=== PATIENT | male | born 1990 | race Two or more races ===

== ENCOUNTER 2020-08-19 17:18 | Inpatient (IN) | payer MEDICAID, SELFPAY ==
--- NOTE | ~2020-08-19 | CT_ITS ---
EXAMINATION: CT ABDOMEN AND PELVIS WITHOUT CONTRAST CLINICAL INFORMATION: ruq pain, abd distention . COMPARISON: 11/15/2015 ultrasound. TECHNIQUE: Multidetector volumetric imaging was performed from the superior aspect of the liver through the pubic symphysis without contrast per request. Sagittal and coronal reformatted images were obtained on the technologist workstation. This CT examination was performed using dose optimization techniques as appropriate, variously including the following: *Automated exposure control *Adjustment of mA and/or kV according to patient size (this includes techniques or standardized protocols for targeted exams where dose is matched to indication/reason for exam; i.e. extremities or head) *Use of iterative reconstruction technique DLP: 965 mGy-cm. FINDINGS: LUNG BASES: The visualized lung bases are unremarkable. LIVER, GALLBLADDER, BILIARY TREE: There is diffuse fatty infiltration of the liver but no focal hepatic lesion nor biliary ductal dilatation. Scattered regions of focal fatty sparing are seen abutting the gallbladder fossa. The gallbladder is unremarkable with no evidence of radiopaque gallstones, gallbladder wall thickening, or obvious pericholecystic inflammatory changes. PANCREAS: There is fullness to the region the pancreatic head with peripancreatic soft tissue stranding and a small amount of fluid tracking along the right anterior pararenal space likely representing sequela of focal pancreatitis. I do not appreciate any evidence for pancreatic necrosis. Pancreatic duct is normal in caliber. SPLEEN: Unremarkable. ADRENAL GLANDS: Unremarkable. KIDNEYS AND URETERS: The kidneys are normal in size, shape, and attenuation. No hydronephrosis, hydroureter, or calculi seen. No perinephric stranding. BLADDER: Unremarkable. GASTROINTESTINAL TRACT: The small and large bowel are unremarkable. The appendix is unremarkable. ABDOMINAL WALL: No significant hernia is appreciated. LYMPHOVASCULAR STRUCTURES: No lymphadenopathy. The aorta is unremarkable.. PELVIC VISCERA: Unremarkable. OSSEUS STRUCTURES: Unremarkable. CT/CT abdomen pelvis wo con IMPRESSION: Findings most consistent with acute interstitial pancreatitis of the pancreatic head. There is mild fullness in this region with surrounding peripancreatic stranding and fluid. No obstructive changes seen to the pancreatic duct. Diffuse fatty infiltration of the liver noted as well.
[2020-08-19 17:24] VITALS: BP 206/101; PULSE 110; RESP 18; TEMP 36.9; O2SAT 98; BMI 46.5
--- NOTE | 2020-08-19 20:11 | ED_ITS ---
HPI - Abdominal Pain General Chief Complaint: Abdominal Pain Stated Complaint: Abdominal pain Time Seen by Provider: 08/19/20 22:18 Source: patient Mode of arrival: ambulatory Limitations: no limitations History of Present Illness HPI narrative: 20-year-old male with prediabetes presents with 1 day of right upper quadrant pain radiating to his back with nausea. States that this pain is a 10/10, he was unable to alleviated with [id number] medications. He has not been feeling the best over the past 2 months and recently changed his diet to low-fat diet. He has had intermittent episodes of diaphoresis with his nausea. He does not drink alcohol, denies illicit drug use, denies chest pain and pressure, palpitations, shortness breath, abdominal distention, dysuria, hematuria, melena, hematochezia, vomiting, constipation, diarrhea, dizziness, lightheadedness, fevers, chills, and edema. MD elicited complaint: abdominal pain Pertinent past history: none Onset (ago): day(s) (1) Pain Consistency: constant Location: RUQ Severity: severe Pain scale (0-10): 9 Quality: stabbing, aching and fullness Radiation: L flank and back Exacerbating factors: eating and movement Relieving factors: nothing Associated symptoms: nausea and chills Treatments prior to arrival: NSAIDs Related Data Home Medications Medication Instructions Recorded Confirmed No Known Home Meds 08/19/20 08/19/20 Allergies Allergy/AdvReac Type Severity Reaction Status Date / Time No Known Allergies Allergy Unverified 12/18/19 16:38 [No Known Allergies*] Review of Systems Review of Systems Constitutional: No Weight loss, No Fever, No Chills, No Night Sweats, No Fatigue, No Malaise ENT/Mouth: No Hearing loss, No Ear Pain, No Nasal Congestion, No Sinus Pain, No Hoarseness, No sore throat, No Rhinorrhea, No Swallowing Difficulty Eyes: No Eye Pain, No Swelling, No Redness, No Foreign Body, No Discharge, No Vision Changes Cardiovascular: No Chest Pain, No SOB, No Dyspnea on Exertion, No Orthopnea, No Edema, No Palpitations Respiratory: No Cough, No Sputum, No Wheezing, No Smoke Exposure, No Dyspnea Gastrointestinal: Positive Nausea, no Vomiting, no Diarrhea, positive right upper quadrant abdominal Pain, No Hematochezia, No Melena Genitourinary: no irregular bleeding, No Dysuria, No Urinary Frequency, No Hematuria, No Urinary Incontinence, No Urgency, No Flank Pain, No Urinary Flow Changes, No Hesitancy Musculoskeletal: No joint pain, No Myalgias, No Joint Swelling Skin: No Skin Lesions, No rash Neuro: No Weakness, No Numbness, No Paresthesias, No Loss of Consciousness, No Dizziness, No Headache Psych: No Anxiety/Panic, No Depression, No SI/HI/AH/VH, No Social Issues Heme/Lymph: No Bruising, No Bleeding,No Lymphadenopathy Endocrine: No Polyuria, No Polydipsia, No Temperature Intolerance Yes all other systems are reviewed and are negative Physical Exam Vital Signs: Vital Signs: Last Vital Signs Temp 98.7 F 08/20/20 00:00 Pulse 98 08/20/20 01:00 Resp 20 08/20/20 01:00 BP 154/99 H 08/20/20 01:00 Pulse Ox 94 08/20/20 01:00 Body Mass Index 46.5 Appearance: Alert. Oriented X3. Moderate distress. Head: Normal external exam. Normocephalic. Atraumatic. No Cedillo signs noted. No raccoon eyes noted Eyes: PERRLA. EOMI. Conjunctiva and sclera normal. Eyelids normal. ENT: TM's Normal. Pharynx normal. Uvula midline. Moist mucous membranes. No trismus noted. No drooling noted. No muffled voice noted. Neck: Normal inspection. Neck supple. No adenopathy. Thyroid Normal. No meningeal signs. No neck mass noted. CVS: Normal heart rate and rhythm. Heart sound normal. No murmurs noted. Pulses equal to all extremities. Respiratory: No respiratory distress. Painless inspiration. Breath sounds normal. No wheezes/rales/rhonchi noted. Chest nontender. No accessory muscle usage noted or decreased air movement noted. Abdomen: Soft and positive Moore's, tender to the right upper quadrant and epigastric area, Bowel sounds normal in all 4 quadrants. No distention noted. No organomegaly noted. No visible injury noted. Back: No CVA tenderness. Full range of motion noted. Skin: Skin warm and dry. Normal skin color. Normal skin turgor. No rashes/lesions/lacerations noted. Extremities: No lower extremity edema. Extremities exhibit normal range of motion. Extremities nontender. Neuro: cranial nerves 2-12 intact, no focal neural deficits, strength 5/5 to all extremities, No motor deficit. No sensory deficit. Course Course Course Narrative: 29-year-old male with prediabetes presents with 1 day of right upper quadrant pain and 2 months of not feeling well. Abdominal exam positive for Moore's, will order CT scan of the abdomen to rule out acute abdomen. Will order CBC, Chem 7, LFTs, lipase, will give fluids, morphine, and Zofran. CBC otherwise normal, sodium 134, glucose 363, lactic acid 1.1, bili 1.2, AST 50, lipase 174, triglycerides 1406. CT scan shows indication of pancreatic head inflammation consistent with pancreatitis. Discussion with hospitalist, hospitalist cannot accept this patient as triglycerides are over 1000. Discussion with ICU, plan to be admitted to ICU for acute pancreatitis. MDM - Abdominal Pain Differential Diagnosis Differential diagnosis: Likely abdominal pain, acute appendicitis, calculus of kidney and pancreatitis Differential diagnosis narrative:: Cholecystitis Medical Records Attestation: I reviewed the patient's medical records. Lab Data Attestation: I reviewed the patient's lab results. Result diagrams: 08/19/20 20:26 08/19/20 20:26 Labs: Lab Results 08/19/20 08/19/20 08/19/20 Range/Units 20:26 20:26 20:33 WBC 8.2 (4.8-10.8) X10*3/uL RBC 6.14 H (4.60-5.80) X10*6/uL Hgb 15.7 (14.0-18.0) g/dl Hct 47.0 (42-52) % MCV 76.5 L (80-98) fL MCH 25.6 L (27.0-33.0) pg MCHC 33.4 (31.0-36.0) g/dl RDW 13.9 (11.0-16.0) % Plt Count 280 (160-400) X10*3/uL MPV 11.4 (9.4-12.4) fL Immature Gran % (Auto) 0.4 (0.0-0.4) % Neut % (Auto) 73.9 H (45-73) % Lymph % (Auto) 16.3 L (20-40) % Doddridge % (Auto) 7.3 (2-11) % Eos % (Auto) 1.5 (0-4) % Baso % (Auto) 0.6 (0-2) % Lymph # (Auto) 1.3 (1.2-4.9) X10*3/uL Dod[place]idge # (Auto) 0.6 (0.1-1.2) X10*3/uL Eos # (Auto) 0.1 (0.0-0.4) X10*3/uL Baso # (Auto) 0.1 (0.0-0.2) X10*3/uL Abs Immat Gran (auto) 0.03 (0.00-0.03) X10*3/uL Absolute Neuts (auto) 6.1 (2.0-8.3) X10*3/uL Absolute Nucleated RBC 0.000 (0.0-0.012) X10*3/uL Nucleated RBC % (auto) 0.0 (0.0-0.2) /100WBC Sodium 134 L (135-145) mmol/L Potassium 4.4 (3.3-5.1) mmol/L Chloride 97 (96-108) mmol/L Carbon Dioxide 21 L (22-29) mmol/L Anion Gap 20 (12-20) BUN 16 (9-16) mg/dL Creatinine 1.26 (0.5-1.4) mg/dL Estim Creat Clear Calc 121.8 Estimated GFR > 60 Random Glucose 363 H* (60-115) mg/dL Lactic Acid 1.1 (0.5-2.0) mmol/L Calcium 10.7 H (8.4-10.2) mg/dL Total Bilirubin 1.2 H (0.0-1.0) mg/dL AST 29 (5-37) U/L ALT 50 H (0-40) U/L Alkaline Phosphatase 96 (39-117) U/L Total Protein 8.9 H (6.5-8.0) g/dL Albumin 5.2 H (3.5-5.0) g/dL Triglycerides 1406 mg/dL Lipase 174 H (8-78) U/L Imaging Data CT scan - abdomen: Attestation: I personally reviewed and interpreted this imaging study as follows: Radiologist's impression: EXAMINATION: CT ABDOMEN AND PELVIS WITHOUT CONTRAST CLINICAL INFORMATION: ruq pain, abd distention . COMPARISON: 11/15/2015 ultrasound. TECHNIQUE: Multidetector volumetric imaging was performed from the superior aspect of the liver through the pubic symphysis without contrast per request. Sagittal and coronal reformatted images were obtained on the technologist workstation. This CT examination was performed using dose optimization techniques as appropriate, variously including the following: *Automated exposure control *Adjustment of mA and/or kV according to patient size (this includes techniques or standardized protocols for targeted exams where dose is matched to indication/reason for exam; i.e. extremities or head) *Use of iterative reconstruction technique DLP: 965 mGy-cm. FINDINGS: LUNG BASES: The visualized lung bases are unremarkable. LIVER, GALLBLADDER, BILIARY TREE: There is diffuse fatty infiltration of the liver but no focal hepatic lesion nor biliary ductal dilatation. Scattered regions of focal fatty sparing are seen abutting the gallbladder fossa. The gallbladder is unremarkable with no evidence of radiopaque gallstones, gallbladder wall thickening, or obvious pericholecystic inflammatory changes. PANCREAS: There is fullness to the region the pancreatic head with peripancreatic soft tissue stranding and a small amount of fluid tracking along the right anterior pararenal space likely representing sequela of focal pancreatitis. I do not appreciate any evidence for pancreatic necrosis. Pancreatic duct is normal in caliber. SPLEEN: Unremarkable. ADRENAL GLANDS: Unremarkable. KIDNEYS AND URETERS: The kidneys are normal in size, shape, and attenuation. No hydronephrosis, hydroureter, or calculi seen. No perinephric stranding. BLADDER: Unremarkable. GASTROINTESTINAL TRACT: The small and large bowel are unremarkable. The appendix is unremarkable. ABDOMINAL WALL: No significant hernia is appreciated. LYMPHOVASCULAR STRUCTURES: No lymphadenopathy. The aorta is unremarkable.. PELVIC VISCERA: Unremarkable. OSSEUS STRUCTURES: Unremarkable. CT/CT abdomen pelvis wo con IMPRESSION: Findings most consistent with acute interstitial pancreatitis of the pancreatic head. There is mild fullness in this region with surrounding peripancreatic stranding and fluid. No obstructive changes seen to the pancreatic duct. Diffuse fatty infiltration of the liver noted as well. Critical Care Time Critical Care Time Critical Care Time: Yes Total Critical Care Time: 65 Attestation: I have personally provided critical care time exclusive of time spent on separately billable procedures. Time includes review of laboratory data, radiology results, discussion with consultants, and monitoring for potential decompensation. Interventions were performed as documented. Discharge Plan Discharge Clinical Impression: High triglycerides Pancreatitis Qualifiers: Chronicity: acute Pancreatitis type: unspecified pancreatitis type Acute pancreatitis complication: unspecified Qualified Code(s): K85.90 - Acute pancreatitis without necrosis or infection, unspecified Patient Disposition: Admitted As Inpatient Interventions: Admission Worksheet (ED) Last Done: 08/20/20 00:24 Discharge Date/Time: 08/20/20 00:25 [facility] Past Medical History Attestation statement: The following information was validated with the patient. Source: old records reviewed Social History Social History Alcohol intake: never Smoking Status: Never smoker Smoked in Last 30 Days: No Use of substances other than those prescribed or required for medical reasons: No Advance Directives: No Advance Directives Information Provided: No
[2020-08-19 20:31] LABS: Basophils Absolute Auto 0.1 X10*3/uL (0.0-0.2); Basophils Percent Auto 0.6 % (0-2); Eosinophils Absolute Auto 0.1 X10*3/uL (0.0-0.4); Eosinophils Percent Auto 1.5 % (0-4); Hemoglobin 15.7 g/dl (14.0-18.0); Imm Gran Abs Auto 0.03 X10*3/uL (0.00-0.03); Imm Gran Pct Auto 0.4 % (0.0-0.4); Lymphocytes Absolute Auto 1.3 X10*3/uL (1.2-4.9); Lymphocytes Percent Auto 16.3 % (20-40); MANUAL DIFF FLAG NO; Mean Corpuscular HGB Conc 33.4 g/dl (31.0-36.0); Mean Corpuscular Hemoglobin 25.6 pg (27.0-33.0); Mean Corpuscular Volume 76.5 fL (80-98); Mean Platelet Volume 11.4 fL (9.4-12.4); Monocytes Absolute Auto 0.6 X10*3/uL (0.1-1.2); Monocytes Percent Auto 7.3 % (2-11); Neutrophils Absolute Auto 6.1 X10*3/uL (2.0-8.3); Neutrophils Percent Auto 73.9 % (45-73); Platelet Count 280 X10*3/uL (160-400); Red Blood Count 6.14 X10*6/uL (4.60-5.80); Red Cell Distribution Width 13.9 % (11.0-16.0); White Blood Count 8.2 X10*3/uL (4.8-10.8)
[2020-08-19 20:36] VITALS: RESP 16
[2020-08-19] MEDS: 0.9 % Sodium Chloride 1,000 ML 999 ML IV (20:36)
[2020-08-19] MEDS: ondansetron HCL 4 MG/2 ML VIAL IVPUSH (20:36)
[2020-08-19] MEDS: Morphine Sulfate 4 MG/ML CARTRIDGE IVPUSH (20:36)
--- NOTE | 2020-08-19 20:42 | PC.NURSE ---
iv access obtained, first set of blood cultures drawn. patient medicated per emar and taken to ct scan. patient having waves of abd pain to the upper right quadrant.
[2020-08-19 20:55] VITALS: BP 145/93; PULSE 98; RESP 18; TEMP 36.9; O2SAT 97
[2020-08-19 21:03] LABS: Lactic Acid 1.1 mmol/L (0.5-2.0)
[2020-08-19 21:13] LABS: Alanine Aminotransferase 50 U/L (0-40); Albumin Level 5.2 g/dL (3.5-5.0); Alkaline Phosphatase 96 U/L (39-117); Anion Gap 20 (12-20); Aspartate Amino Transferase 29 U/L (5-37); Bilirubin Total 1.2 mg/dL (0.0-1.0); Blood Urea Nitrogen 16 mg/dL (9-16); Carbon Dioxide 21 mmol/L (22-29); Chloride 97 mmol/L (96-108); Creatinine Clr Calc Pharmacy 121.8; Estimated Glomerular Filt Rate > 60; Glucose Random 363 mg/dL (60-115); Potassium 4.4 mmol/L (3.3-5.1); Sodium 134 mmol/L (135-145); Total Protein 8.9 g/dL (6.5-8.0)
[2020-08-19 21:26] LABS: Calcium 10.7 mg/dL (8.4-10.2); Lipase 174 U/L (8-78)
[2020-08-19 22:07] LABS: Triglycerides 1406 mg/dL
--- NOTE | 2020-08-19 22:49 | PM.CCHP ---
History of Present Illness Date of Service: 08/20/20 HPI: 29-year-old patient with history of morbid obesity, who was toes about years ago that he was a prediabetic but this actually never been diagnosed and has never taken any medications for it. Patient states that he has been having some discomfort over the last couple of weeks in the right upper quadrant and epigastric area but it was waxing waning. Patient has been trying to change his diet over the last couple of weeks due to [place] however yesterday around 8:00 a.m. in the morning his pain became unbearable, he developed some nausea but no vomiting. Eventually his pain became so significant that he had to come to the emergency room. In the ER his workup revealed a normal white count, H&H of 15.7 and 47 platelets 280, sodium 134, potassium 4.4, carbon dioxide 21, anion gap 20, BUN 16, creatinine 1.26, random glucose 363. Calcium 10.7, lactic acid 1.1, lipase was 174, triglycerides 1406. He had a T of the abdomen and pelvis which showed acute interstitial pancreatitis of the pancreatic head with peripancreatic stranding and fluid. Urinalysis reveals proteinuria and glucosuria. COVID negative. ROS: Denies headache, no visual changes, lightheadedness or dizziness, no history of seizures or strokes, no history of eye or ear problems, no sore throat, cough or sputum production, denies shortness of breath, denies chest pain, palpitations, no coronary disease, pulmonary disease, no hemoptysis, denies any melena, hematochezia, liver or kidney problems, no dysuria, hematuria, no leg swelling, no history of DVT or PE. She has no travel and has not been contact with anybody with [facility]. All other review of systems negative. Past Medical History: As above Past Surgical History: None Family history: Noncontributory Social History: Lives at home, denies any alcohol, tobacco or drugs. CODE STATUS: Full code Allergies: No known drug allergies Home Medications: None PHYSICAL EXAM: VS: Blood pressure 150/98, heart rate 96, respirations 20 O2 sat 92% room air. ?General: Morbidly obese. Diaphoretic. Alert oriented x3 no acute distress. Speaking full sentences. Speech is well articulated, thought process is coherent. Following all commands. ?Skin: Intact, no lesions, edema, erythema, clubbing or cyanosis. No ulcers. ?HEENT: Head is normocephalic, atraumatic, pupils equal round reactive to light accommodation bilaterally. Extraocular movements appear intact. Buccal mucosa is dry. Neck is supple without lymphadenopathy. ?Cardiac: Clear S1-S2, no murmurs rubs or gallops. ?Pulmonary: Clear to auscultation, no wheezes, rales or rhonchi. ?Abdomen: Protuberant, positive bowel sounds in all 4 quadrants. Soft, tender to percussion over the epigastric and right upper quadrant. There is mild rebound tenderness and involuntary guarding therefore no direct or indirect outpatient was performed. There is no ecchymosis on the flanks or periumbilical area. ?Musculoskeletal: Moving all 4 extremities upon request a major joints, there is no crepitus or tenderness. The strength is 5/5 bilaterally and throughout all 4 extremities. There is no leg edema , no calf tenderness , no leg asymmetry. ?Neurologic: As above, cranial nerves 2-12 are grossly intact. No focal deficits noted. ?Motor strength as above. ?Vascular: 2+ pulses upper and lower extremities distally. SIGNIFICANT LABORATORY DATA: As above REVIEW OF IMAGES: CT abdomen and pelvis: Findings most consistent with acute interstitial pancreatitis of the pancreatic head. There is mild fullness in this region with surrounding peripancreatic stranding and fluid. No obstructive changes seen to the pancreatic duct. Diffuse fatty infiltration of the liver noted as well. ASSESSMENT AND PLAN: 1. Acute Pancreatitis due to Hypertriglyceremia 2. Hypertrigleceremia likely bad diet 3. Abdominal Pain due to above 4. Pseudohyponatremia due to Hyperglycemia 5. Borderline Hypercalcemia will obtain Ionized Ca+ level 6. Glucosuria and Protenuria 7. Uncontrolled DM without DKA 8. Non Alcoholic Fatty Liver Admit to ICU, monitor vital signs, I's and O's, NPO, IV insulin, he is not in DKA, will repeat labs and ordered ionized calcium. Continue IV fluids. I had a lengthy discussion with the patient about lifestyle changes including weight loss, exercise and dietary changes. He will need diabetic consult. Patient will need to be on a insulin drip regardless of the blood sugar for which D5 IV fluids can be given until the triglyceride levels come down to normal. GI PROPHYLAXIS: IV ppi DVT PROPHYLAXIS: Lovenox subQ Critical care time used for critical evaluation of this patient, diagnosis, treatment and coordination of care, review her records and documentation TOTAL CRITICAL CARE TIME 90 MIN . Patient's care was discussed in detail with Dr. Espinosa. He is aware of all the above as well as the plan of care for this patient. [facility] Social History Social History Alcohol intake: never Smoking Status: Never smoker Smoked in Last 30 Days: No Use of substances other than those prescribed or required for medical reasons: No Currently Displaying Signs/Symptoms of Drug Intoxication Withdrawal: No Advance Directives: No Advance Directives Information Provided: No Do you have thoughts of harming others: None Do you have a plan to hurt others: No Plan service: No Current occupational status: unemployed Meds Allergies Allergy/AdvReac Type Severity Reaction Status Date / Time No Known Allergies Allergy Unverified 12/18/19 16:38 [No Known Allergies*] Active Medications: Current Medications Generic Name Dose Route Start Last Admin Trade Name Freq PRN Reason Stop Dose Admin Enoxaparin Sodium 40 mg 08/19/20 23:00 Enoxaparin Sodium 40 Mg/0.4 Ml Syringe SUBCUT Q24H HUNTER Hydromorphone HCl 1 mg 08/19/20 22:37 Hydromorphone Hcl 1 Mg/Ml Syringe IVPUSH Q2H PRN Pain, Moderate (Pain Scale 4-6 Dextrose/Lactated Ringer's 1,000 mls @ 100 mls/hr 08/19/20 22:45 D5lr IVCONT .Q10H HUNTER Insulin Human Regular 100 unit in 100 mls @ 5 mls/hr 08/19/20 22:45 Myxredlin IVCONT .Q20H HUNTER Protocol 5 UNIT/HR Ondansetron HCl 4 mg 08/19/20 22:43 Ondansetron Hcl 4 Mg/2 Ml Vial IVPUSH Q6H PRN nausea Home Medications Medication Instructions Recorded Confirmed Last Taken Type No Known Home Meds 08/19/20 08/19/20 Unknown History Physical Exam Vital Signs: Vital Signs: Last Vital Signs Temp 98.5 F 08/19/20 20:55 Pulse 98 08/19/20 20:55 Resp 18 08/19/20 20:55 BP 145/93 H 05/20/21 20:55 Pulse Ox 97 08/19/20 20:55 Body Mass Index 46.5 Results Labs CBC and Chem 7: 08/20/20 05:28 08/20/20 05:28 Labs: Laboratory Results - last 24 hr 08/19/20 08/19/20 08/19/20 20:26 20:26 20:33 MCV 76.5 L MCH 25.6 L MCHC 33.4 RDW 13.9 Plt Count 280 MPV 11.4 Immature Gran % (Auto) 0.4 Neut % (Auto) 73.9 H Lymph % (Auto) 16.3 L [place]ting[place] % (Auto) 7.3 Eos % (Auto) 1.5 Baso % (Auto) 0.6 Lymph # (Auto) 1.3 [place]ting[place] # (Auto) 0.6 Eos # (Auto) 0.1 Baso # (Auto) 0.1 Abs Immat Gran (auto) 0.03 Absolute Neuts (auto) 6.1 Absolute Nucleated RBC 0.000 Nucleated RBC % (auto) 0.0 Anion Gap 20 Estim Creat Clear Calc 121.8 Estimated GFR > 60 Random Glucose 363 H* Lactic Acid 1.1 Calcium 10.7 H Total Bilirubin 1.2 H AST 29 ALT 50 H Alkaline Phosphatase 96 Total Protein 8.9 H Albumin 5.2 H Triglycerides 1406 Lipase 174 H Imaging Radiologist's Impressions: Impressions Abdomen/Pelvis CT 08/19/20 20:20 IMPRESSION: Findings most consistent with acute interstitial pancreatitis of the pancreatic head. There is mild fullness in this region with surrounding peripancreatic stranding and fluid. No obstructive changes seen to the pancreatic duct. Diffuse fatty infiltration of the liver noted as well.
[2020-08-19 22:56] LABS: Appearance Urine CLEAR; Color Urine YELLOW; Glucose Urine UA >=1000 MG/DL (NEG); Leukocyte Esterase Urine NEG (NEG); Nitrite Urine NEG (NEG); PH 5.5 (5.0-8.0); Specific Gravity - Urine >= 1.030 (1.005-1.025); Urine Blood NEG (NEG); Urine Ketones >=80 MG/DL (NEG); Urine Protein 1+ MG/DL (NEG-TRACE)
[2020-08-19 23:05] LABS: Bacteria Urine 1+ /LPF; RBC Urine 0 /HPF (0); Squamous Epithelial Cell Urine 1+ /LPF; WBC Urine 0 /HPF (0-4)
[2020-08-19 23:07] VITALS: RESP 16
[2020-08-19] MEDS: HYDROmorphone HCl 2 MG/ML VIAL IVPUSH (23:07)
[2020-08-19] MEDS: Enoxaparin Sodium 40 MG/0.4 ML SYRINGE SUBCUT (23:09)
[2020-08-19] MEDS: Pantoprazole Sodium 40 MG/10 ML VIAL IVPUSH (23:09)
[2020-08-19] MEDS: Insulin Regular, Human 100 UNIT/ML 3 ML VIAL IVPUSH (23:09)
[2020-08-19] MEDS: Dextrose 5 % and Lactated Ring 1,000 ML 100 ML IVCONT (23:19)
[2020-08-19 23:21] LABS: Glucose, Whole Blood 322 mg/dL (60-115)
[2020-08-19] MEDS: Insulin Regular/NS 100 UNIT/100 ML PLAST..BAG IVCONT (23:22)
--- NOTE | 2020-08-19 23:51 | PC.NURSE ---
PATIENT MEDICATED PER EMAR. STATING PAIN WAS 9/10 PROVIDER AWARE AND ORDERS FOR PAIN MEDICATION, GIVEN. PATIENT IS SWEATY AND UNCOMFORTABLE PRIOR TO ADMINISTRATION, PATIENT FALLING ASLEEP AND LOOKS MUCH MORE COMFORTABLE ON STRETCER, RESOLVE OF PAIN 0/10 AFTER PAIN MEDICATION. INSULIN DRIP HUNG AND WITNESSED BY RODRIGUE GRIFFIN. COVID SWAP SENT TO LAB AWAITING REUSLTS. REPORT GIVEN TO PURNIMA GRIFFIN IN ICU. AWAITING FOR COVID SWAB RESULTS BEFORE TRANSPORTING TO UNIT.
[2020-08-19 23:54] LABS: COVID-19 Test Negative (Negative); IDNOW Serial# 9DD0AD1C
[2020-08-20] VITALS (22 sets, daily range): BP systolic 134–186; BP diastolic 76–108; PULSE 83–121; RESP 12–25; TEMP 36.2–37.1; O2SAT 94–99; BMI 41.9; BMI 42.3
[2020-08-20 00:35] LABS: Glucose, Whole Blood 360 mg/dL (60-115)
[2020-08-20] MEDS: ondansetron HCL 4 MG/2 ML VIAL IVPUSH ×3 (00:40→21:36)
[2020-08-20] MEDS: Lactated Ringers 1,000 ML 100 ML IVCONT ×2 (01:00→10:29)
[2020-08-20 01:24] LABS: Glucose, Whole Blood 297 mg/dL (60-115)
[2020-08-20 01:56] LABS: Anion Gap 16 (12-20); Blood Urea Nitrogen 12 mg/dL (9-16); Calcium 9.4 mg/dL (8.4-10.2); Carbon Dioxide 21 mmol/L (22-29); Chloride 102 mmol/L (96-108); Creatinine Clr Calc Pharmacy 140.6; Estimated Glomerular Filt Rate > 60; Glucose Random 341 mg/dL (60-115); Potassium 4.4 mmol/L (3.3-5.1); Sodium 135 mmol/L (135-145)
[2020-08-20 02:18] LABS: Glucose, Whole Blood 305 mg/dL (60-115)
[2020-08-20 03:09] LABS: Glucose, Whole Blood 275 mg/dL (60-115)
[2020-08-20] MEDS: Metoclopramide HCl 10 MG/2 ML VIAL IVPUSH (03:30)
[2020-08-20 04:19] LABS: Glucose, Whole Blood 287 mg/dL (60-115)
--- NOTE | 2020-08-20 04:48 | PC.NURSE ---
ADMIT TO 261-1 FROM ER DEPT..ALERT..ORIENTED X3...FOREHEAD REMAINS DIAPHORETIC PER REPORT...AARON...STANDS AT BEDSIDE WITH STEADY GAIT TO VOID...BP ELEVATED--PROVIDER PRESENT AND AWARE---D5LR 100 CC/HR CHANGED TO LR 100 CC/HR BY ICU PA--INSULIN DRIP 5 UNITS/HR AT TRANSFER TO ICU--DRIP TITRATED PER ICU PA--INSULIN CURRENTLY @ 6 UNITS/HR--C/O NAUSEA---MEDICATED WITH PRN ZOFRAN WITH RELIEF--APPROX 3 HOURS LATER C/O RETURN OF NAUSEA--VOMITED SMALL AMOUNT OF BILE--PROVIDER PRESENT--MEDICATED WITH REGLAN IV--CURRENTLY DOZING
[2020-08-20 05:25] LABS: Glucose, Whole Blood 270 mg/dL (60-115)
[2020-08-20 05:38] LABS: MANUAL DIFF FLAG NO
[2020-08-20 05:45] LABS: Basophils Percent Auto 0.3 % (0-2); Eosinophils Percent Auto 0.3 % (0-4); Hematocrit 45.8 % (42-52); Hemoglobin 14.9 g/dl (14.0-18.0); Imm Gran Abs Auto 0.05 X10*3/uL (0.00-0.03); Imm Gran Pct Auto 0.5 % (0.0-0.4); Lymphocytes Absolute Auto 0.9 X10*3/uL (1.2-4.9); Lymphocytes Percent Auto 9.4 % (20-40); Mean Corpuscular HGB Conc 32.5 g/dl (31.0-36.0); Mean Corpuscular Hemoglobin 25.4 pg (27.0-33.0); Mean Platelet Volume 11.3 fL (9.4-12.4); Monocytes Absolute Auto 0.6 X10*3/uL (0.1-1.2); Monocytes Percent Auto 6.3 % (2-11); Neutrophils Absolute Auto 8.1 X10*3/uL (2.0-8.3); Neutrophils Percent Auto 83.2 % (45-73); Platelet Count 255 X10*3/uL (160-400); Red Blood Count 5.87 X10*6/uL (4.60-5.80); White Blood Count 9.8 X10*3/uL (4.8-10.8)
[2020-08-20] MEDS: Insulin Regular/NS 100 UNIT/100 ML PLAST..BAG 6 UNIT IVCONT (06:09)
[2020-08-20 06:10] LABS: Alanine Aminotransferase 42 U/L (0-40); Albumin Level 4.8 g/dL (3.5-5.0); Alkaline Phosphatase 84 U/L (39-117); Anion Gap 16 (12-20); Aspartate Amino Transferase 23 U/L (5-37); Bilirubin Total 1.1 mg/dL (0.0-1.0); Blood Urea Nitrogen 11 mg/dL (9-16); Calcium 9.7 mg/dL (8.4-10.2); Carbon Dioxide 21 mmol/L (22-29); Chloride 103 mmol/L (96-108); Cholesterol 201 mg/dL; Creatinine Clr Calc Pharmacy 129.3; Estimated Glomerular Filt Rate > 60; Glucose Random 293 mg/dL (60-115); HDL Cholesterol 19 mg/dL; Potassium 4.9 mmol/L (3.3-5.1); Sodium 135 mmol/L (135-145); Total Protein 7.8 g/dL (6.5-8.0); Triglycerides 883 mg/dL
[2020-08-20 06:24] LABS: Glucose, Whole Blood 269 mg/dL (60-115)
[2020-08-20 07:01] LABS: Lipase 189 U/L (8-78)
[2020-08-20 07:05] LABS: Glucose, Whole Blood 234 mg/dL (60-115)
[2020-08-20 08:01] LABS: Glucose, Whole Blood 251 mg/dL (60-115)
[2020-08-20] MEDS: lisinopriL 5 MG TABLET PO ×2 (08:36→14:11)
[2020-08-20 10:54] LABS: Glucose, Whole Blood 255 mg/dL (60-115)
--- NOTE | 2020-08-20 12:32 | MHC.CM.PN ---
Pt presently in ICU with new DM findings. Met with pt to discuss d/c planning: Pt resides with spouse and children: no services or medical equipment in the home. Discussed new dx of diabetes and need for outpt f/u and adherence to medications/diet. Pt states he is motivated and offered no barriers to compliance. Pt will need teaching re: management: updated MD on need for outpt endocrinology. Pt drove self to [facility] [place] but will have family transport him home. He is not a candidate for VNA d/t his non housebound status. CM to follow should pt require services.
[2020-08-20 13:09] LABS: Estimated Average Glucose 286 mg/dL; Hemoglobin A1c % 11.6 %
--- NOTE | 2020-08-20 13:43 | PM.CCPN ---
Subjective Subjective Date of Service: 08/20/20 Interval History: Mr. Scott Kurtz was admitted to ICU late last night with hypertriglyceridemia-induced pancreatitis. The patient is a 29-year-old man with history of morbid obesity (wt 130kg) and ?prediabetes?. Been having abdom discomfort over the last couple of weeks. Pain became unbearable yesterday, w nausea but no vomiting. The pain radiated to his left flank and back. He does not drink alcohol or use drugs. This has never happened to him before. He therefore came to the emergency room yesterday afternoon. In the ER he was afebrile and hypertensive. He had right upper quadrant and epigastric tenderness. Labs in the ED were notable for a normal white count, sodium 134, bicarb 21, anion gap 20, BUN/creat 16/1.26 (was 0.8 in 2018), glucose 363, lipase 174, triglycerides 1406 (was 159 in 2011, 149 in 2009). CT abdomen showed acute interstitial pancreatitis of the pancreatic head with peripancreatic stranding and fluid. The patient was vol resusc and admitted to ICU. He was put on an insulin drip. Overnight his insulin drip has been increased to 10u/hr, and at that dose, he?s maintaining a POC in the 250?s range. This morning, his abdominal pain is much better. He?s fully awake alert and appropriate, and gave me a great history. Breathing easy with sat mid-high 90s on room air. Heart rate is 110, blood pressure is 146/85. He remains afebrile. No jugular venous distention with the head of the bed at 30 degrees. Chest is clear. Abdomen is nondistended, still has some mild right upper quadrant tenderness, but no guarding or rebound. No peripheral edema. Very well-developed, with excellent muscle mass. LABORATORY DATA: As below. Notably, Hemoglobin A1c is 11.6. BUN and creatinine down to 11/1.1, glucose this morning was 293, T bili was 1.1, triglyceride level was 883, lipase earlier this morning was 189. ASSESSMENT AND PLAN: 1. Morbid obesity due to dietary indiscretion. 2. Acute Pancreatitis due to hypertriglyceremia. Based on levels from years past, not likely (entirely) familial. Probably could be controlled with diet. For now, we?ll start him on atorvastatin 80 mg daily. 3. Abdominal Pain due to above 4. Uncontrolled DM without DKA. Start metformin 850 mg daily. 5. HTN. Will also likely resolve post weight-loss. In the meantime, d/w Dr. Chavez. We?ll start Lisinopril 10mg daily, and Dr. Chavez will see him in the office. I talked with the patient at length about his DM, his HTN, his triglycerides and his weight. D/C IV fluids. D/C Lovenox; he?s up and walking around, very low risk, needs no pharmacological or mechanical DVT prophylaxis. Time: 60+ min. (26015) Critical Care Time (minutes): 0 Physical Exam Vital Signs: Vital Signs: Last Vital Signs Temp 98.2 F 08/20/20 12:00 Pulse 83 08/20/20 13:00 Resp 16 08/20/20 13:00 BP 148/76 H 08/20/20 13:00 Pulse Ox 99 08/20/20 13:00 Body Mass Index 42.3 Objective Data Labs CBC & Chem 7: 08/20/20 05:28 08/20/20 05:28 Labs: Laboratory Results - last 24 hr 08/19/20 08/19/20 08/19/20 20:26 20:26 20:33 WBC 8.2 RBC 6.14 H Hgb 15.7 Hct 47.0 MCV 76.5 L MCH 25.6 L MCHC 33.4 RDW 13.9 Plt Count 280 MPV 11.4 Immature Gran % (Auto) 0.4 Neut % (Auto) 73.9 H Lymph % (Auto) 16.3 L [place] % (Auto) 7.3 Eos % (Auto) 1.5 Baso % (Auto) 0.6 Lymph # (Auto) 1.3 [place] # (Auto) 0.6 Eos # (Auto) 0.1 Baso # (Auto) 0.1 Abs Immat Gran (auto) 0.03 Absolute Neuts (auto) 6.1 Absolute Nucleated RBC 0.000 Nucleated RBC % (auto) 0.0 Sodium 134 L Potassium 4.4 Chloride 97 Carbon Dioxide 21 L Anion Gap 20 BUN 16 Creatinine 1.26 Estim Creat Clear Calc 121.8 Estimated GFR > 60 POC Glucose Random Glucose 363 H* Estimat Average Glucose Hemoglobin A1c % Lactic Acid 1.1 Calcium 10.7 H Total Bilirubin 1.2 H AST 29 ALT 50 H Alkaline Phosphatase 96 Total Protein 8.9 H Albumin 5.2 H Triglycerides 1406 Cholesterol LDL Cholesterol, Calc HDL Cholesterol Lipase 174 H Urine Color Urine Appearance Urine pH Ur Specific [place] Urine Protein Urine Glucose (UA) Urine Ketones Urine Blood Urine Nitrite Ur Leukocyte Esterase Urine RBC Urine WBC Ur Squamous Epith Cells Urine Bacteria Hyaline Casts COVID-19 ([place]) COVID-19 Clin Com 08/19/20 08/19/20 08/19/20 22:49 23:17 23:36 WBC RBC Hgb Hct MCV MCH MCHC RDW Plt Count MPV Immature Gran % (Auto) Neut % (Auto) Lymph % (Auto) [place] % (Auto) Eos % (Auto) Baso % (Auto) Lymph # (Auto) [place] # (Auto) Eos # (Auto) Baso # (Auto) Abs Immat Gran (auto) Absolute Neuts (auto) Absolute Nucleated RBC Nucleated RBC % (auto) Sodium Potassium Chloride Carbon Dioxide Anion Gap BUN Creatinine Estim Creat Clear Calc Estimated GFR POC Glucose 322 H Random Glucose Estimat Average Glucose Hemoglobin A1c % Lactic Acid Calcium Total Bilirubin AST ALT Alkaline Phosphatase Total Protein Albumin Triglycerides Cholesterol LDL Cholesterol, Calc HDL Cholesterol Lipase Urine Color YELLOW Urine Appearance CLEAR Urine pH 5.5 Ur Specific [place] >= 1.030 H Urine Protein 1+ H Urine Glucose (UA) >=1000 H Urine Ketones >=80 Urine Blood NEG Urine Nitrite NEG Ur Leukocyte Esterase NEG Urine RBC 0 Urine WBC 0 Ur Squamous Epith Cells 1+ Urine Bacteria 1+ Hyaline Casts 1-4 COVID-19 ([place]) Negative COVID-19 Clin Com See Note 08/20/20 08/20/20 08/20/20 00:29 01:19 01:21 WBC RBC Hgb Hct MCV MCH MCHC RDW Plt Count MPV Immature Gran % (Auto) Neut % (Auto) Lymph % (Auto) [place] % (Auto) Eos % (Auto) Baso % (Auto) Lymph # (Auto) [place] # (Auto) Eos # (Auto) Baso # (Auto) Abs Immat Gran (auto) Absolute Neuts (auto) Absolute Nucleated RBC Nucleated RBC % (auto) Sodium 135 Potassium 4.4 Chloride 102 Carbon Dioxide 21 L Anion Gap 16 BUN 12 Creatinine 1.03 Estim Creat Clear Calc 140.6 Estimated GFR > 60 POC Glucose 360 H* 297 H Random Glucose 341 H Estimat Average Glucose Hemoglobin A1c % Lactic Acid Calcium 9.4 D Total Bilirubin AST ALT Alkaline Phosphatase Total Protein Albumin Triglycerides Cholesterol LDL Cholesterol, Calc HDL Cholesterol Lipase 189 H Urine Color Urine Appearance Urine pH Ur Specific [place] Urine Protein Urine Glucose (UA) Urine Ketones Urine Blood Urine Nitrite Ur Leukocyte Esterase Urine RBC Urine WBC Ur Squamous Epith Cells Urine Bacteria Hyaline Casts COVID-19 ([place]) COVID-19 [employer] 08/20/20 08/20/20 08/20/20 02:06 03:01 04:15 WBC RBC Hgb Hct MCV MCH MCHC RDW Plt Count MPV Immature Gran % (Auto) Neut % (Auto) Lymph % (Auto) [place] % (Auto) Eos % (Auto) Baso % (Auto) Lymph # (Auto) [place] # (Auto) Eos # (Auto) Baso # (Auto) Abs Immat Gran (auto) Absolute Neuts (auto) Absolute Nucleated RBC Nucleated RBC % (auto) Sodium Potassium Chloride Carbon Dioxide Anion Gap BUN Creatinine Estim Creat Clear Calc Estimated GFR POC Glucose 305 H 275 H 287 H Random Glucose Estimat Average Glucose Hemoglobin A1c % Lactic Acid Calcium Total Bilirubin AST ALT Alkaline Phosphatase Total Protein Albumin Triglycerides Cholesterol LDL Cholesterol, Calc HDL Cholesterol Lipase Urine Color Urine Appearance Urine pH Ur Specific [place] Urine Protein Urine Glucose (UA) Urine Ketones Urine Blood Urine Nitrite Ur Leukocyte Esterase Urine RBC Urine WBC Ur Squamous Epith Cells Urine Bacteria Hyaline Casts COVID-19 ([place]) COVID-19 [employer] 08/20/20 08/20/20 08/20/20 05:19 05:28 05:28 WBC 9.8 RBC 5.87 H Hgb 14.9 Hct 45.8 MCV 78.0 L MCH 25.4 L MCHC 32.5 RDW 14.0 Plt Count 255 MPV 11.3 Immature Gran % (Auto) 0.5 H Neut % (Auto) 83.2 H Lymph % (Auto) 9.4 L [place] % (Auto) 6.3 Eos % (Auto) 0.3 Baso % (Auto) 0.3 Lymph # (Auto) 0.9 L [place] # (Auto) 0.6 Eos # (Auto) 0.0 Baso # (Auto) 0.0 Abs Immat Gran (auto) 0.05 H Absolute Neuts (auto) 8.1 Absolute Nucleated RBC 0.000 Nucleated RBC % (auto) 0.0 Sodium 135 Potassium 4.9 Chloride 103 Carbon Dioxide 21 L Anion Gap 16 BUN 11 Creatinine 1.12 Estim Creat Clear Calc 129.3 Estimated GFR > 60 POC Glucose 270 H Random Glucose 293 H Estimat Average Glucose Hemoglobin A1c % Lactic Acid Calcium 9.7 Total Bilirubin 1.1 H AST 23 ALT 42 H Alkaline Phosphatase 84 Total Protein 7.8 Albumin 4.8 Triglycerides 883 Cholesterol 201 LDL Cholesterol, Calc TNP HDL Cholesterol 19 Lipase Urine Color Urine Appearance Urine pH Ur Specific [place] Urine Protein Urine Glucose (UA) Urine Ketones Urine Blood Urine Nitrite Ur Leukocyte Esterase Urine RBC Urine WBC Ur Squamous Epith Cells Urine Bacteria Hyaline Casts COVID-19 ([place]) COVID-19 [employer] 08/20/20 08/20/20 08/20/20 05:28 06:17 07:01 WBC RBC Hgb Hct MCV MCH MCHC RDW Plt Count MPV Immature Gran % (Auto) Neut % (Auto) Lymph % (Auto) [place] % (Auto) Eos % (Auto) Baso % (Auto) Lymph # (Auto) [place] # (Auto) Eos # (Auto) Baso # (Auto) Abs Immat Gran (auto) Absolute Neuts (auto) Absolute Nucleated RBC Nucleated RBC % (auto) Sodium Potassium Chloride Carbon Dioxide Anion Gap BUN Creatinine Estim Creat Clear Calc Estimated GFR POC Glucose 269 H 234 H Random Glucose Estimat Average Glucose 286 Hemoglobin A1c % 11.6 Lactic Acid Calcium Total Bilirubin AST ALT Alkaline Phosphatase Total Protein Albumin Triglycerides Cholesterol LDL Cholesterol, Calc HDL Cholesterol Lipase Urine Color Urine Appearance Urine pH Ur Specific [place] Urine Protein Urine Glucose (UA) Urine Ketones Urine Blood Urine Nitrite Ur Leukocyte Esterase Urine RBC Urine WBC Ur Squamous Epith Cells Urine Bacteria Hyaline Casts COVID-19 ([place]) COVID-19 [employer] 08/20/20 08/20/20 07:58 10:51 WBC RBC Hgb Hct MCV MCH MCHC RDW Plt Count MPV Immature Gran % (Auto) Neut % (Auto) Lymph % (Auto) [place] % (Auto) Eos % (Auto) Baso % (Auto) Lymph # (Auto) [place] # (Auto) Eos # (Auto) Baso # (Auto) Abs Immat Gran (auto) Absolute Neuts (auto) Absolute Nucleated RBC Nucleated RBC % (auto) Sodium Potassium Chloride Carbon Dioxide Anion Gap BUN Creatinine Estim Creat Clear Calc Estimated GFR POC Glucose 251 H 255 H Random Glucose Estimat Average Glucose Hemoglobin A1c % Lactic Acid Calcium Total Bilirubin AST ALT Alkaline Phosphatase Total Protein Albumin Triglycerides Cholesterol LDL Cholesterol, Calc HDL Cholesterol Lipase Urine Color Urine Appearance Urine pH Ur Specific [place] Urine Protein Urine Glucose (UA) Urine Ketones Urine Blood Urine Nitrite Ur Leukocyte Esterase Urine RBC Urine WBC Ur Squamous Epith Cells Urine Bacteria Hyaline Casts COVID-19 ([place]) COVID-19 Clin Com
[2020-08-20] MEDS: Atorvastatin Calcium 80 MG TABLET PO (14:11)
[2020-08-20] MEDS: metFORMIN HCl 850 MG TABLET PO (14:12)
[2020-08-20 14:34] LABS: Phosphorus 3.7 mg/dL (2.7-4.5)
[2020-08-20 15:05] LABS: Glucose, Whole Blood 203 mg/dL (60-115)
[2020-08-20 16:02] LABS: Magnesium 2.2 mg/dL (1.6-2.6)
[2020-08-20 16:12] LABS: Glucose, Whole Blood 171 mg/dL (60-115)
[2020-08-20] MEDS: Insulin Regular/NS 100 UNIT/100 ML PLAST..BAG 10 UNIT IVCONT (16:15)
--- NOTE | 2020-08-20 18:43 | PC.NURSE ---
Assumed care at 0700; patient is alert and oriented, responds appropriately. Insulin gtt continues, titrated per MD directions, in use largely to treat elevated triglycerides. Started metformin; Started atorvastatin, started lisinopril as BP was 160's/100's, and lisinopril uptitrated by provider to 10 mg, and systolic bp was 140's afterwards. Patient ambulated through the unit and was out of bed in the chair for the majority of the day. Low falls risk, steady gait. RUQ pain 5-6/10 and epigastric pain declined PRN medication when offered. educated about medications with good teachback
[2020-08-20 19:35] LABS: Glucose, Whole Blood 194 mg/dL (60-115)
[2020-08-20] MEDS: HYDROmorphone HCl 1 MG/ML SYRINGE IVPUSH (21:31)
[2020-08-20] MEDS: Melatonin 3 MG TABLET 6 MG PO (21:31)
[2020-08-20 23:10] LABS: Glucose, Whole Blood 188 mg/dL (60-115)
[2020-08-21] VITALS (13 sets, daily range): BP systolic 131–153; BP diastolic 72–94; PULSE 18–107; RESP 16–24; TEMP 36.4–37.1; O2SAT 94–100; BMI 42.3
[2020-08-21 03:10] LABS: Glucose, Whole Blood 170 mg/dL (60-115)
[2020-08-21] MEDS: HYDROmorphone HCl 1 MG/ML SYRINGE IVPUSH (03:11)
[2020-08-21 06:05] LABS: MANUAL DIFF FLAG NO
[2020-08-21 06:11] LABS: Basophils Absolute Auto 0.1 X10*3/uL (0.0-0.2); Basophils Percent Auto 0.6 % (0-2); Eosinophils Absolute Auto 0.2 X10*3/uL (0.0-0.4); Eosinophils Percent Auto 1.7 % (0-4); Hematocrit 42.1 % (42-52); Hemoglobin 13.5 g/dl (14.0-18.0); Imm Gran Abs Auto 0.05 X10*3/uL (0.00-0.03); Imm Gran Pct Auto 0.6 % (0.0-0.4); Lymphocytes Absolute Auto 1.6 X10*3/uL (1.2-4.9); Lymphocytes Percent Auto 17.6 % (20-40); Mean Corpuscular HGB Conc 32.1 g/dl (31.0-36.0); Mean Corpuscular Hemoglobin 25.3 pg (27.0-33.0); Mean Corpuscular Volume 78.8 fL (80-98); Monocytes Absolute Auto 0.8 X10*3/uL (0.1-1.2); Monocytes Percent Auto 9.2 % (2-11); Neutrophils Absolute Auto 6.3 X10*3/uL (2.0-8.3); Neutrophils Percent Auto 70.3 % (45-73); Platelet Count 229 X10*3/uL (160-400); Red Blood Count 5.34 X10*6/uL (4.60-5.80); Red Cell Distribution Width 14.6 % (11.0-16.0)
[2020-08-21 06:44] LABS: Alanine Aminotransferase 33 U/L (0-40); Albumin Level 4.2 g/dL (3.5-5.0); Alkaline Phosphatase 70 U/L (39-117); Anion Gap 13 (12-20); Aspartate Amino Transferase 20 U/L (5-37); Bilirubin Total 1.7 mg/dL (0.0-1.0); Blood Urea Nitrogen 10 mg/dL (9-16); Carbon Dioxide 25 mmol/L (22-29); Chloride 103 mmol/L (96-108); Creatinine Clr Calc Pharmacy 156.7; Estimated Glomerular Filt Rate > 60; Glucose Random 180 mg/dL (60-115); Lipase 172 U/L (8-78); Magnesium 1.9 mg/dL (1.6-2.6); Phosphorus 3.4 mg/dL (2.7-4.5); Potassium 3.7 mmol/L (3.3-5.1); Sodium 137 mmol/L (135-145); Total Protein 6.8 g/dL (6.5-8.0); Triglycerides 392 mg/dL
[2020-08-21 07:04] LABS: Glucose, Whole Blood 183 mg/dL (60-115)
[2020-08-21] MEDS: lisinopriL 10 MG TABLET PO (08:06)
[2020-08-21] MEDS: Insulin Glargine,Hum.rec.anlog 100 UNIT/ML 10 ML VIAL 40 UNIT SUBCUT (09:41)
--- NOTE | 2020-08-21 09:49 | P.PNCC_ITS ---
Subjective Subjective Date of Service: 08/21/20 Interval History: Mr. Scott Kurtz was admitted to ICU August 19 with hypertriglyceridemia- induced pancreatitis. The patient is a 29-year-old man with history of morbid obesity (wt 130kg) and ?prediabetes?. He?d been having abdom discomfort over the last couple of weeks. The pain became unbearable on 08/19, w nausea but no vomiting. He does not drink alcohol or use drugs. This has never happened to him before. He therefore presented to the emergency room that afternoon. In the ER he was afebrile and hypertensive. He had right upper quadrant and epigastric tenderness. Labs in the ED were notable for a normal white count, s odium 134, bicarb 21, anion gap 20, BUN/creat 16/1.26 (was 0.8 in 2018), glucose 363, lipase 174, triglycerides 1406 (was 159 in 2011, 149 in 2009). CT abdomen showed acute interstitial pancreatitis of the pancreatic head with peripancreatic stranding and fluid. The patient was vol resusc and admitted to ICU. He was put on an insulin drip. He demonstrated significant insulin resistance, requiring insulin drip rates up to 10u/hr to keep his POC in the 250?s range. He was also started on Lisinopril for uncontrolled HTN. Yesterday, we started him on atorvastatin and metformin and d/c?d his IV fluids and put him on a diabetic diet. Overnight his insulin drip was decreased to 4u/hr, and then 2u/hr early this morning. At 9am this morning we started him on Lantus 40 u daily and SSI. The insulin drip has been d/c?d. This morning, he?s up and walking around. His abdominal pain is much better, I?m able to palpate his RUQ without eliciting a grimace. Looks thoroughly well. HR 100, BP 152/89, breathing easy with Sat mid-high 90?s on room air. Afebrile. No edema. LABORATORY DATA: As below. Notably, BUN and creatinine down further to 10/0.9, glucose this morning was 180, T bili was 1.7, triglyceride down to 392, lipase down to 172. ASSESSMENT AND PLAN: 1. Morbid obesity due to dietary indiscretion. 2. Acute Pancreatitis due to hypertriglyceremia. Based on triglyceride levels from years past, not likely (entirely) familial. Probably could be controlled with diet. For now, we?ve started him on atorvastatin 80 mg daily. 3. Abdominal Pain due to above. 4. Uncontrolled DM without DKA. Started metformin 850 mg daily and added Lantus and SSI today. 5. HTN. Will also likely resolve post weight-loss. In the meantime, d/w Dr. Chavez. We started Lisinopril 10mg daily, and Dr. Chavez will see him in the office. Yesterday I talked with the patient at length about his DM, his HTN, his triglycerides and his weight. Stable for transfer to regular room. Doesn?t need any labs tomorrow morning. Time: 30 min. ([id number]) Critical Care Time (minutes): 0 Physical Exam Vital Signs: Vital Signs: Last Vital Signs Temp 98.3 F 08/21/20 08:19 Pulse 100 08/21/20 08:06 Resp 22 H 08/21/20 08:00 BP 152/89 H 08/21/20 08:06 Pulse Ox 94 08/21/20 08:00 Body Mass Index 42.3 Objective Data Labs CBC & Chem 7: 08/21/20 05:53 08/21/20 05:53 Labs: Laboratory Results - last 24 hr 08/20/20 08/20/20 08/20/20 01:19 05:28 05:28 WBC RBC Hgb Hct MCV MCH MCHC RDW Plt Count MPV Immature Gran % (Auto) Neut % (Auto) Lymph % (Auto) [place] % (Auto) Eos % (Auto) Baso % (Auto) Lymph # (Auto) [place] # (Auto) Eos # (Auto) Baso # (Auto) Abs Immat Gran (auto) Absolute Neuts (auto) Absolute Nucleated RBC Nucleated RBC % (auto) Sodium Potassium Chloride Carbon Dioxide Anion Gap BUN Creatinine Estim Creat Clear Calc Estimated GFR POC Glucose Random Glucose Estimat Average Glucose 286 Hemoglobin A1c % 11.6 Calcium Phosphorus 3.7 3.0 Magnesium 2.0 2.2 Total Bilirubin AST ALT Alkaline Phosphatase Total Protein Albumin Triglycerides Lipase 08/20/20 08/20/20 08/20/20 10:51 15:01 16:07 WBC RBC Hgb Hct MCV MCH MCHC RDW Plt Count MPV Immature Gran % (Auto) Neut % (Auto) Lymph % (Auto) [place] % (Auto) Eos % (Auto) Baso % (Auto) Lymph # (Auto) [place] # (Auto) Eos # (Auto) Baso # (Auto) Abs Immat Gran (auto) Absolute Neuts (auto) Absolute Nucleated RBC Nucleated RBC % (auto) Sodium Potassium Chloride Carbon Dioxide Anion Gap BUN Creatinine Estim Creat Clear Calc Estimated GFR POC Glucose 255 H 203 H 171 H Random Glucose Estimat Average Glucose Hemoglobin A1c % Calcium Phosphorus Magnesium Total Bilirubin AST ALT Alkaline Phosphatase Total Protein Albumin Triglycerides Lipase 08/20/20 08/20/20 08/21/20 19:29 23:06 03:06 WBC RBC Hgb Hct MCV MCH MCHC RDW Plt Count MPV Immature Gran % (Auto) Neut % (Auto) Lymph % (Auto) [place] % (Auto) Eos % (Auto) Baso % (Auto) Lymph # (Auto) [place] # (Auto) Eos # (Auto) Baso # (Auto) Abs Immat Gran (auto) Absolute Neuts (auto) Absolute Nucleated RBC Nucleated RBC % (auto) Sodium Potassium Chloride Carbon Dioxide Anion Gap BUN Creatinine Estim Creat Clear Calc Estimated GFR POC Glucose 194 H 188 H 170 H Random Glucose Estimat Average Glucose Hemoglobin A1c % Calcium Phosphorus Magnesium Total Bilirubin AST ALT Alkaline Phosphatase Total Protein Albumin Triglycerides Lipase 08/21/20 08/21/20 08/21/20 05:53 05:53 07:00 WBC 9.0 RBC 5.34 Hgb 13.5 L Hct 42.1 MCV 78.8 L MCH 25.3 L MCHC 32.1 RDW 14.6 Plt Count 229 MPV 11.0 Immature Gran % (Auto) 0.6 H Neut % (Auto) 70.3 Lymph % (Auto) 17.6 L [place] % (Auto) 9.2 Eos % (Auto) 1.7 Baso % (Auto) 0.6 Lymph # (Auto) 1.6 [place] # (Auto) 0.8 Eos # (Auto) 0.2 Baso # (Auto) 0.1 Abs Immat Gran (auto) 0.05 H Absolute Neuts (auto) 6.3 Absolute Nucleated RBC 0.000 Nucleated RBC % (auto) 0.0 Sodium 137 Potassium 3.7 D Chloride 103 Carbon Dioxide 25 Anion Gap 13 BUN 10 Creatinine 0.92 Estim Creat Clear Calc 156.7 Estimated GFR > 60 POC Glucose 183 H Random Glucose 180 H D Estimat Average Glucose Hemoglobin A1c % Calcium 9.0 D Phosphorus 3.4 Magnesium 1.9 Total Bilirubin 1.7 H AST 20 ALT 33 Alkaline Phosphatase 70 Total Protein 6.8 Albumin 4.2 Triglycerides 392 Lipase 172 H Microbiology Microbiology Results: Microbiology 08/19/20 20:33 Blood - Venous Blood Culture - Preliminary 08/19/20 20:33 Blood - Venous Blood Culture - Preliminary No growth after 24 hours.
--- NOTE | 2020-08-21 10:58 | PC.NURSE ---
LANTUS 40 UNITS X 1 GIVEN AT 0941 PER MD. INSULIN GTT TURNED OFF AND D/C AT 1029. TO BEGIN SLIDING SCALE PROTOCOL AT 1130. WILL CONTINUE TO MONITOR.
[2020-08-21 11:33] LABS: Glucose, Whole Blood 300 mg/dL (60-115)
[2020-08-21] MEDS: Insulin Lispro 100 UNIT/ML 3 ML VIAL SUBCUT ×3 (11:34→21:00)
[2020-08-21 16:32] LABS: Glucose, Whole Blood 261 mg/dL (60-115)
[2020-08-21] MEDS: metFORMIN HCl 850 MG TABLET PO (17:07)
[2020-08-21] MEDS: Atorvastatin Calcium 80 MG TABLET PO (17:07)
[2020-08-21 20:28] LABS: Glucose, Whole Blood 257 mg/dL (60-115)
[2020-08-21] MEDS: Morphine Sulfate 4 MG/ML CARTRIDGE IVPUSH (20:59)
[2020-08-22] VITALS: BP 137/71; PULSE 94; RESP 20; TEMP 35.9; O2SAT 97
[2020-08-22] MEDS: diphenhydrAMINE HCL 25 MG TABLET PO (00:25)
[2020-08-22 04:00] VITALS: BP 174/54; PULSE 94; RESP 16; TEMP 36.4; O2SAT 97
[2020-08-22 07:20] LABS: Glucose, Whole Blood 210 mg/dL (60-115)
[2020-08-22 08:00] VITALS: BP 141/90; PULSE 100; RESP 24; TEMP 36; O2SAT 98
[2020-08-22] MEDS: Insulin Glargine,Hum.rec.anlog 100 UNIT/ML 10 ML VIAL 40 UNIT SUBCUT (08:01)
[2020-08-22] MEDS: Insulin Lispro 100 UNIT/ML 3 ML VIAL SUBCUT ×2 (08:02→12:00)
[2020-08-22] MEDS: lisinopriL 10 MG TABLET PO (08:02)
[2020-08-22 08:21] LABS: Hematocrit 41.3 % (42-52); Hemoglobin 13.2 g/dl (14.0-18.0); Mean Corpuscular Hemoglobin 25.4 pg (27.0-33.0); Mean Corpuscular Volume 79.4 fL (80-98); Mean Platelet Volume 11.7 fL (9.4-12.4); Platelet Count 244 X10*3/uL (160-400); Red Cell Distribution Width 14.5 % (11.0-16.0); White Blood Count 7.5 X10*3/uL (4.8-10.8)
[2020-08-22 08:47] LABS: Anion Gap 15 (12-20); Blood Urea Nitrogen 10 mg/dL (9-16); Calcium 9.3 mg/dL (8.4-10.2); Carbon Dioxide 25 mmol/L (22-29); Chloride 102 mmol/L (96-108); Creatinine Clr Calc Pharmacy 151.8; Estimated Glomerular Filt Rate > 60; Glucose Random 223 mg/dL (60-115); Potassium 4.6 mmol/L (3.3-5.1); Sodium 137 mmol/L (135-145)
[2020-08-22 11:12] LABS: Glucose, Whole Blood 275 mg/dL (60-115)
[2020-08-22 12:00] VITALS: BP 134/79; PULSE 95; RESP 16; TEMP 36.8; O2SAT 98
--- NOTE | 2020-08-22 12:01 | MHC.CM.PN ---
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
--- NOTE | 2020-08-22 12:16 | P.DS_ITS ---
DS: Providers Provider Date of Service: 08/22/20 Date of admission: 08/19/20 22:35 Primary care physician: None Physician DS: Diagnosis Discharge Diagnosis (1) New onset type 2 diabetes mellitus: Status: Acute (2) Pancreatitis: Status: Acute (3) High triglycerides: Status: Acute (4) Morbid obesity: Status: Acute DS: Medications Discharge Medications Home Medications: Previous Rx's Medication Instructions Recorded alcohol swabs 1 pad TOPICAL QIDACHS #100 ea 08/22/20 atorvastatin 80 mg PO DAILY@1700 #90 tab 08/22/20 blood sugar diagnostic [FreeStyle #100 ea 08/22/20 Lite Strips] blood-glucose meter [FreeStyle #1 ea 08/22/20 Lite Meter] insulin glargine [Lantus Solostar 40 unit SUBCUT QAM 30 Days #12 ml 08/22/20 U-100 Insulin] insulin lispro [Humalog KwikPen See Protocol SUBCUT TID 30 Days 08/22/20 Insulin] #15 ml lancets #100 ea 08/22/20 lancets #100 ea 08/22/20 lisinopril 10 mg PO DAILY #90 tab 08/22/20 metformin 850 mg PO DAILY@1700 #90 tab 08/22/20 needle (disp) 32 gauge #100 ea 08/22/20 DS: Summary Hospital Course Hospital Course: Admission note HPI A 29-year-old patient with history of morbid obesity, who was toes about years ago that he was a prediabetic but this actually never been diagnosed and has never taken any medications for it. Patient states that he has been having some discomfort over the last couple of weeks in the right upper quadrant and epigastric area but it was waxing waning. Patient has been trying to change his diet over the last couple of weeks due to [place] however yesterday around 8:00 a.m. in the morning his pain became unbearable, he developed some nausea but no vomiting. Eventually his pain became so significant that he had to come to the emergency room. In the ER his workup revealed a normal white count, H&H of 15.7 and 47 platelets 280, sodium 134, potassium 4.4, carbon dioxide 21, anion gap 20, BUN 16, creatinine 1.26, random glucose 363. Calcium 10.7, lactic acid 1.1, lipase was 174, triglycerides 1406. He had a T of the abdomen and pelvis which showed acute interstitial pancreatitis of the pancreatic head with peripancreatic stranding and fluid. Urinalysis reveals proteinuria and glucosuria. COVID negative. Hospital course The patient was admitted to ICU for abdominal pain with findings suggestive of pancreatitis. It was thought to be a result of hypertriglyceridemia PAF patient was admitted to ICU and treated with IV fluid, insulin drip with good response over the course of hospital stay as triglyceride trended down and his blood sugar came under better control. HbA1c is result of 11.3 as the patient is a known diabetic. He was treated on insulin Lantus and lispro with addition of metformin. Blood sugar level improved to around 200s. Referral made to endocrinology to follow as outpatient and he was prescribed insulin Lantus, insulin Humalog and metformin. Noticed to have uncontrolled hypertension. Started on lisinopril with fair response. To continue at time of discharge. Advised to continue weight loss and supposed to follow up with new primary care and software intern. Diabetes teaching done in the hospital and he was taught how to give himself the insulin shots. Discharge plan Start metformin 850 once daily Start Humalog insulin, short-acting, on sliding scale protocol. It was added to your pharmacy instructions. Start Lantus insulin 40 units daily Monitor your blood sugars and record readings 4 times a day to report them to your PCP or diabetes doctor Referral made to from Endocrinology. Please call the clinic to confirm appointment Continue atorvastatin as prescribed to lower your triglyceride level Start lisinopril for blood pressure control We advise you to do more exercise, lose more weight and follow healthy lifestyle Time Spent with Patient Time attestation: Total time spent providing and/or coordinating discharge services: Discharge coordination time: Greater than 30 minutes Quality: Stroke Does the patient have a stroke diagnosis?: No Physical Exam Vital Signs: Vital Signs: Last Vital Signs Temp 98.2 F 08/22/20 12:00 Pulse 95 08/22/20 12:00 Resp 16 08/22/20 12:00 BP 134/79 08/22/20 12:00 Pulse Ox 98 08/22/20 12:00 Body Mass Index 42.3 Const: Other: Constitutional : Alert, oriented, not in distress, obese morbidly Neck : Normal inspection, Supple Cardiovascular : RRR, S1 S2, no lower extremity edema Respiratory : Good bilateral air entry, no crackles, wheezes or rhonchi Gastrointestinal: soft, lax, Normal bowel sounds, Non tender Skin : Warm/Dry, No rash Neurological : Alert & oriented x3, No focal deficit DS: Data Data Completed and Pending Labs on day of discharge: Laboratory Results - last 24 hr 08/21/20 08/21/20 08/22/20 16:26 20:20 07:11 WBC RBC Hgb Hct MCV MCH MCHC RDW Plt Count MPV Absolute Nucleated RBC Nucleated RBC % (auto) Sodium Potassium Chloride Carbon Dioxide Anion Gap BUN Creatinine Estim Creat Clear Calc Estimated GFR POC Glucose 261 H 257 H 210 H Random Glucose Calcium 08/22/20 08/22/20 08/22/20 07:39 07:39 11:00 WBC 7.5 RBC 5.20 Hgb 13.2 L Hct 41.3 L MCV 79.4 L MCH 25.4 L MCHC 32.0 RDW 14.5 Plt Count 244 MPV 11.7 Absolute Nucleated RBC 0.000 Nucleated RBC % (auto) 0.0 Sodium 137 Potassium 4.6 D Chloride 102 Carbon Dioxide 25 Anion Gap 15 BUN 10 Creatinine 0.95 Estim Creat Clear Calc 151.8 Estimated GFR > 60 POC Glucose 275 H Random Glucose 223 H Calcium 9.3 Preliminary micro results at discharge 08/19/20 20:33 Blood Culture - Preliminary Blood - Venous No growth after 48 hours. Discharge Plan Discharge Patient Disposition: Home, Self-Care Discharge Diagnosis: Acute pancreatitis Elevated triglyceride New onset diabetes Referrals: Physician,None [Primary Care Provider] - 1 Week Pipo Hughes MD [Physician] - 2 Weeks (New onset Diabetes type 2, HyperTG presented with pancreatitis with HbA1c of 11.3. Started on Insulin for your eval and monitoring) Discharge Medications: New atorvastatin 80 mg Tablet 80 mg PO DAILY@1700 Qty: 90 RF: 1 metformin 850 mg Tablet 850 mg PO DAILY@1700 Qty: 90 RF: 1 lisinopril 10 mg Tablet 10 mg PO DAILY Qty: 90 RF: 1 (DME) FreeStyle Lite Strips Strip See Rx Instructions .ROUTE .MEDSUPPLY Qty: 100 RF: 2 (DME) lancets Misc See Rx Instructions .ROUTE .MEDSUPPLY Qty: 100 RF: 2 alcohol swabs Pads, Medicated 1 pad topical QIDACHS Qty: 100 RF: 2 (DME) needle (disp) 32 gauge 32 gauge x 5/16 needle See Rx Instructions .ROUTE .MEDSUPPLY Qty: 100 RF: 2 (DME) blood-glucose meter [FreeStyle Lite Meter] Kit See Rx Instructions .ROUTE .MEDSUPPLY Qty: 1 RF: 0 (DME) lancets 32 gauge misc See Rx Instructions .ROUTE .MEDSUPPLY Qty: 100 RF: 0 insulin lispro [Humalog KwikPen Insulin] 100 unit/mL insulin pen See Protocol unit subcut TID 30 Days Qty: 15 RF: 2 Lantus Solostar U-100 Insulin 100 unit/mL (3 mL) insulin pen 40 unit subcut QAM 30 Days Qty: 12 RF: 2 Discharge Orders: Discharge Order (Routine); Ordered 08/22/20 Ordered By: Luz Krause Diet: advance to usual diet Activity on Discharge: As tolerated Stand Alone Forms: Patient Portal Discharge page Care Plan Goals: Read below Health Concerns: Read below Plan of Treatment: You have presented to the hospital with main complaint of abdominal pain. Images and blood work were consistent with acute pancreatitis which was believed to be secondary to elevated triglyceride level. Treated in ICU with IV fluid, pain medication and insulin. Further blood work showed that you newly onset diabetes type 2. You were started on insulin and oral medication with better control of your blood sugar levels. With fair you to endocrinology as outpatient and prescribed to insulin and metformin for better control at home. Assessment: Start metformin 850 once daily Start Humalog insulin, short-acting, on sliding scale protocol. It was added to your pharmacy instructions. Start Lantus insulin 40 units daily Monitor your blood sugars and record readings 4 times a day to report them to your PCP or diabetes doctor Referral made to from Endocrinology. Please call the clinic to confirm appointment Continue atorvastatin as prescribed to lower your triglyceride level Start lisinopril for blood pressure control We advise you to do more exercise, lose more weight and follow healthy lifestyle
[2020-08-23 12:21] LABS: Calcium, Ionized 4.4 mg/dL (4.8-5.6)
== END 2020-08-22 14:10 | disposition home or self-care (01) | DRG 282 ==
LOC: HO.ED 22:37 → HO.EDOVER 23:13 → HO.ICU 23:19 → HO.S3 08-21 15:05
PROVIDERS: Nurse Practitioner Family; Physician Assistant Medical; Admitting Provider Anesthesiology; Emergency Provider Emergency Medicine; Visit Provider Student in an Organized Health Care Education/Training Program
DX: K85.90 Acute pancreatitis without necrosis or infection, unspecified (principal); E11.65 Type 2 diabetes mellitus with hyperglycemia; E78.1 Pure hyperglyceridemia; E66.01 Morbid (severe) obesity due to excess calories; I10 Essential (primary) hypertension; Z20.822 Contact with and (suspected) exposure to COVID-19; Z68.41 Body mass index [BMI] 40.0-44.9, adult; Z79.4 Long term (current) use of insulin; Z79.899 Other long term (current) drug therapy
CPT/HCPCS: 36415; 74176; 80048; 80053; 80061; 81001; 82330; 82947; 83036; 83605; 83690; 83735; 84100; 84478; 85025; 85027; 87040; 87147; 87205; 87635; 96374; 96375; 99285; 99291; J1170; J1650; J2270; J2405; J2765; Q0163

== ENCOUNTER → 2020-08-25 11:04 | Outpatient (BNVA) | payer MEDICAID, SELFPAY | PROVIDERS: Visit Provider Nurse Practitioner Gerontology | DX: E11.65 Type 2 diabetes mellitus with hyperglycemia (principal); Z79.4 Long term (current) use of insulin; E78.1 Pure hyperglyceridemia; E66.01 Morbid (severe) obesity due to excess calories | CPT/HCPCS: 82947; 99212 ==

== ENCOUNTER 2020-09-22 07:35 | Outpatient (REF) | payer MEDICAID, SELFPAY ==
[2020-09-22 09:59] LABS: Anion Gap 12 (12-20); Blood Urea Nitrogen 12 mg/dL (9-16); Calcium 9.6 mg/dL (8.4-10.2); Carbon Dioxide 27 mmol/L (22-29); Chloride 106 mmol/L (96-108); Cholesterol 94 mg/dL; Estimated Glomerular Filt Rate > 60; Glucose Fasting 100 mg/dL (60-99); HDL Cholesterol 21 mg/dL; LDL Cholesterol Calculated 44 mg/dl; Potassium 4.3 mmol/L (3.3-5.1); Sodium 141 mmol/L (135-145); Triglycerides 147 mg/dL
[2020-09-22 10:54] LABS: Microalbum/Creatinine Ratio Ur 12.5 ug/mg cr
[2020-09-23 07:01] LABS: LDL Cholesterol Direct 50 mg/dL (<100)
[2020-09-23 07:26] LABS: C Peptide 3.88 ng/mL (0.80-3.85)
[2020-09-25 21:21] LABS: Glutamic acid decarboxylase Ab <5 IU/mL (<5)
[2020-09-29 00:17] LABS: Islet Cell Antibody Screen NEGATIVE (NEGATIVE)
== END 2020-09-22 07:36 | disposition home or self-care (01) ==
LOC: HO.LAB 07:35
PROVIDERS: Visit Provider Nurse Practitioner Gerontology
DX: E11.65 Type 2 diabetes mellitus with hyperglycemia (principal); E78.1 Pure hyperglyceridemia; E66.01 Morbid (severe) obesity due to excess calories; Z79.4 Long term (current) use of insulin
CPT/HCPCS: 36415; 80048; 80061; 82043; 82947; 83721; 84681; 86255; 86341; 99212

== ENCOUNTER 2021-05-03 09:09 | Observation (INO) | payer MEDICAID, SELFPAY ==
--- NOTE | ~2021-05-03 | CT_ITS ---
EXAMINATION: CT HEAD WITHOUT CONTRAST CLINICAL INFORMATION: Questionable seizure. COMPARISON: None TECHNIQUE: Contiguous axial imaging was performed from the skull base to vertex without intravenous administration of contrast. This CT examination was performed using dose optimization techniques as appropriate, variously including the following: *Automated exposure control *Adjustment of mA and/or kV according to patient size (this includes techniques or standardized protocols for targeted exams where dose is matched to indication/reason for exam; i.e. extremities or head) *Use of iterative reconstruction technique DLP: 793 mGy-cm FINDINGS: There is no evidence of acute intracranial hemorrhage or territorial infarction. No abnormal mass effect or midline shift is seen. [place] to white matter differentiation is well preserved. No extra-axial fluid collections are identified. The ventricles are normal in size. There is no abnormal attenuation within the brain parenchyma. The osseous structures and soft tissues are normal. The mastoid air cells and visualized portions of the paranasal sinuses are well aerated. CT/CT head/brain wo con IMPRESSION: No acute intracranial pathology.
--- NOTE | ~2021-05-03 | XR_ITS ---
EXAMINATION: XR CHEST CLINICAL INFORMATION: Pneumonia COMPARISON: None TECHNIQUE: Frontal view of the chest was obtained. FINDINGS: No significant abnormality is noted involving the heart, lungs, mediastinum, bony thorax or soft tissues. XR/XR chest 1V IMPRESSION: Unremarkable examination.
[2021-05-03 09:15] VITALS: BP 165/102; PULSE 82; RESP 18; TEMP 37.1; O2SAT 99; BMI 36.9
--- NOTE | 2021-05-03 09:19 | ECG_ITS ---
Test Reason : seizure Blood Pressure : / mmHG Vent. Rate : 090 BPM Atrial Rate : 090 BPM P-R Int : 160 ms QRS Dur : 092 ms QT Int : 372 ms P-R-T Axes : 051 016 028 degrees QTc Int : 455 ms Normal sinus rhythm Low voltage QRS Borderline ECG No previous ECGs available Referred By: Generic ED Physician Electronically Signed By:TRISTIAN RICHEY
[2021-05-03 10:12] LABS: COVID-19 Test Negative (Negative)
--- NOTE | 2021-05-03 10:31 | PC.NURSE ---
Pt received from triage: Pt AOX3 and mid chest discomfort and tenseness. Pt states he feel dizzy and lightheadned krista when standing up. No neuro deficets noted. NSR noted and lungs clear. Pt abd soft and non-tender.
[2021-05-03 10:34] VITALS: BP 120/72; PULSE 73; RESP 14; O2SAT 100
--- NOTE | 2021-05-03 11:16 | ED_ITS ---
HPI - General Adult General Chief complaint: Seizure Stated complaint: SEIZURE QUEST Time Seen by Provider: 05/03/21 10:48 Source: patient Mode of arrival: ambulatory Limitations: no limitations History of Present Illness HPI narrative: 30-year-old male with past medical history of diabetes and high blood pressure and high cholesterol presents to ED for seizure-like activity. Patient states his informed him during the night at 03:00 while he was sleeping he started convulsing, and forming in the house and being diaphoretic. Patient states informed him episode lasted about a minute and he went back to normal. Patient states his did not wake him up. Patient states yesterday he had only ensu re and before taking his Lantus last night his glucose was 84. Presently patient is asymptomatic. Patient states this morning when he woke up his heart rate was 38. Patient states in the past when he wakes up from sleep or at rest, or is resting his heart rate has went low into the 30s and 40s. Presently patient is asymptomatic. Patient was unaware he had seizure during sleep Related Data Home Medications Medication Instructions Recorded Confirmed atorvastatin 80 mg tablet 80 mg PO BEDTIME 05/03/21 05/03/21 insulin glargine 100 unit/mL (3 18 unit SUBCUT BEDTIME 05/03/21 05/03/21 mL) subcutaneous pen (Lantus Solostar U-100 Insulin) Previous Rx's Medication Instructions Recorded blood-glucose meter (FreeStyle #1 ea 08/22/20 Lite Meter) pen needle, diabetic 32 gauge x #100 ea 12/24/20 5/32 (BD Ultra-Fine Ellie Pen Needle) lancets 32 gauge #100 ea 12/29/20 lisinopril 10 mg tablet 10 mg PO DAILY #90 tab 03/02/21 empagliflozin 25 mg tablet 25 mg PO QAM #30 tab 04/13/21 (Jardiance) metformin 850 mg tablet 850 mg PO BID 30 Days #60 tab 04/13/21 blood sugar diagnostic (FreeStyle #100 ea 04/26/21 Lite Strips) Allergies Allergy/AdvReac Type Severity Reaction Status Date / Time No Known Allergies Allergy Verified 05/03/21 09:15 [No Known Allergies*] Review of Systems Verdana 4l Review of Systems: Verdana 4d Seizure. Verdana 4d Yes Verdana 4d all other systems are reviewed and are negative PMFSH Past Medical History Medical History DM2 (diabetes mellitus, type 2) High triglycerides Hx of acute pancreatitis Surgical History No history of previous surgery Family History Family History Father Unknown family medical history Mother Unknown family medical history Maternal Grandmother Diabetes Hypertension Social History Social History Household Members: Spouse and Children Alcohol intake: never Advance Directives: No Advance Directives Information Provided: No service: No Current occupational status: employed Physical Exam Verdana 4l Vital Signs: Verdana 4d Verdana 4d Vital Signs: Verdana 4d Verdana 4Bd Last Vital Signs Verdana 4d 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 Temp 98.5 F 05/03/21 16:39 Production Line Mechanic New 4d Pulse 73 05/03/21 16:39 Production Line Mechanic New 4d Resp 15 05/03/21 16:39 BP 128/79 05/03/21 16:39 Pulse Ox 97 05/03/21 16:39 BMI result Body Mass Index 36.9 Const: General: cooperative, healthy appearing, comfortable, no acute distress, well developed, alert and awake Orientation/consciousness: patient oriented x3 HENMT: Head: Yes normal to inspection, Yes No palpable skull fracture present, Yes normocephalic and Yes atraumatic Eyes: General: appearance normal, both eyes and all related structures Neck: Neck: Yes normal visual inspection, Yes full ROM, Yes no lymphadenopathy, Yes no meningeal signs, Yes trachea midline, Yes supple, No anterior neck swelling and No tender Chest: Chest palpation & inspection: normal inspection of the chest and normal palpation of entire chest wall Resp: Effort & Inspection: normal respiratory effort and able to speak in complete sentences Auscultation: clear to auscultation bilaterally Cardio: Jugular venous distension: no JVD Heart sounds: S1 normal heart sound present and S2 normal heart sound present GI: Inspection: Yes normal to inspection and No abdominal wall ecchymosis Palpation (GI): Soft to palpation, not firm, nontender, no guarding and not rigid : General: No CVA tenderness and Yes no CVA tenderness Back/Spine/Pelvis: Back: no CVA tenderness, No CVA tenderness and No back tenderness Skin: General skin exam: no rashes or lesions noted and elasticity normal Neuro: Other: negative for any neuro deficits General: patient oriented x3, gait normal, no meningeal signs and CN's II-XI intact bilaterally Cranial nerves: Yes CN's II-XII intact bilaterally Extrem: General: Yes normal to inspection and Yes full ROM Psych: Appearance: grossly normal, well kempt and not disheveled Course Course Course Narrative: Patient will have medical evaluation. Patient hypoglycemic. Patient given 2 cups of juice and D5 and. Patient alert oriented x3. patient's seizure last night most likely cased by hypoglycemia Reevaluation(s) Reevaluation #1: Patient admitted to the hospital for hypoglycemic seiure. patient fingerstick while on d5 went up to 122 and down to 86. Patient to be admitted for observation of hypoglycemia. rest of labs and head ct scan and chest xray is normal. Patient empagliflozin has a long half like so patient would benefit from admission for observation. Patient needs better diabetes education also. Negative for any neuro deficits. Hospitalists agreeable with plan. Time: 18:22 Medical Decision Making MDM Narrative Medical decision making narrative: Hypoblycemia seziure Lab Data Result diagrams: 05/03/21 11:18 05/03/21 11:18 Labs: Lab Results 05/03/21 05/03/21 05/03/21 Range/Units 09:32 11:12 11:14 WBC (4.8-10.8) X10*3/uL RBC (4.60-5.80) X10*6/uL Hgb (14.0-18.0) g/dl Hct (42.0-52.0) % MCV (80.0-98.0) fL MCH (27.0-33.0) pg MCHC (31.0-36.0) g/dl RDW (11.0-16.0) % Plt Count (160-400) X10*3/uL MPV (9.4-12.4) fL Immature Gran % (Auto) (0.0-0.4) % Neut % (Auto) (45-73) % Lymph % (Auto) (20-40) % [place] % (Auto) (2-11) % Eos % (Auto) (0-4) % Baso % (Auto) (0-2) % Lymph # (Auto) (1.2-4.9) X10*3/uL [place] # (Auto) (0.1-1.2) X10*3/uL Eos # (Auto) (0.0-0.4) X10*3/uL Baso # (Auto) (0.0-0.2) X10*3/uL Abs Immat Gran (auto) (0.00-0.03) X10*3/uL Absolute Neuts (auto) (2.0-8.3) x10*3/uL Absolute Nucleated RBC (0.0-0.012) X10*3/uL Nucleated RBC % (auto) (0.0-0.2) /100WBC PT (9.9-13.0) SEC INR (0.9-1.1) APTT (24.1-38.0) SEC Sodium (135-145) mmol/L Potassium (3.3-5.1) mmol/L Chloride (96-108) mmol/L Carbon Dioxide (22-29) mmol/L Anion Gap (12-20) BUN (9-16) mg/dL Creatinine (0.5-1.4) mg/dL Estim Creat Clear Calc Estimated GFR POC Glucose 34 L* 59 L* (60-115) mg/dL Random Glucose (60-115) mg/dL Calcium (8.4-10.2) mg/dL Magnesium (1.6-2.6) mg/dL Total Bilirubin (0.0-1.0) mg/dL AST (5-37) U/L ALT (0-40) U/L Alkaline Phosphatase (39-117) U/L Troponin I High Sens (<3.5-35.0) ng/L Total Protein (6.5-8.0) g/dL Albumin (3.5-5.0) g/dL Urine Color Urine Appearance Urine pH (5.0-8.0) Ur Specific M[place]it (1.005-1.025) Urine Protein (NEG-TRACE) MG/DL Urine Glucose (UA) (NEG) MG/DL Urine Ketones (NEG) MG/DL Urine Blood (NEG) Urine Nitrite (NEG) Ur Leukocyte Esterase (NEG) COVID-19 ([place]) Negative (Negative) COVID-19 Clin Com See Note 05/03/21 05/03/21 05/03/21 Range/Units 11:17 11:18 11:18 WBC 5.5 (4.8-10.8) X10*3/uL RBC 5.76 (4.60-5.80) X10*6/uL Hgb 14.3 (14.0-18.0) g/dl Hct 46.2 (42.0-52.0) % MCV 80.2 (80.0-98.0) fL MCH 24.8 L (27.0-33.0) pg MCHC 31.0 (31.0-36.0) g/dl RDW 15.1 (11.0-16.0) % Plt Count 330 (160-400) X10*3/uL MPV 10.3 (9.4-12.4) fL Immature Gran % (Auto) 0.2 (0.0-0.4) % Neut % (Auto) 65.8 (45-73) % Lymph % (Auto) 25.5 (20-40) % [place] % (Auto) 6.7 (2-11) % Eos % (Auto) 1.3 (0-4) % Baso % (Auto) 0.5 (0-2) % Lymph # (Auto) 1.4 (1.2-4.9) X10*3/uL [place] # (Auto) 0.4 (0.1-1.2) X10*3/uL Eos # (Auto) 0.1 (0.0-0.4) X10*3/uL Baso # (Auto) 0.0 (0.0-0.2) X10*3/uL Abs Immat Gran (auto) 0.01 (0.00-0.03) X10*3/uL Absolute Neuts (auto) 3.6 (2.0-8.3) x10*3/uL Absolute Nucleated RBC 0.000 (0.0-0.012) X10*3/uL Nucleated RBC % (auto) 0.0 (0.0-0.2) /100WBC PT (9.9-13.0) SEC INR (0.9-1.1) APTT (24.1-38.0) SEC Sodium 142 (135-145) mmol/L Potassium 4.4 (3.3-5.1) mmol/L Chloride 104 (96-108) mmol/L Carbon Dioxide 29 (22-29) mmol/L Anion Gap 13 (12-20) BUN 10 (9-16) mg/dL Creatinine 0.85 (0.5-1.4) mg/dL Estim Creat Clear Calc 157.7 Estimated GFR > 60 POC Glucose 67 (60-115) mg/dL Random Glucose 79 D (60-115) mg/dL Calcium 10.3 H D (8.4-10.2) mg/dL Magnesium 2.1 (1.6-2.6) mg/dL Total Bilirubin 1.5 H (0.0-1.0) mg/dL AST 25 (5-37) U/L ALT 30 (0-40) U/L Alkaline Phosphatase 76 (39-117) U/L Troponin I High Sens (<3.5-35.0) ng/L Total Protein 7.7 (6.5-8.0) g/dL Albumin 4.8 (3.5-5.0) g/dL Urine Color Urine Appearance Urine pH (5.0-8.0) Ur Specific Moffit (1.005-1.025) Urine Protein (NEG-TRACE) MG/DL Urine Glucose (UA) (NEG) MG/DL Urine Ketones (NEG) MG/DL Urine Blood (NEG) Urine Nitrite (NEG) Ur Leukocyte Esterase (NEG) COVID-19 ([place]) (Negative) COVID-19 Clin Com 05/03/21 05/03/21 05/03/21 Range/Units 11:18 11:18 11:18 WBC (4.8-10.8) X10*3/uL RBC (4.60-5.80) X10*6/uL Hgb (14.0-18.0) g/dl Hct (42.0-52.0) % MCV (80.0-98.0) fL MCH (27.0-33.0) pg MCHC (31.0-36.0) g/dl RDW (11.0-16.0) % Plt Count (160-400) X10*3/uL MPV (9.4-12.4) fL Immature Gran % (Auto) (0.0-0.4) % Neut % (Auto) (45-73) % Lymph % (Auto) (20-40) % [place] % (Auto) (2-11) % Eos % (Auto) (0-4) % Baso % (Auto) (0-2) % Lymph # (Auto) (1.2-4.9) X10*3/uL [place] # (Auto) (0.1-1.2) X10*3/uL Eos # (Auto) (0.0-0.4) X10*3/uL Baso # (Auto) (0.0-0.2) X10*3/uL Abs Immat Gran (auto) (0.00-0.03) X10*3/uL Absolute Neuts (auto) (2.0-8.3) x10*3/uL Absolute Nucleated RBC (0.0-0.012) X10*3/uL Nucleated RBC % (auto) (0.0-0.2) /100WBC PT 13.2 H (9.9-13.0) SEC INR 1.2 H (0.9-1.1) APTT 34.1 (24.1-38.0) SEC Sodium (135-145) mmol/L Potassium (3.3-5.1) mmol/L Chloride (96-108) mmol/L Carbon Dioxide (22-29) mmol/L Anion Gap (12-20) BUN (9-16) mg/dL Creatinine (0.5-1.4) mg/dL Estim Creat Clear Calc Estimated GFR POC Glucose (60-115) mg/dL Random Glucose (60-115) mg/dL Calcium (8.4-10.2) mg/dL Magnesium (1.6-2.6) mg/dL Total Bilirubin (0.0-1.0) mg/dL AST (5-37) U/L ALT (0-40) U/L Alkaline Phosphatase (39-117) U/L Troponin I High Sens < 3.5 (<3.5-35.0) ng/L Total Protein (6.5-8.0) g/dL Albumin (3.5-5.0) g/dL Urine Color YELLOW Urine Appearance CLEAR Urine pH 6.5 (5.0-8.0) Ur Specific Moffit 1.020 (1.005-1.025) Urine Protein NEG (NEG-TRACE) MG/DL Urine Glucose (UA) 500 H (NEG) MG/DL Urine Ketones 15 (NEG) MG/DL Urine Blood NEG (NEG) Urine Nitrite NEG (NEG) Ur Leukocyte Esterase NEG (NEG) COVID-19 ([place]) (Negative) COVID-19 Clin Com 05/03/21 05/03/21 Range/Units 12:21 15:19 WBC (4.8-10.8) X10*3/uL RBC (4.60-5.80) X10*6/uL Hgb (14.0-18.0) g/dl Hct (42.0-52.0) % MCV (80.0-98.0) fL MCH (27.0-33.0) pg MCHC (31.0-36.0) g/dl RDW (11.0-16.0) % Plt Count (160-400) X10*3/uL MPV (9.4-12.4) fL Immature Gran % (Auto) (0.0-0.4) % Neut % (Auto) (45-73) % Lymph % (Auto) (20-40) % [place] % (Auto) (2-11) % Eos % (Auto) (0-4) % Baso % (Auto) (0-2) % Lymph # (Auto) (1.2-4.9) X10*3/uL [place] # (Auto) (0.1-1.2) X10*3/uL Eos # (Auto) (0.0-0.4) X10*3/uL Baso # (Auto) (0.0-0.2) X10*3/uL Abs Immat Gran (auto) (0.00-0.03) X10*3/uL Absolute Neuts (auto) (2.0-8.3) x10*3/uL Absolute Nucleated RBC (0.0-0.012) X10*3/uL Nucleated RBC % (auto) (0.0-0.2) /100WBC PT (9.9-13.0) SEC INR (0.9-1.1) APTT (24.1-38.0) SEC Sodium (135-145) mmol/L Potassium (3.3-5.1) mmol/L Chloride (96-108) mmol/L Carbon Dioxide (22-29) mmol/L Anion Gap (12-20) BUN (9-16) mg/dL Creatinine (0.5-1.4) mg/dL Estim Creat Clear Calc Estimated GFR POC Glucose 122 H 86 (60-115) mg/dL Random Glucose (60-115) mg/dL Calcium (8.4-10.2) mg/dL Magnesium (1.6-2.6) mg/dL Total Bilirubin (0.0-1.0) mg/dL AST (5-37) U/L ALT (0-40) U/L Alkaline Phosphatase (39-117) U/L Troponin I High Sens (<3.5-35.0) ng/L Total Protein (6.5-8.0) g/dL Albumin (3.5-5.0) g/dL Urine Color Urine Appearance Urine pH (5.0-8.0) Ur Specific Moffit (1.005-1.025) Urine Protein (NEG-TRACE) MG/DL Urine Glucose (UA) (NEG) MG/DL Urine Ketones (NEG) MG/DL Urine Blood (NEG) Urine Nitrite (NEG) Ur Leukocyte Esterase (NEG) COVID-19 ([place]) (Negative) COVID-19 Clin Com ECG Data Interpretation: Normal sinus rhythm. Vent rate 90 and [place] interval is 160, and Qrs 92, and QTC 455. negative stemi Discharge Plan Discharge Clinical Impression: Seizure due to hypoglycemia Patient Disposition: Admitted As Inpatient
[2021-05-03 11:23] LABS: Glucose, Whole Blood 67 mg/dL (60-115)
[2021-05-03 11:23] LABS: Glucose, Whole Blood 59 mg/dL (60-115)
[2021-05-03 11:23] LABS: Glucose, Whole Blood 34 mg/dL (60-115)
[2021-05-03 11:24] LABS: MANUAL DIFF FLAG NO
[2021-05-03 11:25] LABS: Basophils Percent Auto 0.5 % (0-2); Eosinophils Absolute Auto 0.1 X10*3/uL (0.0-0.4); Eosinophils Percent Auto 1.3 % (0-4); Hematocrit 46.2 % (42.0-52.0); Hemoglobin 14.3 g/dl (14.0-18.0); Imm Gran Abs Auto 0.01 X10*3/uL (0.00-0.03); Imm Gran Pct Auto 0.2 % (0.0-0.4); Lymphocytes Absolute Auto 1.4 X10*3/uL (1.2-4.9); Lymphocytes Percent Auto 25.5 % (20-40); Mean Corpuscular Hemoglobin 24.8 pg (27.0-33.0); Mean Corpuscular Volume 80.2 fL (80.0-98.0); Mean Platelet Volume 10.3 fL (9.4-12.4); Monocytes Absolute Auto 0.4 X10*3/uL (0.1-1.2); Monocytes Percent Auto 6.7 % (2-11); Neutrophils Absolute Auto 3.6 x10*3/uL (2.0-8.3); Neutrophils Percent Auto 65.8 % (45-73); Platelet Count 330 X10*3/uL (160-400); Red Blood Count 5.76 X10*6/uL (4.60-5.80); Red Cell Distribution Width 15.1 % (11.0-16.0); White Blood Count 5.5 X10*3/uL (4.8-10.8)
[2021-05-03 11:32] LABS: INTERNATIONAL NORM RATIO 1.2 (0.9-1.1); Prothrombin Time 13.2 SEC (9.9-13.0)
[2021-05-03 11:35] LABS: Partial Thromboplastin Time 34.1 SEC (24.1-38.0)
[2021-05-03 11:41] LABS: Alanine Aminotransferase 30 U/L (0-40); Albumin Level 4.8 g/dL (3.5-5.0); Alkaline Phosphatase 76 U/L (39-117); Anion Gap 13 (12-20); Aspartate Amino Transferase 25 U/L (5-37); Bilirubin Total 1.5 mg/dL (0.0-1.0); Blood Urea Nitrogen 10 mg/dL (9-16); Calcium 10.3 mg/dL (8.4-10.2); Carbon Dioxide 29 mmol/L (22-29); Chloride 104 mmol/L (96-108); Creatinine Clr Calc Pharmacy 157.7; Estimated Glomerular Filt Rate > 60; Glucose Random 79 mg/dL (60-115); Magnesium 2.1 mg/dL (1.6-2.6); Potassium 4.4 mmol/L (3.3-5.1); Sodium 142 mmol/L (135-145); Total Protein 7.7 g/dL (6.5-8.0)
[2021-05-03 11:45] LABS: Troponin-I High Sensitivity < 3.5 ng/L (<3.5-35.0)
[2021-05-03] MEDS: 0.9 % Sodium Chloride 1,000 ML 999 ML IV (11:56)
[2021-05-03] MEDS: Dextrose 50 % 25 GM/50 ML SYRINGE IVPUSH (12:05)
[2021-05-03 12:22] VITALS: BP 127/71; PULSE 64; RESP 16; O2SAT 99
[2021-05-03 12:43] LABS: Glucose, Whole Blood 122 mg/dL (60-115)
[2021-05-03 12:44] LABS: Appearance Urine CLEAR; Color Urine YELLOW; Glucose Urine UA 500 MG/DL (NEG); Leukocyte Esterase Urine NEG (NEG); Nitrite Urine NEG (NEG); PH 6.5 (5.0-8.0); Urine Blood NEG (NEG); Urine Ketones 15 MG/DL (NEG); Urine Protein NEG (NEG-TRACE)
[2021-05-03] MEDS: Dextrose 5 % and Lactated Ring 1,000 ML 125 ML IVCONT (12:54)
[2021-05-03 14:38] VITALS: BP 129/69; PULSE 71; RESP 15; O2SAT 99
[2021-05-03 15:28] LABS: Glucose, Whole Blood 86 mg/dL (60-115)
--- NOTE | 2021-05-03 16:20 | P.HPHOSP_ITS ---
History of Present Illness Date of Service: 05/03/21 Attending physician on admission: Fernie Juárez Chief Complaint: hypoglycemia/? seizure. 30-year-old male with past medical history of dm ,htn ,hlp- patient came to the hospital because of having possible seizure-like activity overnight and also found to have hypoglycemic, he says that he is trying to lose weight and and unintentionally keep using his insulin without eating well and overnight his noticed that he had some seizure-like activities but he woke up this morning he felt slightly sweaty, his fingersticks are also running low in 50s- patient was given admission for hypoglycemia related possible seizure-like activity. Patient also told that his heart rate was in 40s this morning also Currently asymptomatic Denies any new complaint of chest pain or shortness of breath or abdominal pain or fever or chills or nausea or vomiting Denies any cough Denies any weakness or numbness. Lab imaging reviewed: EKG NSR, chest x-ray, CT head seems fine, his fingersticks are running between 60-110 range. Patient is currently res started on D5 by ED and requested admission. Review of Systems Verdana 4l Review of Systems: Verdana 4d As above. Verdana 4d Yes Verdana 4d all other systems are reviewed and are negative [facility] Medical History DM2 (diabetes mellitus, type 2) High triglycerides Hx of acute pancreatitis Family History Father Unknown family medical history Mother Unknown family medical history Maternal Grandmother Diabetes Hypertension Pertinent family history: grandmother -htn Surgical History No history of previous surgery Social History Household Members: Spouse and Children Alcohol intake: never Advance Directives: No Advance Directives Information Provided: No service: No Current occupational status: employed Meds Allergies Allergy/AdvReac Type Severity Reaction Status Date / Time No Known Allergies Allergy Verified 05/03/21 09:15 [No Known Allergies*] Active Medications: Current Medications Dextrose/Lactated Ringer's (D5lr) 1,000 mls @ 125 mls/hr IVCONT .Q8H STA Stop: 05/03/21 20:06 Last Admin: 05/03/21 12:54 Dose: 125 mls/hr Documented by: Home Medications Medication Instructions Recorded Confirmed Last Taken Type atorvastatin 80 80 mg PO BEDTIME 05/03/21 05/03/21 05/02/21 History mg tablet insulin glargine 18 unit SUBCUT 05/03/21 05/03/21 05/02/21 History 100 unit/mL (3 BEDTIME mL) subcutaneous pen (Lantus Solostar U-100 Insulin) Physical Exam Verdana 4l Vital Signs and Narrative: Verdana 4d Verdana 4d Vital Signs: Verdana 4d Verdana 4Bd Last Vital Signs Verdana 4d Rheostat Assembler New 4d Rheostat Assembler New 4d Temp 98.7 F 05/03/21 09:15 Rheostat Assembler New 4d Pulse 71 05/03/21 14:38 Rheostat Assembler New 4d Resp 15 05/03/21 14:38 BP 129/69 05/03/21 14:38 Pulse Ox 99 05/03/21 14:38 BMI result Body Mass Index 36.9 Physical exam: Appearance: Alert.? Oriented X3.? not in distress.? Eyes: Pupils equal, round and reactive to light.? Sclera nonicteric.? ENT: Pharynx normal.? Moist mucous membranes. cvs: rrr, [id number] , no murmur res: clear to auscultation ,no rhonchii or wheezing abd: no rebound or guarding ,nt, bs present. ext pulses present , no cyanosis ,Gait well balanced well coordinated. neuro: axo3 , nonfocal. Results Labs CBC and Chem 7: 05/03/21 11:18 05/03/21 11:18 Labs: Laboratory Results - last 24 hr 05/03/21 05/03/21 05/03/21 09:32 11:12 11:14 MCV MCH MCHC RDW Plt Count MPV Immature Gran % (Auto) Neut % (Auto) Lymph % (Auto) [place] % (Auto) Eos % (Auto) Baso % (Auto) Lymph # (Auto) [place] # (Auto) Eos # (Auto) Baso # (Auto) Abs Immat Gran (auto) Absolute Neuts (auto) Absolute Nucleated RBC Nucleated RBC % (auto) PT INR APTT Anion Gap Estim Creat Clear Calc Estimated GFR POC Glucose 34 L* 59 L* Random Glucose Calcium Magnesium Total Bilirubin AST ALT Alkaline Phosphatase Troponin I High Sens Total Protein Albumin Urine Color Urine Appearance Urine pH Ur Specific [place] Urine Protein Urine Glucose (UA) Urine Ketones Urine Blood Urine Nitrite Ur Leukocyte Esterase COVID-19 ([place]) Negative COVID-19 Clin Com See Note 05/03/21 05/03/21 05/03/21 11:17 11:18 11:18 MCV 80.2 MCH 24.8 L MCHC 31.0 RDW 15.1 Plt Count 330 MPV 10.3 Immature Gran % (Auto) 0.2 Neut % (Auto) 65.8 Lymph % (Auto) 25.5 [place] % (Auto) 6.7 Eos % (Auto) 1.3 Baso % (Auto) 0.5 Lymph # (Auto) 1.4 [place] # (Auto) 0.4 Eos # (Auto) 0.1 Baso # (Auto) 0.0 Abs Immat Gran (auto) 0.01 Absolute Neuts (auto) 3.6 Absolute Nucleated RBC 0.000 Nucleated RBC % (auto) 0.0 PT INR APTT Anion Gap 13 Estim Creat Clear Calc 157.7 Estimated GFR > 60 POC Glucose 67 Random Glucose 79 D Calcium 10.3 H D Magnesium 2.1 Total Bilirubin 1.5 H AST 25 ALT 30 Alkaline Phosphatase 76 Troponin I High Sens Total Protein 7.7 Albumin 4.8 Urine Color Urine Appearance Urine pH Ur Specific [place] Urine Protein Urine Glucose (UA) Urine Ketones Urine Blood Urine Nitrite Ur Leukocyte Esterase COVID-19 ([place]) COVID-19 Clin Com 05/03/21 05/03/21 05/03/21 11:18 11:18 11:18 MCV MCH MCHC RDW Plt Count MPV Immature Gran % (Auto) Neut % (Auto) Lymph % (Auto) [place] % (Auto) Eos % (Auto) Baso % (Auto) Lymph # (Auto) [place] # (Auto) Eos # (Auto) Baso # (Auto) Abs Immat Gran (auto) Absolute Neuts (auto) Absolute Nucleated RBC Nucleated RBC % (auto) PT 13.2 H INR 1.2 H APTT 34.1 Anion Gap Estim Creat Clear Calc Estimated GFR POC Glucose Random Glucose Calcium Magnesium Total Bilirubin AST ALT Alkaline Phosphatase Troponin I High Sens < 3.5 Total Protein Albumin Urine Color YELLOW Urine Appearance CLEAR Urine pH 6.5 Ur Specific [place] 1.020 Urine Protein NEG Urine Glucose (UA) 500 H Urine Ketones 15 Urine Blood NEG Urine Nitrite NEG Ur Leukocyte Esterase NEG COVID-19 ([place]) COVID-19 [employer] Com 05/03/21 05/03/21 12:21 15:19 MCV MCH MCHC RDW Plt Count MPV Immature Gran % (Auto) Neut % (Auto) Lymph % (Auto) [place] % (Auto) Eos % (Auto) Baso % (Auto) Lymph # (Auto) [place] # (Auto) Eos # (Auto) Baso # (Auto) Abs Immat Gran (auto) Absolute Neuts (auto) Absolute Nucleated RBC Nucleated RBC % (auto) PT INR APTT Anion Gap Estim Creat Clear Calc Estimated GFR POC Glucose 122 H 86 Random Glucose Calcium Magnesium Total Bilirubin AST ALT Alkaline Phosphatase Troponin I High Sens Total Protein Albumin Urine Color Urine Appearance Urine pH Ur Specific [place] Urine Protein Urine Glucose (UA) Urine Ketones Urine Blood Urine Nitrite Ur Leukocyte Esterase COVID-19 ([place]) COVID-19 Clin Com ECG Attestation: I personally reviewed and interpreted this ECG as follows: (NSR) Imaging Radiologist's Impressions: Impressions Head CT 05/03/21 11:41 IMPRESSION: No acute intracranial pathology. Chest X-Ray 05/03/21 12:33 IMPRESSION: Unremarkable examination. Assessment and Plan (1) Seizure due to hypoglycemia: Status: Acute (2) Morbid obesity: Status: Acute (3) DM2 (diabetes mellitus, type 2): Qualifiers: Diabetes mellitus long term care administrator insulin use: with fpc use Diabetes mellitus complication status: with hyperglycemia Qualified Code(s): E11.65 - Type 2 diabetes mellitus with hyperglycemia; Z79.4 - skilled nursing (current) use of insulin Status: Acute Plan 1. Symptomatic hypoglycemia: Continue fluids Monitor fingersticks closely Hold off diabetic medications Seems like hypoglycemia, seizure-like activity, bradycardia possibly related to low blood sugars. Continue to monitor on tele. If any new symptoms will consider further workup accordingly 2. Diabetes: Monitor fingersticks and hold diabetic medications for now. 3. Hypertension: Continue lisinopril 4. HlP: Continue statin. 5. Morbid obesity: Patient was advised to lose weight slowly, advised to not decrease his p.o. intake significantly that might cause so recurrent hypoglycemia if he keep using diabetic medications along with decreased p.o. intake. DVT prophylaxis patient advised to walk around is low risk for DVT. Above management discussed with the patient in detail length he understand and in agreement with above plan including IV fluids and holding diabetic medications. Time spent 70 minute. Quality Stroke Does the patient have a stroke diagnosis?: No VTE Prior VTE?: No VTE Risk Level:: Medical - low VTE Device Contraindication: Treatment Not Indicated VTE Drug Contraindication: Treatment Not Indicated
[2021-05-03 16:35] LABS: Glucose, Whole Blood 91 mg/dL (60-115)
[2021-05-03 16:39] VITALS: BP 128/79; PULSE 73; RESP 15; TEMP 36.9; O2SAT 97
--- NOTE | 2021-05-03 17:25 | PHA.MEDREC ---
Pharmacy Consult ? Medication Reconciliation Pharmacy has completed the medication reconciliation.
[2021-05-03 18:20] LABS: Glucose, Whole Blood 64 mg/dL (60-115)
[2021-05-03 19:57] LABS: Glucose, Whole Blood 109 mg/dL (60-115)
[2021-05-03 21:11] LABS: Glucose, Whole Blood 109 mg/dL (60-115)
[2021-05-03 22:16] VITALS: BP 133/69; PULSE 62; RESP 19; O2SAT 98
--- NOTE | 2021-05-03 23:01 | PC.NURSE ---
Per Dr. Hernandez, BG Q2. If BG stable x 2, go Q4. Pt resting on stretcher with eyes closed Breathing even and unlabored NAD Will continue to monitor
[2021-05-03 23:54] LABS: Glucose, Whole Blood 86 mg/dL (60-115)
[2021-05-04] VITALS: BP 117/60; PULSE 66; RESP 12; TEMP 36.7; O2SAT 99
[2021-05-04 00:49] LABS: Glucose, Whole Blood 81 mg/dL (60-115)
--- NOTE | 2021-05-04 00:49 | PC.NURSE ---
At 2345 POC 86 report to GABY Greene.
[2021-05-04 05:35] VITALS: PULSE 66; RESP 17
[2021-05-04 07:33] LABS: Glucose, Whole Blood 112 mg/dL (60-115)
[2021-05-04 07:37] LABS: Anion Gap 9 (12-20); Blood Urea Nitrogen 9 mg/dL (9-16); Calcium 9.7 mg/dL (8.4-10.2); Carbon Dioxide 31 mmol/L (22-29); Chloride 107 mmol/L (96-108); Creatinine Clr Calc Pharmacy 163.5; Estimated Glomerular Filt Rate > 60; Glucose Random 99 mg/dL (60-115); Potassium 4.4 mmol/L (3.3-5.1); Sodium 143 mmol/L (135-145)
[2021-05-04 08:24] VITALS: BP 130/91; PULSE 71; RESP 18; TEMP 36.7; O2SAT 99
--- NOTE | 2021-05-04 08:32 | PC.NURSE ---
Pt received from shift supervisor rn: Pt AOX$ and offers no complaints Heart sounds normal and lungs clear. Pt abd soft and non-tender. Pt self ambulatory to and states he wants to go home.
--- NOTE | 2021-05-04 10:37 | P.DS_ITS ---
DS: Providers Provider Date of Service: 05/04/21 Date of admission: 05/03/21 16:21 Primary care physician: None Physician DS: Diagnosis Discharge Diagnosis (1) Seizure due to hypoglycemia: Status: Acute (2) Morbid obesity: Status: Acute (3) DM2 (diabetes mellitus, type 2): Status: Acute DS: Summary Hospital Course Hospital Course: patient was admitted for seizure due to DM with hypoglycemia. patient was diagnosed about 1 year ago and has had significant intentional weight loss with decreasing insulin requirements likely the etiology of his hypoglycemia. his sugars stabilized and he is now feeling back to baseline. patient will be discharged home. will hold off on insulin for now, continue metformin and jardiance and monitor sugars. Time Spent with Patient Time attestation: Total time spent providing and/or coordinating discharge services: Discharge coordination time: Greater than 30 minutes Quality: Stroke Does the patient have a stroke diagnosis?: No Physical Exam Verdana 4l Vital Signs: Verdana 4d Verdana 4d Vital Signs: Verdana 4d Verdana 4Bd Last Vital Signs Verdana 4d Underwriting Specialist New 4d Underwriting Specialist New 4d Temp 98.0 F 05/04/21 08:24 Underwriting Specialist New 4d Pulse 71 05/04/21 08:24 Underwriting Specialist New 4d Resp 18 05/04/21 08:24 BP 130/91 H 05/04/21 08:24 Pulse Ox 99 05/04/21 08:24 BMI result Body Mass Index 36.9 General: AO X 3, no acute distress Resp: CTA bilateral, no accessory muscles used CVS: S1,S2,RRR GI: soft, non tender, non distended Neuro: motor grossly intact, alert Psych: appropriate affect, appropriate insight DS: Data Data Completed and Pending Labs on day of discharge: Laboratory Results - last 24 hr 05/03/21 05/03/21 05/03/21 11:12 11:14 11:17 WBC RBC Hgb Hct MCV MCH MCHC RDW Plt Count MPV Immature Gran % (Auto) Neut % (Auto) Lymph % (Auto) [place] % (Auto) Eos % (Auto) Baso % (Auto) Lymph # (Auto) [place] # (Auto) Eos # (Auto) Baso # (Auto) Abs Immat Gran (auto) Absolute Neuts (auto) Absolute Nucleated RBC Nucleated RBC % (auto) PT INR APTT Sodium Potassium Chloride Carbon Dioxide Anion Gap BUN Creatinine Estim Creat Clear Calc Estimated GFR POC Glucose 34 L* 59 L* 67 Random Glucose Calcium Magnesium Total Bilirubin AST ALT Alkaline Phosphatase Troponin I High Sens Total Protein Albumin Urine Color Urine Appearance Urine pH Ur Specific [place] Urine Protein Urine Glucose (UA) Urine Ketones Urine Blood Urine Nitrite Ur Leukocyte Esterase 05/03/21 05/03/21 05/03/21 11:18 11:18 11:18 WBC 5.5 RBC 5.76 Hgb 14.3 Hct 46.2 MCV 80.2 MCH 24.8 L MCHC 31.0 RDW 15.1 Plt Count 330 MPV 10.3 Immature Gran % (Auto) 0.2 Neut % (Auto) 65.8 Lymph % (Auto) 25.5 [place] % (Auto) 6.7 Eos % (Auto) 1.3 Baso % (Auto) 0.5 Lymph # (Auto) 1.4 [place] # (Auto) 0.4 Eos # (Auto) 0.1 Baso # (Auto) 0.0 Abs Immat Gran (auto) 0.01 Absolute Neuts (auto) 3.6 Absolute Nucleated RBC 0.000 Nucleated RBC % (auto) 0.0 PT INR APTT Sodium 142 Potassium 4.4 Chloride 104 Carbon Dioxide 29 Anion Gap 13 BUN 10 Creatinine 0.85 Estim Creat Clear Calc 157.7 Estimated GFR > 60 POC Glucose Random Glucose 79 D Calcium 10.3 H D Magnesium 2.1 Total Bilirubin 1.5 H AST 25 ALT 30 Alkaline Phosphatase 76 Troponin I High Sens < 3.5 Total Protein 7.7 Albumin 4.8 Urine Color Urine Appearance Urine pH Ur Specific [place] Urine Protein Urine Glucose (UA) Urine Ketones Urine Blood Urine Nitrite Ur Leukocyte Esterase 05/03/21 05/03/21 05/03/21 11:18 11:18 12:21 WBC RBC Hgb Hct MCV MCH MCHC RDW Plt Count MPV Immature Gran % (Auto) Neut % (Auto) Lymph % (Auto) [place] % (Auto) Eos % (Auto) Baso % (Auto) Lymph # (Auto) [place] # (Auto) Eos # (Auto) Baso # (Auto) Abs Immat Gran (auto) Absolute Neuts (auto) Absolute Nucleated RBC Nucleated RBC % (auto) PT 13.2 H INR 1.2 H APTT 34.1 Sodium Potassium Chloride Carbon Dioxide Anion Gap BUN Creatinine Estim Creat Clear Calc Estimated GFR POC Glucose 122 H Random Glucose Calcium Magnesium Total Bilirubin AST ALT Alkaline Phosphatase Troponin I High Sens Total Protein Albumin Urine Color YELLOW Urine Appearance CLEAR Urine pH 6.5 Ur Specific [place] 1.020 Urine Protein NEG Urine Glucose (UA) 500 H Urine Ketones 15 Urine Blood NEG Urine Nitrite NEG Ur Leukocyte Esterase NEG 05/03/21 05/03/21 05/03/21 15:19 16:31 18:16 WBC RBC Hgb Hct MCV MCH MCHC RDW Plt Count MPV Immature Gran % (Auto) Neut % (Auto) Lymph % (Auto) [place] % (Auto) Eos % (Auto) Baso % (Auto) Lymph # (Auto) [place] # (Auto) Eos # (Auto) Baso # (Auto) Abs Immat Gran (auto) Absolute Neuts (auto) Absolute Nucleated RBC Nucleated RBC % (auto) PT INR APTT Sodium Potassium Chloride Carbon Dioxide Anion Gap BUN Creatinine Estim Creat Clear Calc Estimated GFR POC Glucose 86 91 64 Random Glucose Calcium Magnesium Total Bilirubin AST ALT Alkaline Phosphatase Troponin I High Sens Total Protein Albumin Urine Color Urine Appearance Urine pH Ur Specific [place] Urine Protein Urine Glucose (UA) Urine Ketones Urine Blood Urine Nitrite Ur Leukocyte Esterase 05/03/21 05/03/21 05/03/21 19:51 21:04 23:48 WBC RBC Hgb Hct MCV MCH MCHC RDW Plt Count MPV Immature Gran % (Auto) Neut % (Auto) Lymph % (Auto) [place] % (Auto) Eos % (Auto) Baso % (Auto) Lymph # (Auto) [place] # (Auto) Eos # (Auto) Baso # (Auto) Abs Immat Gran (auto) Absolute Neuts (auto) Absolute Nucleated RBC Nucleated RBC % (auto) PT INR APTT Sodium Potassium Chloride Carbon Dioxide Anion Gap BUN Creatinine Estim Creat Clear Calc Estimated GFR POC Glucose 109 109 86 Random Glucose Calcium Magnesium Total Bilirubin AST ALT Alkaline Phosphatase Troponin I High Sens Total Protein Albumin Urine Color Urine Appearance Urine pH Ur Specific [place] Urine Protein Urine Glucose (UA) Urine Ketones Urine Blood Urine Nitrite Ur Leukocyte Esterase 05/04/21 05/04/21 05/04/21 00:44 06:48 07:12 WBC RBC Hgb Hct MCV MCH MCHC RDW Plt Count MPV Immature Gran % (Auto) Neut % (Auto) Lymph % (Auto) [place] % (Auto) Eos % (Auto) Baso % (Auto) Lymph # (Auto) [place] # (Auto) Eos # (Auto) Baso # (Auto) Abs Immat Gran (auto) Absolute Neuts (auto) Absolute Nucleated RBC Nucleated RBC % (auto) PT INR APTT Sodium 143 Potassium 4.4 Chloride 107 Carbon Dioxide 31 H Anion Gap 9 L BUN 9 Creatinine 0.82 Estim Creat Clear Calc 163.5 Estimated GFR > 60 POC Glucose 81 112 Random Glucose 99 Calcium 9.7 Magnesium Total Bilirubin AST ALT Alkaline Phosphatase Troponin I High Sens Total Protein Albumin Urine Color Urine Appearance Urine pH Ur Specific [place] Urine Protein Urine Glucose (UA) Urine Ketones Urine Blood Urine Nitrite Ur Leukocyte Esterase Discharge Plan Discharge Patient Disposition: Home, Self-Care Discharge Diagnosis: DM with hypoglycemia Referrals: Physician,None [Primary Care Provider] - 1 Week Discharge Medications: Continued (DME) pen needle, diabetic [BD Ultra-Fine Ellie Pen Needle] 32 gauge x 5/32 needle See Rx Instructions .ROUTE .MEDSUPPLY Qty: 100 3RF Rx Instructions: As directed once daily (DME) lancets 32 gauge misc See Rx Instructions .ROUTE .MEDSUPPLY Qty: 100 11RF Rx Instructions: As directed three times daily lisinopril 10 mg tablet 10 mg PO DAILY Qty: 90 1RF metformin 850 mg tablet 850 mg PO BID 30 Days Qty: 60 4RF Jardiance 25 mg tablet 25 mg PO QAM Qty: 30 4RF (DME) FreeStyle Lite Strips Strip See Rx Instructions .ROUTE .MEDSUPPLY Qty: 100 11RF Rx Instructions: As directed three times daily (DME) blood-glucose meter [FreeStyle Lite Meter] Kit See Rx Instructions .ROUTE .MEDSUPPLY Qty: 1 0RF Rx Instructions: As directed atorvastatin 80 mg tablet 80 mg PO BEDTIME 0RF Discontinued Lantus Solostar U-100 Insulin 100 unit/mL (3 mL) insulin pen 18 unit subcut BEDTIME 0RF Discharge Orders: Discharge Order (Routine); Ordered 05/04/21 Ordered By: Jonathan Knox Diet: diabetic diet Activity on Discharge: As tolerated Stand Alone Forms: Patient Portal Discharge page Care Plan Goals: manage DM, avoid hypoglycemia Health Concerns: DM with hypoglycemia Plan of Treatment: will discontinue insulin for now, continue metformin and jardiance, monitor sugars Assessment: see above
--- NOTE | 2021-05-04 10:48 | MHC.CM.PN ---
PT REPORTS HE LIVES WITH HIS AND KIDS, HE WORKS, DRIVES, AND IS 100% INDEPENDENT. PT DENIES HAVING ANY HOME SERVICES BUT DOES GO TO THE ENDOCRINOLOGY CLINIC AT [facility] [place]. HE REPORTS HE HAS BEEN TRYING TO GET A PCP FOR SOME TIME HOWEVER HAS ONLY BEEN ABLE TO GET ONTO A WAIT LIST. PT IS CURRENTLY ON THE WAIT LIST AT [facility], HE REPORTS THEY ARE TELLING HIM IT WILL BE 4-6 WEEKS. HE REPORTS HE NEEDS A NEW REFERRAL TO CONTINUE GOING TO THE ENDOCRINOLOGY CLINIC HOWEVER THEY HAVE GIVEN HIM A YEARS WORTH OF DM PRESCRIPTIONS AND HE CONFIRMS HAVING ALL OF THE NECESSARY SUPPLIES AT HOME. PT DOES NOT HAVE A HCP AND DECLINES TO COMPLETE ONE TODAY PT REPORTS BEING VACCINATED WITH [employer] BUT HAS NOT RECEIVED THE BOOSTER PT WILL DC HOME TODAY WITH NO SERVICES PT WILL DRIVE HIMSELF AT [place]
[2021-05-04 11:24] VITALS: BP 124/88; PULSE 67; RESP 18; TEMP 36.1; O2SAT 99
[2021-05-04 11:29] LABS: Glucose, Whole Blood 99 mg/dL (60-115)
== END 2021-05-04 16:15 | disposition home or self-care (01) ==
LOC: HO.ED 13:56 → HO.EDOVER 17:09
PROVIDERS: Physician Assistant; Admitting Provider Internal Medicine; Emergency Provider Emergency Medicine Emergency Medical Services; Visit Provider Internal Medicine
DX: R56.9 Unspecified convulsions (principal); E11.649 Type 2 diabetes mellitus with hypoglycemia without coma; E11.65 Type 2 diabetes mellitus with hyperglycemia; I10 Essential (primary) hypertension; E78.00 Pure hypercholesterolemia, unspecified; E78.2 Mixed hyperlipidemia; E66.01 Morbid (severe) obesity due to excess calories; R63.4 Abnormal weight loss; Z68.36 Body mass index [BMI] 36.0-36.9, adult; Z20.822 Contact with and (suspected) exposure to COVID-19; Z79.84 Long term (current) use of oral hypoglycemic drugs
CPT/HCPCS: 36415; 70450; 71045; 80048; 80053; 81003; 82947; 83735; 84484; 85025; 85610; 85730; 87635; 93005; 96361; 96365; 96366; 96375; 96376; 99219; 99285

== ENCOUNTER 2021-06-08 07:31 | Emergency (ER) | payer MEDICAID, SELFPAY ==
[2021-06-08 07:32] VITALS: BP 147/93; PULSE 62; RESP 18; TEMP 36.6; O2SAT 98; BMI 38.0
[2021-06-08 08:00] LABS: Glucose, Whole Blood 109 mg/dL (60-115)
--- NOTE | 2021-06-08 08:18 | ED.SEIZURE ---
HPI - Seizure General Chief Complaint: Seizure Stated Complaint: seizure Time Seen by Provider: 06/08/21 08:00 Source: patient and family Mode of arrival: ambulatory Limitations: no limitations History of Present Illness HPI Narrative: 30 y/o male with history of obesity, HTN, HLD, diet controlled DM now off of insulin and metformin who presents to the ER with reports of a seizure this morning. He reports at 7am he was sitting in the shower like he usually does when his heard strange noises and came in to find him having a seizure. He was sitting up and when she laid him down his legs were stiff. She said he was shaking. He was not responding to her and then when he came around he was confused for about 7-10 minutes. His glucose was 104. He has history of a hypoglycmic seizure about 1 month ago, at the time glucose was 39. He had another one in the middle of the night about 2-3 weeks ago - described as tonic clonic, 2 minutes in duration witnessed by the . Glucose not checked at that time, was 88 in the morning when he got up for the day. He is not on seizure medications. He does not drink alcohol. Occasionally smokes marijuana. MD complaint: seizure Onset (ago): hour(s) Description of Episode: tonic-clonic movement and post-event confusion -: minutes(s) Witnessed: Yes - by Bystander Trauma: No Seizure History: Yes (2 in last month) Place: Home [facility] Precipitating Event: none Associated symptoms: confusion and malaise Treatments prior to arrival: none Related Data Home Medications Medication Instructions Recorded Confirmed atorvastatin 80 mg tablet 80 mg PO BEDTIME 05/03/21 05/03/21 Previous Rx's Medication Instructions Recorded blood-glucose meter (FreeStyle #1 ea 08/22/20 Lite Meter) pen needle, diabetic 32 gauge x #100 ea 12/24/20 (BD Ultra-Fine Ellie Pen Needle) lancets 32 gauge #100 ea 12/29/20 lisinopril 10 mg tablet 10 mg PO DAILY #90 tab 03/02/21 empagliflozin 25 mg tablet 25 mg PO QAM #30 tab 04/13/21 (Jardiance) metformin 850 mg tablet 850 mg PO BID 30 Days #60 tab 04/13/21 blood sugar diagnostic (FreeStyle #100 ea 04/26/21 Lite Strips) levetiracetam 750 mg tablet 750 mg PO Q12H #60 tab 06/08/21 (Keppra) Allergies Allergy/AdvReac Type Severity Reaction Status Date / Time No Known Allergies Allergy Verified 05/03/21 09:15 [No Known Allergies*] Review of Systems Review of Systems: Constitutional: No Fever, No Chills ENT/Mouth: No sore throat, No Rhinorrhea, No Swallowing Difficulty Eyes: No Eye Pain, No vision changes Cardiovascular: No Chest Pain, No SOB, No Orthopnea, No Edema Respiratory: No Cough, No Sputum, No Wheezing, No dyspnea Gastrointestinal: No Nausea, No Vomiting, No Diarrhea, No abdominal Pain Genitourinary: No Dysuria, No Urinary Frequency, No Hematuria Musculoskeletal: No joint pain, + Myalgias Skin: No Skin Lesions, No rash Neuro: No Weakness, No Numbness, No Dizziness, No Headache Psych: + Anxiety/Panic, No Depression Heme/Lymph: No Bruising, No Lymphadenopathy PMFSH Past Medical History Medical History DM2 (diabetes mellitus, type 2) High triglycerides Hx of acute pancreatitis Surgical History No history of previous surgery Family History Family History Father Unknown family medical history Mother Unknown family medical history Maternal Grandmother Diabetes Hypertension Social History Social History Household Members: Spouse and Children Alcohol intake: never Patient Tobacco Use Status: Never used Tobacco Smoked in Last 30 Days: No Use of substances other than those prescribed or required for medical reasons: No Advance Directives: No Advance Directives Information Provided: No service: No Current occupational status: employed Physical Exam Vital Signs: Vital Signs: Last Vital Signs Temp 98 F 06/08/21 07:32 Pulse 56 06/08/21 09:25 Resp 17 06/08/21 09:25 BP 128/79 06/08/21 09:25 Pulse Ox 99 06/08/21 09:25 BMI result Body Mass Index 38.0 Appearance: Alert. Oriented X3. No acute distress. Eyes: Pupils equal, round and reactive to light. ENT: Pharynx normal. Neck: Normal inspection. Neck supple. CVS: Normal heart rate and rhythm. Pulses normal. Respiratory: No respiratory distress. Breath sounds normal. Abdomen: Soft and nontender. +BS x4 Skin: Skin warm and dry. Normal skin color. Normal skin turgor. No rashes. Extremities: No lower extremity edema. Compartments are soft and compressible. Neuro: Oriented X 3. No motor deficit. No sensory deficit. Nonfocal. Speech normal. Course Course Course Narrative: 30-year-old male with history of now diet-controlled diabetes, HTN, obesity who presents to the ER with seizures. He had a witnessed seizure at home today in a bathtub. He had 1 about a month ago and was hypoglycemic. He was post-ictal today with glucose 104. AAO x3 and nonfocal on arrival. c/o muscle soreness and slight headache. Had a negative CT head on 05/03. Will check basic labs today to r/o metabolic derrangements such as hyponatremia that can cause seizures. Will check A1c as well. Hold off on AED for now. Will d/w Neurology. Reevaluation(s) Reevaluation #1: Labs largely unremarkable. A1c down from 11 to 5.6%. Spoke with Dr. Sanders from Neurology - he agrees with starting Keppra, recommending 750 BID for now. Shared decision making with the patient - he would like to be discharged home with plan to follow up with Neurology for seizure workup including EEG and MRI. Dr. Sanders ok with discharge. Patient stable for d/c, rx for keppra sent to pharmacy. Instructed to return if seizures continue despite AED. MDM - Seizure Lab Data Result diagrams: 06/08/21 08:26 06/08/21 08:26 Labs: Lab Results 06/08/21 06/08/21 06/08/21 Range/Units 07:54 08:26 08:26 WBC 4.7 L (4.8-10.8) X10*3/uL RBC 5.24 (4.60-5.80) X10*6/uL Hgb 13.3 L (14.0-18.0) g/dl Hct 42.4 (42.0-52.0) % MCV 80.9 (80.0-98.0) fL MCH 25.4 L (27.0-33.0) pg MCHC 31.4 (31.0-36.0) g/dl RDW 14.7 (11.0-16.0) % Plt Count 231 D (160-400) X10*3/uL MPV 10.7 (9.4-12.4) fL Immature Gran % (Auto) 0.2 (0.0-0.4) % Neut % (Auto) 63.3 (45-73) % Lymph % (Auto) 25.4 (20-40) % [place] % (Auto) 7.7 (2-11) % Eos % (Auto) 3.0 (0-4) % Baso % (Auto) 0.4 (0-2) % Lymph # (Auto) 1.2 (1.2-4.9) X10*3/uL [place] # (Auto) 0.4 (0.1-1.2) X10*3/uL Eos # (Auto) 0.1 (0.0-0.4) X10*3/uL Baso # (Auto) 0.0 (0.0-0.2) X10*3/uL Abs Immat Gran (auto) 0.01 (0.00-0.03) X10*3/uL Absolute Neuts (auto) 2.9 (2.0-8.3) x10*3/uL Absolute Nucleated RBC 0.000 (0.0-0.012) X10*3/uL Nucleated RBC % (auto) 0.0 (0.0-0.2) /100WBC Sodium 141 (135-145) mmol/L Potassium 4.3 (3.3-5.1) mmol/L Chloride 109 H (96-108) mmol/L Carbon Dioxide 24 (22-29) mmol/L Anion Gap 12 (12-20) BUN 9 (9-16) mg/dL Creatinine 0.80 (0.5-1.4) mg/dL Estim Creat Clear Calc 170.4 Estimated GFR > 60 POC Glucose 109 (60-115) mg/dL Random Glucose 103 (60-115) mg/dL Estimat Average Glucose mg/dL Hemoglobin A1c % % Calcium 9.3 (8.4-10.2) mg/dL Magnesium 2.0 (1.6-2.6) mg/dL Total Bilirubin 1.2 H (0.0-1.0) mg/dL Direct Bilirubin 0.4 (0.0-0.5) mg/dL AST 26 (5-37) U/L ALT 37 (0-40) U/L Alkaline Phosphatase 67 (39-117) U/L Total Creatine Kinase 121 (38-174) U/L Total Protein 6.8 (6.5-8.0) g/dL Albumin 4.2 (3.5-5.0) g/dL Urine Color Urine Appearance Urine pH (5.0-8.0) Ur Specific [place] (1.005-1.025) Urine Protein (NEG-TRACE) MG/DL Urine Glucose (UA) (NEG) MG/DL Urine Ketones (NEG) MG/DL Urine Blood (NEG) Urine Nitrite (NEG) Ur Leukocyte Esterase (NEG) Urine Opiates Screen (Not Detect) Urine Fentanyl Screen (Not Detect) Ur Barbiturates Screen (Not Detect) Ur Phencyclidine Scrn (Not Detect) Ur Amphetamines Screen (Not Detect) U Benzodiazepines Scrn (Not Detect) Urine Cocaine Screen (Not Detect) U Marijuana (THC) Screen (Not Detect) Ethyl Alcohol mg/dL COVID-19 ([place]) (Negative) COVID-19 Clin Com 06/08/21 06/08/21 06/08/21 Range/Units 08:26 08:26 08:27 WBC (4.8-10.8) X10*3/uL RBC (4.60-5.80) X10*6/uL Hgb (14.0-18.0) g/dl Hct (42.0-52.0) % MCV (80.0-98.0) fL MCH (27.0-33.0) pg MCHC (31.0-36.0) g/dl RDW (11.0-16.0) % Plt Count (160-400) X10*3/uL MPV (9.4-12.4) fL Immature Gran % (Auto) (0.0-0.4) % Neut % (Auto) (45-73) % Lymph % (Auto) (20-40) % [place] % (Auto) (2-11) % Eos % (Auto) (0-4) % Baso % (Auto) (0-2) % Lymph # (Auto) (1.2-4.9) X10*3/uL [place] # (Auto) (0.1-1.2) X10*3/uL Eos # (Auto) (0.0-0.4) X10*3/uL Baso # (Auto) (0.0-0.2) X10*3/uL Abs Immat Gran (auto) (0.00-0.03) X10*3/uL Absolute Neuts (auto) (2.0-8.3) x10*3/uL Absolute Nucleated RBC (0.0-0.012) X10*3/uL Nucleated RBC % (auto) (0.0-0.2) /100WBC Sodium (135-145) mmol/L Potassium (3.3-5.1) mmol/L Chloride (96-108) mmol/L Carbon Dioxide (22-29) mmol/L Anion Gap (12-20) BUN (9-16) mg/dL Creatinine (0.5-1.4) mg/dL Estim Creat Clear Calc Estimated GFR POC Glucose (60-115) mg/dL Random Glucose (60-115) mg/dL Estimat Average Glucose 114 mg/dL Hemoglobin A1c % 5.6 % Calcium (8.4-10.2) mg/dL Magnesium (1.6-2.6) mg/dL Total Bilirubin (0.0-1.0) mg/dL Direct Bilirubin (0.0-0.5) mg/dL AST (5-37) U/L ALT (0-40) U/L Alkaline Phosphatase (39-117) U/L Total Creatine Kinase (38-174) U/L Total Protein (6.5-8.0) g/dL Albumin (3.5-5.0) g/dL Urine Color Urine Appearance Urine pH (5.0-8.0) Ur Specific [place] (1.005-1.025) Urine Protein (NEG-TRACE) MG/DL Urine Glucose (UA) (NEG) MG/DL Urine Ketones (NEG) MG/DL Urine Blood (NEG) Urine Nitrite (NEG) Ur Leukocyte Esterase (NEG) Urine Opiates Screen (Not Detect) Urine Fentanyl Screen (Not Detect) Ur Barbiturates Screen (Not Detect) Ur Phencyclidine Scrn (Not Detect) Ur Amphetamines Screen (Not Detect) U Benzodiazepines Scrn (Not Detect) Urine Cocaine Screen (Not Detect) U Marijuana (THC) Screen (Not Detect) Ethyl Alcohol < 10 mg/dL COVID-19 ([place]) Negative (Negative) COVID-19 Clin Com See Note 06/08/21 06/08/21 Range/Units 09:24 09:25 WBC (4.8-10.8) X10*3/uL RBC (4.60-5.80) X10*6/uL Hgb (14.0-18.0) g/dl Hct (42.0-52.0) % MCV (80.0-98.0) fL MCH (27.0-33.0) pg MCHC (31.0-36.0) g/dl RDW (11.0-16.0) % Plt Count (160-400) X10*3/uL MPV (9.4-12.4) fL Immature Gran % (Auto) (0.0-0.4) % Neut % (Auto) (45-73) % Lymph % (Auto) (20-40) % [place] % (Auto) (2-11) % Eos % (Auto) (0-4) % Baso % (Auto) (0-2) % Lymph # (Auto) (1.2-4.9) X10*3/uL [place] # (Auto) (0.1-1.2) X10*3/uL Eos # (Auto) (0.0-0.4) X10*3/uL Baso # (Auto) (0.0-0.2) X10*3/uL Abs Immat Gran (auto) (0.00-0.03) X10*3/uL Absolute Neuts (auto) (2.0-8.3) x10*3/uL Absolute Nucleated RBC (0.0-0.012) X10*3/uL Nucleated RBC % (auto) (0.0-0.2) /100WBC Sodium (135-145) mmol/L Potassium (3.3-5.1) mmol/L Chloride (96-108) mmol/L Carbon Dioxide (22-29) mmol/L Anion Gap (12-20) BUN (9-16) mg/dL Creatinine (0.5-1.4) mg/dL Estim Creat Clear Calc Estimated GFR POC Glucose (60-115) mg/dL Random Glucose (60-115) mg/dL Estimat Average Glucose mg/dL Hemoglobin A1c % % Calcium (8.4-10.2) mg/dL Magnesium (1.6-2.6) mg/dL Total Bilirubin (0.0-1.0) mg/dL Direct Bilirubin (0.0-0.5) mg/dL AST (5-37) U/L ALT (0-40) U/L Alkaline Phosphatase (39-117) U/L Total Creatine Kinase (38-174) U/L Total Protein (6.5-8.0) g/dL Albumin (3.5-5.0) g/dL Urine Color YELLOW Urine Appearance HAZY Urine pH 7.5 (5.0-8.0) Ur Specific [place] 1.020 (1.005-1.025) Urine Protein NEG (NEG-TRACE) MG/DL Urine Glucose (UA) NEG (NEG) MG/DL Urine Ketones NEG (NEG) MG/DL Urine Blood NEG (NEG) Urine Nitrite NEG (NEG) Ur Leukocyte Esterase NEG (NEG) Urine Opiates Screen Not Detected (Not Detect) Urine Fentanyl Screen Not Detected (Not Detect) Ur Barbiturates Screen Not Detected (Not Detect) Ur Phencyclidine Scrn Not Detected (Not Detect) Ur Amphetamines Screen Not Detected (Not Detect) U Benzodiazepines Scrn Not Detected (Not Detect) Urine Cocaine Screen Not Detected (Not Detect) U Marijuana (THC) Screen POSITIVE H (Not Detect) Ethyl Alcohol mg/dL COVID-19 ([place]) (Negative) COVID-19 Clin Com Critical Care Time Critical Care Time Critical Care Time: No Discharge Plan Discharge Clinical Impression: New onset seizure Patient Disposition: Home, Self-Care Instructions: New-Onset Seizure in Adults (ED) Additional Instructions: Take the prescribed antiseizure medication as directed. Follow-up with Neurology, name and number below. If you have recurrent seizures despite taking the prescribed medication call your doctor come back to the emergency room for further evaluation. Prescriptions: New levetiracetam [Keppra] 750 mg tablet 750 mg PO Q12H Qty: 60 1RF No Action (DME) pen needle, diabetic [BD Ultra-Fine Ellie Pen Needle] 32 gauge x needle See Rx Instructions .ROUTE .MEDSUPPLY Qty: 100 3RF Rx Instructions: As directed once daily (DME) lancets 32 gauge misc See Rx Instructions .ROUTE .MEDSUPPLY Qty: 100 11RF Rx Instructions: As directed three times daily lisinopril 10 mg tablet 10 mg PO DAILY Qty: 90 1RF metformin 850 mg tablet 850 mg PO BID 30 Days Qty: 60 4RF Jardiance 25 mg tablet 25 mg PO QAM Qty: 30 4RF (DME) FreeStyle Lite Strips Strip See Rx Instructions .ROUTE .MEDSUPPLY Qty: 100 11RF Rx Instructions: As directed three times daily (DME) blood-glucose meter [FreeStyle Lite Meter] Kit See Rx Instructions .ROUTE .MEDSUPPLY Qty: 1 0RF Rx Instructions: As directed atorvastatin 80 mg tablet 80 mg PO BEDTIME 0RF Referrals: Ama Sanders MD [Physician] - 1 week (New onset seizures) Stand Alone Forms: Work/School Release
[2021-06-08] MEDS: 0.9 % Sodium Chloride 1,000 ML 999 ML IVCONT (08:31)
[2021-06-08 08:34] LABS: MANUAL DIFF FLAG NO
[2021-06-08 08:40] LABS: Basophils Percent Auto 0.4 % (0-2); Eosinophils Absolute Auto 0.1 X10*3/uL (0.0-0.4); Hematocrit 42.4 % (42.0-52.0); Hemoglobin 13.3 g/dl (14.0-18.0); Imm Gran Abs Auto 0.01 X10*3/uL (0.00-0.03); Imm Gran Pct Auto 0.2 % (0.0-0.4); Lymphocytes Absolute Auto 1.2 X10*3/uL (1.2-4.9); Lymphocytes Percent Auto 25.4 % (20-40); Mean Corpuscular HGB Conc 31.4 g/dl (31.0-36.0); Mean Corpuscular Hemoglobin 25.4 pg (27.0-33.0); Mean Corpuscular Volume 80.9 fL (80.0-98.0); Mean Platelet Volume 10.7 fL (9.4-12.4); Monocytes Absolute Auto 0.4 X10*3/uL (0.1-1.2); Monocytes Percent Auto 7.7 % (2-11); Neutrophils Absolute Auto 2.9 x10*3/uL (2.0-8.3); Neutrophils Percent Auto 63.3 % (45-73); Platelet Count 231 X10*3/uL (160-400); Red Blood Count 5.24 X10*6/uL (4.60-5.80); Red Cell Distribution Width 14.7 % (11.0-16.0); White Blood Count 4.7 X10*3/uL (4.8-10.8)
[2021-06-08 08:48] LABS: Ethanol < 10 mg/dL
[2021-06-08 08:52] LABS: Estimated Average Glucose 114 mg/dL; Hemoglobin A1c % 5.6 %
[2021-06-08 08:56] LABS: Alanine Aminotransferase 37 U/L (0-40); Albumin Level 4.2 g/dL (3.5-5.0); Alkaline Phosphatase 67 U/L (39-117); Anion Gap 12 (12-20); Aspartate Amino Transferase 26 U/L (5-37); Bilirubin Direct 0.4 mg/dL (0.0-0.5); Bilirubin Total 1.2 mg/dL (0.0-1.0); Blood Urea Nitrogen 9 mg/dL (9-16); Calcium 9.3 mg/dL (8.4-10.2); Carbon Dioxide 24 mmol/L (22-29); Chloride 109 mmol/L (96-108); Creatinine Clr Calc Pharmacy 170.4; Estimated Glomerular Filt Rate > 60; Glucose Random 103 mg/dL (60-115); Potassium 4.3 mmol/L (3.3-5.1); Sodium 141 mmol/L (135-145); Total Protein 6.8 g/dL (6.5-8.0)
[2021-06-08 09:00] LABS: COVID-19 Test Negative (Negative); IDNOW Serial# 16C4AD1C
[2021-06-08 09:25] VITALS: BP 128/79; PULSE 56; RESP 17; O2SAT 99
[2021-06-08 09:39] LABS: Appearance Urine HAZY; Color Urine YELLOW; Glucose Urine UA NEG (NEG); Leukocyte Esterase Urine NEG (NEG); Nitrite Urine NEG (NEG); PH 7.5 (5.0-8.0); Urine Blood NEG (NEG); Urine Ketones NEG (NEG); Urine Protein NEG (NEG-TRACE)
[2021-06-08] MEDS: levETIRAcetam 500 MG TABLET 750 MG PO (09:52)
[2021-06-08 09:57] LABS: Amphetamine Screen Urine Not Detected (Not Detect); Barbiturates, Urine Not Detected (Not Detect); Benzodiazepines Screen Urine Not Detected (Not Detect); Cannabinoid Screen Urine POSITIVE (Not Detect); Cocaine Screen Urine Not Detected (Not Detect); Fentanyl, urine Not Detected (Not Detect); Opiate Screen Urine Not Detected (Not Detect); Phencyclidine Screen Urine Not Detected (Not Detect)
== END 2021-06-08 10:11 | disposition home or self-care (01) ==
PROVIDERS: Physician Assistant; Emergency Provider Emergency Medicine; PCP Internal Medicine
DX: R56.9 Unspecified convulsions (principal); Z79.899 Other long term (current) drug therapy; Z20.822 Contact with and (suspected) exposure to COVID-19
CPT/HCPCS: 36415; 80048; 80076; 80307; 81003; 82077; 82550; 82947; 83036; 83735; 85025; 87635; 96360; 99284

== ENCOUNTER 2021-06-23 07:48 | Outpatient (REF) | payer MEDICAID, SELFPAY ==
[2021-06-23 10:49] LABS: Alanine Aminotransferase 37 U/L (0-40); Albumin Level 4.7 g/dL (3.5-5.0); Alkaline Phosphatase 71 U/L (39-117); Anion Gap 14 (12-20); Aspartate Amino Transferase 23 U/L (5-37); Bilirubin Total 1.3 mg/dL (0.0-1.0); Blood Urea Nitrogen 12 mg/dL (9-16); Calcium 10.3 mg/dL (8.4-10.2); Carbon Dioxide 27 mmol/L (22-29); Chloride 106 mmol/L (96-108); Cholesterol 121 mg/dL; Estimated Glomerular Filt Rate > 60; Glucose Fasting 103 mg/dL (60-99); HDL Cholesterol 34 mg/dL; LDL Cholesterol Calculated 69 mg/dl; Potassium 4.9 mmol/L (3.3-5.1); Sodium 142 mmol/L (135-145); Total Protein 7.4 g/dL (6.5-8.0); Triglycerides 91 mg/dL
[2021-06-23 11:04] LABS: Vitamin B12 482 pg/mL (200-900)
[2021-06-24 06:07] LABS: LDL Cholesterol Direct 71 mg/dL (<100)
== END 2021-06-23 07:49 | disposition home or self-care (01) ==
LOC: HO.LAB 07:48
PROVIDERS: PCP Internal Medicine; Visit Provider Nurse Practitioner Gerontology
DX: E11.65 Type 2 diabetes mellitus with hyperglycemia (principal); E78.1 Pure hyperglyceridemia; E66.01 Morbid (severe) obesity due to excess calories; Z68.38 Body mass index [BMI] 38.0-38.9, adult; Z79.4 Long term (current) use of insulin; Z71.3 Dietary counseling and surveillance
CPT/HCPCS: 36415; 80053; 80061; 82607; 82947; 83721; 99212

== ENCOUNTER 2021-10-19 07:30 | Emergency (ER) | payer MEDICAID, SELFPAY ==
--- NOTE | 2021-10-19 07:36 | ED_ITS ---
HPI - Seizure General Chief Complaint: Seizure Stated Complaint: SZ,POST ICTAL @ THIS TIME PER EMS Time Seen by Provider: 10/19/21 07:35 Source: patient and old records reviewed Mode of arrival: EMS Limitations: no limitations History of Present Illness HPI Narrative: 31 yo male hx of DM, HTN, HLD, seizure disorder ran out of refills of his keppra 750mg BID about two days ago - had a seizure yesterday, another seizure this AM witnessed by , helped to ground no trauma. MD complaint: seizure Onset (ago): day(s) (yesterday and just prior to arrival ) Description of Episode: loss of consciousness and tonic-clonic movement Duration of episode: 2 -: minutes(s) Witnessed: Yes - by Bystander Trauma: No Seizure History: Yes (2 in last month) Place: [facility] Precipitating Event: medication (ran out of keppra) Associated symptoms: denies other symptoms Treatments prior to arrival: none Related Data Previous Rx's Medication Instructions Recorded blood-glucose meter (FreeStyle #1 ea 08/22/20 Lite Meter kit) pen needle, diabetic 32 gauge x #100 ea 12/24/20 (BD Ultra-Fine Ellie Pen Needle) lancets 32 gauge #100 ea 12/29/20 blood sugar diagnostic (FreeStyle #100 ea 04/26/21 Lite Strips) levetiracetam 750 mg tablet 750 mg PO Q12H #60 tabs 06/08/21 (Keppra) atorvastatin 80 mg tablet 80 mg PO QPM #90 tabs 08/31/21 lisinopril 10 mg tablet 10 mg PO DAILY #90 tabs 08/31/21 levetiracetam 750 mg tablet 750 mg PO BID #60 tabs 10/19/21 Allergies Allergy/AdvReac Type Severity Reaction Status Date / Time No Known Allergies Allergy Verified 06/23/21 08:20 [No Known Allergies*] Review of Systems Review of Systems: Constitutional : No Fever, No Chills, No Fatigue ENT/Mouth : No sore throat, No Rhinorrhea Eyes: No Eye Pain, No Swelling, No Redness Cardiovascular : No Chest Pain, No SOB, No Dyspnea on Exertion Respiratory : No Cough, No Sputum Gastrointestinal : No Nausea, No Vomiting, No Diarrhea, No abdominal Pain Genitourinary : No Dysuria, No Urinary Frequency, No Hematuria, Musculoskeletal : No joint pain, No Myalgias, No Joint Swelling Skin : No Skin Lesions, No rash Neuro : No Weakness, No Numbness, No Dizziness, positive Headache, pos seizure Psych : No Anxiety/Panic, No Depression Heme/Lymph: No Bruising, No Bleeding,No Lymphadenopathy Endocrine : No Polyuria, No Polydipsia All other systems reviewed and are negative [facility] Past Medical History Attestation statement: The following information was validated with the patient. Source: old records reviewed Medical History DM2 (diabetes mellitus, type 2) High triglycerides Hx of acute pancreatitis Obesity due to excess calories Surgical History No history of previous surgery Family History Family History Father Unknown family medical history Mother Unknown family medical history Maternal Grandmother Diabetes Hypertension Social History Social History Household Members: Spouse and Children Alcohol intake: never Patient Tobacco Use Status: Never used Tobacco Advance Directives: No service: No Current occupational status: employed Physical Exam Vital Signs: Vital Signs: Last Vital Signs Temp 98.6 F 10/19/21 07:51 Pulse 64 10/19/21 07:51 Resp 15 10/19/21 07:51 BP 151/81 H 10/19/21 07:51 Pulse Ox 100 10/19/21 07:51 O2 Del Method 10/19/21 07:51 BMI result Body Mass Index 39.9 Appearance: Alert. Oriented X3. No acute distress. Eyes: Pupils equal, round and reactive to light. 4mm mild nystagmus ENT: Pharynx normal. normal tongue Neck: Normal inspection. Neck supple. CVS: Normal heart rate and rhythm. Pulses normal. Respiratory: No respiratory distress. Breath sounds normal. Abdomen: Soft and nontender. Skin: Skin warm and clammy. Normal skin color. Normal skin turgor. Extremities: No lower extremity edema. No calf ttp Neuro: Oriented X 3. No motor deficit. No sensory deficit. Course Course Course Narrative: patient awake and alert GCS 15 stable for DC MDM - Seizure MDM Narrative Medical decision making narrative: 31 yo male hx of DM, HTN, HLD, seizure disorder ran out of his keppra - at this time will need labs, IV keppra loading, IV versed observation - plan to refill his keppra for him. He has no refills at home. No other precipitating events or infectinos reported. He denies trauma. Lab Data Result diagrams: 10/19/21 07:43 10/19/21 07:43 Labs: Lab Results 10/19/21 10/19/21 10/19/21 Range/Units 07:43 07:43 07:43 WBC 3.6 L (4.8-10.8) X10*3/uL RBC 5.57 (4.60-5.80) X10*6/uL Hgb 14.6 (14.0-18.0) g/dl Hct 44.9 (42.0-52.0) % MCV 80.6 (80.0-98.0) fL MCH 26.2 L (27.0-33.0) pg MCHC 32.5 (31.0-36.0) g/dl RDW 13.8 (11.0-16.0) % Plt Count 260 (160-400) X10*3/uL MPV 10.3 (9.4-12.4) fL Immature Gran % (Auto) 0.6 H (0.0-0.4) % Neut % (Auto) 60.2 (45-73) % Lymph % (Auto) 26.2 (20-40) % [place] % (Auto) 9.4 (2-11) % Eos % (Auto) 2.8 (0-4) % Baso % (Auto) 0.8 (0-2) % Lymph # (Auto) 1.0 L (1.2-4.9) X10*3/uL [place] # (Auto) 0.3 (0.1-1.2) X10*3/uL Eos # (Auto) 0.1 (0.0-0.4) X10*3/uL Baso # (Auto) 0.0 (0.0-0.2) X10*3/uL Abs Immat Gran (auto) 0.02 (0.00-0.03) X10*3/uL Absolute Neuts (auto) 2.2 (2.0-8.3) x10*3/uL Absolute Nucleated RBC 0.000 (0.0-0.012) X10*3/uL Nucleated RBC % (auto) 0.0 (0.0-0.2) /100WBC Sodium 141 (135-145) mmol/L Potassium 4.0 (3.3-5.1) mmol/L Chloride 108 (96-108) mmol/L Carbon Dioxide 26 (22-29) mmol/L Anion Gap 11 L (12-20) BUN 10 (9-16) mg/dL Creatinine 0.93 (0.5-1.4) mg/dL Estim Creat Clear Calc 148.7 Estimated GFR > 60 Random Glucose 126 H (60-115) mg/dL Calcium 9.6 D (8.4-10.2) mg/dL Total Bilirubin 0.9 (0.0-1.0) mg/dL Direct Bilirubin 0.3 (0.0-0.5) mg/dL AST 27 (5-37) U/L ALT 37 (0-40) U/L Alkaline Phosphatase 66 (39-117) U/L Total Protein 7.5 (6.5-8.0) g/dL Albumin 4.7 (3.5-5.0) g/dL COVID-19 ([place]) Negative (Negative) COVID-19 Clin Com See Note Discharge Plan Discharge Clinical Impression: Seizure Patient Disposition: Home, Self-Care Instructions: Recurrent Seizures in Adults (ED) Additional Instructions: return to ED for any worsening symptoms or concerns stay with resonsible adult follow seizure precautions - do not swim alone, do not cook over open flame, do not operate machinery / cars until seizure are under control Prescriptions: New levetiracetam 750 mg tablet 750 mg PO BID Qty: 60 2RF No Action (DME) pen needle, diabetic [BD Ultra-Fine Ellie Pen Needle] 32 gauge x needle See Rx Instructions .ROUTE .MEDSUPPLY Qty: 100 3RF Rx Instructions: As directed once daily (DME) lancets 32 gauge misc See Rx Instructions .ROUTE .MEDSUPPLY Qty: 100 11RF Rx Instructions: As directed three times daily (DME) FreeStyle Lite Strips Strip See Rx Instructions .ROUTE .MEDSUPPLY Qty: 100 11RF Rx Instructions: As directed three times daily atorvastatin 80 mg tablet 80 mg PO QPM Qty: 90 1RF lisinopril 10 mg tablet 10 mg PO DAILY Qty: 90 1RF (DME) blood-glucose meter [FreeStyle Lite Meter] Kit See Rx Instructions .ROUTE .MEDSUPPLY Qty: 1 0RF Rx Instructions: As directed levetiracetam [Keppra] 750 mg tablet 750 mg PO Q12H Qty: 60 1RF Stand Alone Forms: Work/School Release
[2021-10-19 07:51] VITALS: BP 130/70; BP 151/81; PULSE 64; PULSE 78; RESP 15; TEMP 37; O2SAT 100; BMI 39.9
[2021-10-19] MEDS: ondansetron HCL 4 MG/2 ML VIAL IVPUSH (07:53)
[2021-10-19] MEDS: Midazolam HCl/PF 2 MG/2 ML VIAL IVPUSH (07:53)
[2021-10-19] MEDS: levETIRAcetam in NaCl (iso-os) 1,000 MG/100 ML PIGGYBACK 400 MG IV (07:53)
--- NOTE | 2021-10-19 08:09 | PC.NURSE ---
Pt comes in via EMS s/p witnessed seizure, second one in a week, ran out of [facility] and unable to get ahold of neurologist. Pt is now A&Ox4, unsure of how long ago he ran out of [facility], neuros grossly intact. LCA, abd soft, non tender, +BS. IV established, call renee within reach. Will continue to monitor.
[2021-10-19 08:12] LABS: MANUAL DIFF FLAG NO
[2021-10-19 08:14] LABS: Basophils Percent Auto 0.8 % (0-2); Eosinophils Absolute Auto 0.1 X10*3/uL (0.0-0.4); Eosinophils Percent Auto 2.8 % (0-4); Hematocrit 44.9 % (42.0-52.0); Hemoglobin 14.6 g/dl (14.0-18.0); Imm Gran Abs Auto 0.02 X10*3/uL (0.00-0.03); Imm Gran Pct Auto 0.6 % (0.0-0.4); Lymphocytes Percent Auto 26.2 % (20-40); Mean Corpuscular HGB Conc 32.5 g/dl (31.0-36.0); Mean Corpuscular Hemoglobin 26.2 pg (27.0-33.0); Mean Corpuscular Volume 80.6 fL (80.0-98.0); Mean Platelet Volume 10.3 fL (9.4-12.4); Monocytes Absolute Auto 0.3 X10*3/uL (0.1-1.2); Monocytes Percent Auto 9.4 % (2-11); Neutrophils Absolute Auto 2.2 x10*3/uL (2.0-8.3); Neutrophils Percent Auto 60.2 % (45-73); Platelet Count 260 X10*3/uL (160-400); Red Blood Count 5.57 X10*6/uL (4.60-5.80); Red Cell Distribution Width 13.8 % (11.0-16.0); White Blood Count 3.6 X10*3/uL (4.8-10.8)
[2021-10-19 08:29] LABS: Alanine Aminotransferase 37 U/L (0-40); Albumin Level 4.7 g/dL (3.5-5.0); Alkaline Phosphatase 66 U/L (39-117); Anion Gap 11 (12-20); Aspartate Amino Transferase 27 U/L (5-37); Bilirubin Direct 0.3 mg/dL (0.0-0.5); Bilirubin Total 0.9 mg/dL (0.0-1.0); Blood Urea Nitrogen 10 mg/dL (9-16); COVID-19 Test Negative (Negative); Calcium 9.6 mg/dL (8.4-10.2); Carbon Dioxide 26 mmol/L (22-29); Chloride 108 mmol/L (96-108); Creatinine Clr Calc Pharmacy 148.7; Estimated Glomerular Filt Rate > 60; Glucose Random 126 mg/dL (60-115); IDNOW Serial# 16C4AD1C; Sodium 141 mmol/L (135-145); Total Protein 7.5 g/dL (6.5-8.0)
== END 2021-10-19 10:25 | disposition home or self-care (01) ==
PROVIDERS: Emergency Provider Emergency Medicine; PCP Internal Medicine
DX: R56.9 Unspecified convulsions (principal); I10 Essential (primary) hypertension; Z20.822 Contact with and (suspected) exposure to COVID-19; Z79.899 Other long term (current) drug therapy
CPT/HCPCS: 80048; 80076; 85025; 87635; 96374; 96375; 99284; J1953; J2250; J2405

== ENCOUNTER 2021-11-10 12:27 | Emergency (ER) | payer MEDICAID, SELFPAY ==
[2021-11-10 13:01] VITALS: BP 164/102; PULSE 68; RESP 20; TEMP 36.8; O2SAT 99; BMI 38.4
[2021-11-10 13:14] LABS: Hematocrit 45.5 % (42.0-52.0); Hemoglobin 14.8 g/dl (14.0-18.0); Mean Corpuscular HGB Conc 32.5 g/dl (31.0-36.0); Mean Platelet Volume 10.2 fL (9.4-12.4); Platelet Count 246 X10*3/uL (160-400); Red Blood Count 5.69 X10*6/uL (4.60-5.80); Red Cell Distribution Width 13.4 % (11.0-16.0); White Blood Count 4.5 X10*3/uL (4.8-10.8)
[2021-11-10 13:28] LABS: Anion Gap 15 (12-20); Blood Urea Nitrogen 10 mg/dL (9-16); Calcium 9.7 mg/dL (8.4-10.2); Carbon Dioxide 25 mmol/L (22-29); Chloride 105 mmol/L (96-108); Creatinine Clr Calc Pharmacy 135.6; Estimated Glomerular Filt Rate > 60; Glucose Random 94 mg/dL (60-115); Potassium 4.4 mmol/L (3.3-5.1); Sodium 141 mmol/L (135-145)
[2021-11-10 17:21] VITALS: BP 181/103; PULSE 79; RESP 19; O2SAT 98
--- NOTE | 2021-11-10 18:04 | ED_ITS ---
HPI - Seizure General Chief Complaint: Seizure <Gavi Etienne CNP - Last Filed: 11/10/21 20:25> Stated Complaint: seizure yesterday <Gavi Etienne DANA - Last Filed: 11/10/21 20:25> Time Seen by Provider: 11/10/21 13:42 <Gavi EtienneDANA - Last Filed: 11/10/21 20:25> Source: patient <Gavi Etienne CNP - Last Filed: 11/10/21 20:25> Mode of arrival: ambulatory <Gavi Etienne DANA - Last Filed: 11/10/21 20:25> Limitations: no limitations <Gavi Etienne CNP - Last Filed: 11/10/21 20:25> History of Present Illness HPI Narrative: Patient presents emergency department for evaluation after a seizure. Rey valentine states that he began having seizures in April 2021. He states that he 1st had a seizure in April 2021 which was thought to be related to hypoglycemia. He has had subsequent seizures since then for which he has been evaluated in the emergency department. He has not yet seen a neurologist, has had issues with referrals in arranging appointments by his report. His seizure prior to this was in September due to lack of medication, and prior to that was in July. He states he has been compliant with his Keppra twice a day at this point. Yesterday his noted him to have a tonic clonic seizure lasting a few minutes, no obvious tongue biting, no bladder or bowel incontinence. He reports that he slept the rest of the day. Today he attempted to go to work and he was still feeling ?hazy?. He contacted his primary care provider who advised him to come to the emergency department for further evaluation. He denies any precipitating infectious symptoms or trauma. <Gavi EtienneDANA - Last Filed: 11/10/21 20:25> Seizure History: Yes (2 in last month) <Gavi EtienneDANA - Last Filed: 11/10/21 20:25> Related Data Home Medications: Previous Rx's Medication Instructions Recorded blood-glucose meter (FreeStyle #1 ea 08/22/20 Lite Meter kit) pen needle, diabetic 32 gauge x #100 ea 12/24/20 (BD Ultra-Fine Ellie Pen Needle) lancets 32 gauge #100 ea 12/29/20 blood sugar diagnostic (FreeStyle #100 ea 04/26/21 Lite Strips) levetiracetam 750 mg tablet 750 mg PO Q12H #60 tabs 06/08/21 (Keppra) atorvastatin 80 mg tablet 80 mg PO QPM #90 tabs 08/31/21 lisinopril 10 mg tablet 10 mg PO DAILY #90 tabs 08/31/21 levetiracetam 750 mg tablet 750 mg PO BID #60 tabs 10/19/21 levetiracetam 1,000 mg tablet 1,000 mg PO BID 30 days #60 tabs 11/10/21 (Keppra) <Gavi Etienne CNP - Last Filed: 11/10/21 20:25> Allergies/Adverse Reactions: Allergies Allergy/AdvReac Type Severity Reaction Status Date / Time No Known Allergies Allergy Verified 06/23/21 08:20 [No Known Allergies*] <Gavi Etienne CNP - Last Filed: 11/10/21 20:25> Review of Systems Review of Systems: Constitutional: No weight loss. No fever. No chills. No weakness. No fatigue. Skin: No rash. No itching. Cardiovascular: No chest pain. No chest pressure. No palpitations. No pedal edema. Respiratory: No shortness of breath. No cough. No sputum production. Gastrointestinal: No anorexia. No nausea. No vomiting. No diarrhea. No abdominal pain. No blood in stool. Genitourinary: No burning micturition. No urinary frequency. No incontinence. Neurologic: No headache. No dizziness. No pre-syncope/ syncope. No unilateral weakness. No ataxia. No numbness. No tingling. No change in bowel or bladder control. Musculoskeletal: No muscle pain. No back pain. No joint pain. No stiffness. Hematologic: No bleeding. No bruising. Endocrine: No polyuria. No polydipsia. <Gavi Etienne CNP - Last Filed: 11/10/21 20:25> Yes all other systems are reviewed and are negative <Gavi Etienne CNP - Last Filed: 11/10/21 20:25> PMFSH Past Medical History Attestation statement: The following information was validated with the patient. <Gvai Etienne CNP - Last Filed: 11/10/21 20:25> Source: old records reviewed <Gavi Etienne CNP - Last Filed: 11/10/21 20:25> Medical History: Medical History DM2 (diabetes mellitus, type 2) High triglycerides Hx of acute pancreatitis Obesity due to excess calories <Gavi Etienne CNP - Last Filed: 11/10/21 20:25> Surgical History: Surgical History No history of previous surgery <Gavi Etienne CNP - Last Filed: 11/10/21 20:25> Family History Family History: Family History Father Unknown family medical history Mother Unknown family medical history Maternal Grandmother Diabetes Hypertension <Gavi Etienne CNP - Last Filed: 11/10/21 20:25> Social History Social History: Social History Household Members: Spouse and Children Alcohol intake: never Patient Tobacco Use Status: Never used Tobacco Advance Directives: No Advance Directives Information Provided: No service: No Current occupational status: employed <Gavi Etienne CNP - Last Filed: 11/10/21 20:25> Physical Exam Vital Signs: Vital Signs: Last Vital Signs Temp 98.2 F 11/10/21 13:01 Pulse 79 11/10/21 17:21 Resp 19 11/10/21 17:21 BP 181/103 H 11/10/21 17:21 Pulse Ox 98 11/10/21 17:21 O2 Del Method 11/10/21 17:21 BMI result Body Mass Index 38.4 <Gavi Etienne CNP - Last Filed: 11/10/21 20:25> Vital Signs: Last Vital Signs Temp 98.2 F 11/10/21 13:01 Pulse 79 11/10/21 17:21 Resp 19 11/10/21 17:21 BP 181/103 H 11/10/21 17:21 Pulse Ox 98 11/10/21 17:21 O2 Del Method 11/10/21 17:21 BMI result Body Mass Index 38.4 <Erich Trevino MD - Last Filed: 11/10/21 18:27> Appearance: Alert.?Oriented to person, place and time. No acute distress.?Norm al affect. Eyes: Pupils equal, round and reactive to light.? ENT: Pharynx normal.?? Neck: Normal inspection.? Neck supple.?? CVS: Heart sounds normal. Normal heart rate and rhythm.? Pulses normal.?? Respiratory: No respiratory distress.? Lung sounds clear to auscultation bilaterally?? Abdomen: Soft and non-tender. Normoactive bowel sounds. Skin: Skin warm and dry.? Normal skin color.? ?? Extremities: No lower extremity edema.? Neurologic: No focal neurological deficit observed, CN II-XII intact, normal s ensory observed, normal coordination observed. Level of consciousness: Appropriate for age. Motor strength: right upper extremity 5 /5, left upper extremity 5 /5, right lower extremity 5 /5, left lower extremity 5 /5.?Speech: Normal, Gait: Normal. <Gavi Etienne CNP - Last Filed: 11/10/21 20:25> Course Course Course Narrative: Patient is a 31-year-old male with a past medical history of pancreatitis, type 2 diabetes not currently on any medication management after weight loss, and seizure disorder. He presents emergency department today reporting that he warrants a seizure yesterday and was advised by his PCP to come to the ER today. No focal neurological abnormalities. No identifiable infectious process. Patient had a CT of the head in May 2021 after his first seizure which was unremarkable. He has been medication compliant per his report. No obvious injuries ratings the most recent seizure. Discussed outpatient follow-up with Neurology, EEG, will increase Keppra to 1 g b.i.d. Discussed worrisome signs and symptoms to present back to the emergency department for. At questions were answered, and patient was discharged home in stable condition. <Gavi Etienne CNP - Last Filed: 11/10/21 20:25> Reevaluation(s) Reevaluation #1: Patient with tonic clonic seizures, will increase keppra to 1000mg BID. Currently neuro nonfocal, mental status normal. No evidence of neuro event. <Erich Trevino MD - Last Filed: 11/10/21 18:27> Time: 18:27 <Erich Trevino MD - Last Filed: 11/10/21 18:27> MDM - Seizure Medical Records Attestation: I reviewed the patient's medical records. <Gavi Etienne CNP - Last Filed: 11/10/21 20:25> Lab Data Attestation: I reviewed the patient's lab results. <Gavi Etienne CNP - Last Filed: 11/10/21 20:25> Result diagrams: : 11/10/21 13:04 11/10/21 13:04 <Gavi Etienne CNP - Last Filed: 11/10/21 20:25> Labs: Lab Results 11/10/21 11/10/21 11/10/21 Range/Units 13:04 13:04 18:10 WBC 4.5 L (4.8-10.8) X10*3/uL RBC 5.69 (4.60-5.80) X10*6/uL Hgb 14.8 (14.0-18.0) g/dl Hct 45.5 (42.0-52.0) % MCV 80.0 (80.0-98.0) fL MCH 26.0 L (27.0-33.0) pg MCHC 32.5 (31.0-36.0) g/dl RDW 13.4 (11.0-16.0) % Plt Count 246 (160-400) X10*3/uL MPV 10.2 (9.4-12.4) fL Absolute Nucleated RBC 0.000 (0.0-0.012) X10*3/uL Nucleated RBC % (auto) 0.0 (0.0-0.2) /100WBC Sodium 141 (135-145) mmol/L Potassium 4.4 (3.3-5.1) mmol/L Chloride 105 (96-108) mmol/L Carbon Dioxide 25 (22-29) mmol/L Anion Gap 15 (12-20) BUN 10 (9-16) mg/dL Creatinine 1.00 (0.5-1.4) mg/dL Estim Creat Clear Calc 135.6 Estimated GFR > 60 Random Glucose 94 (60-115) mg/dL Calcium 9.7 (8.4-10.2) mg/dL Total Bilirubin 0.9 (0.0-1.0) mg/dL Direct Bilirubin 0.3 (0.0-0.5) mg/dL AST 26 (5-37) U/L ALT 33 (0-40) U/L Alkaline Phosphatase 66 (39-117) U/L Total Protein 7.8 (6.5-8.0) g/dL Albumin 4.9 (3.5-5.0) g/dL COVID-19 ([place]) Negative (Negative) COVID-19 Clin Com See Note <Gavi Etienne, [employer] - Last Filed: 11/10/21 20:25> Lab Results 11/10/21 11/10/21 11/10/21 Range/Units 13:04 13:04 18:10 WBC 4.5 L (4.8-10.8) X10*3/uL RBC 5.69 (4.60-5.80) X10*6/uL Hgb 14.8 (14.0-18.0) g/dl Hct 45.5 (42.0-52.0) % MCV 80.0 (80.0-98.0) fL MCH 26.0 L (27.0-33.0) pg MCHC 32.5 (31.0-36.0) g/dl RDW 13.4 (11.0-16.0) % Plt Count 246 (160-400) X10*3/uL MPV 10.2 (9.4-12.4) fL Absolute Nucleated RBC 0.000 (0.0-0.012) X10*3/uL Nucleated RBC % (auto) 0.0 (0.0-0.2) /100WBC Sodium 141 (135-145) mmol/L Potassium 4.4 (3.3-5.1) mmol/L Chloride 105 (96-108) mmol/L Carbon Dioxide 25 (22-29) mmol/L Anion Gap 15 (12-20) BUN 10 (9-16) mg/dL Creatinine 1.00 (0.5-1.4) mg/dL Estim Creat Clear Calc 135.6 Estimated GFR > 60 Random Glucose 94 (60-115) mg/dL Calcium 9.7 (8.4-10.2) mg/dL Total Bilirubin 0.9 (0.0-1.0) mg/dL Direct Bilirubin 0.3 (0.0-0.5) mg/dL AST 26 (5-37) U/L ALT 33 (0-40) U/L Alkaline Phosphatase 66 (39-117) U/L Total Protein 7.8 (6.5-8.0) g/dL Albumin 4.9 (3.5-5.0) g/dL COVID-19 ([place]) Negative (Negative) COVID-19 Clin Com See Note <Erich Trevino MD - Last Filed: 11/10/21 18:27> Discharge Plan Discharge Clinical Impression: Seizure disorder <Gavi Etienne CNP - Last Filed: 11/10/21 20:25> Patient Disposition: Home, Self-Care <Gavi Etienne CNP - Last Filed: 11/10/21 20:25> Instructions: Recurrent Seizures in Adults (ED), New-Onset Seizure in Adults (ED) <Gavi Etienne CNP - Last Filed: 11/10/21 20:25> Additional Instructions: We are going to increase your Keppra dosage to 1000 mg twice daily. As discussed is not uncommon to have breakthrough seizures despite medication compliance. Please contact the neurologist to arrange for an appointment for further evaluation and follow-up, Dr. Sanders As we discussed, be sure to rest getting regular sleep, stay well hydrated, avoid fatigue/exhaustion all as these may be lower your seizure threshold. Take precautions, advise responsible pulse around do of your condition. Do not drive or operate machinery such as a car until seizures are under control. <Gavi Etienne CNP - Last Filed: 11/10/21 20:25> Prescriptions: New levetiracetam [Keppra] 1,000 mg tablet 1,000 mg PO BID 30 Days Qty: 60 0RF No Action (DME) pen needle, diabetic [BD Ultra-Fine Ellie Pen Needle] 32 gauge x 5/32 needle See Rx Instructions .ROUTE .MEDSUPPLY Qty: 100 3RF Rx Instructions: As directed once daily (DME) lancets 32 gauge misc See Rx Instructions .ROUTE .MEDSUPPLY Qty: 100 11RF Rx Instructions: As directed three times daily (DME) FreeStyle Lite Strips Strip See Rx Instructions .ROUTE .MEDSUPPLY Qty: 100 11RF Rx Instructions: As directed three times daily atorvastatin 80 mg tablet 80 mg PO QPM Qty: 90 1RF lisinopril 10 mg tablet 10 mg PO DAILY Qty: 90 1RF (DME) blood-glucose meter [FreeStyle Lite Meter] Kit See Rx Instructions .ROUTE .MEDSUPPLY Qty: 1 0RF Rx Instructions: As directed levetiracetam [Keppra] 750 mg tablet 750 mg PO Q12H Qty: 60 1RF levetiracetam 750 mg tablet 750 mg PO BID Qty: 60 2RF <Gavi Etienne CNP - Last Filed: 11/10/21 20:25> Referrals: Ama Sanders MD [Physician] - 1 week <Gavi Etienne CNP - Last Filed: 11/10/21 20:25> Stand Alone Forms: Work/School Release <Gavi Etienne CNP - Last Filed: 11/10/21 20:25> Interventions: ED Discharge Assessment Last Done: 11/10/21 18:31 <Gavi Etienne CNP - Last Filed: 11/10/21 20:25> Discharge Date/Time: 11/10/21 18:34 <Gavi Etienne CNP - Last Filed: 11/10/21 20:25>
[2021-11-10 18:18] LABS: Alanine Aminotransferase 33 U/L (0-40); Albumin Level 4.9 g/dL (3.5-5.0); Alkaline Phosphatase 66 U/L (39-117); Aspartate Amino Transferase 26 U/L (5-37); Bilirubin Direct 0.3 mg/dL (0.0-0.5); Bilirubin Total 0.9 mg/dL (0.0-1.0); Total Protein 7.8 g/dL (6.5-8.0)
[2021-11-10 18:41] LABS: COVID-19 Test Negative (Negative); IDNOW Serial# 16C4AD1C
== END 2021-11-10 18:34 | disposition home or self-care (01) ==
PROVIDERS: Nurse Practitioner Family; Emergency Provider Emergency Medicine; PCP Internal Medicine
DX: G40.909 Epilepsy, unspecified, not intractable, without status epilepticus (principal); Z20.822 Contact with and (suspected) exposure to COVID-19; E11.9 Type 2 diabetes mellitus without complications; E66.09 Other obesity due to excess calories; Z68.38 Body mass index [BMI] 38.0-38.9, adult
CPT/HCPCS: 36415; 80048; 80076; 85027; 87635; 99283; 99284

== ENCOUNTER 2021-12-06 18:50 | Outpatient (REF) | payer MEDICAID, SELFPAY ==
--- NOTE | ~2021-12-06 | MR_ITS ---
EXAMINATION: MR BRAIN WITHOUT AND WITH CONTRAST CLINICAL INFORMATION: 31-year-old with history of seizures. Seizure disorder. COMPARISON: 05/03/2021 CT brain. TECHNIQUE: Multiplanar, multisequence MRI of the brain was obtained before and after the intravenous administration of 10 mL Gadavist. FINDINGS: BRAIN VOLUME: Within normal limits within the limitations of qualitative assessment. STRUCTURAL: No malformations. BRAIN AND MENINGES: DWI sequence demonstrates no restricted diffusion to suggest acute or subacute cerebral ischemia. Gradient refocused imaging demonstrates no evidence for hemorrhage, hemosiderin staining or abnormal mineral deposition. The mesial temporal lobe structures are bilaterally symmetric and normal in morphology and signal intensity with no abnormal enhancement. There are scattered small T2 hyperintense foci in the subcortical and deeper white matter of the cerebral hemispheres bilaterally with no abnormal enhancement which are nonspecific findings. Arreaga-white matter differentiation is well maintained. No intracranial mass lesions, pathologic intracranial enhancement, extra-axial fluid collections, space-occupying process or mass effect. VENTRICLES AND SUBARACHNOID SPACES: The ventricular system and subarachnoid spaces are within normal limits without hydrocephalus. ORBITAL STRUCTURES: The visualized orbital structures are grossly unremarkable within the limitations of the study. VASCULAR: Signal voids are noted in the visualized major intracranial vessels. OSSEOUS STRUCTURES, SINUSES/MASTOIDS, EXTRACRANIAL SOFT TISSUES: Pansinus mucosal thickening is noted particularly involving the ethmoid and maxillary sinuses bilaterally. Small underlying retention cysts suspected in the maxillary sinuses bilaterally. Osseous marrow signal intensity appears within normal limits. Note that the lateral retropharyngeal nodes are visualized bilaterally with the left measuring 9 mm in greatest short axis which appears mildly enlarged for this location. Other smaller lymph nodes are seen within the parotid glands bilaterally and posterior cervical subcutaneous soft tissues. Moderately prominent adenoids are also noted. The findings suggest either an infectious or inflammatory process. MR/MR head/brain wo/w con IMPRESSION: 1. Scattered nonenhancing white matter T2 hyperintensities in the cerebral hemispheres as discussed above which are nonspecific findings. 2. No intracranial mass lesion, pathologic intracranial enhancement, space-occupying process, mass effect or structural abnormality. No evidence for mesial temporal sclerosis. 3. Pansinus mucosal inflammatory changes and mildly enlarged lateral retropharyngeal nodes for the patient's age. Prominent adenoids also noted. Follow-up clinically for possible infectious or inflammatory process.
== END 2021-12-06 18:51 | disposition home or self-care (01) ==
LOC: HO.MRI 18:50
PROVIDERS: Visit Provider Psychiatry & Neurology Neurology
DX: G40.909 Epilepsy, unspecified, not intractable, without status epilepticus (principal)
CPT/HCPCS: 70553; A9585

== ENCOUNTER 2022-06-01 08:07 | Emergency (ER) | payer MEDICAID, SELFPAY ==
[2022-06-01 08:10] VITALS: BP 158/98; PULSE 73; RESP 16; TEMP 36.1; O2SAT 98; BMI 40.6
--- NOTE | 2022-06-01 14:42 | PC.NURSE ---
called in waiting, no response.
== END 2022-06-01 16:15 | disposition left against medical advice (07) ==
LOC: HO.ED 16:14
PROVIDERS: Emergency Provider Emergency Medicine; PCP Internal Medicine
DX: R56.9 Unspecified convulsions (principal)
CPT/HCPCS: 99281

== ENCOUNTER 2022-09-13 09:00 | Emergency (ER) | payer MEDICAID, SELFPAY ==
--- NOTE | ~2022-09-13 | XR_ITS ---
EXAMINATION: XR CHEST CLINICAL INFORMATION: Acute chest pain. Left anterior chest pain. COMPARISON: Portable upright AP chest 05/03/2021 TECHNIQUE: 2 views of the chest were obtained. FINDINGS: The lungs are clear. No pneumothorax or pleural reaction. No airspace consolidation or groundglass opacity or effusion. Heart size normal. The hilar and mediastinal contours and bony structures are unremarkable. XR/XR chest 2V IMPRESSION: Unremarkable examination.
[2022-09-13 09:04] VITALS: BP 141/81; PULSE 79; RESP 16; TEMP 36.1; O2SAT 98; BMI 41.0
--- NOTE | 2022-09-13 09:09 | ECG_ITS ---
Test Reason : CHEST PAIN Blood Pressure : / mmHG Vent. Rate : 067 BPM Atrial Rate : 067 BPM P-R Int : 162 ms QRS Dur : 088 ms QT Int : 386 ms P-R-T Axes : 029 012 020 degrees QTc Int : 407 ms Sinus rhythm with marked sinus arrhythmia Otherwise normal ECG When compared with ECG of 03-MAY-2021 09:23, No significant change was found Referred By: Yuniel Stewart Electronically Signed By:JORGE LUIS FERNANDEZ MD
[2022-09-13 09:29] VITALS: BP 136/85; PULSE 75; RESP 17; O2SAT 97
--- NOTE | 2022-09-13 10:18 | ED.CHESTPAIN ---
HPI - Chest Pain General Chief Complaint: Chest Pain Stated Complaint: high BP, backaches, chest pain Time Seen by Provider: 09/13/22 09:32 Source: patient Mode of arrival: ambulatory Limitations: no limitations History of Present Illness HPI narrative: 32-year-old male presents with chest pain and palpitation. Symptoms started this morning after getting out of shower. Patient has a history of retention. Blood pressure was elevated here heart rate was approximately 90. Patient describes a sharp sternal chest pain that radiated bilaterally. Last approximate 25-30 minutes. The pain was [id number] in nature. There is no clear relieving or exacerbating features. There is no nausea, vomiting or shortness breath. At that time he also felt palpitations. Patient has typical pulse rate is in the 70s. He noted at that time his heart rate was in the 90s. He did not feel lightheaded, short of breath or near-syncopal. Patient is asymptomatic at this time. Patient has had palpitations in the past however, he has not had the sharp chest pain. Related Data Previous Rx's Medication Instructions Recorded blood-glucose meter (FreeStyle #1 ea 08/22/20 Lite Meter kit) pen needle, diabetic 32 gauge x #100 ea 12/24/20 (BD Ultra-Fine Ellie Pen Needle) lancets 32 gauge #100 ea 12/29/20 blood sugar diagnostic (FreeStyle #100 ea 04/26/21 Lite Strips) levetiracetam 750 mg tablet 750 mg PO Q12H #60 tabs 06/08/21 (Keppra) atorvastatin 80 mg tablet 80 mg PO QPM #90 tabs 08/31/21 lisinopril 10 mg tablet 10 mg PO DAILY #90 tabs 08/31/21 levetiracetam 750 mg tablet 750 mg PO BID #60 tabs 10/19/21 levetiracetam 1,000 mg tablet 1,000 mg PO BID 30 days #60 tabs 11/10/21 (Keppra) Allergies Allergy/AdvReac Type Severity Reaction Status Date / Time No Known Allergies Allergy Verified 09/13/22 09:04 [No Known Allergies*] Review of Systems Review of Systems: CONSTITUTIONAL: Denies weight loss, fever and chills. HEENT: Denies changes in vision and hearing. RESPIRATORY: Denies SOB and cough. CV: + palpitations no CP. GI: Denies abdominal pain, nausea, vomiting and diarrhea. : Denies dysuria and urinary frequency. MSK: Denies myalgia and joint pain. SKIN: Denies rash and pruritus. NEUROLOGICAL: Denies headache and syncope. PSYCHIATRIC: Denies recent changes in mood. Denies anxiety and depression. All other ROS are negative unless in HPI [facility] Past Medical History Medical History DM2 (diabetes mellitus, type 2) High triglycerides Hx of acute pancreatitis Obesity due to excess calories Surgical History No history of previous surgery Family History Family History Father Unknown family medical history Mother Unknown family medical history Maternal Grandmother Diabetes Hypertension Social History Social History Household Members: Spouse and Children Alcohol intake: never Patient Tobacco Use Status: Never used Tobacco Advance Directives: No service: No Current occupational status: employed Physical Exam Vital Signs: Vital Signs: Last Vital Signs Temp 97 F 09/13/22 09:04 Pulse 75 09/13/22 09:29 Resp 17 09/13/22 09:29 BP 136/85 09/13/22 09:29 Pulse Ox 97 09/13/22 09:29 O2 Del Method Room Air 09/13/22 09:29 BMI result Body Mass Index 41.0 GEN: Well developed, no acute distress, alert, oriented HEENT: Normocephalic, atraumatic, normal external ears, nose appears normal, no oropharyngeal edema or exudates Eyes: Normal to appearance Neck: Supple, no lymphadenopathy Respiratory: Talks in complete sentences, no respiratory distress, clear to auscultation bilaterally Cardiovascular: Regular rate and rhythm, no murmurs rubs or gallops Abdomen: Soft, nontender, nondistended, no guarding, no rebound Back: No CVA tenderness Extremities: No clubbing cyanosis or edema Neurologic: No focal neurologic deficits, cranial nerves 2-12 intact, strength is 5/5 bilaterally Skin: No rash Course Course Course Narrative: The workup is complete with chest pain and palpitations. Symptoms have resolved. His laboratory analysis is unremarkable. No major electrolyte abnormality, anemia or elevated cardiac enzymes. Chest x-ray reveals no acute cardiopulmonary disease. EKG is normal sinus rhythm without any evidence of cardiac dysrhythmia. Review of the monitor demonstrates frequent PVCs. I suspect this is the etiology of his palpitations. Will refer patient to Cardiology to do more extensive testing and possible Holter monitor. I discussed all results with the patient. He understands all discharge instructions. All questions were addressed and answered. Medical Decision Making Medical Decision Making [facility] Narrative: Patient presents with chest pain. Chest pain occurred at rest. Associated with palpitations. Examination is benign. EKG shows no ischemic changes. Differential diagnosis Atypical chest pain, musculoskeletal chest pain, chest wall pain, myocardial infarction, pericarditis, myocarditis, anxiety, stress, reflux, pneumonia, pulmonary embolus, dissection Plan: Check laboratory analysis to rule out electrolyte abnormality, cardiac ischemia, etc.. Also obtain a chest x-ray to rule out acute and topical pathology. Re-evaluate patient. Place patient on monitor to monitor for any cardiac dysrhythmia. Differential Diagnosis Differential Diagnoses: The differential diagnosis associated with the presentation includes (See above) Admission/Observation Consideration of admission/observation: Escalation of care including admission/observation considered Lab Data [facility] Lab Attestation statement: I reviewed the patient's lab results. 09/13/22 10:29 09/13/22 10:29 Labs: Lab Results 09/13/22 09/13/22 09/13/22 Range/Units 10:29 10:29 10:29 WBC 4.0 L (4.8-10.8) X10*3/uL RBC 5.65 (4.60-5.80) X10*6/uL Hgb 14.7 (14.0-18.0) g/dl Hct 45.3 (42.0-52.0) % MCV 80.2 (80.0-98.0) fL MCH 26.0 L (27.0-33.0) pg MCHC 32.5 (31.0-36.0) g/dl RDW 13.6 (11.0-16.0) % Plt Count 242 (160-400) X10*3/uL MPV 9.9 (9.4-12.4) fL Immature Gran % (Auto) 0.3 (0.0-0.4) % Neut % (Auto) 53.8 (45-73) % Lymph % (Auto) 33.7 (20-40) % [place] % (Auto) 8.1 (2-11) % Eos % (Auto) 3.3 (0-4) % Baso % (Auto) 0.8 (0-2) % Lymph # (Auto) 1.3 (1.2-4.9) X10*3/uL [place] # (Auto) 0.3 (0.1-1.2) X10*3/uL Eos # (Auto) 0.1 (0.0-0.4) X10*3/uL Baso # (Auto) 0.0 (0.0-0.2) X10*3/uL Abs Immat Gran (auto) 0.01 (0.00-0.03) X10*3/uL Absolute Neuts (auto) 2.1 (2.0-8.3) x10*3/uL Absolute Nucleated RBC 0.000 (0.0-0.012) X10*3/uL Nucleated RBC % (auto) 0.0 (0.0-0.2) /100WBC Sodium 139 (135-145) mmol/L Potassium 3.7 (3.3-5.1) mmol/L Chloride 103 (96-108) mmol/L Carbon Dioxide 27 (22-29) mmol/L Anion Gap 13 (12-20) BUN 13 (9-16) mg/dL Creatinine 0.81 (0.5-1.4) mg/dL Estim Creat Clear Calc 171.9 Estimated GFR > 60 Random Glucose 117 H (60-115) mg/dL Calcium 9.7 (8.4-10.2) mg/dL Troponin I High Sens < 2.7 (<3.5-35.0) ng/L TSH (0.32-4.0) uIU/mL 09/13/22 Range/Units 10:29 WBC (4.8-10.8) X10*3/uL RBC (4.60-5.80) X10*6/uL Hgb (14.0-18.0) g/dl Hct (42.0-52.0) % MCV (80.0-98.0) fL MCH (27.0-33.0) pg MCHC (31.0-36.0) g/dl RDW (11.0-16.0) % Plt Count (160-400) X10*3/uL MPV (9.4-12.4) fL Immature Gran % (Auto) (0.0-0.4) % Neut % (Auto) (45-73) % Lymph % (Auto) (20-40) % [place] % (Auto) (2-11) % Eos % (Auto) (0-4) % Baso % (Auto) (0-2) % Lymph # (Auto) (1.2-4.9) X10*3/uL [place] # (Auto) (0.1-1.2) X10*3/uL Eos # (Auto) (0.0-0.4) X10*3/uL Baso # (Auto) (0.0-0.2) X10*3/uL Abs Immat Gran (auto) (0.00-0.03) X10*3/uL Absolute Neuts (auto) (2.0-8.3) x10*3/uL Absolute Nucleated RBC (0.0-0.012) X10*3/uL Nucleated RBC % (auto) (0.0-0.2) /100WBC Sodium (135-145) mmol/L Potassium (3.3-5.1) mmol/L Chloride (96-108) mmol/L Carbon Dioxide (22-29) mmol/L Anion Gap (12-20) BUN (9-16) mg/dL Creatinine (0.5-1.4) mg/dL Estim Creat Clear Calc Estimated GFR Random Glucose (60-115) mg/dL Calcium (8.4-10.2) mg/dL Troponin I High Sens (<3.5-35.0) ng/L TSH 1.26 (0.32-4.0) uIU/mL Independent Interpretation I performed an independent interpretation of an: EKG (Normal sinus rhythm heart 67, normal intervals, no acute ST elevations depressions) and Plain X-Ray (Chest: No acute cardiopulmonary disease) Prescription Management I considered prescription management with: Pain Medication Chronic Conditions Patient?s care impacted by: Hypertension Discharge Plan Discharge Clinical Impression: Atypical chest pain, Palpitations, Hypertension Patient Disposition: Home, Self-Care Instructions: Chest Pain (ED), Chronic Hypertension (ED), DASH Eating Plan (ED), Heart Palpitations (ED) Prescriptions: No Action (DME) pen needle, diabetic [BD Ultra-Fine Ellie Pen Needle] 32 gauge x needle See Rx Instructions .ROUTE .MEDSUPPLY Qty: 100 3RF Rx Instructions: As directed once daily (DME) lancets 32 gauge misc See Rx Instructions .ROUTE .MEDSUPPLY Qty: 100 11RF Rx Instructions: As directed three times daily (DME) FreeStyle Lite Strips Strip See Rx Instructions .ROUTE .MEDSUPPLY Qty: 100 11RF Rx Instructions: As directed three times daily atorvastatin 80 mg tablet 80 mg PO QPM Qty: 90 1RF lisinopril 10 mg tablet 10 mg PO DAILY Qty: 90 1RF (DME) blood-glucose meter [FreeStyle Lite Meter] Kit See Rx Instructions .ROUTE .MEDSUPPLY Qty: 1 0RF Rx Instructions: As directed levetiracetam [Keppra] 750 mg tablet 750 mg PO Q12H Qty: 60 1RF levetiracetam 750 mg tablet 750 mg PO BID Qty: 60 2RF levetiracetam [Keppra] 1,000 mg tablet 1,000 mg PO BID 30 Days Qty: 60 0RF Referrals: Lazarus Smith MD [Physician] -
[2022-09-13 10:34] LABS: MANUAL DIFF FLAG NO
[2022-09-13 10:35] LABS: Basophils Percent Auto 0.8 % (0-2); Eosinophils Absolute Auto 0.1 X10*3/uL (0.0-0.4); Eosinophils Percent Auto 3.3 % (0-4); Hematocrit 45.3 % (42.0-52.0); Hemoglobin 14.7 g/dl (14.0-18.0); Imm Gran Abs Auto 0.01 X10*3/uL (0.00-0.03); Imm Gran Pct Auto 0.3 % (0.0-0.4); Lymphocytes Absolute Auto 1.3 X10*3/uL (1.2-4.9); Lymphocytes Percent Auto 33.7 % (20-40); Mean Corpuscular HGB Conc 32.5 g/dl (31.0-36.0); Mean Corpuscular Volume 80.2 fL (80.0-98.0); Mean Platelet Volume 9.9 fL (9.4-12.4); Monocytes Absolute Auto 0.3 X10*3/uL (0.1-1.2); Monocytes Percent Auto 8.1 % (2-11); Neutrophils Absolute Auto 2.1 x10*3/uL (2.0-8.3); Neutrophils Percent Auto 53.8 % (45-73); Platelet Count 242 X10*3/uL (160-400); Red Blood Count 5.65 X10*6/uL (4.60-5.80); Red Cell Distribution Width 13.6 % (11.0-16.0)
[2022-09-13 10:47] LABS: Anion Gap 13 (12-20); Blood Urea Nitrogen 13 mg/dL (9-16); Calcium 9.7 mg/dL (8.4-10.2); Carbon Dioxide 27 mmol/L (22-29); Chloride 103 mmol/L (96-108); Creatinine Clr Calc Pharmacy 171.9; Estimated Glomerular Filt Rate > 60; Glucose Random 117 mg/dL (60-115); Potassium 3.7 mmol/L (3.3-5.1); Sodium 139 mmol/L (135-145)
[2022-09-13 10:59] LABS: Troponin-I High Sensitivity < 2.7 ng/L (<3.5-35.0)
[2022-09-13 11:09] LABS: TSH reflex Free T4 1.26 uIU/mL (0.32-4.0)
[2022-09-13 11:33] VITALS: BP 119/76; PULSE 58; RESP 18; O2SAT 97
== END 2022-09-13 11:41 | disposition home or self-care (01) ==
PROVIDERS: Emergency Provider Emergency Medicine; PCP Internal Medicine
DX: R07.89 Other chest pain (principal); I10 Essential (primary) hypertension; R00.2 Palpitations; E11.9 Type 2 diabetes mellitus without complications
CPT/HCPCS: 36415; 71046; 80048; 84443; 84484; 85025; 93005; 99283; 99284

== ENCOUNTER 2022-09-27 11:18 | Outpatient (REF) | payer MEDICAID, SELFPAY ==
[2022-09-27 13:51] LABS: Cortisol Random 10.7 ug/dL
[2022-10-01 18:18] LABS: Metanephrine, Free 40 pg/mL (<=57); Normetanephrines, Free 227 pg/mL (<=148); Total Metanephrine, Free 267 pg/mL (<=205)
[2022-10-10 16:58] LABS: Aldosterone/Renin Ratio 0.5 Ratio (0.9-28.9); Plasma Renin Activity 10.01 ng/mL/h (0.25-5.82)
== END 2022-09-27 11:19 | disposition home or self-care (01) ==
LOC: HO.LAB 11:18
PROVIDERS: PCP Internal Medicine; Visit Provider Internal Medicine Cardiovascular Disease
DX: R07.9 Chest pain, unspecified (principal); I10 Essential (primary) hypertension
CPT/HCPCS: 36415; 82088; 82533; 83835; 99202

== ENCOUNTER 2022-10-11 14:04 | Outpatient (REF) | payer MEDICAID, SELFPAY ==
[2022-10-11 16:24] LABS: Anion Gap 14 (12-20); Blood Urea Nitrogen 12 mg/dL (9-16); Calcium 10.8 mg/dL (8.4-10.2); Carbon Dioxide 29 mmol/L (22-29); Chloride 99 mmol/L (96-108); Estimated Glomerular Filt Rate > 60; Glucose Random 88 mg/dL (60-115); Potassium 4.4 mmol/L (3.3-5.1); Sodium 138 mmol/L (135-145)
[2022-10-23 06:03] LABS: Metanephrine, Free 24U 158 mcg/24 h (36-190); Normetanephrine, Free 24U 957 mcg/24 h (35-482); Total Metanephrine, Free 24U 1115 mcg/24 h (115-695); Total Volume 24U 1575 mL
== END 2022-10-11 14:05 | disposition home or self-care (01) ==
LOC: HO.LAB 14:04
PROVIDERS: Absent Provider Internal Medicine; PCP Internal Medicine; Visit Provider Internal Medicine Cardiovascular Disease
DX: I10 Essential (primary) hypertension (principal)
CPT/HCPCS: 36415; 80048; 83835

== ENCOUNTER 2022-10-27 08:47 | Outpatient (AMB) | payer MEDICAID, SELFPAY ==
--- NOTE | 2022-10-27 08:49 | A.OFFVIS_ITS ---
Intake Vital Signs 10/27/22 08:50 Height 5 ft 9 in Weight 275 lb 9.245 oz BMI 40.7 BP 110/70 Blood Pressure Location Lt brachial Position Sitting Pulse 77 Pulse Source Pulse Oximeter Intake Visit Reasons: 6week/f/u testing NS Intake Note: 6 week/f/u NS Water Systems Designer Required: No Allergies No Known Allergies [No Known Allergies*] Allergy (Verified 10/27/22 08:54) Medication List - Last Reconciled 10/27/22 by DONN Carbone amlodipine 10 mg PO DAILY blood sugar diagnostic (FreeStyle Lite Strips) As directed three times daily blood-glucose meter (FreeStyle Lite Meter kit) As directed chlorthalidone 25 mg PO DAILY lancets As directed three times daily levetiracetam (Keppra) 750 mg PO Q12H levetiracetam (Keppra) 1,000 mg PO BID 30 days levetiracetam 750 mg PO BID lisinopril 40 mg PO DAILY pen needle, diabetic (BD Ultra-Fine Ellie Pen Needle) As directed once daily HPI 6week/f/u testing NS HPI Details Clovis is a 32-year-old male with past medical history morbid obesity, hypertension, hyperlipidemia, diabetes who has been evaluated in the emergency room on 2 occasions for chest discomfort with findings of elevated blood pressure. He was seen by Dr. Smith on last visit for cardiology consult and test were ordered however most not completed as of yet. He did have labs which did raise concern for possible pheochromocytoma. He was referred to endocrinology. Today he reports that he has an endocrinology appointment on 12/01/2022. His cardiac testing will be performed in the next few weeks. Overall he says he just does not feel well. He is concerned about his physical health. He does get some sharp pains in his chest which mostly occur at rest. He denies any exertional discomfort. He denies any significant shortness of breath with activity. He is experiencing heart palpitations which cause him concern. He is being treated for seizures. Overall he admits to being mostly sedentary. Takes his medications as directed. He reports being tired most of the time and is reported to have excessive snoring. [facility] Medical History DM2 (diabetes mellitus, type 2) High triglycerides Hx of acute pancreatitis Obesity due to excess calories Surgical History No history of previous surgery Family History Father Unknown family medical history Mother Unknown family medical history Maternal Grandmother Diabetes Hypertension Social History Household Members: Spouse and Children Alcohol intake: never Patient Tobacco Use Status: Never used Tobacco service: No Current occupational status: employed Review of Systems Const All systems reviewed & are unremarkable except as noted in HPI and below ENT Reports dizziness Card Denies chest pain, Denies chest pain at rest, Denies chest pain with activity, Denies rapid heart rate, Denies pedal edema, Denies edema, Denies leg edema, Denies lightheadedness, Denies palpitations, Denies dyspnea, Denies dyspnea on exertion and Denies orthopnea Resp Denies cough, Denies dyspnea and Denies dyspnea on exertion GI Denies hematochezia and Denies change in stool character Musc Denies abnormal gait, Reports limited range of motion, Reports muscle cramps, Denies muscle weakness, Denies numbness, Denies radiating pain into limb, Denies stiffness and Denies tingling Neuro Denies abnormal gait, Reports dizziness, Denies numbness and Denies tingling Endo Denies palpitations Physical Exam Vital Signs: Last Vital Signs Pulse 77 10/27/22 08:50 BP 110/70 10/27/22 08:50 BMI result Body Mass Index 40.7 Const General: cooperative, healthy appearing, comfortable and no acute distress Orientation/consciousness: patient oriented x3 Neck Neck: Yes normal visual inspection Resp Effort & Inspection: normal respiratory effort Auscultation: clear to auscultation bilaterally, no crackles, no rales, no rhonchi and no wheezes Cardio Jugular venous distension: no JVD Rate: regular rate Rhythm: regular rhythm Heart sounds: S1 normal heart sound present, S2 normal heart sound present, no murmurs and no rubs GI Inspection: Yes normal to inspection Neuro General: patient oriented x3 Extrem General: Yes normal to inspection, No no pedal edema and No calf tenderness Psych Appearance: grossly normal Mental Status: mental status grossly normal Speech and movement: Normal speech and movement present Assessment & Plan Assessment & Plan (1) Uncontrolled hypertension: Code(s): I10 - Essential (primary) hypertension Plan: History of hypertension, uncontrolled at times. ER evaluation at time of chest discomfort had blood pressure documented at 160/110. He had been on chlorthalidone, lisinopril and amlodipine 5 mg daily. On last visit his amlodipine dose was increased up to 10 mg daily. He has noticed some mild lightheadedness at times with position changes. No presyncope, syncope, falls. Home blood pressures ranging 100-1 teens systolic. Blood pressure presently 110/70. No medication changes made at this time. He has an upcoming appointment with endocrinology for evaluation of possible pheochromocytoma. He is going to be calling that office weekly to see if he can get a sooner appointment. Currently scheduled for 12/01/2022. Cardiac testing still pending including stress test, echocardiogram, Holter monitor and sleep study. Cardiology follow-up once all testing and endocrinology evaluation completed. Patient is agreeable to this plan. (2) Chest pain: Code(s): R07.9 - Chest pain, unspecified Plan: As above. Testing pending Coding Level of Care Code Est Pt Level 3 (96558) Diagnoses Uncontrolled hypertension I10 Chest pain R07.9 Time Spent (min) 20 Comment Chart review, documentation, interview, assess
[2022-10-27 08:50] VITALS: BP 110/70; PULSE 77; BMI 40.7
== END 2022-10-27 09:17 | disposition home or self-care (01) ==
PROVIDERS: PCP Internal Medicine; Visit Provider Nurse Practitioner Family
DX: I10 Essential (primary) hypertension (principal); R07.9 Chest pain, unspecified
CPT/HCPCS: 99213

== ENCOUNTER → 2022-10-27 08:47 | Outpatient (BNVA) | payer MEDICAID, SELFPAY | PROVIDERS: PCP Internal Medicine; Visit Provider Nurse Practitioner Family | DX: R07.9 Chest pain, unspecified (principal); I10 Essential (primary) hypertension | CPT/HCPCS: 99213 ==

== ENCOUNTER → 2022-11-02 08:09 | Outpatient (REF) | payer MEDICAID, SELFPAY ==
--- NOTE | 2022-11-02 08:30 | CA_ITS ---
Acquisition Time: 2022-11-02 09:10:20 Total Exercise Time: 00:11:00 Test Indications: Chest Pain Medications: Protocol: AZ Max HR: 193 BPM 102% of Pred: 188 BPM Max BP: 140/088 mmHG Max Work Load: 13.2 METS Exercise stress test 11 min of Az protocol achieving 102% MPHR, without anginal symptoms, with report of dizziness, without arrhythmias, with resting BP 130/70, exercise BPs 120-134 systolic, without EKG changes. Test revieed with Dr. Viveros. Referred By: Lazarus Smith Overread By: Rachel Dennis
--- NOTE | 2022-11-02 08:30 | CA_ITS ---
Transthoracic Echocardiogram Patient (Last, First, Middle): Clovis Chavez, Bette Gender: Male Date of : 1990 Age: 32 Procedure Date: 11/02/2022 Procedure Type: Transthoracic Echocardiogram Location: OP Height: 175.26 cm Weight: 122.47 kg BSA: 2.35 m2 Heart Rate: 78 bpm BP: 122 / 84 mmHg Project Management Specialist: PRESTON Referring MD: Lazarus Smith MD Symptoms: R07.9 - Chest pain, unspecified Study Quality: Fair ECG Rhythm: Sinus Conclusions: - The left ventricular systolic function is normal. The calculated ejection fraction is 61% by biplane method. - No obvious valvular pathology seen on this study. Findings Left Ventricle Normal left ventricular cavity size. There is mildly increased left ventricular wall thickness. The left ventricular systolic function is normal. The calculated ejection fraction is 61% by biplane method. There is no evidence of regional wall motion abnormalities. Diastolic function is normal for age. LV peak GLS -18.8%. Right Ventricle Normal right ventricular cavity size and systolic function. Atria Both atria are normal in size. Aortic Valve There is a normal trileaflet aortic valve. There is no aortic valve stenosis. There is no aortic valve regurgitation. Mitral Valve The mitral valve appears normal. There is no mitral valve regurgitation. There is no mitral valve stenosis. Pulmonic Valve The pulmonic valve is likely normal. Tricuspid Valve Normal tricuspid valve structure. There is trace tricuspid valve regurgitation. There is no evidence of pulmonary hypertension. Great Vessels The asc aorta is normal in size. Venous The inferior vena cava is normal in size and collapses greater than 50% with inspiration. Pericardium/Pleural There is no evidence of pericardial effusion. Prior Study Comparison No prior study available for comparison. Recommendations, Care & Conclusions No obvious valvular pathology seen on this study. Measurements 2D Linear Measurements IVSd: 1.12 0.6-0.9/0.6-1.0 cm LVIDd: 4.40 3.9-5.3/4.2-5.9 cm LVIDd Index: 1.87 2.4-3.2/2.2-3.1 cm/m2 LVIDs: 3.16 2.0-3.6 cm LVPWd: 1.14 0.7-1.1 cm LA Diam: 2.70 2.7-3.8/3.0-4.0 cm LAIDs Index: 1.15 1.5-2.3 cm/m2 LV Mass: 218.63 67-162/88-224 g LV Mass Index: 93.04 43-95/49-115 g/m2 LVOT Diam: 2.10 3.0+(-)1.3 cm 2D Systolic Function EF 4C: 64.50 >55% EF 2C: 60.00 >55% EF BiP: 60.50 >55% Mitral Valve MV Pk E: 0.64 MV PK A: 0.62 MV Decel Time: 289.00 E/A: 1.00 E'Lateral: 17.10 E'Medial: 8.81 E/E' Med: 7.20 E/E' Lat: 3.70 PHT: 85.00 MVA PHT: 2.59 Decel [place]: 2.21 Aortic Valve AoV Pk [place]: 1.35 AoV Mn [place]: 0.91 AoV VTI: 0.24 AoV Pk Grad: 7.00 Aov Mn Grad: 4.00 IVELISSE Cont.VTI: 2.95 LVOT LVOT Pk [place]: 1.19 LVOT Mn [place]: 0.74 LVOT VTI: 0.20 LVOT Pk Grad: 6.00 LVOT Mn Grad: 3.00 LVOT Diam: 2.10 LVOT Area: 3.46 Diastolic Function MV Pk E: 0.64 MV Pk A: 0.62 E/A: 1.00 E'Medial: 8.81 E/E' Med: 7.20 E' Laterial: 17.10 E/E' Lat: 3.70 Right Ventricle TAPSE (mm): 22.30 TVS' [place]: 13.70 Tricuspid Valve RA Press: 3.00 Great Vessels Aorta Sinus of Valsalva: 3.30 2.0-3.[address] [place]: 2.75 1.7-3.4 cm Ao Asc: 3.00 2.1-3.4 cm Updated in Other Vendor System with Status of Final Jose Viveros MD electronically signed on 11/04/2022 10:47:17 AM with status of Final
--- NOTE | 2022-11-02 08:30 | HM_ITS ---
Conclusion: 1. Patient was monitored for total period of 2 days and 1 hour 2. Baseline was normal sinus rhythm with average heart of 86 beats per minute 3. No significant pauses noted 4. No patient reported symptoms MTDD
== END ==
LOC: HO.CARD 08:09
PROVIDERS: PCP Internal Medicine; Visit Provider Internal Medicine Cardiovascular Disease
DX: R07.9 Chest pain, unspecified (principal); R00.2 Palpitations
CPT/HCPCS: 93017; 93225; 93306; 93356

== ENCOUNTER → 2022-11-02 08:30 | Outpatient (BNV) | payer MEDICAID, SELFPAY | PROVIDERS: PCP Internal Medicine; Visit Provider Nurse Practitioner | DX: R00.0 Tachycardia, unspecified (principal) | CPT/HCPCS: 93016; 93018; 93227; 93244; 93306 ==

== ENCOUNTER 2022-11-06 12:35 | Outpatient (REF) | payer MEDICAID, SELFPAY ==
[2022-11-06 15:37] LABS: Anion Gap 15 (12-20); Blood Urea Nitrogen 12 mg/dL (9-16); Carbon Dioxide 29 mmol/L (22-29); Chloride 102 mmol/L (96-108); Estimated Glomerular Filt Rate > 60; Glucose Random 87 mg/dL (60-115); Potassium 3.7 mmol/L (3.3-5.1); Sodium 142 mmol/L (135-145)
== END 2022-11-06 12:36 | disposition home or self-care (01) ==
LOC: HO.LAB 12:35
PROVIDERS: PCP Internal Medicine; Visit Provider Internal Medicine
DX: I10 Essential (primary) hypertension (principal)
CPT/HCPCS: 36415; 80048

== ENCOUNTER → 2022-11-13 15:36 | Outpatient (REF) | payer MEDICAID, SELFPAY ==
[2022-11-14 15:53] LABS: Creatinine, mg/dL 237.96
[2022-11-14 15:59] LABS: Creatinine, 24Hr Urine 2.8 G/Day (1.0-2.0); Total Volume 24 Hour Urine 1175 mL
[2022-11-19 01:33] LABS: Metanephrine, Free 24U 176 mcg/24 h (36-190); Normetanephrine, Free 24U 557 mcg/24 h (35-482); Total Metanephrine, Free 24U 733 mcg/24 h (115-695); Total Volume 24U 1175 mL
== END ==
LOC: HO.SL 15:36
PROVIDERS: Internal Medicine Endocrinology, Diabetes & Metabolism; PCP Internal Medicine; Visit Provider Internal Medicine Cardiovascular Disease
DX: R06.83 Snoring (principal); R40.0 Somnolence; I10 Essential (primary) hypertension
CPT/HCPCS: 82570; 83835; 95806

== ENCOUNTER → 2022-11-13 15:45 | Outpatient (BNV) | payer MEDICAID, SELFPAY | PROVIDERS: PCP Internal Medicine; Visit Provider Internal Medicine | DX: R06.83 Snoring (principal) | CPT/HCPCS: 95806 ==

== ENCOUNTER 2022-11-23 14:01 | Outpatient (AMB) | payer MEDICAID, SELFPAY ==
--- NOTE | 2022-11-23 14:02 | A.OFFVIS_ITS ---
Intake Vital Signs 11/23/22 14:03 Height 5 ft 9 in Weight 275 lb 12.772 oz BMI 40.7 BP 108/70 Blood Pressure Location Lt brachial Position Sitting Pulse 128 H Pulse Source Pulse Oximeter Intake Visit Reasons: Hypertension/ Pheochromocytoma Intake Note: Patient presents today for Hypertension and Pheochromocytoma office visit. Healthcare Social Worker Required: No Accompanied by: Self / Same As Patient Allergies No Known Allergies [No Known Allergies*] Allergy (Verified 11/23/22 14:06) HPI HPI Comments History of Present Illness Details Patient was previously seen for hyperglycemia. Today, he presents because of uncontrolled hypertension. Plasma metanephrines and normetanephrines were ordered which showed elevation of normetanephrines about 1/2 f times ULN. There was also a slight elevation in urinary normetanephrines. A secondary workup for primary hyperaldosteronism was negative. Since increased dose of amilodipine, pt has not had chest pain. Had HTN since late teens. Is a family hx of HTN In terms of symptoms of pheochromocytoma, the patient has episodes of sweating 5-10 minutes , +palpitations , +headache, +abdominal pain. Skin becomes pale Episodes have been present for yrs . Not taking anti-depressants or Flexeril . [facility] Medical History DM2 (diabetes mellitus, type 2) High triglycerides Hx of acute pancreatitis Obesity due to excess calories Surgical History No history of previous surgery Family History Father Unknown family medical history Mother Unknown family medical history Maternal Grandmother Diabetes Hypertension Social History Household Members: Spouse and Children Alcohol intake: never Patient Tobacco Use Status: Never used Tobacco service: No Current occupational status: employed Physical Exam Const Other: There are no fibromas on physical examination or skin lesions. Assessment & Plan Assessment & Plan (1) Uncontrolled hypertension: Code(s): I10 - Essential (primary) hypertension Plan: This is a 32-year-old male with a history of uncontrolled hypertension ? Doubt pheochromocytoma considering mild elevation in normetanephrines in both plasma and urine. Generally levels that are 2-3 times elevated are diagnostic of pheochromocytoma. Of note, patient did have a CT scan of the abdomen and pelvis in 2020 which did not show any adrenal or extrarenal mass Will repeat plasma metanephrines and normetanephrines along with chromogranin a at a [facility] reference lab. If still remains elevated, will consider structural imaging including CT scan of thorax, abdomen and pelvis. If the above biochemistry remains elevated, and imaging is normal, may consider 2nd opinion at [facility] with Dr. Hua Saavedra, and adrenal pheochromocytoma expert. Orders: Orders Chromogranin A Today I10 - Essential (primary) hypertension Metanephrines, Plasma Today I10 - Essential (primary) hypertension Coding Level of Care Code Est Pt Level 3 (90302) Diagnoses Uncontrolled hypertension I10
[2022-11-23 14:03] VITALS: BP 108/70; PULSE 128; BMI 40.7
== END 2022-11-23 14:50 | disposition home or self-care (01) ==
PROVIDERS: PCP Internal Medicine; Visit Provider Internal Medicine Endocrinology, Diabetes & Metabolism
DX: I10 Essential (primary) hypertension (principal)
CPT/HCPCS: 99213

== ENCOUNTER → 2022-11-23 14:01 | Outpatient (BNVA) | payer MEDICAID, SELFPAY | PROVIDERS: PCP Internal Medicine; Visit Provider Internal Medicine Endocrinology, Diabetes & Metabolism | DX: I10 Essential (primary) hypertension (principal) | CPT/HCPCS: 99212 ==

== ENCOUNTER 2023-01-02 13:42 | Outpatient (AMB) | payer MEDICAID, SELFPAY ==
--- NOTE | 2023-01-02 13:43 | MHC.OFFVIS ---
Intake Vital Signs 01/02/23 13:45 Height 5 ft 9 in Weight 276 lb 10.882 oz BMI 40.9 BP 110/72 Blood Pressure Location Rt radial Position Sitting Pulse 77 Pulse Source Pulse Oximeter Intake Visit Reasons: f/u resistant HTN/ CONFIRMED Intake Note: Patient present today for resistant HTN follow up visit. Manager Human Resources Required: No Accompanied by: Significant Other Allergies No Known Allergies [No Known Allergies*] Allergy (Verified 01/02/23 13:46) Medication List - Last Reconciled 01/02/23 by Fer Mtz MD amlodipine 10 mg PO DAILY blood sugar diagnostic (FreeStyle Lite Strips) As directed three times daily blood-glucose meter (FreeStyle Lite Meter kit) As directed chlorthalidone 25 mg PO DAILY lancets As directed three times daily levetiracetam (Keppra) 1,000 mg PO BID 30 days levetiracetam 750 mg PO BID lisinopril 40 mg PO DAILY pen needle, diabetic (BD Ultra-Fine Ellie Pen Needle) As directed once daily HPI HPI Comments History of Present Illness Details Patient was previously seen for hyperglycemia. Today, he presents because of uncontrolled hypertension. Plasma metanephrines and normetanephrines were ordered which showed elevation of normetanephrines about 1/2 f times ULN. There was also a slight elevation in urinary normetanephrines. A secondary workup for primary hyperaldosteronism was negative. Since increased dose of amilodipine, pt has not had chest pain. Had HTN since late teens. Is a family hx of HTN In terms of symptoms of pheochromocytoma, the patient has episodes of sweating 5-10 minutes , +palpitations , +headache, +abdominal pain. Skin becomes pale Episodes have been present for yrs . Not taking anti-depressants or Flexeril . Repeat labs including plasma metanephrines, normetanephrines and chromogranin a were negative at a [facility] reference lab. [facility] Medical History DM2 (diabetes mellitus, type 2) High triglycerides Hx of acute pancreatitis Obesity due to excess calories Surgical History No history of previous surgery Family History Father Unknown family medical history Mother Unknown family medical history Maternal Grandmother Diabetes Hypertension Social History Household Members: Spouse and Children Alcohol intake: never Patient Tobacco Use Status: Never used Tobacco service: No Current occupational status: employed Physical Exam Vital Signs: Last Vital Signs Pulse 77 01/02/23 13:45 BP 110/72 01/02/23 13:45 BMI result Body Mass Index 40.9 Assessment & Plan Assessment & Plan (1) Uncontrolled hypertension: Code(s): I10 - Essential (primary) hypertension Plan: This is a 32-year-old male with a history of uncontrolled hypertension ? Doubt pheochromocytoma considering mild elevation in normetanephrines in both plasma and urine. Generally levels that are 2-3 times elevated are diagnostic of pheochromocytoma. Of note, patient did have a CT scan of the abdomen and pelvis in 2020 which did not show any adrenal or extrarenal mass. Repeat labs at [facility] were normal ruling out pheochromocytoma Plan is to send the patient back to his primary care provider and zoning assistant. There is no need for any further endocrine workup or follow-up at this point Coding Level of Care Code Est Pt Level 3 (10229) Diagnoses Uncontrolled hypertension I10
[2023-01-02 13:45] VITALS: BP 110/72; PULSE 77; BMI 40.9
== END 2023-01-02 14:19 | disposition home or self-care (01) ==
PROVIDERS: PCP Internal Medicine; Visit Provider Internal Medicine Endocrinology, Diabetes & Metabolism
DX: I10 Essential (primary) hypertension (principal)
CPT/HCPCS: 99213

== ENCOUNTER → 2023-01-02 13:42 | Outpatient (BNVA) | payer MEDICAID, SELFPAY | PROVIDERS: PCP Internal Medicine; Visit Provider Internal Medicine Endocrinology, Diabetes & Metabolism | DX: I10 Essential (primary) hypertension (principal) | CPT/HCPCS: 99212 ==

== ENCOUNTER 2023-01-29 10:21 | Outpatient (AMB) | payer MEDICAID, SELFPAY ==
[2023-01-29 10:26] VITALS: BP 132/80; PULSE 88; BMI 40.4
--- NOTE | 2023-01-29 10:26 | A.OFFVIS_ITS ---
Intake Vital Signs 01/29/23 10:26 Height 5 ft 9 in Weight 273 lb 5.971 oz BMI 40.4 BP 132/80 Blood Pressure Location Lt brachial Position Sitting Pulse 88 Intake Visit Reasons: 3 month follow up Intake Note: 3 month follow-up feeling ok Physical Plant Manager Required: No Allergies No Known Allergies [No Known Allergies*] Allergy (Verified 01/02/23 13:46) Medication List - Last Reconciled 01/29/23 by Lazarus Smith MD amlodipine 10 mg PO DAILY blood sugar diagnostic (FreeStyle Lite Strips) As directed three times daily blood-glucose meter (FreeStyle Lite Meter kit) As directed chlorthalidone 25 mg PO DAILY lancets As directed three times daily levetiracetam (Keppra) 1,000 mg PO BID 30 days levetiracetam 750 mg PO BID lisinopril 40 mg PO DAILY pen needle, diabetic (BD Ultra-Fine Ellie Pen Needle) As directed once daily HPI HPI Comments History of Present Illness Details [place] comes for follow-up. Blood pressures been much better controlled on current medications. He occasionally notices orthostatic lightheadedness notice that his blood pressures 15 point lower. Usually blood pressure in the range of systolic 110-120 mmHg. He denies any syncopal episodes. His workup so far had revealed mild hypertensive heart disease. He denies any heart failure symptoms. His catecholamine levels are elevated has been evaluated by endocrinology and there is low suspicion for pheochromocytoma. There is no evidence of sleep apnea. He remains very active doing the work. [facility] Medical History Obesity due to excess calories DM2 (diabetes mellitus, type 2) Hx of acute pancreatitis High triglycerides Surgical History No history of previous surgery Family History Father Unknown family medical history Mother Unknown family medical history Maternal Grandmother Diabetes Hypertension Social History Household Members: Spouse and Children Alcohol intake: never Patient Tobacco Use Status: Never used Tobacco service: No Current occupational status: employed Review of Systems Const Denies chills, Denies fatigue, Denies fever(s), Denies frequent falls, Denies weakness, Denies weight gain and Denies weight loss ENT Denies dizziness Card Denies chest pain, Denies leg edema, Denies lightheadedness, Denies palpitations, Denies dyspnea, Denies dyspnea on exertion, Denies orthopnea and Denies other (loss of consciousness) Resp Denies cough, Denies dyspnea and Denies dyspnea on exertion GI Denies hematochezia and Denies change in stool character Musc Denies abnormal gait, Denies muscle weakness, Denies numbness, Denies radiating pain into limb and Denies tingling Neuro Denies abnormal gait, Denies dizziness, Denies frequent falls, Denies numbness, Denies tingling and Denies weakness Endo Denies fatigue and Denies palpitations Physical Exam Vital Signs: Last Vital Signs Pulse 88 01/29/23 10:26 BP 132/80 01/29/23 10:26 BMI result Body Mass Index 40.4 Const General: cooperative, healthy appearing, comfortable and no acute distress Orientation/consciousness: patient oriented x3 Neck Neck: Yes normal visual inspection Resp Effort & Inspection: normal respiratory effort Auscultation: clear to auscultation bilaterally, no crackles, no rales, no rhonchi and no wheezes Cardio Jugular venous distension: no JVD Rate: regular rate Rhythm: regular rhythm Heart sounds: S1 normal heart sound present, S2 normal heart sound present, no murmurs and no rubs GI Inspection: Yes normal to inspection Neuro General: patient oriented x3 Extrem General: Yes normal to inspection, No no pedal edema and No calf tenderness Psych Appearance: grossly normal Mental Status: mental status grossly normal Speech and movement: Normal speech and movement present Assessment & Plan Assessment & Plan (1) Hypertensive heart disease: Code(s): I11.9 - Hypertensive heart disease without heart failure Plan: Mild hypertensive heart disease without any symptoms or signs of congestive heart failure. Management of blood pressure aggressively was discussed with him. Blood pressure is currently well optimized. He is having some symptoms of orthostatic lightheadedness. Advised to continue monitor blood pressure intermittently at home and if it is consistently lower may need to taper 1 of his antihypertensive therapy. Advise continue the same. Low-salt diet was discussed. Continue participate in aggressive aerobic exercise and conditioning as well as weight loss program. He understands agrees. Management of diabetes through your office. Will follow up in the clinic in 1 year's time, sooner p.r.n.. Thank you for allowing me to partake in his care Coding Level of Care Code Est Pt Level 3 (75661) Diagnoses Hypertensive heart disease I11.9
== END 2023-01-29 10:42 | disposition home or self-care (01) ==
PROVIDERS: PCP Internal Medicine; Visit Provider Internal Medicine Cardiovascular Disease
DX: I11.9 Hypertensive heart disease without heart failure (principal)
CPT/HCPCS: 99213

== ENCOUNTER → 2023-01-29 10:21 | Outpatient (BNVA) | payer MEDICAID, SELFPAY | PROVIDERS: PCP Internal Medicine; Visit Provider Internal Medicine Cardiovascular Disease | DX: I11.9 Hypertensive heart disease without heart failure (principal) | CPT/HCPCS: 99212 ==

== ENCOUNTER 2023-05-10 11:48 | Outpatient (REF) | payer MEDICAID, SELFPAY ==
[2023-05-10 13:55] LABS: Alanine Aminotransferase 32 U/L (0-40); Albumin Level 4.7 g/dL (3.5-5.0); Alkaline Phosphatase 58 U/L (39-117); Amylase 40 U/L (28-100); Anion Gap 11 (12-20); Aspartate Amino Transferase 28 U/L (5-37); Bilirubin Direct 0.2 mg/dL (0.0-0.5); Bilirubin Total 0.9 mg/dL (0.0-1.0); Blood Urea Nitrogen 14 mg/dL (9-16); Calcium 10.2 mg/dL (8.4-10.2); Carbon Dioxide 30 mmol/L (22-29); Chloride 101 mmol/L (96-108); Cholesterol 209 mg/dL (<200); Estimated Glomerular Filt Rate > 60; Glucose Random 92 mg/dL (60-115); HDL Cholesterol 37 mg/dL (>40); LDL Cholesterol Calculated 142 mg/dL (<100); Lipase 26 U/L (8-78); Potassium 4.1 mmol/L (3.3-5.1); Sodium 138 mmol/L (135-145); Total Protein 8.2 g/dL (6.5-8.0); Triglycerides 152 mg/dL (<150)
== END 2023-05-10 11:49 | disposition home or self-care (01) ==
LOC: HO.HHCL 11:48
PROVIDERS: Visit Provider Internal Medicine
DX: R10.11 Right upper quadrant pain (principal)
CPT/HCPCS: 36415; 80048; 80061; 80076; 82150; 83690

== ENCOUNTER 2023-05-10 12:50 | Outpatient (REF) | payer MEDICAID, SELFPAY ==
--- NOTE | ~2023-05-10 | US_ITS ---
EXAMINATION: US ABDOMEN COMPLETE CLINICAL INFORMATION: Right upper quadrant pain. Question cholecystitis. COMPARISON: CT abdomen and pelvis 08/19/2020 TECHNIQUE: Real-time imaging of the abdominal viscera. FINDINGS: PANCREAS: The head and the body of pancreas is homogeneous in echotexture without enlargement or focal lesion. The tail is obscured by depth and overlying bowel gas pattern. ABDOMINAL AORTA: The proximal, mid, and distal segments are normal in caliber. INFERIOR VENA CAVA: Visualized portions are normal. LIVER: The liver is normal in size. The liver contour is normal. Parenchymal echogenicity is diffusely increased with areas of focal fatty sparing. There is no intrahepatic biliary duct dilatation seen. GALLBLADDER: Normal. The gallbladder is physiologically distended without evidence of stones, sludge, polyps, wall thickening or pericholecystic fluid. COMMON BILE DUCT: Normal in caliber measuring 0.36 cm in diameter. RIGHT KIDNEY: Normal. No hydronephrosis. No renal calculi or focal parenchymal lesions. The kidney measures 11.3 cm in maximum dimension. LEFT KIDNEY: Focal lobulated contour which is exophytic cortical lesion. Along the lower pole. No abnormality was seen on previous CT abdomen and pelvis 08/19/2020 No hydronephrosis. No renal calculi or focal parenchymal lesions. The kidney measures 11.7 cm in maximum dimension. SPLEEN: Normal. The spleen measures 12.8 cm in maximum dimension. FREE FLUID: None. US/US abdomen complete IMPRESSION: 1. Diffuse hepatic steatosis with areas of focal fatty sparing. 2. Focal lobulated contour lower pole left kidney. Likely normal No abnormality was seen on previous CT abdomen and pelvis 08/19/2020. 3. Rest of the abdominal ultrasound is unremarkable.
== END 2023-05-10 12:51 | disposition home or self-care (01) ==
LOC: HO.HMGCX 12:50
PROVIDERS: PCP Internal Medicine; Visit Provider Internal Medicine
DX: R10.11 Right upper quadrant pain (principal)
CPT/HCPCS: 36415; 76700; 80048; 80061; 80076; 82150; 83690

== ENCOUNTER 2023-08-23 08:53 | Emergency (ER) | payer MEDICAID, SELFPAY ==
--- NOTE | ~2023-08-23 | CT_ITS ---
EXAMINATION: CT HEAD WITHOUT CONTRAST CT CERVICAL SPINE WITHOUT CONTRAST CLINICAL INFORMATION: Fall and head strike. COMPARISON: Brain MRI dated 12/06/2021. TECHNIQUE: Contiguous axial imaging was performed from the skullbase to vertex without intravenous administration of contrast. Multidetector helical imaging was performed through the cervical spine. This CT examination was performed using dose optimization techniques as appropriate, variously including the following: *Automated exposure control *Adjustment of mA and/or kV according to patient size (this includes techniques or standardized protocols for targeted exams where dose is matched to indication/reason for exam; i.e. extremities or head) *Use of iterative reconstruction technique DLP: 1472 mGy-cm. FINDINGS: HEAD: There is no evidence of acute intracranial hemorrhage or territorial infarction. No abnormal mass effect or midline shift is seen. Arreaga to white matter differentiation is well preserved. No extra-axial fluid collections are identified. The ventricles are normal in size. Brain parenchymal attenuation is normal. The osseous structures and soft tissues are normal. There is a mild amount of fluid in the dependent mastoid air cells bilaterally. Incidental 1.5 cm retention cyst visible in the left sphenoid sinus. Mild ethmoid sinus mucosal thickening noted. CERVICAL SPINE: No acute fracture or subluxation is identified in the cervical spine. Reversal of the normal cervical lordosis noted. There is mild disc space narrowing and bulky anterior endplate spurring at the C5-C6 level. Multilevel disc protrusions are visible at the C3-C4, C4-C5, and C5-C6 levels. 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 The atlantoaxial articulation is normally maintained. The paraspinal soft tissues are normal. The lung apices are clear. CT/CT cervical spine wo IV con IMPRESSION: 1. No acute intracranial pathology. 2. No evidence of acute cervical spine traumatic injury.
[2023-08-23 09:08] VITALS: BP 117/83; PULSE 78; RESP 16; TEMP 36.8; O2SAT 98; BMI 38.8
--- NOTE | 2023-08-23 09:25 | ECG_ITS ---
Test Reason : syncope Blood Pressure : / mmHG Vent. Rate : 077 BPM Atrial Rate : 077 BPM P-R Int : 180 ms QRS Dur : 096 ms QT Int : 370 ms P-R-T Axes : 046 016 033 degrees QTc Int : 418 ms Normal sinus rhythm Low voltage QRS Borderline ECG When compared with ECG of 13-SEP-2022 09:10, No significant change was found Referred By: Concha Marquez Electronically Signed By:JORGE LUIS FERNANDEZ MD
--- NOTE | 2023-08-23 09:26 | ED.GENADULT ---
HPI - General Adult General Chief complaint: General Medical Stated complaint: Low blood sugar, fell this morning Time Seen by Provider: 08/23/23 09:26 Source: patient and family (patient's ) Mode of arrival: ambulatory Limitations: no limitations History of Present Illness ED Provider: Concha Marquez PA-C HPI narrative: Patient is a 33 year old assigned male at with a history of HTN, seizures, DM, and hypertensive heart disease presenting to the emergency department today after a hypoglycemic event and fall. Patient states that this morning he woke up and his sugar was low, in the 50s. Patient states that he drank some juice, got into the shower, and then passed out. Patient's states that the patient did hit his head. Patient states that he is taking all of his anti-seizure medication. Patient states that he is not currently on any medications for his diabetes. Patient states that he has a neurologist he continues to follow up with. Patient states that every morning, no matter what, he vomits at least twice. Patient states that it has always been that way and he has never had it evaluated. Patient denies any dizziness, lightheadedness, abdominal pain, nausea, vomiting, fever, chills, blurry vision, double vision, loss of vision, chest pain, difficulty breathing, shortness of breath, back pain, night sweats, pain with urination, increased urinary frequency, increased urinary urgency, blood in his urine or stool, bowel incontinence, bladder incontinence, bowel retention, bladder retention, or any other complaints at this time. Location: head Severity: mild Relieving factors: none Exacerbating factors: none Associated symptoms: syncope Treatments prior to arrival: none Related Data Home Medications ?Medication ?Instructions ?Recorded ?Confirmed chlorthalidone 25 mg tablet 25 mg PO DAILY 09/27/22 01/29/23 lisinopril 40 mg tablet 40 mg PO DAILY 09/27/22 01/29/23 Previous Rx's ?Medication ?Instructions ?Recorded blood-glucose meter (FreeStyle #1 ea 08/22/20 Lite Meter kit) pen needle, diabetic 32 gauge x #100 ea 12/24/20 (BD Ultra-Fine Ellie Pen Needle) lancets 32 gauge #100 ea 12/29/20 blood sugar diagnostic (FreeStyle #100 ea 04/26/21 Lite Strips) levetiracetam 750 mg tablet 750 mg PO BID #60 tabs 10/19/21 levetiracetam 1,000 mg tablet 1,000 mg PO BID 30 days #60 tabs 11/10/21 (Keppra) amlodipine 10 mg tablet 10 mg PO DAILY #90 tabs 08/07/23 glucose 2 gram chewable tablet 2 g PO NEEDED PRN hypoglycemia 08/23/23 #10 tabs Allergies Allergy/AdvReac Type Severity Reaction Status Date / Time No Known Allergies Allergy Verified 08/23/23 09:10 [No Known Allergies*] Review of Systems Constitutional: Constitutional: Reports no additional constitutional complaints, Denies chills, Denies fever(s), Reports headache(s) and Denies night sweats Eyes: Eyes: Reports no additional eye complaints, Denies blurry vision, Denies change in vision, Denies diplopia, Denies eye discharge, Denies loss of vision and Denies eye pain ENT: Denies dizziness and Reports headache(s) Cardiovascular: Cardiovascular: Reports no additional cardiovascular complaints, Denies chest pain, Reports syncope, Denies lightheadedness, Denies Loss of Consciousness and Denies dyspnea Respiratory: Respiratory: Reports no additional respiratory complaints and Denies dyspnea Gastrointestinal: Gastrointestinal: Reports no additional gastrointestinal complaints, Denies abdominal pain, Denies melena, Denies hematochezia, Denies change in bowel habits and Denies change in stool character Genitourinary: Genitourinary: Reports no additional male genitourinary complaints, Denies hematuria, Denies oliguria, Denies difficulty urinating, Denies dysuria, Denies urinary frequency, Denies urinary hesitancy, Denies urinary incontinence and Denies urinary urgency Musculoskeletal: Musculoskeletal: Reports no additional musculoskeletal complaints, Denies numbness and Denies tingling Neurologic: Denies dizziness, Reports syncope, Reports headache(s), Denies loss of vision, Denies numbness and Denies tingling Psychiatric: Psychiatric: Reports no additional psychiatric complaints Endocrine: Endocrine: Reports no additional endocrine complaints Hematologic/Lymphatic: Hematologic/Lymphatic: Reports no additional hematologic/lymphatic complaints Allergic/Immunologic: Allergic/Immunologic: Reports no additional allergic/immunologic complaints PMFSH Past Medical History Attestation statement: The following information was validated with the patient. (all information validated with the patient's ) Source: old records reviewed, obtained from family (patient's provided additional history and confirmed the history provided by the patient.) and nursing notes reviewed Medical History Obesity due to excess calories DM2 (diabetes mellitus, type 2) Hx of acute pancreatitis High triglycerides Surgical History No history of previous surgery Family History Family History Father Unknown family medical history Mother Unknown family medical history Maternal Grandmother Diabetes Hypertension Social History Social History Household Members: Spouse and Children Alcohol intake: former Comment: patient with steady gait, ambulated in lazar per MD, then up OOB to chair Patient Tobacco Use Status: Never used Tobacco Smoked in Last 30 Days: No Use of substances other than those prescribed or required for medical reasons: No Advance Directives: No Advance Directives Information Provided: Yes Do you have a plan to hurt others: No Plan service: No Current occupational status: employed Physical Exam ED Vital Signs: Vital Signs - 24 hr 08/23/23 09:08 08/23/23 09:29 Temperature 98.2 F Pulse Rate 78 83 Respiratory Rate 16 18 Blood Pressure 117/83 121/68 Pulse Oximetry 98 98 Oxygen Delivery Method Room Air Room Air BMI result Body Mass Index 38.8 Const General: cooperative, no acute distress, alert and awake Nutritional Appearance: well nourished Orientation/consciousness: patient oriented x3 Limitations: no limitations [facility] Head: Yes normal to inspection and Yes abrasion Head images: 1. small abrasion, no active bleeding, no open areas Ears: hearing grossly normal bilaterally and external ears normal General nose exam: Normal external nose present, no nasal discharge noted and no epistaxis Face and sinus: Yes normal facial exam, No abrasion and No laceration Mouth: Normal oral and palatal mucosa present, no drooling and no muffled voice Eyes General: appearance normal, both eyes and all related structures Periorbital: periorbital findings normal Eyelids: Yes eyelids normal Conjunctivae: conjunctivae normal Pupils: Equal, round and reactive pupils present EOM: EOMs intact bilaterally Neck Neck: Yes normal visual inspection, Yes full ROM and Yes no lymphadenopathy Chest Chest palpation & inspection: normal inspection of the chest Resp Effort & Inspection: normal respiratory effort and able to speak in complete sentences GI Inspection: Yes normal to inspection Neuro General: patient oriented x3 and moves all extremities Cranial nerves: Yes Equal, round and reactive pupils present Cognition (Neuro): normal cognition Motor exam (neuro): 5/5 motor strength present throughout Sensory Exam: Normal double simultaneous stimulation for sensation Coordination: [id number] test normal Extrem General: Yes normal to inspection, Yes full ROM and Yes capillary refill normal Psych Appearance: grossly normal Mental Status: mental status grossly normal Affect: normal affect Attitude: cooperative Thought process: Normal thought process present Thought content: Normal thought content present Insight: Good insight present (Psych) Medications Administered Discontinued Medications Generic Name Dose Route Start Last Admin Trade Name Torsten PRN Reason Stop Dose Admin Dextrose 250 mls @ 750 mls/hr 08/23/23 09:25 08/23/23 11:52 D10 IV Infused Q15M PRN Infusion per Hypoglycemia Standing Ord. Medical Decision Making Medical Decision Making [facility] Narrative: Patient is a 33 year old assigned male at with a history of HTN, seizures, DM, and hypertensive heart disease presenting to the emergency department today after a hypoglycemic event and fall. Patient's physical exam was as noted in the physical exam portion of this note. Patient's blood work was largely unremarkable with a sugar of 98. Patient's EKG was unremarkable. Patient's CT head and c-spine showed no acute process. I explained my physical exam findings as well as all test results to the patient and the patient's . I answered all questions asked by the patient and the patient's . Patient received D10 while in the department which he stated helped his symptoms significantly. I stressed the importance of the patient taking his medication as prescribed. I stressed the importance of the patient following up with his primary care provider and his neurologist. He also mentioned vomiting every morning - so I recommended following up with a GI specialist. I stressed the importance of the patient returning to the emergency department immediately if his symptoms were to worsen or if he were to develop any dizziness, shortness of breath, difficulty breathing, chest pain, blurry vision, loss of vision, nausea, vomiting, abdominal pain, fever, chills, back pain, or any other complaints. Patient and the patient's verbalized agreement and understanding with this treatment plan and discharge. Differential Diagnosis Differential Diagnoses: The differential diagnosis associated with the presentation includes Hypoglycemia Fall Admission/Observation Consideration of admission/observation: Escalation of care including admission/observation considered Patient would have been admitted to the hospital had his work up had any findings where hospital admission was appropriate and his clinical presentation warranted hospital admission. Lab Data [facility] Lab Attestation statement: I reviewed the patient's lab results. My interpretation of these results are in the [facility] Rationale portion of this note. 08/23/23 10:02 08/23/23 10:03 Labs: Lab Results 08/23/23 08/23/23 08/23/23 Range/Units 09:01 10:02 10:03 WBC 4.3 L (4.8-10.8) X10*3/uL RBC 5.96 H (4.60-5.80) X10*6/uL Hgb 15.5 (14.0-18.0) g/dl Hct 47.2 (42.0-52.0) % MCV 79.2 L (80.0-98.0) fL MCH 26.0 L (27.0-33.0) pg MCHC 32.8 (31.0-36.0) g/dl RDW 13.9 (11.0-16.0) % Plt Count 277 (160-400) X10*3/uL MPV 9.8 (9.4-12.4) fL Immature Gran % (Auto) 0.2 (0.0-0.4) % Neut % (Auto) 70.0 (45-73) % Lymph % (Auto) 15.3 L (20-40) % Gem % (Auto) 9.4 (2-11) % Eos % (Auto) 4.2 H (0-4) % Baso % (Auto) 0.9 (0-2) % Lymph # (Auto) 0.7 L (1.2-4.9) X10*3/uL Gem # (Auto) 0.4 (0.1-1.2) X10*3/uL Eos # (Auto) 0.2 (0.0-0.4) X10*3/uL Baso # (Auto) 0.0 (0.0-0.2) X10*3/uL Abs Immat Gran (auto) 0.01 (0.00-0.03) X10*3/uL Absolute Neuts (auto) 3.0 (2.0-8.3) x10*3/uL Absolute Nucleated RBC 0.000 (0.0-0.012) X10*3/uL Nucleated RBC % (auto) 0.0 (0.0-0.2) /100WBC PT 12.8 (11.1-13.3) SEC INR 1.1 (0.9-1.1) APTT 33.8 (26.0-36.8) SEC VBG pH (7.32-7.43) VBG pCO2 mmHg VBG pO2 mmHg VBG HCO3 (22-26) mmol/L VBG O2 Saturation % VBG Base Excess mmol/L Sodium 137 (135-145) mmol/L Potassium 3.9 (3.3-5.1) mmol/L Chloride 103 (96-108) mmol/L Carbon Dioxide 23 (22-29) mmol/L Anion Gap 15 (12-20) BUN 11 (9-16) mg/dL Creatinine 0.94 (0.5-1.4) mg/dL Estim Creat Clear Calc 142.4 Estimated GFR > 60 POC Glucose 99 (60-115) mg/dL Random Glucose 97 (60-115) mg/dL Calcium 10.2 (8.4-10.2) mg/dL Magnesium 1.8 (1.6-2.6) mg/dL Total Bilirubin 1.4 H (0.0-1.0) mg/dL AST 21 (5-37) U/L ALT 24 (0-40) U/L Alkaline Phosphatase 73 (39-117) U/L Total Protein 8.4 H (6.5-8.0) g/dL Albumin 4.9 (3.5-5.0) g/dL Beta-Hydroxybutyrate 0.12 (0.02-0.27) mmol/L Influenza Type A (PCR) NEGATIVE (Negative) Influenza Type B (PCR) NEGATIVE (Negative) RSV RNA Qual (PCR) NEGATIVE (Negative) SARS-CoV-2 RNA (RT-PCR) NEGATIVE (Negative) 08/23/23 08/23/23 08/23/23 Range/Units 10:06 10:52 12:13 WBC (4.8-10.8) X10*3/uL RBC (4.60-5.80) X10*6/uL Hgb (14.0-18.0) g/dl Hct (42.0-52.0) % MCV (80.0-98.0) fL MCH (27.0-33.0) pg MCHC (31.0-36.0) g/dl RDW (11.0-16.0) % Plt Count (160-400) X10*3/uL MPV (9.4-12.4) fL Immature Gran % (Auto) (0.0-0.4) % Neut % (Auto) (45-73) % Lymph % (Auto) (20-40) % Gem % (Auto) (2-11) % Eos % (Auto) (0-4) % Baso % (Auto) (0-2) % Lymph # (Auto) (1.2-4.9) X10*3/uL Gem # (Auto) (0.1-1.2) X10*3/uL Eos # (Auto) (0.0-0.4) X10*3/uL Baso # (Auto) (0.0-0.2) X10*3/uL Abs Immat Gran (auto) (0.00-0.03) X10*3/uL Absolute Neuts (auto) (2.0-8.3) x10*3/uL Absolute Nucleated RBC (0.0-0.012) X10*3/uL Nucleated RBC % (auto) (0.0-0.2) /100WBC PT (11.1-13.3) SEC INR (0.9-1.1) APTT (26.0-36.8) SEC VBG pH 7.41 (7.32-7.43) VBG pCO2 45 mmHg VBG pO2 80 mmHg VBG HCO3 28 H (22-26) mmol/L VBG O2 Saturation 96.0 % VBG Base Excess 3.4 mmol/L Sodium (135-145) mmol/L Potassium (3.3-5.1) mmol/L Chloride (96-108) mmol/L Carbon Dioxide (22-29) mmol/L Anion Gap (12-20) BUN (9-16) mg/dL Creatinine (0.5-1.4) mg/dL Estim Creat Clear Calc Estimated GFR POC Glucose 177 H 98 (60-115) mg/dL Random Glucose (60-115) mg/dL Calcium (8.4-10.2) mg/dL Magnesium (1.6-2.6) mg/dL Total Bilirubin (0.0-1.0) mg/dL AST (5-37) U/L ALT (0-40) U/L Alkaline Phosphatase (39-117) U/L Total Protein (6.5-8.0) g/dL Albumin (3.5-5.0) g/dL Beta-Hydroxybutyrate (0.02-0.27) mmol/L Influenza Type A (PCR) (Negative) Influenza Type B (PCR) (Negative) RSV RNA Qual (PCR) (Negative) SARS-CoV-2 RNA (RT-PCR) (Negative) Independent Interpretation I performed an independent interpretation of an: EKG and CT Scan Interpretation: My interpretation is in agreement with the radiologist's impression of these imaging studies. EXAMINATION: CT HEAD WITHOUT CONTRAST CT CERVICAL SPINE WITHOUT CONTRAST CLINICAL INFORMATION: Fall and head strike. COMPARISON: Brain MRI dated 12/06/2021. TECHNIQUE: Contiguous axial imaging was performed from the skullbase to vertex without intravenous administration of contrast. Multidetector helical imaging was performed through the cervical spine. This CT examination was performed using dose optimization techniques as appropriate, variously including the following: *Automated exposure control *Adjustment of mA and/or kV according to patient size (this includes techniques or standardized protocols for targeted exams where dose is matched to indication/reason for exam; i.e. extremities or head) *Use of iterative reconstruction technique DLP: 1472 mGy-cm. FINDINGS: HEAD: There is no evidence of acute intracranial hemorrhage or territorial infarction. No abnormal mass effect or midline shift is seen. Arreaga to white matter differentiation is well preserved. No extra-axial fluid collections are identified. The ventricles are normal in size. Brain parenchymal attenuation is normal. The osseous structures and soft tissues are normal. There is a mild amount of fluid in the dependent mastoid air cells bilaterally. Incidental 1.5 cm retention cyst visible in the left sphenoid sinus. Mild ethmoid sinus mucosal thickening noted. CERVICAL SPINE: No acute fracture or subluxation is identified in the cervical spine. Reversal of the normal cervical lordosis noted. There is mild disc space narrowing and bulky anterior endplate spurring at the C5-C6 level. Multilevel disc protrusions are visible at the C3-C4, C4-C5, and C5-C6 levels. 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 The atlantoaxial articulation is normally maintained. The paraspinal soft tissues are normal. The lung apices are clear. CT/CT head/brain wo IV con IMPRESSION: 1. No acute intracranial pathology. 2. No evidence of acute cervical spine traumatic injury. Dictated By: DEVON MAYNARD MD Signed By: Electronically signed by DEVON MAYNARD MD 08/23/23 1043 Vent. Rate: 077 BPM Atrial Rate: 077 BPM P-R Int: 180 ms QRS Dur: 096 ms QT Int: 370 ms P-R-T Axes: 046 016 033 degrees QTc Int: 418 ms Normal sinus rhythm Low voltage QRS Borderline ECG When compared with ECG of 13-SEP-2022 09:10, No significant change was found Electronically Signed By:LAZARUS FERNANDEZ MD Dictated By: Lazarus Fernandez MD Signed By: Electronically signed by Lazarus Fernandez MD 08/23/23 1117 Radiology Impression Discussion of test interpretation with radiology: I have reviewed the radiologist's reading. Independent Historian Clinical information obtained from an independent historian. History obtained from or confirmed by: Spouse (patient's provided additional history and confirmed the history provided by the patient.) Chronic Conditions Patient?s care impacted by: Diabetes Critical Care Time Critical Care Time Critical Care Time: Yes Total Critical Care Time: 78 Attestation: I spent 78 minutes of Critical Care Time with this patient. This does not include time spent on separately reported billable procedures. Discharge Plan Discharge Clinical Impression: Hypoglycemia, Cyst of left sphenoid sinus Patient Disposition: Home, Self-Care Instructions: What to Do if Your Blood Sugar is Low (ED) Additional Instructions: Your CT scan of the head showed an incident finding of a left 1.5cm retention cyst in the left sphenoid sinus. Follow up with your primary care provider, your neurologist, and an ENT about the cyst found today. Additionally, given your daily morning vomiting, follow up with a GI specialist. Return to the emergency department immediately if your symptoms worsen or if you develop any dizziness, shortness of breath, difficulty breathing, chest pain, blurry vision, loss of vision, nausea, vomiting, abdominal pain, fever, chills, back pain, or any other complaints. Prescriptions: New glucose 2 gram tablet,chewable 2 g PO NEEDED PRN (Reason: hypoglycemia) Qty: 10 0RF No Action (DME) pen needle, diabetic [BD Ultra-Fine Ellie Pen Needle] 32 gauge x 5/32 needle See Rx Instructions .ROUTE .MEDSUPPLY Qty: 100 3RF Rx Instructions: As directed once daily (DME) lancets 32 gauge misc See Rx Instructions .ROUTE .MEDSUPPLY Qty: 100 11RF Rx Instructions: As directed three times daily (DME) FreeStyle Lite Strips Strip See Rx Instructions .ROUTE .MEDSUPPLY Qty: 100 11RF Rx Instructions: As directed three times daily amlodipine 10 mg tablet 10 mg PO DAILY Qty: 90 1RF (DME) blood-glucose meter [FreeStyle Lite Meter] Kit See Rx Instructions .ROUTE .MEDSUPPLY Qty: 1 0RF Rx Instructions: As directed levetiracetam 750 mg tablet 750 mg PO BID Qty: 60 2RF levetiracetam [Keppra] 1,000 mg tablet 1,000 mg PO BID 30 Days Qty: 60 0RF lisinopril 40 mg tablet 40 mg PO DAILY chlorthalidone 25 mg tablet 25 mg PO DAILY Referrals: [facility] [Provider Group] (Call to establish and follow up with a GI specialist to discuss your daily morning vomiting.) Tala Tena MD [Primary Care Provider] - Paul Robison [Physician] - (Call to establish and follow up with an ENT to discuss the cyst found.) Stand Alone Forms: Work/School Release Discharge Date/Time: 08/23/23 12:25 Print Language: Tajik
[2023-08-23 09:29] VITALS: BP 121/68; PULSE 83; RESP 18; O2SAT 98
[2023-08-23] MEDS: Dextrose 10 % 250 ML 750 ML IV (10:07)
[2023-08-23 10:09] LABS: MANUAL DIFF FLAG NO
[2023-08-23 10:12] LABS: Basophils Percent Auto 0.9 % (0-2); Eosinophils Absolute Auto 0.2 X10*3/uL (0.0-0.4); Eosinophils Percent Auto 4.2 % (0-4); Hematocrit 47.2 % (42.0-52.0); Hemoglobin 15.5 g/dl (14.0-18.0); Imm Gran Abs Auto 0.01 X10*3/uL (0.00-0.03); Imm Gran Pct Auto 0.2 % (0.0-0.4); Lymphocytes Absolute Auto 0.7 X10*3/uL (1.2-4.9); Lymphocytes Percent Auto 15.3 % (20-40); Mean Corpuscular HGB Conc 32.8 g/dl (31.0-36.0); Mean Corpuscular Volume 79.2 fL (80.0-98.0); Mean Platelet Volume 9.8 fL (9.4-12.4); Monocytes Absolute Auto 0.4 X10*3/uL (0.1-1.2); Monocytes Percent Auto 9.4 % (2-11); Platelet Count 277 X10*3/uL (160-400); Red Blood Count 5.96 X10*6/uL (4.60-5.80); Red Cell Distribution Width 13.9 % (11.0-16.0); White Blood Count 4.3 X10*3/uL (4.8-10.8)
[2023-08-23 10:12] LABS: VBG Base Excess 3.4 mmol/L; VBG HCO3 28 mmol/L (22-26); VBG pCO2 45 mmHg; VBG pH 7.41 (7.32-7.43); VBG pO2 80 mmHg
[2023-08-23 10:13] LABS: Venous Blood Gas Refer to POC result
[2023-08-23 10:23] LABS: INTERNATIONAL NORM RATIO 1.1 (0.9-1.1); Prothrombin Time 12.8 SEC (11.1-13.3)
[2023-08-23 10:26] LABS: Partial Thromboplastin Time 33.8 SEC (26.0-36.8)
[2023-08-23 10:32] LABS: Alanine Aminotransferase 24 U/L (0-40); Albumin Level 4.9 g/dL (3.5-5.0); Alkaline Phosphatase 73 U/L (39-117); Anion Gap 15 (12-20); Aspartate Amino Transferase 21 U/L (5-37); Beta-Hydroxybutyrate 0.12 mmol/L (0.02-0.27); Bilirubin Total 1.4 mg/dL (0.0-1.0); Blood Urea Nitrogen 11 mg/dL (9-16); Calcium 10.2 mg/dL (8.4-10.2); Carbon Dioxide 23 mmol/L (22-29); Chloride 103 mmol/L (96-108); Creatinine Clr Calc Pharmacy 142.4; Estimated Glomerular Filt Rate > 60; Glucose Random 97 mg/dL (60-115); Magnesium 1.8 mg/dL (1.6-2.6); Potassium 3.9 mmol/L (3.3-5.1); Sodium 137 mmol/L (135-145); Total Protein 8.4 g/dL (6.5-8.0)
[2023-08-23 10:50] LABS: Influenza A PCR NEGATIVE (Negative); Influenza B PCR NEGATIVE (Negative); Resp Syncy Virus RNA Qual PCR NEGATIVE (Negative); SARS COV2 PCR INHOUSE NEGATIVE (Negative)
[2023-08-23 12:20] LABS: Glucose, Whole Blood 177 mg/dL (60-115)
[2023-08-23 12:20] LABS: Glucose, Whole Blood 98 mg/dL (60-115)
[2023-08-24 07:04] LABS: Glucose, Whole Blood 99 mg/dL (60-115)
[2023-08-26 03:08] LABS: Levetiracetam Keppra 22.7 mcg/mL (6.0-46.0)
== END 2023-08-23 12:25 | disposition home or self-care (01) ==
PROVIDERS: Physician Assistant Medical; Emergency Provider Emergency Medicine; PCP Internal Medicine
DX: R55 Syncope and collapse (principal); E11.649 Type 2 diabetes mellitus with hypoglycemia without coma; J34.1 Cyst and mucocele of nose and nasal sinus; I10 Essential (primary) hypertension; Z03.818 Encounter for observation for suspected exposure to other biological agents ruled out
CPT/HCPCS: 0241U; 36415; 70450; 72125; 80053; 80177; 82010; 82803; 82947; 83735; 85025; 85610; 85730; 93005; 96365; 96375; 99284

== ENCOUNTER → 2023-08-23 09:25 | Outpatient (BNV) | payer MEDICAID, SELFPAY | PROVIDERS: Emergency Provider Emergency Medicine; PCP Internal Medicine; Visit Provider Internal Medicine Cardiovascular Disease | DX: R55 Syncope and collapse (principal) | CPT/HCPCS: 93010 ==

== ENCOUNTER 2023-09-13 12:21 | Outpatient (AMB) | payer MEDICAID, SELFPAY ==
--- NOTE | 2023-09-13 12:54 | MHC.OFFVIS ---
Vital Signs 09/13/23 12:57 Height 5 ft 9 in Weight 270 lb BMI 39.9 BP 137/63 Blood Pressure Location Lt brachial Position Sitting Pulse 71 Intake Visit Reasons: Cyst on Scrotum Intake Note: Patient is seen in office for evaluation and treatment of a cyst on the scrotum. Pt c/o: onset couple, hard lump, increase in size, denies discharge, redness or hot to the touch, no other concerns, requesting removal or bx Ordering Machine Operator Required: No Accompanied by: Self / Same As Patient Allergies No Known Allergies [No Known Allergies*] Allergy (Verified 09/13/23 12:55) HPI Comments Details: 33-year-old male patient with a history of diabetes mellitus presenting with complaints of a scrotal cyst. He also reports skin ulceration of the scrotal skin apart from the palpable skin cyst. He is being evaluated by airline reservationist as well. Excision of the palpable cyst as well as 1 of the skin ulcers for biopsy was recommended. He presents today to discuss this procedure. He denies a previous history of surgery on the scrotal skin. He denies significant symptoms associated with the scrotal cyst. [facility] Medical History Obesity due to excess calories DM2 (diabetes mellitus, type 2) Hx of acute pancreatitis High triglycerides Surgical History No history of previous surgery Family History Father Unknown family medical history Mother Unknown family medical history Maternal Grandmother Diabetes Hypertension Social History Household Members: Spouse and Children Alcohol intake: former Comment: patient with steady gait, ambulated in lazar per MD, then up OOB to chair Patient Tobacco Use Status: Never used Tobacco service: No Current occupational status: employed Review of Systems Const All systems reviewed & are unremarkable except as noted in HPI and below Physical Exam Const General: cooperative and no acute distress Nutritional Appearance: well nourished Orientation/consciousness: patient oriented x3 Limitations: no limitations HEENT Head: Yes normocephalic and Yes atraumatic Ears: hearing grossly normal bilaterally Resp Effort & Inspection: normal respiratory effort, no audible wheezes, no cough and no respiratory distress Cardio Jugular venous distension: no JVD GI Inspection: Yes normal to inspection Other: Scrotal skin with a midline palpable cyst measuring approximately 1 cm in diameter. This is mobile within the subcutaneous tissue and no discharge is noted. Surrounding this are multiple cutaneous ulcers in the scrotal skin, not associated with the palpable cyst. No area of fluctuance is identified. Skin Other: Warm, dry, no rash Neuro General: patient oriented x3 Extrem General: Yes no clubbing, cyanosis or edema Assessment & Plan Assessment & Plan (1) Scrotal cyst: Code(s): L72.9 - Follicular cyst of the skin and subcutaneous tissue, unspecified Category: Medical Plan 33-year-old male patient presenting with a scrotal cyst with associated ulcer in the scrotal skin. I reviewed the procedure, risks, and alternatives and he consents to the excision of the scrotal cyst which will be scheduled as a short-stay surgery. Coding Level of Care Code New Pt Level 4 (17373) Diagnoses Scrotal cyst L72.9
[2023-09-13 12:57] VITALS: BP 137/63; PULSE 71; BMI 39.9
== END 2023-09-13 13:04 | disposition home or self-care (01) ==
PROVIDERS: PCP Internal Medicine; Referring Provider Internal Medicine; Visit Provider Surgery
DX: L72.9 Follicular cyst of the skin and subcutaneous tissue, unspecified (principal)
CPT/HCPCS: 99204

== ENCOUNTER → 2023-09-13 12:21 | Outpatient (BNVA) | payer MEDICAID, SELFPAY | PROVIDERS: PCP Internal Medicine; Referring Provider Internal Medicine; Visit Provider Surgery | DX: L72.9 Follicular cyst of the skin and subcutaneous tissue, unspecified (principal) | CPT/HCPCS: 99202 ==

== ENCOUNTER 2023-09-18 15:23 | Outpatient (REF) | payer MEDICAID, SELFPAY ==
--- NOTE | ~2023-09-18 | US_ITS ---
EXAMINATION: US SCROTUM CLINICAL INFORMATION: Nodule right scrotum. COMPARISON: CT abdomen and pelvis 08/19/2020. TECHNIQUE: A sonogram of the scrotum was performed assessing alford-scale appearance and color Doppler flow. Spectral Doppler analysis of the arterial and venous flow were performed in the testes bilaterally. The findings were discussed with Kelly Freedman data communications software consultant on October 09, 2023. FINDINGS: RIGHT: Right testicle measures 4.4 x 2.1 x 3.0 cm, volume 14.1 mL. No focal testicular parenchymal lesions are visualized. Spectral Doppler analysis of the arterial and venous flow is normal in the right testis. Right epididymis appears diffusely heterogeneous and hypervascular, concerning for epididymitis. Right epididymal Doppler flow is increased. There is a prominent mixed hypoechoic and anechoic focus with some internal vascularity in the inguinal canal, superior to the scrotum, possibly representing a scrotal hernia versus prominent spermatic cord. Right varicocele. Small right hydrocele. LEFT: Left testicle measures 4.7 x 1.8 x 3.0 cm, volume 13.8 mL. No focal testicular parenchymal lesions are visualized. Spectral Doppler analysis of the arterial and venous flow is normal in the left testis. Left epididymis appears unremarkable. Left epididymal Doppler flow is normal. There is a prominent mixed hypoechoic and anechoic focus with some internal vascularity in the inguinal canal, superior to the scrotum, possibly representing a scrotal hernia versus prominent spermatic cord. Left varicocele. No significant left hydrocele. A 0.5 x 0.5 x 0.6 cm heterogeneous nodule with areas of increased echogenicity, possibly calcifications, in the superficial soft tissues of the left scrotum. A 1.8 x 1.1 x 1.1 cm heterogeneous mass with internal vascularity and small hyperechoic areas, possibly calcification, in the superficial soft tissues at the mid scrotum. US/US scrotum IMPRESSION: 1. Right epididymis appears diffusely heterogeneous and hypervascular, concerning for epididymitis. 2. Possible bilateral scrotal hernias versus prominent spermatic cords bilaterally. 3. Bilateral varicoceles. 4. Small right hydrocele. 5. At least 2 nodules in the superficial soft tissues of the scrotum is detailed above of indeterminate etiology. Urology consultation and correlation with clinical exam recommended to determine further management.
== END 2023-09-18 15:24 | disposition home or self-care (01) ==
LOC: HO.US 15:23
PROVIDERS: PCP Internal Medicine; Visit Provider Internal Medicine
DX: N49.2 Inflammatory disorders of scrotum (principal)
CPT/HCPCS: 76870

== ENCOUNTER → 2023-10-01 06:13 | Day surgery (SDC) | payer MEDICAID, SELFPAY ==
[2023-09-25 09:10] VITALS: BMI 39.1
--- NOTE | 2023-09-26 13:17 | P.CONAN_ITS ---
HPI - Anesthesia Eval Consult details Narrative: 33yo M for Right Excision Scrotal Cyst [place] [facility] [place]. Stable 12/2022 for 1 year f/u. Full testing below WNL PMFSH Active Problems Active Problems: All Active Problems Scrotal cyst (Acute) Hypertensive heart disease (Acute) Chest pain (Acute) Uncontrolled hypertension (Acute) Seizure due to hypoglycemia (Acute) New onset type 2 diabetes mellitus (Acute) High triglycerides (Acute) Obesity due to excess calories (Acute) DM2 (diabetes mellitus, type 2) (Acute) Past Medical History Medical History (Updated 09/25/23 @ 08:50 by Nazanin France RN) Hx of pancreatitis GERD (gastroesophageal reflux disease) Fatty liver Depression Nasal sinus cyst HTN (hypertension) Seizures Obesity due to excess calories DM2 (diabetes mellitus, type 2) Hx of acute pancreatitis High triglycerides Family History Family History Father Unknown family medical history Mother Unknown family medical history Maternal Grandmother Diabetes Hypertension Surgical History Surgical History No history of previous surgery Social History Social History Household Members: Spouse and Children Are you a primary physician assistant primary care to a significant other at home: No Do you presently have visiting nurse or other home services: No Alcohol intake: former Comment: patient with steady gait, ambulated in lazar per MD, then up OOB to chair Patient Tobacco Use Status: Never used Tobacco service: No Current occupational status: employed Meds Allergies Allergy/AdvReac Type Severity Reaction Status Date / Time No Known Allergies Allergy Verified 09/13/23 12:55 [No Known Allergies*] Home Medications ?Medication ?Instructions ?Recorded ?Confirmed ?Last Taken ?Type chlorthalidone 25 mg tablet 25 mg PO DAILY 09/27/22 09/25/23 Unknown History lisinopril 40 mg tablet 40 mg PO DAILY 09/27/22 09/25/23 Unknown History sertraline 50 mg tablet 50 mg PO QAM 09/13/23 09/25/23 Unknown History levetiracetam 1,000 mg tablet 1,500 mg PO BEDTIME 09/25/23 09/25/23 Unknown History levetiracetam 1,000 mg tablet 1,000 mg PO QAM 09/25/23 09/25/23 Unknown History (Estrella) Exam Height,Weight and Vital Signs: Height 5 ft 9 in Weight 120.202 kg Pertinent Lab Results Pertinent Lab Results: Laboratory Tests 08/23/23 08/23/23 10:02 10:03 WBC 4.3 L Hgb 15.5 Hct 47.2 Plt Count 277 Sodium 137 Potassium 3.9 Chloride 103 Carbon Dioxide 23 BUN 11 Creatinine 0.94 Narrative Narrative: EKG 08/2023 Vent. Rate : 077 BPM Atrial Rate : 077 BPM P-R Int : 180 ms QRS Dur : 096 ms QT Int : 370 ms P-R-T Axes : 046 016 033 degrees QTc Int : 418 ms Normal sinus rhythm Low voltage QRS Borderline ECG When compared with ECG of 13-SEP-2022 09:10, No significant change was found ECHO 2022 Conclusions: - The left ventricular systolic function is normal. The calculated ejection fraction is 61% by biplane method. - No obvious valvular pathology seen on this study. Exercise Stress 2022 Protocol: NORBERT Max HR: 193 BPM 102% of Pred: 188 BPM Max BP: 140/088 mmHG Max Work Load: 13.2 METS Exercise stress test 11 min of Norbert protocol achieving 102% MPHR, without anginal symptoms, with report of dizziness, without arrhythmias, with resting BP 130/70, exercise BPs 120-134 systolic, without EKG changes. Test revieed with Dr. Viveros. Holter 2022 1. Patient was monitored for total period of 2 days and 1 hour 2. Baseline was normal sinus rhythm with average heart of 86 beats per minute 3. No significant pauses noted 4. No patient reported symptoms Assessment and Plan Assessment Anesthesia Assessment: Chart Reviewed
[2023-10-01 06:43] VITALS: BP 130/72; PULSE 70; RESP 15; TEMP 36.1; O2SAT 98
[2023-10-01] MEDS: Lactated Ringers 1,000 ML 100 ML IVCONT (06:44)
[2023-10-01 06:56] LABS: Glucose, Whole Blood 128 mg/dL (60-115)
--- NOTE | 2023-10-01 07:28 | PC.NURSE ---
due to insurance terminated over this past weekend, pt unable to have surgery today. jennifer in to see pt and will reschedule. iv d/c'd and sent home.
== END ==
PROVIDERS: PCP Internal Medicine; Visit Provider Surgery
DX: L72.9 Follicular cyst of the skin and subcutaneous tissue, unspecified (principal); Z53.8 Procedure and treatment not carried out for other reasons; E11.9 Type 2 diabetes mellitus without complications
CPT/HCPCS: 82947; J0690

== ENCOUNTER 2023-10-10 07:58 | Day surgery (SDC) | payer MEDICAID, SELFPAY ==
--- NOTE | 2023-10-08 13:35 | HO.ANESPROP2 ---
Documented by User: Katelin Mims NP 10/08/23 13:36 HPI - Anesthesia Eval Consult details Narrative: 33yo M for Right Excision Scrotal Cyst Follows with [facility] [place] [facility] for htn heart disease. Stable 12/2022 for 1 year f/u. Full testing below WNL PMFSH Active Problems Active Problems: All Active Problems Scrotal cyst (Acute) Hypertensive heart disease (Acute) Chest pain (Acute) Uncontrolled hypertension (Acute) Seizure due to hypoglycemia (Acute) New onset type 2 diabetes mellitus (Acute) High triglycerides (Acute) Obesity due to excess calories (Acute) DM2 (diabetes mellitus, type 2) (Acute) Past Medical History Medical History Hx of pancreatitis GERD (gastroesophageal reflux disease) Fatty liver Depression Nasal sinus cyst HTN (hypertension) Seizures Obesity due to excess calories DM2 (diabetes mellitus, type 2) Hx of acute pancreatitis High triglycerides Family History Family History Father Unknown family medical history Mother Unknown family medical history Maternal Grandmother Diabetes Hypertension Surgical History Surgical History No history of previous surgery Social History Social History Household Members: Spouse and Children Are you a primary medicare sales representative to a significant other at home: No Do you presently have visiting nurse or other home services: No Alcohol intake: former Comment: patient with steady gait, ambulated in lazar per MD, then up OOB to chair Patient Tobacco Use Status: Never used Tobacco Date Education Initiated: 10/10/23 Use of substances other than those prescribed or required for medical reasons: Yes Substance Use Type Other:: vapes and smokes Are you DNR?: No Advance Directives: No Advance Directives Information Provided: Yes service: No Current occupational status: employed Meds Allergies Allergy/AdvReac Type Severity Reaction Status Date / Time No Known Allergies Allergy Verified 10/10/23 08:28 [No Known Allergies*] Home Medications ?Medication ?Instructions ?Recorded ?Confirmed ?Last Taken ?Type chlorthalidone 25 mg tablet 25 mg PO DAILY 09/27/22 10/10/23 10/10/23 History lisinopril 40 mg tablet 40 mg PO DAILY 09/27/22 10/10/23 Unknown History sertraline 50 mg tablet 50 mg PO QAM 09/13/23 10/10/23 10/10/23 History levetiracetam 1,000 mg tablet 1,500 mg PO BEDTIME 09/25/23 10/10/23 Unknown History levetiracetam 1,000 mg tablet 1,000 mg PO QAM 09/25/23 10/10/23 10/10/23 History (Estrella) Exam Height,Weight and Vital Signs: Height 5 ft 9 in Weight 120.202 kg Pertinent Lab Results Pertinent Lab Results: Laboratory Tests 08/23/23 08/23/23 10:02 10:03 WBC 4.3 L Hgb 15.5 Hct 47.2 Plt Count 277 Sodium 137 Potassium 3.9 Chloride 103 Carbon Dioxide 23 BUN 11 Creatinine 0.94 Narrative Narrative: EKG 08/2023 Vent. Rate : 077 BPM Atrial Rate : 077 BPM P-R Int : 180 ms QRS Dur : 096 ms QT Int : 370 ms P-R-T Axes : 046 016 033 degrees QTc Int : 418 ms Normal sinus rhythm Low voltage QRS Borderline ECG When compared with ECG of 13-SEP-2022 09:10, No significant change was found ECHO 2022 Conclusions: - The left ventricular systolic function is normal. The calculated ejection fraction is 61% by biplane method. - No obvious valvular pathology seen on this study. Exercise Stress 2022 Protocol: NORBERT Max HR: 193 BPM 102% of Pred: 188 BPM Max BP: 140/088 mmHG Max Work Load: 13.2 METS Exercise stress test 11 min of Norbert protocol achieving 102% MPHR, without anginal symptoms, with report of dizziness, without arrhythmias, with resting BP 130/70, exercise BPs 120-134 systolic, without EKG changes. Test revieed with Dr. Viveros. Holter 2022 1. Patient was monitored for total period of 2 days and 1 hour 2. Baseline was normal sinus rhythm with average heart of 86 beats per minute 3. No significant pauses noted 4. No patient reported symptoms Assessment and Plan Assessment Anesthesia Assessment: Chart Reviewed Documented by User: Nidhi Silveira MD 10/10/23 10:40 PMFSH Past Medical History Medical History Hx of pancreatitis GERD (gastroesophageal reflux disease) Fatty liver Depression Nasal sinus cyst HTN (hypertension) Seizures Obesity due to excess calories DM2 (diabetes mellitus, type 2) Hx of acute pancreatitis High triglycerides Family History Family History Father Unknown family medical history Mother Unknown family medical history Maternal Grandmother Diabetes Hypertension Surgical History Surgical History No history of previous surgery History of Problems with Anesthesia: No Social History Social History Household Members: Spouse and Children Are you a primary medicare sales representative to a significant other at home: No Do you presently have visiting nurse or other home services: No Alcohol intake: former Comment: patient with steady gait, ambulated in lazar per MD, then up OOB to chair Patient Tobacco Use Status: Never used Tobacco Date Education Initiated: 10/10/23 Use of substances other than those prescribed or required for medical reasons: Yes Substance Use Type Other:: vapes and smokes Are you DNR?: No Advance Directives: No Advance Directives Information Provided: Yes service: No Current occupational status: employed Meds Allergies Allergy/AdvReac Type Severity Reaction Status Date / Time No Known Allergies Allergy Verified 10/10/23 08:28 [No Known Allergies*] Home Medications ?Medication ?Instructions ?Recorded ?Confirmed ?Last Taken ?Type chlorthalidone 25 mg tablet 25 mg PO DAILY 09/27/22 10/10/23 10/10/23 History lisinopril 40 mg tablet 40 mg PO DAILY 09/27/22 10/10/23 Unknown History sertraline 50 mg tablet 50 mg PO QAM 09/13/23 10/10/23 10/10/23 History levetiracetam 1,000 mg tablet 1,500 mg PO BEDTIME 09/25/23 10/10/23 Unknown History levetiracetam 1,000 mg tablet 1,000 mg PO QAM 09/25/23 10/10/23 10/10/23 History (Estrella) Exam Airway Mallampati Class: III TM Dist: >3cm Neck ROM: Full Loose/Missing/Broken Teeth: No Heart: RRR Lungs: CTA Assessment and Plan Assessment Anesthesia Assessment: Anesthesia Plan Discussed Final Anesthetic Review History of Problems with Anesthesia: No NPO: Yes ASA Class: III Final Preanesthetic Review: Meds/Allgs Chart Reviewed, Consent Obtained/Reviewed and Anes Risks/Benef Reviewed Patient Risk: Intermediate Procedure Risk: Low Anesthetic Plan Anesthetic Plan: GA Disposition: Standard PACU
[2023-10-10] VITALS (7 sets, daily range): BP systolic 112–131; BP diastolic 70–81; PULSE 53–67; RESP 12–18; TEMP 36.1–36.3; O2SAT 96–100; BMI 39.4
[2023-10-10] MEDS: Lactated Ringers 1,000 ML 100 ML IVCONT (08:49)
--- NOTE | 2023-10-10 10:26 | MHC.SHP ---
Pre-Procedural Eval Section A - 24 Hr Update-Section A only Date of Service: 10/10/23 The patient is an INPATIENT: No Changes since office visit: Yes Patient answered all questions; No Cold of Flu in the past 2 weeks, No New Medical Problems and No Changes in Medication The patient has been examined within 24 hours of the surgical procedure. The History & Physical has been completed within 30 days and I have reviewed it.: No Section B - Complete if H&P > 30 days Chief Complaint: Follicular cyst of the skin and subcut tissue Details of Present Illness: No changes from prior visit Relevant Family History (Specify if Yes): No Relevant Social History: None Present Medications: see Short Stay Collaborative assessment Medical History: Significant History (Diabetes, hypertension, obesity) History of Previous Operations: No relevant previous surgery Allergies: Allergies Allergy/AdvReac Type Severity Reaction Status Date / Time No Known Allergies Allergy Verified 10/10/23 08:28 [No Known Allergies*] Review of Systems Sugical H&P ROS: Negative: Constitution, Cardiovascular, Respiratory, Neurological, Psychiatric, Hem-Onc, Allergic/Immunologic, Gastrointestinal, Musculoskeletal, Integumentary, Endocrine and Eyes/Ears/Nose/Throat and Yes, Specify: Genitourinary (Scrotal cyst) Exam Surgical H&P Exam: Normal: HEENT, Normal: Heart, Normal: Lungs, Normal: Extremities, Normal: Abdomen, Normal: Skin and Normal: Neurological Plan Diagnosis/Plan: Unchanged I have reviewed the history and physical and performed a pertinent physical examination on my patient. No changes have occurred unless specified. Time Spent With Patient Time: Total time managing care of this patient today ____ minutes.
--- NOTE | 2023-10-10 11:35 | P.OP_ITS ---
Operative Note Operative Note Date of Service: 10/10/23 Narrative: Preoperative diagnosis: Scrotal cyst right side Postoperative diagnosis: Same Procedure: Excision of right scrotal cyst Surgeon: Bryan Bowers MD Marketing Programs Manager: Anesthesia: General LMA Indications for procedure: 33-year-old male patient presenting with a large scrotal cyst to the right of midline with multiple smaller skin lesions throughout the scrotal sac. Operative findings: Scrotal cyst right side Specimen: Scrotal cyst right side Estimated blood loss: 2 mL Complications: None Procedure details: Patient was brought to the OR placed in a supine position. After administering general anesthesia he was placed in a frog-leg position. The scrotal sac was prepped with Betadine and draped in a sterile fashion. A surgical time-out was called and the consent confirmed. Patient received preo perative antibiotics and Venodyne boots were in place. Local anesthesia was infiltrated around the right scrotal cyst. An elliptical incision was then created oriented transversely around the cyst. This was carried out through subcutaneous tissue and around the scrotal cyst. This was passed off the table and sent to pathology for further examination. A 2nd ulcerated skin lesion slightly lateral to this was also excised in a similar fashion by making an elliptical incision with a scalpel. Electrocautery was then used to dissect the lesion free from the surrounding subcutaneous tissue. Hemostasis was assured using electrocautery at both incisions. Skin was then closed in both incisions using a running locked 3-0 chromic suture. Surgical skin glue followed by dry sterile dressings were then applied. The patient tolerated the procedure well. He was transferred to PACU in stable condition.
== END 2023-10-10 13:00 | disposition home or self-care (01) ==
PROVIDERS: PCP Internal Medicine; Visit Provider Surgery
PROC: (CPT 11423; principal; 2023-10-10 10:10)
DX: L72.9 Follicular cyst of the skin and subcutaneous tissue, unspecified (principal); N50.89 Other specified disorders of the male genital organs; L98.499 Non-pressure chronic ulcer of skin of other sites with unspecified severity; I10 Essential (primary) hypertension; E11.9 Type 2 diabetes mellitus without complications; E78.1 Pure hyperglyceridemia; E66.01 Morbid (severe) obesity due to excess calories; Z68.39 Body mass index [BMI] 39.0-39.9, adult; Z87.19 Personal history of other diseases of the digestive system
CPT/HCPCS: 11423; 88304; 88305; A4364; J0690; J2250; J2704; J2795; J3010

== ENCOUNTER → 2023-10-10 07:58 | Outpatient (BNV) | payer MEDICAID, SELFPAY | PROVIDERS: PCP Internal Medicine; Visit Provider Surgery | DX: L94.2 Calcinosis cutis (principal) | CPT/HCPCS: 11422 ==

== ENCOUNTER 2023-10-15 07:43 | Emergency (ER) | payer MEDICAID, SELFPAY ==
[2023-10-15 07:54] VITALS: BP 124/79; PULSE 64; RESP 16; TEMP 36.9; O2SAT 98; BMI 39.8
--- NOTE | 2023-10-15 08:59 | ED.GENADULT ---
HPI - General Adult General Chief complaint: Skin/Abscess/Foreign Body Stated complaint: wound check Time Seen by Provider: 10/15/23 08:59 Source: patient Mode of arrival: ambulatory Limitations: no limitations History of Present Illness ED Provider: Elizabeth HPI narrative: Patient is a 33-year-old male with history of T2DM, seizures, presenting to the ED with complaint of redness, warmth, and purulent drainage from his scrotal incision for the past day. Patient had a follicular cyst removed by Dr. Bowers on 10/09 and states the area had been healing well but did note slight redness/warmth. This morning the area was tender and when he was examining it in the shower, a small amount of purulent drainage was expressed. He denies any fevers/chills/body aches. He has a CGM, and glucose levels have been 100-120 for the past several days. MD complaint: scrotal erythema Onset (ago): hour(s) Location: genitals Radiation: non-radiation Severity: mild Associated symptoms: denies other symptoms Treatments prior to arrival: none Related Data Home Medications ?Medication ?Instructions ?Recorded ?Confirmed chlorthalidone 25 mg tablet 25 mg PO DAILY 09/27/22 10/10/23 lisinopril 40 mg tablet 40 mg PO DAILY 09/27/22 10/10/23 sertraline 50 mg tablet 50 mg PO QAM 09/13/23 10/10/23 levetiracetam 1,000 mg tablet 1,500 mg PO BEDTIME 09/25/23 10/10/23 levetiracetam 1,000 mg tablet 1,000 mg PO QAM 09/25/23 10/10/23 (Kefanny) Previous Rx's ?Medication ?Instructions ?Recorded blood-glucose meter (FreeStyle #1 ea 08/22/20 Lite Meter kit) pen needle, diabetic 32 gauge x #100 ea 12/24/20 (BD Ultra-Fine Ellie Pen Needle) lancets 32 gauge #100 ea 12/29/20 blood sugar diagnostic (FreeStyle #100 ea 04/26/21 Lite Strips) amlodipine 10 mg tablet 10 mg PO DAILY #90 tabs 08/07/23 glucose 2 gram chewable tablet 2 g PO NEEDED PRN hypoglycemia 08/23/23 #10 tabs oxycodone 5 mg tablet 5 mg PO Q6H PRN pain (scale score 10/10/23 7-10) #10 tabs cephalexin 500 mg capsule 500 mg PO QID #28 caps 10/15/23 Allergies Allergy/AdvReac Type Severity Reaction Status Date / Time No Known Allergies Allergy Verified 10/15/23 07:55 [No Known Allergies*] Review of Systems Review of Systems: As per HPI. Yes all other systems are reviewed and are negative PMFSH Past Medical History Medical History Hx of pancreatitis GERD (gastroesophageal reflux disease) Fatty liver Depression Nasal sinus cyst HTN (hypertension) Seizures Obesity due to excess calories DM2 (diabetes mellitus, type 2) Hx of acute pancreatitis High triglycerides Surgical History No history of previous surgery Family History Family History Father Unknown family medical history Mother Unknown family medical history Maternal Grandmother Diabetes Hypertension Social History Social History Household Members: Spouse and Children Are you a primary clinical care manager to a significant other at home: No Do you presently have visiting nurse or other home services: No Alcohol intake: former Comment: COUNTS CORRECT Patient Tobacco Use Status: Never used Tobacco Advance Directives: No Advance Directives Information Provided: No service: No Current occupational status: employed Physical Exam ED Vital Signs: Vital Signs - 24 hr 10/15/23 07:54 Temperature 98.5 F Pulse Rate 64 Respiratory Rate 16 Blood Pressure 124/79 Pulse Oximetry 98 Oxygen Delivery Method Room Air BMI result Body Mass Index 39.8 Vital signs have been reviewed and appear to be correct. Blood pressure normal. Heart rate normal. Respiratory rate normal. Temperature normal. Oxygen saturation normal. Other: Exam chaperoned by GABY Macedo Scrotum: other (slight erythema and warmth to inferior aspect of incision, no dng/discharge) Medical Decision Making Medical Decision Making MDM Narrative: Patient is a 33-year-old male with history of T2DM, seizures, presenting to the ED with complaint of redness, warmth, and purulent drainage from his scrotal incision for the past day. On exam patient is awake, A+Ox3, VS WNL, afebrile, normal neurological exam without focal deficits, physical exam findings as above. Given reported symptoms and physical exam findings, initial differential includes cellulitis, abscess. Do not suspect Tu's gangrene. Patient checked his glucose level on CGM during assessment with reading of 100. Labs notable for no leukocytosis, normal glucose. Case discussed with Dr. Bowers who recommends starting antibiotics. Prescription for cephalexin sent to pharmacy. Patient instructed to follow up with Dr. Bowers. Return precautions discussed at bedside. Patient verbalized understanding of and agreement with plan. Differential Diagnosis Differential Diagnoses: The differential diagnosis associated with the presentation includes As per [facility]. Consult Healthcare Provider Management of the patient was discussed with: [employer] (Dr. Bowers) Lab Data [facility] Lab Attestation statement: I reviewed the patient's lab results. As per [facility]. 10/15/23 09:21 10/15/23 09:21 Labs: Lab Results 10/15/23 Range/Units 09:21 WBC 4.9 (4.8-10.8) X10*3/uL RBC 5.30 (4.60-5.80) X10*6/uL Hgb 13.7 L (14.0-18.0) g/dl Hct 42.4 (42.0-52.0) % MCV 80.0 (80.0-98.0) fL MCH 25.8 L (27.0-33.0) pg MCHC 32.3 (31.0-36.0) g/dl RDW 14.5 (11.0-16.0) % Plt Count 268 (160-400) X10*3/uL MPV 10.2 (9.4-12.4) fL Immature Gran % (Auto) 0.2 (0.0-0.4) % Neut % (Auto) 63.4 (45-73) % Lymph % (Auto) 23.7 (20-40) % Cocke % (Auto) 8.9 (2-11) % Eos % (Auto) 3.2 (0-4) % Baso % (Auto) 0.6 (0-2) % Lymph # (Auto) 1.2 (1.2-4.9) X10*3/uL Cocke # (Auto) 0.4 (0.1-1.2) X10*3/uL Eos # (Auto) 0.2 (0.0-0.4) X10*3/uL Baso # (Auto) 0.0 (0.0-0.2) X10*3/uL Abs Immat Gran (auto) 0.01 (0.00-0.03) X10*3/uL Absolute Neuts (auto) 3.1 (2.0-8.3) x10*3/uL Absolute Nucleated RBC 0.000 (0.0-0.012) X10*3/uL Nucleated RBC % (auto) 0.0 (0.0-0.2) /100WBC Sodium 140 (135-145) mmol/L Potassium 4.0 (3.3-5.1) mmol/L Chloride 104 (96-108) mmol/L Carbon Dioxide 28 (22-29) mmol/L Anion Gap 12 (12-20) BUN 14 (9-16) mg/dL Creatinine 0.99 (0.5-1.4) mg/dL Estim Creat Clear Calc 137.1 Estimated GFR > 60 Random Glucose 96 (60-115) mg/dL Calcium 9.7 (8.4-10.2) mg/dL External Record Review External record reviewed: Inpatient record, Office record and Outpatient record Prescription Management I considered prescription management with: Antibiotic Discharge Plan Discharge Clinical Impression: Cellulitis of scrotum Patient Disposition: Home, Self-Care Instructions: Cellulitis (DC) Additional Instructions: You have been evaluated in the emergency department today for skin infection, also known as cellulitis. Please take your prescribed antibiotics as directed for the full course of the medication. You can use Tylenol or ibuprofen per package instructions every 6 hours as needed for pain. If necessary, you can alternate these medications so that you can take one medication every 3 hours. For instance, at noon take ibuprofen, then at 3:00 p.m. take Tylenol, then at 6:00 p.m. take ibuprofen. Please schedule an appointment for follow-up with your surgeon. Return to the emergency department if you experience recurrent vomiting, fevers greater than 100.4? F, increasing area of redness, warmth around the area, foul-smelling discharge from the area, increased tenderness around the area, or any other concerning symptoms. Prescriptions: New cephalexin 500 mg capsule 500 mg PO QID Qty: 28 0RF No Action (DME) pen needle, diabetic [BD Ultra-Fine Ellie Pen Needle] 32 gauge x / needle See Rx Instructions .ROUTE .MEDSUPPLY Qty: 100 3RF Rx Instructions: As directed once daily (DME) lancets 32 gauge misc See Rx Instructions .ROUTE .MEDSUPPLY Qty: 100 11RF Rx Instructions: As directed three times daily (DME) FreeStyle Lite Strips Strip See Rx Instructions .ROUTE .MEDSUPPLY Qty: 100 11RF Rx Instructions: As directed three times daily amlodipine 10 mg tablet 10 mg PO DAILY Qty: 90 1RF (DME) blood-glucose meter [FreeStyle Lite Meter] Kit See Rx Instructions .ROUTE .MEDSUPPLY Qty: 1 0RF Rx Instructions: As directed oxycodone 5 mg tablet 5 mg PO Q6H PRN (Reason: pain (scale score 7-10)) Qty: 10 0RF Rx Instructions: Partial Fill upon patient request. glucose 2 gram tablet,chewable 2 g PO NEEDED PRN (Reason: hypoglycemia) Qty: 10 0RF levetiracetam 1,000 mg Tablet 1,500 mg PO BEDTIME levetiracetam [Keppra] 1,000 mg tablet 1,000 mg PO QAM lisinopril 40 mg tablet 40 mg PO DAILY chlorthalidone 25 mg tablet 25 mg PO DAILY sertraline 50 mg tablet 50 mg PO QAM [place] [facility] [place] [facility] Group] Stand Alone Forms: Work/School Release Print Language: [place]
[2023-10-15 09:24] LABS: MANUAL DIFF FLAG NO
[2023-10-15 09:28] LABS: Basophils Percent Auto 0.6 % (0-2); Eosinophils Absolute Auto 0.2 X10*3/uL (0.0-0.4); Eosinophils Percent Auto 3.2 % (0-4); Hematocrit 42.4 % (42.0-52.0); Hemoglobin 13.7 g/dl (14.0-18.0); Imm Gran Abs Auto 0.01 X10*3/uL (0.00-0.03); Imm Gran Pct Auto 0.2 % (0.0-0.4); Lymphocytes Absolute Auto 1.2 X10*3/uL (1.2-4.9); Lymphocytes Percent Auto 23.7 % (20-40); Mean Corpuscular HGB Conc 32.3 g/dl (31.0-36.0); Mean Corpuscular Hemoglobin 25.8 pg (27.0-33.0); Mean Platelet Volume 10.2 fL (9.4-12.4); Monocytes Absolute Auto 0.4 X10*3/uL (0.1-1.2); Monocytes Percent Auto 8.9 % (2-11); Neutrophils Absolute Auto 3.1 x10*3/uL (2.0-8.3); Neutrophils Percent Auto 63.4 % (45-73); Platelet Count 268 X10*3/uL (160-400); Red Cell Distribution Width 14.5 % (11.0-16.0); White Blood Count 4.9 X10*3/uL (4.8-10.8)
[2023-10-15 09:40] LABS: Anion Gap 12 (12-20); Blood Urea Nitrogen 14 mg/dL (9-16); Calcium 9.7 mg/dL (8.4-10.2); Carbon Dioxide 28 mmol/L (22-29); Chloride 104 mmol/L (96-108); Creatinine Clr Calc Pharmacy 137.1; Estimated Glomerular Filt Rate > 60; Glucose Random 96 mg/dL (60-115); Sodium 140 mmol/L (135-145)
[2023-10-15 11:05] VITALS: BP 115/69; PULSE 62; RESP 16; TEMP 37.1; O2SAT 98
== END 2023-10-15 11:06 | disposition home or self-care (01) ==
PROVIDERS: Registered Nurse Emergency; Emergency Provider Emergency Medicine; PCP Internal Medicine
DX: N49.2 Inflammatory disorders of scrotum (principal); Z79.899 Other long term (current) drug therapy
CPT/HCPCS: 36415; 80048; 85025; 99282; 99283

== ENCOUNTER 2023-10-19 11:36 | Outpatient (AMB) | payer MEDICAID, SELFPAY ==
--- NOTE | 2023-10-19 11:38 | MHC.OFFVIS ---
Vital Signs 10/19/23 11:45 Height 5 ft 9 in Weight 266 lb BMI 39.3 BP 90/55 L Blood Pressure Location Lt brachial Position Sitting Pulse 80 Intake Visit Reasons: S/P excision Rt. scrotal cyst Intake Note: Patient is seen in office for post op assessment post excision of right scrotal cyst. Pt c/o: was at the ED on Sunday due to infection, is on antbx, currently looking better, still has minimal discharge pus and bloody, redness, denies any other concerns Op: 10/10/23 Environmental Studies Department Chair Required: No Accompanied by: Self / Same As Patient Allergies No Known Allergies [No Known Allergies*] Allergy (Verified 10/19/23 11:44) Medication List - Last Reconciled 10/19/23 by Bryan Bowers MD amlodipine 10 mg PO DAILY blood sugar diagnostic (FreeStyle Lite Strips) As directed three times daily blood-glucose meter (FreeStyle Lite Meter kit) As directed cephalexin 500 mg PO QID chlorthalidone 25 mg PO DAILY glucose 2 grams PO NEEDED PRN lancets As directed three times daily levetiracetam (Keppra) 1,000 mg PO QAM levetiracetam 1,500 mg PO BEDTIME lisinopril 40 mg PO DAILY oxycodone 5 mg PO Q6H PRN pen needle, diabetic (BD Ultra-Fine Ellie Pen Needle) As directed once daily sertraline 50 mg PO QAM HPI Comments Details: 33-year-old male patient returning 1 week following excision of a scrotal cyst. 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 He reported some swelling and pain earlier in the week and was seen in the emergency department. He was subsequently started on Keflex p.o. and has subsequently noted improvement in his symptoms. He does have some bloody discharge. [facility] Medical History Hx of pancreatitis GERD (gastroesophageal reflux disease) Fatty liver Depression Nasal sinus cyst HTN (hypertension) Seizures Obesity due to excess calories DM2 (diabetes mellitus, type 2) Hx of acute pancreatitis High triglycerides Surgical History Hx of removal of cyst (10/10/23) No history of previous surgery Family History Father Unknown family medical history Mother Unknown family medical history Maternal Grandmother Diabetes Hypertension Social History Household Members: Spouse and Children Are you a primary plant health care technician to a significant other at home: No Do you presently have visiting nurse or other home services: No Alcohol intake: former Comment: COUNTS CORRECT Patient Tobacco Use Status: Never used Tobacco service: No Current occupational status: employed Physical Exam Vital Signs: Last Vital Signs Pulse 80 10/19/23 11:45 BP 90/55 L 10/19/23 11:45 BMI result Body Mass Index 39.3 Const General: no acute distress Nutritional Appearance: well nourished Orientation/consciousness: patient oriented x3 Resp Effort & Inspection: normal respiratory effort Other: Scrotal incision reveals some redness surrounding the incision at the site of sutures (chromic sutures). Sutures remain intact and redness is most likely irritation from the suture. No evidence of abscess. Skin Other: Warm, dry, no rash Neuro General: patient oriented x3 Assessment & Plan Assessment & Plan (1) Scrotal cyst: Code(s): L72.9 - Follicular cyst of the skin and subcutaneous tissue, unspecified Category: Medical Plan 33-year-old male patient found to have scrotal calcinosis on his recent scrotal biopsy. Wounds were improved after starting Keflex. He should continue to apply a pad as needed and should follow up p.r.n.. Coding Level of Care Code Global (45539) Diagnoses Scrotal cyst L72.9
[2023-10-19 11:45] VITALS: BP 90/55; PULSE 80; BMI 39.3
== END 2023-10-19 11:58 | disposition home or self-care (01) ==
PROVIDERS: PCP Internal Medicine; Visit Provider Surgery
DX: L72.9 Follicular cyst of the skin and subcutaneous tissue, unspecified (principal)
CPT/HCPCS: 99024

== ENCOUNTER → 2023-10-19 11:36 | Outpatient (BNVA) | payer MEDICAID, SELFPAY | PROVIDERS: PCP Internal Medicine; Visit Provider Surgery | DX: Z09 Encounter for follow-up examination after completed treatment for conditions other than malignant neoplasm (principal); Z87.2 Personal history of diseases of the skin and subcutaneous tissue | CPT/HCPCS: 99212 ==

== ENCOUNTER 2023-12-07 13:54 | Outpatient (AMB) | payer MEDICAID, SELFPAY ==
--- NOTE | 2023-12-07 13:59 | A.OFFVIS_ITS ---
Intake Visit Reasons: Bileteral vericocele/right hydrocele Intake Note: New Patient presents for initial visit for bilateral vericocele/right hydrocele Urology Medications: none Blood Thinner: none Muck Hauler Required: No Accompanied by: Self / Same As Patient Allergies No Known Allergies [No Known Allergies*] Allergy (Verified 12/07/23 14:46) Medication List - Last Reconciled 12/07/23 by LIGIA Gloria- amlodipine 10 mg PO DAILY blood sugar diagnostic (FreeStyle Lite Strips) As directed three times daily blood-glucose meter (FreeStyle Lite Meter kit) As directed chlorthalidone 25 mg PO DAILY glucose 2 grams PO NEEDED PRN lancets As directed three times daily levetiracetam (Keppra) 1,000 mg PO QAM levetiracetam 1,500 mg PO BEDTIME lisinopril 40 mg PO DAILY pen needle, diabetic (BD Ultra-Fine Ellie Pen Needle) As directed once daily sertraline 50 mg PO QAM HPI Comments Details: Clovis is a very pleasant 33-year-old male patient of Dr. Mao Foote. He has a past medical history of pancreatitis, GERD, fatty liver, depression, hypertension, seizures, obesity, type 2 diabetes, and high triglycerides. He presents to the office today as a new patient for right-sided epididymitis and hydrocele. In discussion with the patient today he reports following up with General surgery for scrotal cellulitis at which time a scrotal ultrasound was ordered and performed and recommendations were made for urology referral for further assessment evaluation. These results were reviewed with the patient today. Right-sided epididymitis, bilateral scrotal hernias versus prominent spermatic cords bilaterally, bilateral varicoceles, and small right hydrocele. In discussion with the patient today he reports noting ongoing right-sided scrotal discomfort. He reports it is intermittent and feels it is more bothersome upon movement and or touching/palpation. When asked he denies any bothersome urinary issues. In office urinalysis results reviewed with the patient today. 2+ protein. In assessment of the patient today right-sided epididymal head tenderness noted. Unable to palpate small right-sided hydrocele noted on scrotal ultrasound. No open areas, lesions, and or drainage noted. He denies any bothersome urinary issues. He denies urinary urgency, urinary frequency, incontinence, nocturia, hematuria, dysuria, foul smelling urine, changes to urinary stream, flank pain, fever, and or chills. He is happy with his current voiding parameters. He otherwise offers no other issues or concerns at this time. [facility] Medical History Hx of pancreatitis GERD (gastroesophageal reflux disease) Fatty liver Depression Nasal sinus cyst HTN (hypertension) Seizures Obesity due to excess calories DM2 (diabetes mellitus, type 2) Hx of acute pancreatitis High triglycerides Surgical History Hx of removal of cyst (10/10/23) No history of previous surgery Family History Father Unknown family medical history Mother Unknown family medical history Maternal Grandmother Diabetes Hypertension Social History Household Members: Spouse and Children Are you a primary care consultant to a significant other at home: No Do you presently have visiting nurse or other home services: No Alcohol intake: former Comment: COUNTS CORRECT Patient Tobacco Use Status: Never used Tobacco service: No Current occupational status: employed Review of Systems Const Reports no additional complaints Eyes Reports no additional complaints ENT Reports no additional complaints Card Reports as per HPI Resp Reports no additional complaints GI Reports as per HPI Reports as per HPI Musc Reports no additional complaints Neuro Reports as per HPI Psych Reports as per HPI Endo Reports as per HPI Jostin/Lymph Reports no additional complaints Aller/Immun Reports no additional complaints Physical Exam Const General: cooperative, healthy appearing, comfortable, no acute distress, well developed, alert and awake Nutritional Appearance: overweight Orientation/consciousness: patient oriented x3 Limitations: no limitations HEENT Head: Yes normal to inspection, Yes normocephalic and Yes atraumatic Ears: hearing grossly normal bilaterally Eyes General: appearance normal, both eyes and all related structures Neck Neck: Yes normal visual inspection and Yes trachea midline Chest Chest palpation & inspection: normal inspection of the chest Resp Effort & Inspection: normal respiratory effort and able to speak in complete sentences Cardio Rate: regular rate GI Inspection: Yes normal to inspection General: Yes no CVA tenderness Penis: normal penis Testes: other (as per HPI) Back/Spine/Pelvis Back: no CVA tenderness Skin General skin exam: no rashes or lesions noted Neuro General: patient oriented x3 Extrem General: Yes normal to inspection Psych Appearance: grossly normal and well kempt Mental Status: mental status grossly normal Speech and movement: Normal speech and movement present and Clear speech present Affect: normal affect Attitude: cooperative Thought process: Normal thought process present Thought content: Normal thought content present Insight: Fair insight present (Psych) Judgement: Fair judgement present (Psych) Results AMB Urinalysis, Automated UA Leukoctes 0 Antonio/uL Last Edit by [employer] on 12/07/23 14:21 UA Nitrite Negative Last Edit by [employer] on 12/07/23 14:21 UA Urobilinogen 0.2 mg/dL Last Edit by [employer] on 12/07/23 14:21 UA Protein 100 mg/dL Last Edit by [employer] on 12/07/23 14:21 UA pH 6.0 Last Edit by [employer] on 12/07/23 14:21 UA Blood 0 Shamir/uL Last Edit by [employer] on 12/07/23 14:21 UA Specific [place] 1.030 Last Edit by [employer] on 12/07/23 14:21 UA Ketone Positive Last Edit by [employer] on 12/07/23 14:21 UA Bilirubin 1 mg/dL Last Edit by [employer] on 12/07/23 14:21 UA Glucose 0 mg/dL Last Edit by [employer] on 12/07/23 14:21 Results Reviewed Results Reviewed: Laboratory Last Values Urine pH (Auto) 6.0 12/07/23 14:09 Specific [place] (Auto) 1.030 12/07/23 14:09 Urine Protein (Auto) 100 mg/dL 12/07/23 14:09 Glucose (UA)(Auto) 0 mg/dL 12/07/23 14:09 Urine Ketones (Auto) Positive 12/07/23 14:09 Urine Blood (Auto) 0 Shamir/uL 12/07/23 14:09 Urine Nitrite (Auto) Negative 12/07/23 14:09 Urine Bilirubin (Auto) 1 mg/dL 12/07/23 14:09 Urine Urobilinogen (Auto) 0.2 mg/dL 12/07/23 14:09 Leukocyte Esterase (Auto) 0 Antonio/uL 12/07/23 14:09 Date of Service: 09/18/23 EXAMINATION: US SCROTUM FINDINGS: RIGHT: Right testicle measures 4.4 x 2.1 x 3.0 cm, volume 14.1 mL. No focal testicular parenchymal lesions are visualized. Spectral Doppler analysis of the arterial and venous flow is normal in the right testis. Right epididymis appears diffusely heterogeneous and hypervascular, concerning for epididymitis. Right epididymal Doppler flow is increased. There is a prominent mixed hypoechoic and anechoic focus with some internal vascularity in the inguinal canal, superior to the scrotum, possibly representing a scrotal hernia versus prominent spermatic cord. Right varicocele. Small right hydrocele. LEFT: Left testicle measures 4.7 x 1.8 x 3.0 cm, volume 13.8 mL. No focal testicular parenchymal lesions are visualized. Spectral Doppler analysis of the arterial and venous flow is normal in the left testis. Left epididymis appears unremarkable. Left epididymal Doppler flow is normal. There is a prominent mixed hypoechoic and anechoic focus with some internal vascularity in the inguinal canal, superior to the scrotum, possibly representing a scrotal hernia versus prominent spermatic cord. Left varicocele. No significant left hydrocele. A 0.5 x 0.5 x 0.6 cm heterogeneous nodule with areas of increased echogenicity, possibly calcifications, in the superficial soft tissues of the left scrotum. A 1.8 x 1.1 x 1.1 cm heterogeneous mass with internal vascularity and small hyperechoic areas, possibly calcification, in the superficial soft tissues at the mid scrotum. IMPRESSION: 1. Right epididymis appears diffusely heterogeneous and hypervascular, concerning for epididymitis. 2. Possible bilateral scrotal hernias versus prominent spermatic cords bilaterally. 3. Bilateral varicoceles. 4. Small right hydrocele. 5. At least 2 nodules in the superficial soft tissues of the scrotum is detailed above of indeterminate etiology. Assessment & Plan Assessment & Plan (1) Proteinuria: Code(s): R80.9 - Proteinuria, unspecified Category: Medical (2) Epididymitis: Code(s): N45.1 - Epididymitis Category: Medical (3) Hydrocele: Code(s): N43.3 - Hydrocele, unspecified Category: Medical Plan In office urinalysis results reviewed with the patient today; as noted above; will refer to Nephrology for proteinuria. Recent scrotal ultrasound results reviewed with the patient today; as noted above Start doxycycline as discussed and prescribed. Discussed potential causes of epididymitis as well as hydroceles. Patient currently denies any bothersome urinary issues. He reports be happy with current voiding parameters. Follow-up in 1-2 months; or sooner with any issues, concerns, and or questions. Orders: Orders AMB Urinalysis Automated Today Z13.9 - Encounter for screening, unspecified Referrals Nephrology Referral R80.9 - Proteinuria, unspecified Medications: New doxycycline hyclate 100 mg PO BID 28 tabs 0RF 14 days N39.0 - Urinary tract infection, site not specified, N45.1 - Epididymitis Patient Instructions: The patient had an opportunity to ask questions regarding the treatment plan. All questions were answered. Physical exam, labs, and imaging were discussed and reviewed in detail. As well as risks, benefits, and discussion of treatment choices. No major barriers to understanding were identified. The patient expressed understanding and agreement with the above treatment plan. The patient was made aware they should contact our office by phone for worsening of their current condition, the appearance of new symptoms, or with any questions or concerns. Compliance is encouraged with any medications and follow up testing that is ordered. It is a privilege to be allowed the opportunity to p articipate in? your urological care.? Again, if you have any questions or concerns If you have any questions or concerns please do not hesitate to contact me. The office is [phone]. This note is constructed using voice recognition software. While every effort has been made to ensure accuracy fan mail clerk errors may have been included. Yours sincerely, HEATH Gloria Coding Level of Care Code New Pt Level 4 (91369) Diagnoses Proteinuria R80.9 Epididymitis N45.1 Hydrocele N43.3
== END 2023-12-07 14:41 | disposition home or self-care (01) ==
PROVIDERS: PCP Internal Medicine; Visit Provider Nurse Practitioner Family
DX: R80.9 Proteinuria, unspecified (principal); N45.1 Epididymitis; N43.3 Hydrocele, unspecified; Z13.9 Encounter for screening, unspecified
CPT/HCPCS: 99204

== ENCOUNTER → 2023-12-07 13:54 | Outpatient (BNVA) | payer MEDICAID, SELFPAY | PROVIDERS: PCP Internal Medicine; Visit Provider Nurse Practitioner Family | DX: R80.9 Proteinuria, unspecified (principal); N45.1 Epididymitis; N43.3 Hydrocele, unspecified; N39.0 Urinary tract infection, site not specified | CPT/HCPCS: 81003; 99212 ==

== ENCOUNTER 2024-01-01 14:14 | Outpatient (REF) | payer MEDICAID, SELFPAY ==
[2024-01-01 15:27] LABS: MANUAL DIFF FLAG NO
[2024-01-01 15:53] LABS: Basophils Percent Auto 0.7 % (0-2); Eosinophils Absolute Auto 0.1 X10*3/uL (0.0-0.4); Eosinophils Percent Auto 2.6 % (0-4); Hematocrit 40.5 % (42.0-52.0); Hemoglobin 13.2 g/dl (14.0-18.0); Imm Gran Abs Auto 0.01 X10*3/uL (0.00-0.03); Imm Gran Pct Auto 0.2 % (0.0-0.4); Lymphocytes Absolute Auto 1.3 X10*3/uL (1.2-4.9); Lymphocytes Percent Auto 24.6 % (20-40); Mean Corpuscular HGB Conc 32.6 g/dl (31.0-36.0); Mean Corpuscular Volume 79.7 fL (80.0-98.0); Mean Platelet Volume 10.5 fL (9.4-12.4); Monocytes Absolute Auto 0.4 X10*3/uL (0.1-1.2); Monocytes Percent Auto 7.7 % (2-11); Neutrophils Absolute Auto 3.5 x10*3/uL (2.0-8.3); Neutrophils Percent Auto 64.2 % (45-73); Platelet Count 285 X10*3/uL (160-400); Red Blood Count 5.08 X10*6/uL (4.60-5.80); Red Cell Distribution Width 14.1 % (11.0-16.0); White Blood Count 5.5 X10*3/uL (4.8-10.8)
[2024-01-01 16:21] LABS: Alanine Aminotransferase 27 U/L (0-40); Albumin Level 4.5 g/dL (3.5-5.0); Alkaline Phosphatase 59 U/L (39-117); Anion Gap 10 (12-20); Aspartate Amino Transferase 23 U/L (5-37); Bilirubin Total 0.7 mg/dL (0.0-1.0); Blood Urea Nitrogen 10 mg/dL (9-16); Calcium 9.9 mg/dL (8.4-10.2); Carbon Dioxide 29 mmol/L (22-29); Chloride 106 mmol/L (96-108); Estimated Glomerular Filt Rate > 60; Glucose Random 113 mg/dL (60-115); Potassium 3.4 mmol/L (3.3-5.1); Sodium 142 mmol/L (135-145); Total Protein 7.4 g/dL (6.5-8.0)
[2024-01-02 12:32] LABS: Complement C3 145 mg/dL (82-185)
[2024-01-03 12:48] LABS: Prot Elec - Albumin 4.2 g/dL (3.8-4.8); Prot Elec - Alpha1 0.5 g/dL (0.2-0.3); Prot Elec - Alpha2 0.6 g/dL (0.5-0.9); Prot Elec - Beta 1 0.4 g/dL (0.4-0.6); Prot Elec - Beta 2 0.4 g/dL (0.2-0.5)
== END 2024-01-01 14:15 | disposition home or self-care (01) ==
LOC: HO.LAB 14:14
PROVIDERS: PCP Internal Medicine; Referring Provider Nurse Practitioner Family; Visit Provider Internal Medicine Hypertension Specialist
DX: E11.65 Type 2 diabetes mellitus with hyperglycemia (principal); R80.9 Proteinuria, unspecified; I10 Essential (primary) hypertension; Z79.64 Long term (current) use of myelosuppressive agent; Z79.899 Other long term (current) drug therapy
CPT/HCPCS: 36415; 80053; 84165; 85025; 86160; 99202

== ENCOUNTER 2024-01-01 14:14 | Outpatient (AMB) | payer MEDICAID, SELFPAY ==
[2024-01-01 14:14] VITALS: BP 118/86; PULSE 97; O2SAT 96; BMI 40.0
--- NOTE | 2024-01-01 14:14 | HO.NEPHOV ---
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 Accompanied by: Self / Same As Patient Allergies No Known Allergies [No Known Allergies*] Allergy (Verified 01/01/24 14:17) Medication List - Last Reconciled 01/01/24 by Baldo Martinez MD amlodipine 10 mg PO DAILY blood sugar diagnostic (FreeStyle Lite Strips) As directed three times daily blood-glucose meter (FreeStyle Lite Meter kit) As directed chlorthalidone 25 mg PO DAILY glucose 2 grams PO NEEDED PRN lancets As directed three times daily levetiracetam (Keppra) 1,000 mg PO QAM levetiracetam 1,500 mg PO BEDTIME lisinopril 40 mg PO DAILY pen needle, diabetic (BD Ultra-Fine Ellie Pen Needle) As directed once daily sertraline 50 mg PO QAM HPI Comments Details: . Clovis is a 33-year-old man with a history of hypertension for more than 10 years. He is currently on lisinopril 40 mg chlorthalidone 25 mg of amlodipine 10 mg. He has had diabetes mellitus for almost 4 years in the setting of obesity. Recent urinalysis revealed proteinuria and hence this referral. In the past he underwent workup for the hypertension. There was mild elevation in the normetanephrines and he was referred to endocrinology and apparently pheochromocytoma was ruled out. At the time of returned to urine collection he was on antihypertensive medications but it is unclear what he was taking at the time. Abdominal imaging did not reveal any abnormality of the adrenal glands. He carries a diagnosis of hypertensive heart disease however the echocardiogram in 2022 reveal normal ventricles without any diastolic dysfunction EKG appeared normal as well. Does not have any shortness of breath no chest pain nausea or vomiting. No urinary symptoms no fever No joint pain no rash He has had episodes of lightheadedness when he stands up. No syncopal episode. History of seizures present No history of smoking cigarettes he uses marijuana once a week No history of alcohol abuse. He works as a teacher in special Ed. [facility] Medical History Hx of pancreatitis GERD (gastroesophageal reflux disease) Fatty liver Depression Nasal sinus cyst HTN (hypertension) Seizures Obesity due to excess calories DM2 (diabetes mellitus, type 2) Hx of acute pancreatitis High triglycerides Surgical History Hx of removal of cyst (10/10/23) No history of previous surgery Family History Father Unknown family medical history Mother Unknown family medical history Maternal Grandmother Diabetes Hypertension Social History Household Members: Spouse and Children Are you a primary hospice spiritual care coordinator to a significant other at home: No Do you presently have visiting nurse or other home services: No Alcohol intake: former Comment: COUNTS CORRECT Patient Tobacco Use Status: Never used Tobacco service: No Current occupational status: employed Physical Exam Vital Signs: Last Vital Signs Pulse 97 01/01/24 14:14 BP 118/86 01/01/24 14:14 Pulse Ox 96 01/01/24 14:14 Oxygen Delivery Method Room Air 01/01/24 14:14 BMI result Body Mass Index 40.0 Const General: comfortable; No acute distress Orientation/consciousness: patient oriented x3 Eyes General: appearance normal, both eyes and all related structures Visual Khan: normal visual khan by confrontation Neck Neck: Yes supple and Yes no JVD Resp Effort & Inspection: normal respiratory effort and respiratory effort not decreased Auscultation: rhonchi Cardio Palpation: no palpable S3 and no palpable S4 Heart sounds: no rubs GI Inspection: Yes normal to inspection Palpation (GI): Soft to palpation Percussion: Yes normal to percussion Auscultation: normal bowel sounds General: Yes no CVA tenderness Back/Spine/Pelvis Back: no CVA tenderness Skin General skin exam: no petechiae and no purpura Neuro General: patient oriented x3 and no focal motor deficits Extrem General: No clubbing and No edema Results Reviewed Nephrology Results: Hgb 13.7 g/dl (14.0-18.0) L 10/15/23 WBC 4.9 X10*3/uL (4.8-10.8) 10/15/23 Plt Count 268 X10*3/uL (160-400) 10/15/23 Sodium 140 mmol/L (135-145) 10/15/23 Potassium 4.0 mmol/L (3.3-5.1) 10/15/23 Chloride 104 mmol/L (96-108) 10/15/23 Carbon Dioxide 28 mmol/L (22-29) 10/15/23 BUN 14 mg/dL (9-16) 10/15/23 Creatinine 0.99 mg/dL (0.5-1.4) 10/15/23 Calcium 9.7 mg/dL (8.4-10.2) 10/15/23 Assessment & Plan Assessment & Plan (1) Proteinuria: Code(s): R80.9 - Proteinuria, unspecified Category: Medical (2) Uncontrolled hypertension: Code(s): I10 - Essential (primary) hypertension Category: Medical (3) DM2 (diabetes mellitus, type 2): Comment: no meds currently Code(s): E11.9 - Type 2 diabetes mellitus without complications Category: Medical Qualifiers: Diabetes mellitus complication status: with hyperglycemia Diabetes mellitus [facility] insulin use: with [facility] use Qualified Code(s): E11.65 - Type 2 diabetes mellitus with hyperglycemia; Z79.4 - extermination inspector (current) use of insulin Plan Young man with obesity and hypertension for more than 10 years with diabetes mellitus for about 5 years has proteinuria. Renal function is normal. I have initiated a workup for the proteinuria. First step would be to quantify the proteinuria. Proteinuria is most likely due to underlying obesity and diabetes mellitus. Suboptimally controlled hypertension could also be a contributing factor. Overall blood pressures seem to be well controlled. There have been episodes of lightheadedness and I suspect he has a episodes of hypotension. I will obtain a 24 hour ambulatory blood pressure monitoring prior to making any adjustments to his antihypertensive regimen. All his questions were answered returned to office in the next few weeks Orders: Orders Complete Blood Count Auto Diff Today R80.9 - Proteinuria, unspecified Total Protein Urine Random Today R80.9 - Proteinuria, unspecified Complement C3 Today R80.9 - Proteinuria, unspecified Complement C4 Today R80.9 - Proteinuria, unspecified Comprehensive Met. Panel Today R80.9 - Proteinuria, unspecified Creatinine Urine Today R80.9 - Proteinuria, unspecified UA and rflx microscopic Today R80.9 - Proteinuria, unspecified Protein Electrophoresis, Serum Today R80.9 - Proteinuria, unspecified AMB 24 HR B/P Monitor PLACEMENT Today I10 - Essential (primary) hypertension Coding Level of Care Code New Pt Level 4 (83125) Diagnoses Proteinuria R80.9 Uncontrolled hypertension I10 Type 2 diabetes mellitus with hyperglycemia, with long-term current use of insulin E11.65; Z79.4 Diabetes mellitus complication status: with hyperglycemia Diabetes mellitus terminal operations supervisor insulin use: with [facility] use
== END 2024-01-01 14:41 | disposition home or self-care (01) ==
PROVIDERS: PCP Internal Medicine; Referring Provider Nurse Practitioner Family; Visit Provider Internal Medicine Hypertension Specialist
DX: R80.9 Proteinuria, unspecified (principal); I10 Essential (primary) hypertension; E11.65 Type 2 diabetes mellitus with hyperglycemia; Z79.4 Long term (current) use of insulin
CPT/HCPCS: 99204

== ENCOUNTER → 2024-01-15 08:52 | Outpatient (REF) | payer MEDICAID, SELFPAY ==
--- NOTE | 2024-01-15 08:54 | CA_ITS ---
Transthoracic Echocardiogram Patient (Last, First, Middle): Clovis Chavez X Gender: Male Date of : 1990 Age: 33 Procedure Date: 01/15/2024 Procedure Type: Transthoracic Echocardiogram Location: OP Height: 175.26 cm Weight: 122.47 kg BSA: 2.35 m2 Heart Rate: bpm BP: 110 / 80 mmHg Process Area Supervisor: TO Referring MD: Lazarus Smith MD Symptoms: I11.9 - Hypertensive heart disease without heart failure Study Quality: Adequate ECG Rhythm: Sinus Conclusions: - The left ventricular systolic function is normal. The calculated ejection fraction is 65% by biplane method. - No obvious valvular pathology seen on this study. Findings Left Ventricle Normal left ventricular cavity size. The left ventricular systolic function is normal. The calculated ejection fraction is 65% by biplane method. There is no evidence of regional wall motion abnormalities. Diastolic function is normal for age. There is mild septal asymmetric hypertrophy. LV peak GLS 20.9%. Right Ventricle Normal right ventricular cavity size and systolic function. Atria Both atria are normal in size. Aortic Valve There is a normal trileaflet aortic valve. There is no aortic valve stenosis. There is no aortic valve regurgitation. Mitral Valve The mitral valve appears normal. There is no mitral valve regurgitation. There is no mitral valve stenosis. Pulmonic Valve The pulmonic valve is likely normal. Tricuspid Valve Normal tricuspid valve structure. There is trace tricuspid valve regurgitation. There is no evidence of pulmonary hypertension. Great Vessels The asc aorta is normal in size. Venous The inferior vena cava is normal in size and collapses greater than 50% with inspiration. Pericardium/Pleural There is no evidence of pericardial effusion. Prior Study Comparison No significant change compared to prior study dated: 11/02/2022. Recommendations, Care & Conclusions No obvious valvular pathology seen on this study. Measurements 2D Linear Measurements IVSd: 1.04 0.6-0.9/0.6-1.0 cm LVIDd: 4.91 3.9-5.3/4.2-5.9 cm LVIDd Index: 2.09 2.4-3.2/2.2-3.1 cm/m2 LVIDs: 3.06 2.0-3.6 cm LVPWd: 0.87 0.7-1.1 cm LA Diam: 4.30 2.7-3.8/3.0-4.0 cm LAIDs Index: 1.83 1.5-2.3 cm/m2 LV Mass: 206.22 67-162/88-224 g LV Mass Index: 87.75 43-95/49-115 g/m2 LVOT Diam: 2.20 3.0+(-)1.3 cm 2D Systolic Function EF 4C: 64.80 >55% EF 2C: 62.10 >55% EF BiP: 64.80 >55% Mitral Valve MV Pk E: 0.72 MV PK A: 0.51 MV Decel Time: 189.00 E/A: 1.40 E'Lateral: 11.90 E'Medial: 7.40 E/E' Med: 9.70 E/E' Lat: 6.10 PHT: 55.00 MVA PHT: 4.00 Decel Baylor: 3.82 Aortic Valve AoV Pk Willard: 1.23 AoV Mn Willard: 0.79 AoV VTI: 0.24 AoV Pk Grad: 6.00 Aov Mn Grad: 3.00 IVELISSE Cont.VTI: 3.07 LVOT LVOT Pk Willard: 0.97 LVOT Mn Willard: 0.62 LVOT VTI: 0.19 LVOT Pk Grad: 4.00 LVOT Mn Grad: 2.00 LVOT Diam: 2.20 LVOT Area: 3.80 Diastolic Function MV Pk E: 0.72 MV Pk A: 0.51 E/A: 1.40 E'Medial: 7.40 E/E' Med: 9.70 E' Laterial: 11.90 E/E' Lat: 6.10 Right Ventricle TAPSE (mm): 22.20 TVS' Willard: 14.70 Tricuspid Valve TR Pk Willard: 1.76 TR Pk Grad: 12.00 RA Press: 3.00 RVSP: 15.00 Great Vessels Aorta Sinus of Valsalva: 3.51 2.0-3.5 cm Ao Asc: 3.10 2.1-3.4 cm Updated in Other Vendor System with Status of Final Jose Viveros MD electronically signed on 01/16/2024 11:37:33 AM with status of Final
== END ==
LOC: HO.CARD 08:52
PROVIDERS: PCP Internal Medicine; Visit Provider Internal Medicine Cardiovascular Disease
DX: I11.9 Hypertensive heart disease without heart failure (principal)
CPT/HCPCS: 93306; 93356

== ENCOUNTER → 2024-01-15 08:54 | Outpatient (BNV) | payer MEDICAID, SELFPAY | PROVIDERS: PCP Internal Medicine; Visit Provider Internal Medicine | DX: I42.2 Other hypertrophic cardiomyopathy (principal); I11.9 Hypertensive heart disease without heart failure | CPT/HCPCS: 93306; 93356 ==

== ENCOUNTER 2024-01-22 14:27 | Outpatient (REF) | payer MEDICAID, SELFPAY ==
[2024-01-22 14:50] LABS: Appearance Urine Clear; Color Urine Yellow; Glucose Urine UA Negative (Negative); Leukocyte Esterase Urine Negative (Negative); Nitrite Urine Negative (Negative); Specific Gravity - Urine >= 1.030 (1.005-1.025); Urine Blood Negative (Negative); Urine Ketones Trace mg/dL (Negative); Urine Protein Negative (Neg-Trace)
[2024-01-22 15:10] LABS: Creatinine Urine 338.25 mg/dL
== END 2024-01-22 14:28 | disposition home or self-care (01) ==
LOC: HO.LNP 14:27
PROVIDERS: Visit Provider Internal Medicine Hypertension Specialist
DX: R80.9 Proteinuria, unspecified (principal)
CPT/HCPCS: 81003; 82570

== ENCOUNTER → 2024-01-24 14:50 | Outpatient (BNVA) | payer MEDICAID, SELFPAY | PROVIDERS: PCP Internal Medicine; Visit Provider Internal Medicine Hypertension Specialist ==

== ENCOUNTER 2024-01-25 14:58 | Outpatient (AMB) | payer MEDICAID, SELFPAY ==
--- NOTE | 2024-01-25 14:58 | HO.NEPHOV ---
Vital Signs 01/25/24 14:59 Height 5 ft 9 in Weight 275 lb BMI 40.6 BP 108/76 Blood Pressure Location Lt brachial Position Sitting Pulse 99 Pulse Source Pulse Oximeter Pulse Oximetry (%) 97 Oxygen Delivery Method Room Air Intake Visit Reasons: Proteinuria/ LVM Baseball Umpire [employer] Required: No Accompanied by: Self / Same As Patient Allergies No Known Allergies [No Known Allergies*] Allergy (Verified 01/25/24 14:58) Medication List - Last Reconciled 01/25/24 by Baldo Martinez MD amlodipine 10 mg PO DAILY blood sugar diagnostic (FreeStyle Lite Strips) As directed three times daily blood-glucose meter (FreeStyle Lite Meter kit) As directed chlorthalidone 25 mg PO DAILY glucose 2 grams PO NEEDED PRN lancets As directed three times daily levetiracetam (Keppra) 1,000 mg PO QAM levetiracetam 1,500 mg PO BEDTIME lisinopril 40 mg PO DAILY pen needle, diabetic (BD Ultra-Fine Ellie Pen Needle) As directed once daily sertraline 50 mg PO QAM HPI Comments Details: . Clovis is a 33-year-old man with a history of hypertension for more than 10 years. He is currently on lisinopril 40 mg chlorthalidone 25 mg of amlodipine 10 mg. He has had diabetes mellitus for almost 4 years in the setting of obesity. Recent urinalysis revealed proteinuria and hence this referral. In the past he underwent workup for the hypertension. There was mild elevation in the normetanephrines and he was referred to endocrinology and apparently pheochromocytoma was ruled out. At the time of returned to urine collection he was on antihypertensive medications but it is unclear what he was taking at the time. Abdominal imaging did not reveal any abnormality of the adrenal glands. He carries a diagnosis of hypertensive heart disease however the echocardiogram in 2022 reveal normal ventricles without any diastolic dysfunction EKG appeared normal as well. Does not have any shortness of breath no chest pain nausea or vomiting. No urinary symptoms no fever No joint pain no rash He has had episodes of lightheadedness when he stands up. No syncopal episode. History of seizures present No history of smoking cigarettes he uses marijuana once a week No history of alcohol abuse. He works as a teacher in special Ed. [facility] Medical History Hx of pancreatitis GERD (gastroesophageal reflux disease) Fatty liver Depression Nasal sinus cyst HTN (hypertension) Seizures Obesity due to excess calories DM2 (diabetes mellitus, type 2) Hx of acute pancreatitis High triglycerides Surgical History Hx of removal of cyst (10/10/23) No history of previous surgery Family History Father Unknown family medical history Mother Unknown family medical history Maternal Grandmother Diabetes Hypertension Social History Household Members: Spouse and Children Are you a primary pediatric care coordinator to a significant other at home: No Do you presently have visiting nurse or other home services: No Alcohol intake: former Comment: COUNTS CORRECT Patient Tobacco Use Status: Never used Tobacco service: No Current occupational status: employed Physical Exam Vital Signs: Last Vital Signs Pulse 99 01/25/24 14:59 BP 108/76 01/25/24 14:59 Pulse Ox 97 01/25/24 14:59 Oxygen Delivery Method Room Air 01/25/24 14:59 BMI result Body Mass Index 40.6 Const General: comfortable; No acute distress Orientation/consciousness: patient oriented x3 Eyes General: appearance normal, both eyes and all related structures Visual Khan: normal visual khan by confrontation Neck Neck: Yes supple and Yes no JVD Resp Effort & Inspection: normal respiratory effort and respiratory effort not decreased Auscultation: rhonchi Cardio Palpation: no palpable S3 and no palpable S4 Heart sounds: no rubs GI Inspection: Yes normal to inspection Palpation (GI): Soft to palpation Percussion: Yes normal to percussion Auscultation: normal bowel sounds General: Yes no CVA tenderness Back/Spine/Pelvis Back: no CVA tenderness Skin General skin exam: no petechiae and no purpura Neuro General: patient oriented x3 and no focal motor deficits Extrem General: No clubbing and No edema Results Reviewed Nephrology Results: Hgb 13.2 g/dl (14.0-18.0) L 01/01/24 WBC 5.5 X10*3/uL (4.8-10.8) 01/01/24 Plt Count 285 X10*3/uL (160-400) 01/01/24 Sodium 142 mmol/L (135-145) 01/01/24 Potassium 3.4 mmol/L (3.3-5.1) 01/01/24 Chloride 106 mmol/L (96-108) 01/01/24 Carbon Dioxide 29 mmol/L (22-29) 01/01/24 BUN 10 mg/dL (9-16) 01/01/24 Creatinine 0.95 mg/dL (0.5-1.4) 01/01/24 Calcium 9.9 mg/dL (8.4-10.2) 01/01/24 Urine Protein Negative mg/dL (Neg-Trace) 01/22/24 Urine Creatinine 338.25 mg/dL 01/22/24 Assessment & Plan Assessment & Plan (1) Proteinuria: Code(s): R80.9 - Proteinuria, unspecified Category: Medical (2) Uncontrolled hypertension: Code(s): I10 - Essential (primary) hypertension Category: Medical (3) DM2 (diabetes mellitus, type 2): Comment: no meds currently Code(s): E11.9 - Type 2 diabetes mellitus without complications Category: Medical Qualifiers: Diabetes mellitus complication status: with hyperglycemia Diabetes mellitus halfway insulin use: with gas pumping station helper use Qualified Code(s): E11.65 - Type 2 diabetes mellitus with hyperglycemia; Z79.4 - manager office (current) use of insulin Plan Young man with obesity and hypertension for more than 10 years with diabetes mellitus for about 5 years has proteinuria. Renal function is normal. Proteinuria is most likely due to underlying obesity and diabetes mellitus. Repeat urine protein creatinine ratio was unremarkable. Although lab did not provide a quantitative value. I will recheck protein creatinine ratio. Overall blood pressures seem to be well controlled. He has no significant nocturnal dipping. I will keep the same antihypertensive medications but I will switch lisinopril from 40 mg q.a.m. to 40 mg q.p.m.. They should also minimize the episodes of lightheadedness. Renal function is within normal range at this time Orders: Orders Creatinine Urine Today I10 - Essential (primary) hypertension, R80.9 - Proteinuria, unspecified Total Protein Urine Random Today I10 - Essential (primary) hypertension, R80.9 - Proteinuria, unspecified AMB 24 HR B/P Monitor INTERPRETATION Today I10 - Essential (primary) hypertension Coding Level of Care Code Est Pt Level 4 (01839) Diagnoses Proteinuria R80.9 Uncontrolled hypertension I10 Type 2 diabetes mellitus with hyperglycemia, with long-term current use of insulin E11.65; Z79.4 Diabetes mellitus complication status: with hyperglycemia Diabetes mellitus halfway insulin use: with gas pumping station helper use
[2024-01-25 14:59] VITALS: BP 108/76; PULSE 99; O2SAT 97; BMI 40.6
== END 2024-01-25 15:24 | disposition home or self-care (01) ==
PROVIDERS: PCP Internal Medicine; Visit Provider Internal Medicine Hypertension Specialist
DX: R80.9 Proteinuria, unspecified (principal); I10 Essential (primary) hypertension; E11.65 Type 2 diabetes mellitus with hyperglycemia; Z79.4 Long term (current) use of insulin
CPT/HCPCS: 93790; 99214

== ENCOUNTER → 2024-01-25 14:58 | Outpatient (BNVA) | payer MEDICAID, SELFPAY | PROVIDERS: PCP Internal Medicine; Visit Provider Internal Medicine Hypertension Specialist | DX: I10 Essential (primary) hypertension (principal); R80.9 Proteinuria, unspecified; E11.65 Type 2 diabetes mellitus with hyperglycemia; Z79.4 Long term (current) use of insulin | CPT/HCPCS: 93786; 99212 ==

== ENCOUNTER 2024-03-04 13:44 | Outpatient (AMB) | payer MEDICAID, SELFPAY ==
[2024-03-04 13:51] VITALS: BP 108/60; PULSE 81; BMI 41.0
--- NOTE | 2024-03-04 13:51 | MHC.OFFVIS ---
Vital Signs 03/04/24 13:51 Height 5 ft 9 in Weight 277 lb 12.519 oz BMI 41.0 BP 108/60 Blood Pressure Location Lt brachial Position Sitting Pulse 81 Pulse Source Monitor Intake Visit Reasons: r/s 02/04/24 1 yr followup w/ekg Allergies No Known Allergies [No Known Allergies*] Allergy (Verified 01/25/24 14:58) Medication List - Last Reconciled 03/04/24 by Lazarus Smith MD amlodipine 10 mg PO DAILY blood sugar diagnostic (FreeStyle Lite Strips) As directed three times daily blood-glucose meter (FreeStyle Lite Meter kit) As directed chlorthalidone 25 mg PO DAILY glucose 2 grams PO NEEDED PRN lancets As directed three times daily levetiracetam (Keppra) 1,000 mg PO QAM levetiracetam 1,500 mg PO BEDTIME lisinopril 40 mg PO DAILY pen needle, diabetic (BD Ultra-Fine Ellie Pen Needle) As directed once daily sertraline 50 mg PO QAM HPI Comments Details: Clovis comes for follow-up. He has been doing very well from cardiac perspective. He in fact has been noticing lightheadedness and low blood pressure. His blood pressure often in the 90s. His lisinopril was therefore switch to nighttime. Continues to have lower blood pressure. No syncopal episodes. He has significantly modified his lifestyle with increase exercise and weight loss and reduction salt intake. He drinks a lot of fluids. His recent echocardiogram shows normal LV ejection fraction without significant LVH. [facility] Medical History Hx of pancreatitis GERD (gastroesophageal reflux disease) Fatty liver Depression Nasal sinus cyst HTN (hypertension) Seizures Obesity due to excess calories DM2 (diabetes mellitus, type 2) Hx of acute pancreatitis High triglycerides Surgical History Hx of removal of cyst (10/10/23) No history of previous surgery Family History Father Unknown family medical history Mother Unknown family medical history Maternal Grandmother Diabetes Hypertension Social History Household Members: Spouse and Children Are you a primary child care center administrator to a significant other at home: No Do you presently have visiting nurse or other home services: No Alcohol intake: former Comment: COUNTS CORRECT Patient Tobacco Use Status: Never used Tobacco service: No Current occupational status: employed Review of Systems Const Denies weakness ENT Denies dizziness Card Denies chest pain, Denies chest pain with activity, Denies syncope, Denies rapid heart rate, Denies pedal edema, Denies edema, Denies leg edema, Denies lightheadedness, Denies palpitations, Denies dyspnea, Denies dyspnea on exertion and Denies orthopnea Resp Denies cough, Denies dyspnea and Denies dyspnea on exertion GI Denies hematochezia and Denies change in stool character Musc Denies abnormal gait, Denies muscle cramps, Denies muscle weakness, Denies numbness, Denies radiating pain into limb and Denies tingling Neuro Denies abnormal gait, Denies dizziness, Denies syncope, Denies numbness, Denies tingling and Denies weakness Endo Denies palpitations Physical Exam Vital Signs: Last Vital Signs Pulse 81 03/04/24 13:51 BP 108/60 03/04/24 13:51 BMI result Body Mass Index 41.0 Const General: cooperative, healthy appearing, comfortable, no acute distress and well developed Nutritional Appearance: well nourished Orientation/consciousness: patient oriented x3 Limitations: no limitations Neck Neck: Yes normal visual inspection Resp Effort & Inspection: normal respiratory effort Auscultation: clear to auscultation bilaterally, no crackles, no rales, no rhonchi and no wheezes Cardio Jugular venous distension: no JVD Rate: regular rate Rhythm: regular rhythm Heart sounds: S1 normal heart sound present, S2 normal heart sound present, no murmurs and no rubs GI Inspection: Yes normal to inspection Neuro General: patient oriented x3 Extrem General: Yes normal to inspection, No no pedal edema and No calf tenderness Psych Appearance: grossly normal Mental Status: mental status grossly normal Speech and movement: Normal speech and movement present Office Procedures EKG Details: EKG shows normal sinus rhythm with normal EKG [id number], Complete Assessment & Plan Assessment & Plan (1) Hypertensive heart disease: Code(s): I11.9 - Hypertensive heart disease without heart failure Category: Medical Plan: Hypertensive heart disease in the past with improved LV wall thickness and normalized LV systolic function as well as diastolic function on recent echocardiogram related to significant improvement in his blood pressure control. Currently he is having issues with low blood pressure. I have advised him to taper his chlorthalidone to 12.5 mg daily and if blood pressure remains controlled eventually discontinue chlorthalidone. Continue lisinopril amlodipine therapy at current time and dose. Continue aggressive lifestyle modification. Continue low-salt diet. Continue to participate in weight loss as well as regular exercise program. He understands agrees. Will follow up in the clinic in 1 year's time on his request. Thank you for allowing me to partake in his care Medications: Changed From chlorthalidone 25 mg PO DAILY To chlorthalidone 12.5 mg PO DAILY Coding Level of Care Code Est Pt Level 3 (90662) Complex EM visit Add On G2211 Diagnoses Hypertensive heart disease I11.9 CPT Codes EKG - CPT: 50358-[id number], Complete ([id number])
== END 2024-03-04 14:40 | disposition home or self-care (01) ==
PROVIDERS: PCP Internal Medicine; Visit Provider Internal Medicine Cardiovascular Disease
DX: I11.9 Hypertensive heart disease without heart failure (principal)
CPT/HCPCS: 93010; 99213

== ENCOUNTER → 2024-03-04 13:44 | Outpatient (BNVA) | payer MEDICAID, SELFPAY | PROVIDERS: PCP Internal Medicine; Visit Provider Internal Medicine Cardiovascular Disease | DX: I11.9 Hypertensive heart disease without heart failure (principal) | CPT/HCPCS: 93005; 99212 ==

== ENCOUNTER 2024-03-10 15:22 | Outpatient (AMB) | payer MEDICAID, SELFPAY ==
--- NOTE | 2024-03-10 15:23 | A.OFFVIS_ITS ---
Intake Visit Reasons: 1-3 months follow up Intake Note: Patient is present for 1-3 F/U Urology Medication:NONE Antibiotic Allergy:NONE Blood Thinner:NONE Flight Line Service Attendant Required: No Allergies No Known Allergies [No Known Allergies*] Allergy (Verified 03/10/24 15:29) Medication List - Last Reconciled 03/10/24 by HEATH Gloria amlodipine 10 mg PO DAILY blood sugar diagnostic (FreeStyle Lite Strips) As directed three times daily blood-glucose meter (FreeStyle Lite Meter kit) As directed chlorthalidone 12.5 mg PO DAILY glucose 2 grams PO NEEDED PRN lancets As directed three times daily levetiracetam (Keppra) 1,000 mg PO QAM levetiracetam 1,500 mg PO BEDTIME lisinopril 40 mg PO DAILY pen needle, diabetic (BD Ultra-Fine Ellie Pen Needle) As directed once daily sertraline 50 mg PO QAM HPI Comments Details: Clovis is a very pleasant 33-year-old male patient of Dr. Mao Foote. He has a past medical history of pancreatitis, GERD, fatty liver, depression, hypertension, seizures, obesity, type 2 diabetes, and high triglycerides. He is being followed up on today via telehealth for his right- sided epididymitis and hydroceles. In discussion with the patient today he reports to be doing and feeling well. He reports having completed antibiotic the rapy as prescribed during last office visit and has had no bothersome scrotal discomfort as he had been experiencing. He reports having followed up with Nephrology since his last office visit here for proteinuria as recommended during last office visit. He currently denies any bothersome urinary issues or concerns. Patient with previous scrotal imaging 09/23 noting Right-sided epididymitis, bilateral scrotal hernias versus prominent spermatic cords bilaterally, bilateral varicoceles, and small right hydrocele. He denies urinary urgency, urinary frequency, incontinence, nocturia, hematuria, dysuria, foul smelling urine, changes to urinary stream, flank pain, fever, and or chills. He is happy with his current voiding parameters. He otherwise offers no other issues or concerns at this time. [facility] Medical History Hx of pancreatitis GERD (gastroesophageal reflux disease) Fatty liver Depression Nasal sinus cyst HTN (hypertension) Seizures Obesity due to excess calories DM2 (diabetes mellitus, type 2) Hx of acute pancreatitis High triglycerides Surgical History Hx of removal of cyst (10/10/23) No history of previous surgery Family History Father Unknown family medical history Mother Unknown family medical history Maternal Grandmother Diabetes Hypertension Social History Household Members: Spouse and Children Are you a primary outdoor emergency care technician to a significant other at home: No Do you presently have visiting nurse or other home services: No Alcohol intake: former Comment: COUNTS CORRECT Patient Tobacco Use Status: Never used Tobacco service: No Current occupational status: employed Review of Systems Const Reports no additional complaints Eyes Reports no additional complaints ENT Reports no additional complaints Card Reports as per HPI Resp Reports no additional complaints GI Reports as per HPI Reports as per HPI Musc Reports no additional complaints Neuro Reports as per HPI Psych Reports as per HPI Endo Reports as per HPI Jostin/Lymph Reports no additional complaints Aller/Immun Reports no additional complaints Physical Exam Const General: cooperative Orientation/consciousness: patient oriented x3 Resp Effort & Inspection: able to speak in complete sentences Neuro General: patient oriented x3 Psych Attitude: cooperative Thought process: Normal thought process present Thought content: Normal thought content present Insight: Fair insight present (Psych) Judgement: Fair judgement present (Psych) Telehealth Telehealth Telehealth Platform: [facility] Location of provider rendering services: practice address Location of patient: address on file Patient Identification confirmed using: Name, : Yes Telehealth method: voice only Patient verbally consented to treatment: Yes Patient verbally consented to billing insurance company: Yes Patient informed of any privacy concerns related to visit: Yes Minutes spent on Phone/Video with Pt.: 15 Assessment & Plan Assessment & Plan (1) Hydrocele: Code(s): N43.3 - Hydrocele, unspecified Category: Medical (2) Epididymitis: Code(s): N45.1 - Epididymitis Category: Medical Plan Discussed potential causes of epididymitis as well as hydroceles. Currently denies any bothersome urinary issues or concerns. He reports be happy with current voiding parameters. Discussed surveillance monitoring verses p.r.n. follow-up. Will follow-up p.r.n. per patient request. Patient Instructions: The patient had an opportunity to ask questions regarding the treatment plan. All questions were answered. Physical exam, labs, and imaging were discussed and reviewed in detail. As well as risks, benefits, and discussion of treatment choices. No major barriers to understanding were identified. The patient expressed understanding and agreement with the above treatment plan. The patient was made aware they should contact our office by phone for worsening of their current condition, the appearance of new symptoms, or with any questions or concerns. Compliance is encouraged with any medications and follow up testing that is ordered. It is a privilege to be allowed the opportunity to participate in? your urological care.? Again, if you have any questions or concerns If you have any questions or concerns please do not hesitate to contact me. The office is [phone]. This note is constructed using voice recognition software. While every effort has been made to ensure accuracy day habilitation specialist errors may have been included. Yours sincerely, HEATH Gloria Coding Level of Care Code Tele Est Pt Level 3 (83010) Diagnoses Hydrocele N43.3 Epididymitis N45.1
== END 2024-03-10 15:40 | disposition home or self-care (01) ==
LOC: HO.HUSH 15:22
PROVIDERS: PCP Internal Medicine; Visit Provider Nurse Practitioner Family
DX: N43.3 Hydrocele, unspecified (principal); N45.1 Epididymitis
CPT/HCPCS: 99213

== ENCOUNTER 2024-05-12 09:01 | Outpatient (REF) | payer MEDICAID, SELFPAY ==
--- OUTSIDE RECORDS SUMMARY | 2024-05-12 09:31 | XMS_ITS | Encounter Summary ---
Author Organization [employer] Address [address] [place] [address] Care Team Providers Care Actuarial Consultant Name Role Phone Tala Tena MD Primary Care Provide r Reason for Visit * Reason Onset Date Comments Medical Leave 03/01/2023 Encounter Details Date Type Department Care Team ([facility] st Contact Info) Description 03/01/2023 Telephone [facility]INE [address] [place], [place] [phone] Tala Tena MD [address] [place], [place] [phone] Medical Leave Social History Tobacco Use Types Packs/Day Years Used Date Smoking Tobacco: Never Passive Smoke Exposure: Never Smokeless Tobacco: Never Depression Answer Date Recorded Patient Health Questionnaire-9 Score 0 08/14/2022 Housing Stability Answer Date Recorded What is your housing situation today? I have garrysonya birch 01/17/[address] you li ve. Do you have problems with any of the following? None of the above 01/17/2023 Food Insecurity Answer Date Recorded Within the past 12 months, y ou worried that your food would run out before you got money to buy more: Never True 01/17/2023 Within the past 12 months,th e food you bought just didn't last and you didn't have enough money to get more: Never True Transportation Answer Date Recorded In the past 12 months, has l ack of transportation kept you from medical appts, meetings, work or from getting things needed for daily living? No 01/17/2023 Utilities Answer Date Recorded In the past 12 months, has t he electric, gas, oil or water company threatened to shut off services in your home? No 01/17/2023 Depression Answer Date Recorded Patient Health Questionnaire-2 Score 0 08/14/2022 Sex and Gender Information Value Date Recorded Sex Assigned at Male 01/30/2022 10:14 AM EDT Legal Sex Male 10:14 AM EDT Gender Identity Male 01/30/2022 10:14 AM EDT Sexual Orientation Straight 01/30/2022 10 :14 AM EDT documented as of this encounter Miscellaneous Notes * Telephone Encounter - Sanamkamar Artiskristin Guzman - 03/01/2023 2:38 PM EST Tc from Jennifer with [employer] requesting a call in regards to Medical Leave documentation that wasfaxed over. Jennifer states documentation are difficult to read and is requesting clarification. Please contact Jennifer at [phone] documented in this encounter Plan of Treatment Upcoming Encounters Date Type Department Care Team (Late st Contact Info) Description 06/10/2024 9:15 AM EDT Office Visit [facility] [address] [place], [place] [phone] Tala Tena MD [address] [place] [address] documented as of this encounter Visit Diagnoses Not on filedocumented in this encounter Additional Health Concerns Assessment Noted Time PHQ-9 Depression Total Score: 0 08/15/19 23 3:39 PM EDT documented as of this encounter Care Teams Actuarial Consultant Relationship Specialty Start Date End Date Tala Tena MD [address] [place] [address] PCP - General Family Medicine 05/16/21 documented as of this encounter
--- OUTSIDE RECORDS SUMMARY | 2024-05-12 09:31 | XMS_ITS | Encounter Summary ---
Author Organization [facility] Address [address] [place] [address] Phone Care Team Providers Care Course Developer Name Role Phone Sandra Pineda NP Primary Care Provider Christiane alan Encounter Details Date Type Department Care Team (Late st Contact Info) Description 11/16/2016 Conversion Encounter [facility] - [address] [address] Social History Tobacco Use Types Packs/Day Years Used Date Smoking Tobacco: Never Assessed Sex and Gender Information Value Date Recorded Sex Assigned at Not on file Legal Sex Male 4:27 PM EDT Gender Identity Not on file Sexual Orientation Not on file documented as of this encounter Plan of Treatment Not on file documented as of this encounter Visit Diagnoses Not on filedocumented in this encounter Care Teams Course Developer Relationship Specialty Start Date End Date Sandra Pineda NP PCP - General 11/10/16 07/10/22 documented as of this encounter
--- OUTSIDE RECORDS SUMMARY | 2024-05-12 09:31 | XMS_ITS | Encounter Summary ---
Author Organization [employer] Address [address] [facility] [address] [place] [address] Care Team Providers Care Senior Lead Project Manager Name Role Phone Tala Tena MD Primary Care Provide r Reason for Visit * Reason Onset Date Comments Nurse Triage 04/12/2023 Encounter Details Date Type Department Care Team ([facility] st Contact Info) Description 04/12/2023 Telephone [facility] MED[facility]INE [address] [place], [place] [phone] Tala Tena MD [address] [place], [place] [phone] Nurse Triage Social History Tobacco Use Types Packs/Day Years [...] t he electric, gas, oil or water [employer] threatened to shut off services in your [...] encounter Miscellaneous Notes * Telephone Encounter - Rosa Elena Solorio RN - 04/12/2023 4:52 PM EST Please see below. Pt agreeable for IB to contact for BE. Please follow up with pt. Contact number verified. Ok to leave detailed VM * Telephone Encounter - Rosa Elena Solorio RN - 04/12/2023 4:27 PM EST Call to Clovis Chavez, reports having gradual increased depression. Per pt over last 2 months depression worse. Per pt becoming easily frustrated, overwhelmed, feeling sadness. Decreased sleep. Per pt spouse has noticed that pt develops Tremors in legs when dozing off to sleep. Per pt has nto had any known seizures. Per pt is having increased headaches but has not tried any OTC pain relievers. Per pt currently only taking Amlodipine 10mg daily Lisinopril 40mg daily, Chlorthalidone 25mg Keppra 1000mg AM 1500mg PM Per pt BP has been ok. SBP 130s highest. Pt denies any SI/HI. Denies any concerns for safety. Pt advised of dispositon, agrees to sooner appt with PCP first available. Also agreeable to BE by IB team. Pt wants PCP to review notes and see if sooner appt able to be accomodated. Pt advised of WIC. Given contact for [facility] and to also contact Neuro re: increased STEPHENS and tremors to see if sooner appt also available. Per pt has appt this month. PT advised to call back should sx worsen. Reviewed NTTS as well. Future Appointments Date Time Provider Department Center 04/25/2023 2:00 PM Tala Foote MD MEDICINE [facility] Protocol Used: Depression (Adult) Protocol-Based Disposition: See in Office or Video Visit within 3 Days Override (Final) Disposition: Discuss with PCP and Callback by Nurse Override Reason: Requests to speak with provider Video visit offer not recorded Positive Triage Question: * Depression is worsening (e.g.,sleeping poorly, less able to do activities of daily living) * All higher-acuity triage questions were negative Care Advice Discussed: * Note to Triager - Depression * Reasons To Call Back - Sadness or depression symptoms persist over 2 weeks - You feel like harming yourself - You become worse * Telephone Encounter - Araceli Sandoval - 04/12/2023 3:15 PM EST Symptom: Depression Outcome: Transfer to a nurse or provider NOW! Reason: Acting confused The caller accepted this outcome documented in this encounter Plan of Treatment Upcoming Encounters Date Type Department Care Team (Late st Contact Info) Description 06/10/2024 9:15 AM EDT Office Visit [facility]INE [address] [place] [phone] Tala Tena MD [address] [place] [address] documented as of this encounter Visit Diagnoses Not on filedocumented in this encounter Additional Health Concerns Assessment Noted Time PHQ-9 Depression Total Score: 0 08/15/19 23 3:39 PM EDT documented as of this encounter Care Teams Senior Lead Project Manager Relationship Specialty Start Date End Date Tala Tena MD [address] [place] [address] PCP - General Family Medicine 05/16/21 documented as of this encounter
--- OUTSIDE RECORDS SUMMARY | 2024-05-12 09:31 | XMS_ITS | Clinical Summary ---
Author Organization [facility] Address [address] [place] [phone] Phone Care Team Providers Care Car Whacker Name Role Phone Unavailable Primary Care Provider Unavailabl e Immunizations Immunization Administration Dates Next Due DTP 11/30/1994, 2,07/01/1991,05/30,01/30/1991 Hep B, ped/adol 02/27/2000,11/21/1999,10/21/1999 Hib (PRP-T) 12/31/1991, 2,05/02/1991,01/30 IPV 11/30/1994, 2,05/30/1991,01/30 Influenza, injectable, trivalent 01/16/2008 MMR 11/30/1994,08/31/1991 Meningococcal Conj (Menactra) MCV4P 01/16/2008 Td (adult) (MBL), 2 Lf tetan us toxoid, PF, adsorbed 06/04/2002 Tdap 01/16/2008 Family History Relation Name Status Comments Father Alive Father: Alive a nd well Maternal Grandmother Materna l grandmother: Hypertension, Diabetes mellitus, Elevated cholesterol Mother Alive Mother: Alive a nd well Sister 1 Alive Sister: Alive a nd well, Alive and well Sister 2 Alive Sister: Alive a nd well, Alive and well Social History Tobacco Use Types Packs/Day Years Used Date Smoking Tobacco: Never Assessed Sex and Gender Information Value Date Recorded Sex Assigned at Not on file Legal Sex Male 4:27 PM EDT Gender Identity Not on file Sexual Orientation Not on file Plan of Treatment Health Maintenance Due Date Last Done Comments Varicella Vaccines (1 of 2 - 13+ 2-dose series) 08/22/2003 DTaP,Tdap,and Td Vaccines (7 - Td or Tdap) 01/15/2018 01/16/2008, 06/04/2002, 11/30/1994, Additional history exists Influenza Vaccines (#1) 2023 01/16/2008 COVID-19 Vaccine ( season) 2023 HIB Vaccines Completed 12/31/1991, 06/02, 05/02/1991, Additional history exists IPV Vaccines Completed 11/30/1994, 03/04, 05/30/1991, Additional history exists MMR Vaccines Completed 11/30/1994, 08/31/1991 Hepatitis B Vaccines Completed 02/27/2000, 11/21/1999, 10/21/1999 Meningococcal Vaccine Completed 01/16/2008 HPV Vaccines Aged Out No longer eligi ble based on patient's age to complete this topic Hepatitis A Vaccines Aged Out No long er eligible based on patient's age to complete this topic Men B Vaccine Aged Out No longer elig ible based on patient's age to complete this topic Pneumococcal Vaccine Aged Out No long er eligible based on patient's age to complete this topic
--- OUTSIDE RECORDS SUMMARY | 2024-05-12 09:31 | XMS_ITS | Data Portability ---
Author Organization [facility] - [facility], Allergy Address [address] [address] Assessment Encounter Date Assessment Date Assessment LastModified by Organization Details LastModified Time 04/22/2024 04/22/2024 33-year-old male presents for evaluation following abnormal sinus findings on CT scan. Unfortunately he does not have imaging for my review but does have a report which states there is a retention cyst in the left sphenoid sinus. He has mild mucosal thickening of the ethmoid sinuses as well. There is small amount of retained fluid in mastoids. Reviewed results with patient. Would not recommend intervention regarding retention cyst in the sphenoid sinus or fluid in the mastoids. Mucosal thickening of the ethmoid is likely related to seasonal allergy given his symptoms. He has mild septal deviation which is nonobstructive. Would recommend allergy testing to begin as well as Flonase daily. He will follow-up in 6 to 8 weeks for reevaluation. If significant allergy consider immunotherapy. All questions were answered. [email or web address] Not available 04/22/2024 13:54:46 Plan of Treatment Reminders Order Date Submit Date Provider Last Modified By Organization Details Last Modified Time Details Appointments Allergy Test 2024 09:00A M [facility] Not available Not available Not available Establish ed 15 2024 09:00A M MARCIO DARLING PA-C Not available Not available Not available Establish ed 15 2024 09:00A M MARCIO DARLING PA-C Not available Not available Not available Lab None recorded. Referral None recorded. Procedures allergy testing, skin prick (PROC) 2024 025 [email or web address] Not available 04/23/2024 11:56:34 intraderm al allergy skin testing (PROC) 2024 025 [email or web address] Not available 04/23/2024 11:56:34 pulmonary function test procedure (PROC) 2024 025 [email or web address] Not available 04/23/2024 11:56:34 pulse oximetry (PROC) 2024 025 [email or web address] Not available 04/23/2024 11:56:34 Surgeries None recorded. Imaging None recorded. Medication Orders Flonase Allergy Relief 50 mcg/actua tion nasal spray,lisy pension 2024 025 [facility] #[id number], [address] [facility], [place], [address], 04/22/2024 13:55:26 Patient TargetsNo targets recorded. Patient InstructionsNo instructions recorded. Reason for Referral None Reported. Problems Name Problem SNOMED Code Status Onset Date Resolution Date Notes Provider Name and Address Organization Details Recorded Time Nasal congestion 07416601 Active 2024 MARCIO DARLING PA-C [address] [facility],[place] [address], [place], [address], [place] - [facility] 13:54:51 Allergic rhinitis 28790572 Active 2024 MARCIO DARLING PA-C [address] [facility], [address] [facility], [place], [address], [place] - [facility] 13:54:57 Non-allergi c rhinitis 897935351061 Active 2024 MARCIO DARLING PA-C [address] [facility], [address] [facility], [place], [address], [place] - [facility] 13:54:57 Seasonal allergic rhinitis 700384662 Active 2024 MARCIO DARLING PA-C [address] [facility], [address] [facility], [place], [address], [place] - [facility] 13:54:57 Deviated nasal septum 506235991 Active 2024 MARCIO DARLING PA-C [address] [place] [address], [address], [facility] - [facility] 5 13:55:30 Problem Notes None recorded. Medical Equipment None Reported. Medications Name Sig Start Date Stop Date Status Note LastModified by Organization Details LastModified Time neomycin-rene ymyxin-hydro liliane 3.5 mg/mL-10,000 unit/mL-1 % ear solution ADMINISTER 4 DROPS INTO AFFECTED EAR(S) 4 TIMES DAILY. active Not Available Not Available No t Available ibuprofen 800 mg tablet TAKE 1 TABLET BY MOUTH EVERY 8 HOURS NEEDED FOR MILD PAIN FOR UP TO 10 DAYS active Not Available Not Available No t Available FreeStyle Lancets 28 gauge USE TO TEST BLOOD SUGAR 2 TIMES DAILY active Not Available Not Available No t Available chlorthalido ne 25 mg tablet TAKE 1 TABLET BY MOUTH EVERY DAY IN THE MORNING active Not Available Not Available No t Available amlodipine 5 mg tablet TAKE 1 TABLET BY MOUTH EVERY DAY active Not Available Not Available No t Available amlodipine 10 mg tablet TAKE 1 TABLET BY MOUTH EVERY DAY active Not Available Not Available No t Available cephalexin 500 mg capsule TAKE 1 CAPSULE BY MOUTH FOUR TIMES A DAY active Not Available Not Available Not Available sertraline 25 mg tablet TAKE 1 TABLET BY MOUTH EVERY DAY IN THE MORNING active Not Available Not Available No t Available lisinopril 40 mg tablet TAKE 1 TABLET BY MOUTH EVERY DAY active Not Available Not Available No t Available fluticasone propionate 50 mcg/actuatio n nasal spray,suspen meliza SPRAY 2 SPRAYS INTO EACH NOSTRIL EVERY DAY active Not Available Not Available No t Available sertraline 50 mg tablet TAKE 1 TABLET BY MOUTH EVERY DAY IN THE MORNING active Not Available Not Available No t Available doxycycline hyclate 100 mg tablet TAKE 1 TABLET BY MOUTH TWICE A DAY FOR 14 DAYS active Not Available Not Available No t Available amoxicillin 875 mg-potassium clavulanate 125 mg tablet TAKE 1 TABLET BY MOUTH TWICE A DAY FOR 10 DAYS active Not Available Not Available No t Available oxycodone 5 mg tablet TAKE 1 TABLET BY MOUTH EVERY 6 HOURS NEEDED FOR PAIN active Not Available Not Available No t Available Alcohol Prep Pads USE TO TEST BLOOD SUGAR 2 TIMES DAILY active Not Available Not Available No t Available levetiraceta m 1,000 mg tablet TAKE 1 TABLET BY MOUTH EVERY MORNING AND TAKE 1 & 1/2 TABLETS AT BEDTIME active Not Available Not Available N ot Available FreeStyle Precision [place] Strips USE TO TEST BLOOD SUGAR 3 TIMES DAILY active Not Available Not Available No t Available Gvoke HypoPen 2-Pack 0.5 mg/0.1 mL subcutaneous auto-injecto r INJECT 0.1 ML (0.5 MG) UNDER THE SKIN 1 (ONE) TIME IF NEEDED FOR LOW BLOOD SUGAR. active Not Available Not Available No t Available FreeStyle Osmany 2 Sensor kit APPLY 1 SENSOR EVERY 14 DAYS active Not Available Not Available No t Available FreeStyle Osmany 2 [place] SCAN SENSOR EVERY 8 HOURS active Not Available Not Available No t Available Vitals None Recorded Social History None recorded. Functional Status None recorded. Mental Status None recorded. Family History Nothing Reported. Medical History No medical history recorded. Past Encounters Encounter ID Performer Location Encounter Start Date Encounter Closed Date Diagnosis/Indication Diagnosis SNOMED-CT Code Diagnosis ICD10 Code Diagnosis Note [id number] MARCIO DARLING PA-C [facility] [address] [address] 04/22/2024 13:21:51 04/22/2024 13:49:30 Nasal congestion 14585370 R09.81 Allergic rhinitis 459484 04 J30.9 Deviated nasal septum 12 9619993 J34.2 Health Concerns Section Related Observation LastModified by Organization Detai ls LastModified Time None Recorded Concern Status LastModified by Organization Details LastModified Time None Recorded Advance Directives Directive None Recorded Payers Encounter Date Sequence Insurance Name Policy Number Policy Walters Covered Member ID Walters Member ID Guarantor Name 04/22/2024 1 [place] [facility] Clovis casiano [id number] Clovis Kurtz Notes Date Note Type Note Provider Name and Address Organization Details Recorded Time 04/22/2024 text/html 33-year-old male presents for evaluation of abnormal finding on CT. CT scans were ordered to evaluate for seizures. He was incidentally noted to have several sinus findings and recommended to follow-up with ENT. The patient reports he has chronic left-sided nasal congestion with postnasal drip. Typically has clear to yellow mucus particularly in the morning. Also reports occasional pressure between his eyes and watery eyes. Does not take any nasal sprays or allergy medication. MARCIO DARLING PA-C [address] [facility] [address], [place], [address], [place] - [facility] 04/22/2024 13:55:49
--- OUTSIDE RECORDS SUMMARY | 2024-05-12 09:31 | XMS_ITS | Encounter Summary ---
Author Organization [employer] Address [address] [facility] [address] [place] [address] Care Team Providers Care Machine Operator Hop Picker Name Role Phone Tala Tena MD Primary Care Provide r Reason for Visit * Reason Onset Date Comments Durable Medical Equipment 08/09/2023 Encounter Details Date Type Department Care Team (Late st Contact Info) Description 08/09/2023 Telephone [facility] [address] [place], [place] [phone] Tala Tena MD [address] [place], [place] [phone] Durable Medical Equipment Social History Tobacco Use Types Packs/Day Years Used Date Smoking Tobacco: Never Passive Smoke Exposure: Never Smokeless Tobacco: Never Depression Answer Date Recorded Patient Health Questionnaire-9 Score 21 04/24/2023 Patient Health Questionnaire-9 Score 21 04/24/2023 Last PHQ-9: Questionnaire Data Not on file 0 04/24/2023 Housing Stability Answer Date Recorded What is your housing situation today? I have garry birch [address] you li ve. Do you have problems with any of the following? None of the above 2023 Food Insecurity Answer Date Recorded Within the past 12 months, y ou worried that your food would run out before you got money to buy more: Never True 2023 Within the past 12 months,th e food you bought just didn't last and you didn't have enough money to get more: Never True Transportation Answer Date Recorded In the past 12 months, has l ack of transportation kept you from medical appts, meetings, work or from getting things needed for daily living? No 2023 Utilities Answer Date Recorded In the past 12 months, has t he electric, gas, oil or water company threatened to shut off services in your home? No 2023 Depression Answer Date Recorded Patient Health Questionnaire-2 Score 6 04/24/2023 Sex and Gender Information Value Date Recorded Sex Assigned at Male 01/30/2022 10:14 AM EDT Legal Sex Male 10:14 AM EDT Gender Identity Male 01/30/2022 10:14 AM EDT Sexual Orientation Straight 01/30/2022 10 :14 AM EDT documented as of this encounter Miscellaneous Notes * Telephone Encounter - Tobin Hidalgo - 08/09/2023 3:35 PM EDT Tc from pt requesting a script for dexcom sensor and reader, states discussed with PCP before and put a hold on generating script. Please contact at [phone] documented in this encounter Plan of Treatment Upcoming Encounters Date Type Department Care Team (Late st Contact Info) Description 06/10/2024 9:15 AM EDT Office Visit [facility] [address] [place] [address] Tala Tena MD [address] [place] [address] documented as of this encounter Visit Diagnoses Not on filedocumented in this encounter Additional Health Concerns Assessment Noted Time PHQ-9 Depression Total Score: 21 024 1:20 PM EST documented as of this encounter Care Teams Machine Operator Hop Picker Relationship Specialty Start Date End Date Tala Tena MD [address] [place] [address] PCP - General Family Medicine 05/16/21 documented as of this encounter
--- OUTSIDE RECORDS SUMMARY | 2024-05-12 09:31 | XMS_ITS | Encounter Summary ---
Author Organization [employer] Address [address] [place] [address] [address] [place] [address] Care Team Providers Care Behavior Clinician Name Role Phone Tala Tena MD Primary Care Provide r Reason for Visit * Reason Onset Date Comments requesting a call back 03/20/2022 Encounter Details Date Type Department Care Team ([facility] st Contact Info) Description 03/20/2022 Telephone [facility] [address] [place], [place] [phone] Tala Tena MD [address] [place], [place] [phone] requesting a call back Social History Tobacco Use Types Packs/Day Years Used Date Smoking Tobacco: Never Assessed Sex and Gender Information Value Date Recorded Sex Assigned at Male 01/30/2022 10:14 AM EDT Legal Sex Male 10:14 AM EDT Gender Identity Male 01/30/2022 10:14 AM EDT Sexual Orientation Straight 01/30/2022 10 :14 AM EDT documented as of this encounter Miscellaneous Notes * Telephone Encounter - Ginger PAO Smart - 03/21/2022 10:49 AM EST Follow up on patient requests, shanika hinds/HR Patricia @ [employer] patient only needs to have a letter because we were very detailed in the [facility] paperwork and they are aware of his medical condition. She agrees with the requests. TC to patient notified we would do the letter and recommend he follow up with neurologist on some occ. Seizure activity and patient also stated he needs to call them to get refill on meds, neurology may change dosage with recent seizure activity reported. Patient fully aware and verbally stated he would follow up. * Telephone Encounter - Narinder Mendezos - 03/20/2022 2:10 PM EST Tc from pt requesting a call back regarding needing clearance note to go back to work Please contact pt at [phone] documented in this encounter Plan of Treatment Upcoming Encounters Date Type Department Care Team (Late st Contact Info) Description 06/10/2024 9:15 AM EDT Office Visit [facility] [address] [place] [address] Tala Tena MD [address] [place] [phone] documented as of this encounter Visit Diagnoses Not on filedocumented in this encounter Care Teams Behavior Clinician Relationship Specialty Start Date End Date Tala Tena MD [address] [place] [address] PCP - General Family Medicine 05/16/21 documented as of this encounter
--- OUTSIDE RECORDS SUMMARY | 2024-05-12 09:31 | XMS_ITS | Encounter Summary ---
Author Organization [email or web address] Address [address] [facility] 7[address] [place] [address] Care Team Providers Care Tube Worker Name Role Phone Tala Tena MD Primary Care Provide r Reason for Visit * Reason Comments Med Refill Encounter Details Date Type Department Care Team ([facility] st Contact Info) Description 12/04/2023 Refill [facility] [address] [place], [place] [phone] Tala Tena MD [address] [place], [place] [phone] Social History Tobacco Use Types Packs/Day Years Used Date Smoking Tobacco: Never Passive Smoke Exposure: Never Smokeless Tobacco: Never Depression Answer Date Recorded Patient Health Questionnaire-9 Score 04/24/2023 Patient Health Questionnaire-9 Score 21 04/24/2023 [...] AM EDT documented as of this encounter Plan of Treatment Upcoming Encounters Date Type Department Care Team (Late st Contact Info) Description 06/10/2024 9:15 AM EDT Office Visit [facility] [address] [place] [address] Tala Tena MD [address] [place] [phone] documented as of this encounter Visit Diagnoses Not on filedocumented in this encounter Additional Health Concerns Assessment Noted Time PHQ-9 Depression Total Score: 21 024 1:20 PM EST documented as of this encounter Care Teams Tube Worker Relationship Specialty Start Date End Date Tala Tena MD [address] [place] [phone] PCP - General Family Medicine 05/16/21 documented as of this encounter
--- OUTSIDE RECORDS SUMMARY | 2024-05-12 09:31 | XMS_ITS | Clinical Summary ---
Author Organization [employer] Address [address] [facility] [address] [place] [address] Care Team Providers Care Steel Estimator Name Role Phone Tala Tena MD Primary Care Provide r Allergies No known active allergies Medications * This document contains information received from the source organization and may not represent a complete record from that organization. Lancets miscIndications: Type 2 diabetes mellitus without complication, without long-term current use of insulin (CMS/[facility]) Use to test blood sugar 2 times daily 100 each 4 Active Alcohol Swabs (Alcohol Prep) 70 % padsIndications: Type 2 diabetes mellitus without complication, without long-term current use of insulin (CMS/[facility]) USE TO TEST BLOOD SUGAR 2 TIMES DAILY 100 each 5 4 Active chlorthalidone (Hygroton) 25 MG tablet TAKE 1 TABLET BY MOUTH EVERY DAY IN THE MORNING 90 tablet 3 4 Active Neomycin-Polymyx in-HC 1 % solutionIndicati ons:Acute otitis externa of both ears, unspecified type Administer 4 drops into affected ear(s) 4 times daily. 10 mL 4 Active glucagon (Gvoke HypoPen 1-Pack) 0.5 MG/0.1ML injectionIndicat ions:Hypoglycemi a Inject 0.1 mL (0.5 mg) under the skin 1 (one) time if needed for low blood sugar. 1 each 1 4 07/24/19 25 Active Continuous Glucose Dredge Worker (FreeStyle Osmany 2 Yale) deviceIndication s:Type 2 diabetes mellitus with hypoglycemia without coma, without long-term current use of insulin (CMS/HCC) Scan sensor every 8 hours 1 each 4 Active glucose blood (FreeStyle Precision Reno Test) test stripIndications :Type 2 diabetes mellitus with hypoglycemia without coma, without long-term current use of insulin ([facility]) Use to test blood sugar 3 times daily 100 each 12 4 08/31/19 25 Active amLODIPine (Norvasc) 5 MG tabletIndication s:Primary hypertension TAKE 1 TABLET BY MOUTH EVERY DAY 90 tablet 1 5 Active lisinopril 40 MG tablet TAKE 1 TABLET BY MOUTH EVERY DAY 90 tablet 1 5 Active Continuous Glucose Sensor (FreeStyle Osmany 2 Sensor) miscIndications: Type 2 diabetes mellitus with hypoglycemia without coma, without long-term current use of insulin ([facility]) APPLY 1 SENSOR EVERY 14 DAYS 2 each 2 5 Active sertraline (Zoloft) 50 MG tabletIndication s:Depression, unspecified depression type TAKE 1 TABLET BY MOUTH EVERY DAY IN THE MORNING 30 tablet 2 5 Active FREESTYLE LITE test stripIndications :Type 2 diabetes mellitus without complication, without long-term current use of insulin ([facility]) Use to test blood sugar 2 times daily 100 each 12 4 04/24/19 25 Active Problems Problem Noted Date Diagnosed Date Cyst of sphenoid sinus 08/31/2023 Scrotal nodule 08/31/2023 Nodular dermatitis 08/31/2023 Cyst of scrotum 08/31/2023 Assessment & Plan (08/31/2023 11:15 AM EDT): Excision would be necessary I will refer him to surgery Ulcer, skin, non-healing, with unspecified sever ity 08/31/2023 Assessment & Plan (08/31/2023 11:16 AM EDT): Ulcer located on mi area of scrotum with non healing borders, I will refer him to surgery also for biopsy Acute otitis media 07/24/2023 Otitis externa 07/24/2023 Severe major depression without psychotic featur es 04/25/2023 Assessment & Plan (04/25/2023 9:26 AM EST): PLAN: (check all that apply) New/Additional Services needed provided Clovis with [facility] intake number for OP therapy and psychiatry, Behavioral Health Integration Plan Internal Follow up with [facility] PHQ9: 21 GAD7: 19 Behavioral Health Diagnoses At this time Clovis meets criteria for Visit Diagnoses: Problem List Items Addressed This Visit Other Severe major depression without psychotic features (CMS/HCC) GILBERT (generalized anxiety disorder) GILBERT (generalized anxiety disorder) 04/25/2023 Depression 04/25/2023 Assessment & Plan (05/24/2023 12:10 PM EST): Counseling done Waiting for therapist I will increase his sertraline dose to 50mg daily Assessment & Plan (04/25/2023 3:02 PM EST): Counseling done C/w therapist I will start him in very low dose of sertraline (in light of his h/o seizures) Shakiness 04/25/2023 Assessment & Plan (04/25/2023 3:03 PM EST): C/w neurology appointments Check glucose Pheochromocytoma 10/24/2022 Assessment & Plan (10/27/2022 10:10 AM EDT): Work up done by cardiology team de to clinical presentation on a young patient reveal elevated metanephrines on urine, patient already referred to specialist he has upcoming appointment Counseling done today Type 2 diabetes mellitus with hypoglycemia 08/14 Assessment & Plan (08/31/2023 11:18 AM EDT): Patient with recurrent hypoglycemia and recurrent events where his loss conciseness, he has an appointment in 10/2023 with endocrinology I will prescribe for him CGM, its my medical opinion he will benefit form it, please refer to [facility] Assessment & Plan (04/25/2023 3:02 PM EST): Lab Results Component Value Date HGBA1C 6.0 04/25/2023 HGBA1C 5.8 08/14/2022 - Lab Results Component Value Date CREATININE 1.06 11/06/2022 - - Diabetic eye exam:patient will set up his appointment - Diabetic foot exam:pending -patient not on medications, I prescribed for him supplies so he can check his glucose, I suspect he may be having hypoglycemia episodes Assessment & Plan (10/27/2022 10:08 AM EDT): - Lab Results Component Value Date HGBA1C 5.8 08/14/2022 - Lab Results Component Value Date CREATININE 1.08 10/11/2022 - Continue lifestyle modifications - Continue current medications Assessment & Plan (08/14/2022 4:45 PM EDT): Lab Results Component Value Date HGBA1C 5.8 08/14/2022 - Lab Results Component Value Date CREATININE 1.00 11/10/2021 CREATININE 1.00 11/10/2021 - Diabetic eye exam: pending - Diabetic foot exam: done today - Continue lifestyle modifications - Continue current medications Seizure 08/14/2022 Nausea and vomiting 08/14/2022 NAFLD (nonalcoholic fatty liver disease) 023 Hypoglycemia 08/14/2022 Assessment & Plan (07/24/2023 12:12 PM EDT): Continue with small frequent snacks high in protein, low in sugar and carbs Do not miss appointment with endocrinology Glucagon prescribed today for rescue Assessment & Plan (05/24/2023 12:09 PM EST): I advise small frequent meals high in protein and low in simple sugars and carbohydrates I will refer patient to endocrinology Foot callus 08/14/2022 Essential hypertension 08/14/2022 Assessment & Plan (08/31/2023 11:14 AM EDT): - Aerobic exercise to reduce BP. Initial goal of 30 min walk 3-5x/week. Increase as tolerated. - low-sodium diet (goal: <2g/day) and heart healthy diet such as DASH to reduce BP and prevent ASCVD. - Home BP monitoring 1-2 x day with goal of <140/90. - Seek immediate medical attention for chest pain, palpitations, SOB, syncope, or sudden changes in mental status. - Do not change or discontinue current prescriptions without first consulting health care provider Assessment & Plan (05/24/2023 12:08 PM EST): Has being stable c/w same intervention Assessment & Plan (10/27/2022 10:08 AM EDT): likely also related to his recent diagnosis possible pheochromocytoma I advise to continue taking his medications as prescribed I advise low Na diet and weight reduction Assessment & Plan (08/14/2022 4:44 PM EDT): - Aerobic exercise to reduce BP. Initial goal of 30 min walk 3-5x/week. Increase as tolerated. - low-sodium diet (goal: <2g/day) and heart healthy diet such as DASH to reduce BP and prevent ASCVD. - Home BP monitoring 1-2 x day with goal of <140/90. - Seek immediate medical attention for chest pain, palpitations, SOB, syncope, or sudden changes in mental status. -continue lisinopril 40mg daily I added today HCTZ 25mg daily f/u nurse visit for BP check in 2 weeks then 3 months with me - Do not change or discontinue current prescriptions without first consulting health care provider Right upper quadrant abdominal pain 03/17/2016 Assessment & Plan (05/10/2023 4:41 PM EST): Famotidine 20mg BID Acetaminophen PRN for pain Abdominal US H pylori Labs including lipase and amylase Biliary sludge 03/17/2016 Hypertension 11/10/2011 Assessment & Plan (04/25/2023 3:01 PM EST): C/w low Na diet and weight reduction C/w same medication regimen Encounters Date Type Department Care Team Description 04/09/[address] [facility] [address] [place] [address] Tala Tena MD Primary hypertension; Type 2 diabetes mellitus with hypoglycemia without coma, without long-term current use of insulin ([facility]); Depression, unspecified depression type from Last 3 Months Immunizations Name Administration Dates Next Due DTP 11/30/1994, 2,07/01/1991,05/30,01/30/1991 Hep B, Adolescent or Pediatric 02/27/2000,1999,10/21/1999 Hib (PRP-T) 12/31/1991, 2,05/02/1991,01/30 IPV 11/30/1994, 2,05/30/1991,01/30 Influenza, IIV3, injectable 02/02/2010, 8 MMR 11/30/1994,08/31/1991 Meningococcal MCV4P ACYW-135 01/16/2008 Pneumococcal Conjugate PCV 20 08/31/2023 TD (adult), 2 Lf tetanus tox oid, preservative free, adsorbed 06/04/2002 Tdap 02/02/2010,01/16/2008 Social History Tobacco Use Types Packs/Day Years Used Date Smoking Tobacco: Never Passive Smoke Exposure: Never Smokeless Tobacco: Never Tobacco Cessation:Counseling Given: Not Answered Depression Answer Date Recorded Patient Health Questionnaire-9 [...] Orientation Straight 01/30/2022 10 :14 AM EDT Last Filed Vital Signs Vital Sign Reading Time Taken Comments Blood Pressure 120/84 08/31/2023 10:02 AM EDT Pulse 86 08/31/2023 10:02 AM EDT Temperature 36.5 ??C (97.7 ??F) 08/31/2023 10:02 AM E DT Respiratory Rate 16 08/31/2023 10:02 AM EDT Oxygen Saturation 98% 08/31/2023 10:02 AM EDT Inhaled Oxygen Concentration - - Weight 122 kg (269 lb 6.4 oz) 08/31/2023 10:02 A M EDT Height 172.7 cm (5' 8 ) 08/31/2023 10:02 AM EDT Body Mass Index 40.96 08/31/2023 10:02 AM EDT Plan of Treatment Upcoming Encounters Date Type Department Care Team (Late st Contact Info) Description 06/10/2024 9:15 AM EDT Office Visit [facility] [address] [place] [address] Tala Tena MD [address] [place] [address] Health Maintenance Due Date Last Done Comments Eye Exam 2000 Alcohol/Substance Use Screening 2002 Family Planning (PISQ) 2005 Diabetes: Urine Protein Screening 2009 Hepatitis A Vaccines (1 of 2 - Risk 2-dose series) 2009 DTaP/Tdap/Td Vaccines (8 - Td or Tdap) 02/03/2020 02/02/2010, 01/16/2008, 06/04/2002, Additional history exists Diabetes: Hemoglobin A1C 07/25/2023 024, 08/14/2022, 06/08/2021 Diabetes: Foot Exam 08/15/2023 08/14/2022, Depression Monitoring (PHQ-9) 10/23/2023 04/24/2023, 04/24/2023 COVID-19 Vaccine ( season) 2023 10/16/2020, 09/25/2020 Influenza Vaccine (#1) 2023 02/02/2010, 2007 Depression Screening 04/24/2024 04/24/2023, 04/24/19 Lipid Panel 05/10/2024 05/10/2023, 06/01, 05/12/2021 SDOH Screening 08/20/2024 2023 Tobacco Screening 08/30/2024 08/31/2023 Zoster Vaccines (1 of 2) 2040 RSV Patients and Patients Aged 60 years or older (1 - 1-dose 75+ series) 2065 HIB Vaccines Completed 12/31/1991, 06/02, 05/02/1991, Additional history exists IPV Vaccines Completed 11/30/1994, 03/04, 05/30/1991, Additional history exists Hepatitis B Vaccines Completed 02/27/2000, 11/21/1999, 10/21/1999 Meningococcal Vaccine Completed 01/16/2008 HIV Screening Completed 05/12/2021 Hepatitis C Screening Completed 05/12/2021 Pneumococcal Vaccine: Pediatrics (0 to 5 Years) and At-Risk Patients (6 to 49) Years) Completed 08/31/2023 HPV Vaccines Aged Out No longer eligi ble based on patient's age to complete this topic RSV under 20 months Aged Out No longe r eligible based on patient's age to complete this topic Rotavirus Vaccines Aged Out No longer eligible based on patient's age to complete this topic Procedures Procedure Name Priority Date/Time Associated Diagnosis Comments LIPID PANEL, STANDARD Routine 05/10/2023 11:54 AM EST Right upper quadrant abdominal pain POCT GLYCATED HEMOGLOBIN, TOTAL Routine 04/25/2023 2:20 PM EST Type 2 diabetes mellitus without complication, without long-term current use of insulin ([facility]) ZZZ HISTORICAL HEPATITIS C AB W/REFL TO HCV RNA, QN, PCR Routine 05/12/2021 10:03 AM EST HIV 1/2 ANTIGEN/ANTIBODY, FOURTH GENERATION W/RFL Routine 05/12/2021 10:03 AM EST from Last 3 Months or Most Recently Relevant to Health Maintenance Results * (ABNORMAL) Lipid Panel, Standard (05/10/2023 11:54 AM EST) Triglycerides 152(H) <150 mg/dL [facility] Comment:Desirable Triglyceri de: less than 150 mg/dLBorderline High Triglyceride 150-199 mg/dLHigh Triglyceride: 200-499 mg/dLVery High Triglyceride: greater than or equal to 5OO mg/dL Cholesterol 209(H) <200 mg/dL [facility] Comment:Desirable Cholestero l: less than 200 mg/dLBorderline High Cholesterol: 200-239 mg/dLHigh Cholesterol: greater than 239 mg/dL LDL Cholesterol Calculated 142(H) <100 mg/dL [facility] Comment:Desirable LDL: less than 100 mg/dLNear Optimal/Above Optimal LDL: 110- 129 mg/dLBorderline High LDL: 130-159 mg/dLHigh LDL: 160-189 mg/dLVery High LDL: greater than or equal to 190 mg/dL HDL Cholesterol 37(L) >40 mg/dL [facility] Comment:Desirable HDL: great er than 40 mg/dL Note: This HDL assay may give artificially low results in patients with liver disease. Blood Venous blood specimen / Unknown 05/10/2023 11:54 AM EST 05/10/2023 1:15 PM EST Tala Foote MD LAB BLOOD ORDERABLES Final Result [facility] [address] [place] [phone] * POCT HGB A1C (04/25/2023 2:20 PM EST) Hemoglobin A1C 6.0 4.0 - 6.0 % QC Media Lot # [id number] Lot# Expiration Date Blood 04/25/2023 2:20 PM EST Tala Foote MD POINT OF CARE TEST EN TER/EDIT ORDERABLES Final Result * HEPATITIS C AB W/REFL TO HCV RNA, QN, PCR (05/12/2021 10:03 AM EST) HEPATITIS C ANTIBODY NON-REACT JUSTINE NON-REACT JUSTINE [facility] INDEX 0.01 <1.00 [facility] Comment: ?? HCV antibody was non-reactive. There is no laboratory ?? evidence of HCV infection. ?? In most cases, no further action is required. However, if recent HCV exposure is suspected, a test for HCV RNA (test code 45630) is suggested. ?? For additional information please refer to http://[email or web address]/faq/WAN35g8 (This link is being provided for informational/ educational purposes only.) ?? 05/12/2021 10:0 3 AM EST Tala Foote MD HISTORICAL/NON ORDERA BLE LABS Final Result [facility] [address] * HIV 1/2 ANTIGEN/ANTIBODY,FOURTH GENERATION W/RFL (05/12/2021 10:03 AM EST) HIV-1/2 ANTIGEN AND ANTIBODIES, 4TH GENERATION W/ REFLEX NON-REACT JUSTINE NON-REACT JUSTINE [facility] Comment: HIV-1 antigen and HIV-1/HIV-2 antibodies were not detected. There is no laboratory evidence of HIV infection. ?? PLEASE NOTE: This information has been disclosed to you from records whose confidentiality may be protected by state law. ??If your state requires such protection, then the state law prohibits you from making any further disclosure of the information without the specific written consent of the person to whom it pertains, or as otherwise permitted by law. A general authorization for the release of medical or other information is NOT sufficient for this purpose. ? For additional information please refer to http://[email or web address]/faq/WGW669 (This link is being provided for informational/ educational purposes only.) ? The performance of this assay has not been clinically validated in patients less than 2 years old. ?? 05/12/2021 10:0 3 AM EST Tala Foote MD LAB BLOOD ORDERABLES Final Result [facility] [address] from Last 3 Months or Most Recently Relevant to Health Maintenance Insurance [facility] ST[facility] Care Teams Steel Estimator Relationship Specialty Start Date End Date Tala Tena MD [address] [place] [id number] PCP - General Family Medicine 05/16/21
[2024-05-12 10:14] LABS: Creatinine Urine 165.25 mg/dL; Total Protein Urine Random < 7 mg/dL (<12)
== END 2024-05-12 09:02 | disposition home or self-care (01) ==
LOC: HO.LAB 09:01
PROVIDERS: PCP Internal Medicine; Visit Provider Internal Medicine Hypertension Specialist
DX: R80.9 Proteinuria, unspecified (principal); I10 Essential (primary) hypertension
CPT/HCPCS: 82570; 84156

== ENCOUNTER 2024-05-27 10:05 | Outpatient (AMB) | payer MEDICAID, SELFPAY ==
[2024-05-27 10:05] VITALS: BP 114/76; PULSE 82; O2SAT 97; BMI 42.7
--- NOTE | 2024-05-27 10:05 | HO.NEPHOV ---
Vital Signs 05/27/24 10:05 Height 5 ft 9 in Weight 289 lb BMI 42.7 BP 114/76 Blood Pressure Location Lt brachial Position Sitting Pulse 82 Pulse Source Pulse Oximeter Pulse Oximetry (%) 97 Oxygen Delivery Method Room Air Intake Visit Reasons: Proteinuria/ Conf Configuration Developer Required: No Accompanied by: Spouse Allergies No Known Allergies [No Known Allergies*] Allergy (Verified 05/27/24 10:07) Medication List - Last Reconciled 05/27/24 by Baldo Martinez MD amlodipine 10 mg PO DAILY blood sugar diagnostic (FreeStyle Lite Strips) As directed three times daily blood-glucose meter (FreeStyle Lite Meter kit) As directed chlorthalidone 12.5 mg PO DAILY fluticasone propionate 50 mcg/actuation 2 sprays intranasal DAILY glucose 2 grams PO NEEDED PRN lancets As directed three times daily levetiracetam (Keppra) 1,000 mg PO QAM levetiracetam 1,500 mg PO BEDTIME lisinopril 40 mg PO DAILY pen needle, diabetic (BD Ultra-Fine Ellie Pen Needle) As directed once daily sertraline 50 mg PO QAM HPI Comments Details: . Clovis is a 33-year-old man with a history of hypertension for more than 10 years. He is currently on lisinopril 40 mg chlorthalidone 25 mg of amlodipine 10 mg. He has had diabetes mellitus for almost 4 years in the setting of obesity. Recent urinalysis revealed proteinuria and hence this referral. In the past he underwent workup for the hypertension. There was mild elevation in the normetanephrines and he was referred to endocrinology and apparently pheochromocytoma was ruled out. At the time of to urine collection he was on antihypertensive medications but it is unclear what he was taking at the time. Abdominal imaging did not reveal any abnormality of the adrenal glands. He carries a diagnosis of hypertensive heart disease however the echocardiogram in 2022 reveal normal ventricles without any diastolic dysfunction EKG appeared normal as well. Does not have any shortness of breath no chest pain nausea or vomiting. No urinary symptoms no fever No joint pain no rash He has had episodes of lightheadedness when he stands up. No syncopal episode. History of seizures present No history of smoking cigarettes he uses marijuana once a week No history of alcohol abuse. He works as a teacher in [employer]. 05/27/2024 Overall doing well. Tolerating medications. He has gained some weight PFSH Medical History Hx of pancreatitis GERD (gastroesophageal reflux disease) Fatty liver Depression Nasal sinus cyst HTN (hypertension) Seizures Obesity due to excess calories DM2 (diabetes mellitus, type 2) Hx of acute pancreatitis High triglycerides Surgical History Hx of removal of cyst (10/10/23) No history of previous surgery Family History Father Unknown family medical history Mother Unknown family medical history Maternal Grandmother Diabetes Hypertension Social History Household Members: Spouse and Children Are you a primary direct care professional to a significant other at home: No Do you presently have visiting nurse or other home services: No Alcohol intake: former Comment: COUNTS CORRECT Patient Tobacco Use Status: Never used Tobacco service: No Current occupational status: employed Physical Exam Vital Signs: Last Vital Signs Pulse 82 05/27/24 10:05 BP 114/76 05/27/24 10:05 Pulse Ox 97 05/27/24 10:05 Oxygen Delivery Method Room Air 05/27/24 10:05 BMI result Body Mass Index 42.7 Comfortable Neck supple no JVD. Lungs entry equal no rales. Heart S1-S2 heard no gallop or rub. Abdomen soft nontender. Neuro alert awake oriented. No asterixis. Extremities no edema. Results Reviewed Nephrology Results: Urine Protein Negative mg/dL (Neg-Trace) 01/22/24 Urine Creatinine 165.25 mg/dL 05/12/24 Assessment & Plan Assessment & Plan (1) Proteinuria: Code(s): R80.9 - Proteinuria, unspecified Category: Medical (2) Uncontrolled hypertension: Code(s): I10 - Essential (primary) hypertension Category: Medical (3) DM2 (diabetes mellitus, type 2): Comment: no meds currently Code(s): E11.9 - Type 2 diabetes mellitus without complications Category: Medical Qualifiers: Diabetes mellitus complication status: with hyperglycemia Diabetes mellitus skilled nursing insulin use: with extermination inspector use Qualified Code(s): E11.65 - Type 2 diabetes mellitus with hyperglycemia; Z79.4 - vermin exterminator (current) use of insulin Plan Young man with obesity and hypertension for more than 10 years with diabetes mellitus for about 5 years has proteinuria. Renal function is normal. Proteinuria is most likely due to underlying obesity and diabetes mellitus. Repeat urine protein creatinine ratio was unremarkable. Although lab did not provide a quantitative value. I will recheck protein creatinine ratio. Overall blood pressures seem to be well controlled. He has no significant nocturnal dipping. I will keep lisinopril 40 mg q.p.m.. They should also minimize the episodes of lightheadedness. Renal function is within normal range at this time Orders: Orders UA and rflx microscopic 6 Months I10 - Essential (primary) hypertension, R80.9 - Proteinuria, unspecified Creatinine Urine 6 Months I10 - Essential (primary) hypertension, R80.9 - Proteinuria, unspecified Basic Metabolic Panel 6 Months I10 - Essential (primary) hypertension, R80.9 - Proteinuria, unspecified Total Protein Urine Random 6 Months I10 - Essential (primary) hypertension, R80.9 - Proteinuria, unspecified Coding Level of Care Code Est Pt Level 4 (13248) Diagnoses Proteinuria R80.9 Uncontrolled hypertension I10 Type 2 diabetes mellitus with hyperglycemia, with long-term current use of insulin E11.65; Z79.4 Diabetes mellitus complication status: with hyperglycemia Diabetes mellitus extermination inspector insulin use: with extermination inspector use
--- OUTSIDE RECORDS SUMMARY | 2024-05-27 11:46 | XMS_ITS | Encounter Summary ---
Author Organization [facility] Address [address] [place] [address] Phone Care Team Providers Care Yoga Coordinator Name Role Phone Sandra Pineda NP Primary Care Provider Christiane alan Encounter Details Date Type Department Care Team (Late st Contact Info) Description 11/16/2016 Conversion Encounter [facility] - [address] [address] Social History Tobacco Use Types Packs/Day Years [...] on filedocumented in this encounter Care Teams Yoga Coordinator Relationship Specialty Start Date End Date Sandra Pineda NP PCP - General 11/10/16 07/10/22 documented as of this encounter
--- OUTSIDE RECORDS SUMMARY | 2024-05-27 11:46 | XMS_ITS | Encounter Summary ---
Author Organization [employer] Address 75 [facility] 7t [place] [address] Care Team Providers Care Chartered Accountant Name Role Phone Tala Tena MD Primary Care Provide r Encounter Details Date Type Department Care Team (Late st Contact Info) Description 05/12/2024 Orders Only GENERIC EXTERNAL DATA DEPARTMENT Provider, Generic External Data Social History Tobacco Use Types Packs/Day Years [...] Description 06/10/2024 9:15 AM EDT Office Visit [facility] MED[facility]INE [address] [place] [address] Tala Tena MD [address] [place] [address] documented as of this encounter Procedures Procedure Name Priority Date/Time Associated Diagnosis Comments URINE PROTEIN, TOTAL, RANDOM (W/O CREATININE) Routine 05/12/2024 9:15 AM EST CREATININE, RANDOM URINE Routine 05/12/2024 9:15 AM EST documented in this encounter Results * Urine Protein, Total, Random without Creatinine (05/12/2024 9:15 AM EST) Protein, Total, Random Urine <7 <12 mg/dL [facility] 05/12/2024 9:15 AM EST 05/12/2024 9:34 AM EST us Generic External Data Provider LAB URINE ORDERAB LES Final Result [facility] [address] [place] [address] [phone] * Creatinine, Random Urine (05/12/2024 9:15 AM EST) Creatinine, Urine 165.25 mg/dL [facility] 05/12/2024 9:15 AM EST 05/12/2024 9:34 AM EST us Generic External Data Provider LAB URINE ORDERAB LES Final Result [facility] [address] [place] [address] [phone] documented in this encounter Visit Diagnoses Not on filedocumented in this encounter Additional Health Concerns Assessment Noted Time PHQ-9 Depression Total Score: 21 024 1:20 PM EST documented as of this encounter Care Teams Chartered Accountant Relationship Specialty Start Date End Date Tala Tena MD [address] [place] [address] PCP - General Family Medicine 05/16/21 documented as of this encounter
--- OUTSIDE RECORDS SUMMARY | 2024-05-27 11:46 | XMS_ITS | Encounter Summary ---
Author Organization [employer] Address 75 [facility] 7t [place] [address] Care Team Providers Care Stiff Leg Operator Name Role Phone Tala Tena MD Primary Care Provide r Reason for Visit * Reason Onset Date Comments Nurse Triage 04/12/2023 Encounter Details Date Type Department Care Team ([facility] st Contact Info) Description 04/12/2023 Telephone [facility] MEDICINE [address] [place], [place] [phone] Tala Tena MD [address] [place], [place] [phone] Nurse Triage Social History Tobacco Use Types [...] t he electric, gas, oil or water [employer] threatened to shut off services in your [...] advised of WIC. Given contact for [facility] and to also contact Neuro re: increased STEPHENS and tremors to see if sooner appt also available. Per pt has appt this month. PT advised to call back should sx worsen. Reviewed NTTS as well. Future Appointments Date Time Provider Department Center 04/25/2023 2:00 PM Tala Foote MD MEDICINE [facility] Protocol Used: Depression (Adult) Protocol-Based Disposition: See [...] AM EDT Office Visit [facility] [address] [place] [address] Tala Tena MD [address] [place] [address] documented as of this encounter Visit Diagnoses Not on filedocumented in this encounter Additional Health Concerns Assessment Noted Time PHQ-9 Depression Total Score: 0 08/15/19 23 3:39 PM EDT documented as of this encounter Care Teams Stiff Leg Operator Relationship Specialty Start Date End Date Tala Tena MD [address] [place] [address] PCP - General Family Medicine 05/16/21 documented as of this encounter
--- OUTSIDE RECORDS SUMMARY | 2024-05-27 11:46 | XMS_ITS | Continuity of Care Document ---
Author Organization [place] [facility], Allergy Address [address] [address] Assessment No assessment recorded. Plan of Treatment Reminders Order Date Submit Date Provider Last Modified By Organization Details Last Modified Time Details Appointments Establish ed 15 2024 03:30P M MARCIO DARLING PA-C Not available Not available Not available Lab None recorded. Referral None recorded. Procedures None recorded. Surgeries None recorded. Imaging None recorded. Medication Orders None recorded. Patient TargetsNo targets recorded. Patient Instructions Encounter Date Encounter Id Patient Instructions Last Modified By Organization Details Last Modified Time 05/16/2024 [id number] Nursing Documentation for Allergy Testing: Ordering Provider {{Dr. Swapnil Mendes*}} Weight:lbs:? ? ?270kg: ? ? ? PFT {{Yes* no}} With Bronchodilator {{Yes no}} approval needed to proceed with allergy testing? {{Yes No*}} {{Dr. Swapnil Mendes}} ok'd testing {{Yes No Pulmonary Clearance PCP Clearance RAST}}Hi story of Asthma:{{Yes No*}} Asthma Meds: ? ? ?Last used:? ? ? Asthma exacerbated by: ? ? ? Chance that : {{Yes No Not Sure N/A*}} Fear of needles: {{Yes No*}} Regular medications reviewed in Computer: {{Yes* No}} Medication allergies: {{Reviewed NKDA*}} Antihistamine use: {{Yes No*}} Medications used: ? ? ? Food Allergies:no ? ? ? Any foods make your mouth feeling itchy: {{Yes No*}} If yes: ? ? ? History of severe reaction where had to go to ER? {{Yes No*}} If yes details: ? ? ? Type of heat in home: {{Baseboard Forced Air Radiator* othe r}} Pets: {{Yes* No}} If yes: ? ? ?cat Smoker: {{Yes Current Never* For keturah}} If former smoker-how much ? ? ? / day for how long ? ? ? When quit ? ? ? years ago Smoking now-how much ? ? ? /day for how long ? ? ? Occupation/Social History: ? ? 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 ? ? Frequency {{Seasonally Year Round*}} Spirometry Contraindications: Heart attack in the last 3 months: {{Yes No*}} Major surgery in last 3 months: {{Yes No*}} Detached retina(serious eye issues) in last 2 months: {{Yes No*}} Hospitilization in last month: {{Yes No*}} Proceed with PFT {{Yes* No}} Dr. approval needed: {{Yes No*}} Nursing Notes: Pt tolerated test well {{Yes* No}} Benadryl cream to test sites {{Yes* No}} Patient became syncopal-placed in supine position {{Yes No*}} Large reactions to MQT, reschedule IDT for a different date {{Yes No*}} Other: ? ? ? Written by: {{GABY Wilcox, Juhi* Renetta Rivera}} viridiana Not available 05/16/2024 09:43:51 Reason for Referral None Reported. Results Created Date Observation Date Name Description Value Unit Range Abnormal Flag Note LastModifiedBy Organization Detail LastModifiedTime 05/16/19 25 ed metry testi ng* No observ ation record ed. [email or web address] Not Available 15:27:03 Result Notes None recorded. Problems Name Problem SNOMED Code Status Onset Date Resolution Date Notes Provider Name and Address Organization Details Recorded Time Nasal congestion 70043357 Active 2024 MARCIO DARLING PA-C [facility] [place], [place], [address], [facility] - [facility] 13:54:51 Allergic rhinitis 77407237 Active 2024 MARCIO DARLING PA-C [address] [facility] [place], [place], [address], [facility] - [facility] [place] 13:54:57 Non-allergi c rhinitis 010376961292 Active 2024 MARCIO DARLING PA-C 100 [facility],[address], [place], [address], [facility] - [facility] 13:54:57 Seasonal allergic rhinitis 804691900 Active 2024 MARCIO DARLING PA-C 100 [facility],[address], [place], [address], [facility] - [facility] 13:54:57 Deviated nasal septum 789514463 Active 2024 MARCIO DARLING PA-C 100 [facility],[address], [place], [address], [facility] - [facility] 13:55:30 Problem Notes None recorded. Procedures Surgical History Date Name Laterality Status Provider Name and Address Organization Details Recorded Time Allergy Testing-Full completed [facility] 100 [facility],[address], [address], [facility] 05/16/2024 10:02:26 Imaging Results None recorded. Procedure Notes None recorded. Medical Equipment None Reported. Allergies No known drug allergies Medications Name Sig Start Date Stop Date Status Note LastModified by Organization Details LastModified Time neomycin-po lymyxin-hyd rocort 3.5 mg/mL-10,00 0 unit/mL-1 % ear solution ADMINISTE R 4 DROPS INTO AFFECTED EAR(S) 4 TIMES DAILY. 05/16 completed Not Available Not Available Not Available ibuprofen 800 mg tablet TAKE 1 TABLET BY MOUTH EVERY 8 HOURS NEEDED FOR MILD PAIN FOR UP TO 10 DAYS active Not Available Not Available No t Available FreeStyle Lancets 28 gauge USE TO TEST BLOOD SUGAR 2 TIMES DAILY active Not Available Not Available No t Available chlorthalid one 25 mg tablet TAKE 1 TABLET BY MOUTH EVERY DAY IN THE MORNING active Not Available Not Available No t Available amlodipine 5 mg tablet TAKE 1 TABLET BY MOUTH EVERY DAY 05/16 completed Not Available Not Available Not Available amlodipine 10 mg tablet TAKE 1 TABLET BY MOUTH EVERY DAY active Not Available Not Available No t Available cephalexin 500 mg capsule TAKE 1 CAPSULE BY MOUTH FOUR TIMES A DAY 05/16 completed Not Available Not Available Not Available sertraline 25 mg tablet TAKE 1 TABLET BY MOUTH EVERY DAY IN THE MORNING 05/16 completed Not Available Not Available Not Available lisinopril 40 mg tablet TAKE 1 TABLET BY MOUTH EVERY DAY active Not Available Not Available No t Available fluticasone propionate 50 mcg/actuati on nasal spray,suspe nsion SPRAY 2 SPRAYS INTO EACH NOSTRIL EVERY DAY active Not Available Not Available No t Available sertraline 50 mg tablet TAKE 1 TABLET BY MOUTH EVERY DAY IN THE MORNING active Not Available Not Available No t Available doxycycline hyclate 100 mg tablet TAKE 1 TABLET BY MOUTH TWICE A DAY FOR 14 DAYS 05/16 completed Not Available Not Available Not Available amoxicillin 875 mg-potassiu m clavulanate 125 mg tablet TAKE 1 TABLET BY MOUTH TWICE A DAY FOR 10 DAYS 05/16 completed Not Available Not Available Not Available oxycodone 5 mg tablet TAKE 1 TABLET BY MOUTH EVERY 6 HOURS NEEDED FOR PAIN 05/16 completed Not Available Not Available Not Available Alcohol Prep Pads USE TO TEST BLOOD SUGAR 2 TIMES DAILY active Not Available Not Available No t Available levetiracet am 1,000 mg tablet TAKE 1 TABLET BY MOUTH EVERY MORNING AND TAKE 1 & 1/2 TABLETS AT BEDTIME active Not Available Not Available No t Available FreeStyle Precision [place] Strips USE TO TEST BLOOD SUGAR 3 TIMES DAILY active Not Available Not Available No t Available Gvoke HypoPen 2-Pack 0.5 mg/0.1 mL subcutaneou s auto-inject or INJECT 0.1 ML (0.5 MG) UNDER THE SKIN 1 (ONE) TIME IF NEEDED FOR LOW BLOOD SUGAR. active Not Available Not Available No t Available FreeStyle Osmany 2 Sensor kit APPLY 1 SENSOR EVERY 14 DAYS active Not Available Not Available No t Available [employer] Osmany 2 [place] SCAN SENSOR EVERY 8 HOURS active Not Available Not Available No t Available Vitals Date Recorded Body height Body mass index (BMI) Body weight Heart rate Oxygen saturation Oxygen saturation in Arterial blood by Pulse oximetry Systolic blood pressure Diastolic blood pressure Provider Name and Address Organization Details Last Updated DateTime 5 175.26 cm 39.9 kg/m2 371563. 94 g 82 /min 98 % 98 % 120 mm[Hg] 76 mm[Hg] [facility] 100 [facility], [address], [place], [address], [place] [facility] 09:08:22 Social History None recorded. Functional Status None recorded. Mental Status None recorded. Family History Nothing Reported. Medical History No medical history recorded. Past Encounters Encounter ID Performer Location Encounter Start Date Encounter Closed Date Diagnosis/Indication Diagnosis SNOMED-CT Code Diagnosis ICD10 Code Diagnosis Note [id number] MARCIO DARLING PA-C [facility] [address] [place] [address] 04/22/2024 13:21:51 04/22/2024 13:49:30 Nasal congestion 37196235 R09.81 Allergic rhinitis 456504 04 J30.9 Deviated nasal septum 12 0180334 J34.2 [id number] [facility], [facility] Allergy 100 [facility], [address] [place] [address] 05/16/2024 08:50:57 05/16/2024 10:03:01 Allergic rhinitis 90385514 J30.9 Health Concerns Section Related Observation LastModified by Organization Detai ls LastModified Time None Recorded Concern Status LastModified by Organization Details LastModified Time None Recorded Payers Encounter Date Sequence Insurance Name Policy Number Policy Walters Covered Member ID Walters Member ID Guarantor Name 05/16/2024 1 [place] Clovis casiano [id number] Clovis Kurtz
--- OUTSIDE RECORDS SUMMARY | 2024-05-27 11:46 | XMS_ITS | Encounter Summary ---
Author Organization [employer] Address 75 [facility] 7t [place] [address] Care Team Providers Care Leather Crafter Name Role Phone Tala Tena MD Primary Care Provide r Reason for Visit * Reason Onset Date Comments Medical Leave 03/01/2023 Encounter Details Date Type Department Care Team ([facility] st Contact Info) Description 03/01/2023 Telephone [facility] MEDICINE [address] [place], [place] [phone] Tala Tena MD [address] [place], [place] [phone] Medical Leave Social History Tobacco Use Types [...] is requesting clarification. Please contact Jennifer at [phone] documented in this encounter Plan of Treatment Upcoming Encounters Date Type Department Care Team (Late st Contact Info) Description 06/10/2024 9:15 AM EDT Office Visit [facility] MEDICINE [address] [place], [place] [phone] Tala Tena MD [address] [place] [address] documented as of this encounter Visit Diagnoses Not on filedocumented in this encounter Additional Health Concerns Assessment Noted Time PHQ-9 Depression Total Score: 0 08/15/19 23 3:39 PM EDT documented as of this encounter Care Teams Leather Crafter Relationship Specialty Start Date End Date Tala Tena MD [address] [place] [address] PCP - General Family Medicine 05/16/21 documented as of this encounter
--- OUTSIDE RECORDS SUMMARY | 2024-05-27 11:47 | XMS_ITS | Clinical Summary ---
Author Organization [facility] Address [address] [place] [phone] Phone Care Team Providers Care Egg Processing Supervisor Name Role Phone Unavailable Primary Care Provider [...]
--- OUTSIDE RECORDS SUMMARY | 2024-05-27 11:47 | XMS_ITS | Encounter Summary ---
Author Organization [employer] Address 75 [facility] 7t [place] [address] Care Team Providers Care Diagnostic Radiologic Technologist Name Role Phone Tala Tena MD Primary Care Provide r Reason for Visit * Reason Comments Med Refill Encounter Details Date Type Department Care Team ([facility] st Contact Info) Description 12/04/2023 Refill [facility] MEDICINE [address] [place], [place] [phone] Tala Tena MD [address] [place], [place] [phone] Social History Tobacco Use Types Packs/Day Years [...] 9:15 AM EDT Office Visit [facility] MEDICINE [address] [place] [address] Tala Tena MD [address] [place] [phone] documented as of this encounter Visit Diagnoses Not on filedocumented in this encounter Additional Health Concerns Assessment Noted Time PHQ-9 Depression Total Score: 21 024 1:20 PM EST documented as of this encounter Care Teams Diagnostic Radiologic Technologist Relationship Specialty Start Date End Date Tala Tena MD [address] [place] [phone] PCP - General Family Medicine 05/16/21 documented as of this encounter
--- OUTSIDE RECORDS SUMMARY | 2024-05-27 11:47 | XMS_ITS | Data Portability ---
Author Organization [place] [facility], [facility] Address [address] [place] [phone] Assessment Encounter Date Assessment Date Assessment LastModified [...] allergy consider immunotherapy. All questions were answered. [email or web address] Not available 04/22/2024 13:54:46 Plan of Treatment Reminders Order Date Submit Date Provider Last Modified By Organization Details Last Modified Time Details Appointments Establish ed 15 2024 03:30P M MARCIO DARLING PA-C Not available Not available Not available Lab None recorded. Referral None recorded. Procedures allergy testing, skin prick (PROC) 2024 025 [email or web address] Not available 05/14/2024 13:07:39 intraderm al allergy skin testing (PROC) 2024 025 [email or web address] Not available 05/14/2024 13:07:39 pulmonary function test procedure (PROC) 2024 025 [email or web address] Not available 05/14/2024 13:07:39 pulse oximetry (PROC) 2024 025 [email or web address] Not available 05/14/2024 13:07:39 Surgeries None recorded. Imaging None recorded. Medication Orders Flonase Allergy Relief 50 mcg/actua tion nasal spray,lisy jensension 2024 025 [id number], [address] [facility], [place], [address], 04/22/2024 13:55:26 Patient TargetsNo targets recorded. Patient Instructions Encounter Date Encounter Id Patient Instructions Last Modified By Organization Details Last Modified Time 05/16/2024 [id number] Nursing Documentation for Allergy Testing: Ordering Provider {{Dr. Swapnil Mendes*}} Weight:lbs:??270kg : ?? PFT {{Yes* no}} With Bronchodilator {{Yes no}} approval needed to proceed with allergy testing? {{Yes No*}} {{Dr. Swapnil Mendes}} ok'd testing {{Yes No Pulmonary Clearance PCP Clearance RAST}}Hi story of Asthma:{{Yes No*}} Asthma Meds: ??Last used:?? Asthma exacerbated by: ?? Chance that : {{Yes No Not Sure N/A*}} Fear of needles: {{Yes No*}} Regular medications reviewed in Computer: {{Yes* No}} Medication allergies: {{Reviewed NKDA*}} Antihistamine use: {{Yes No*}} Medications used: ?? Food Allergies:no ?? Any foods make your mouth feeling itchy: {{Yes No*}} If yes: ?? History of severe reaction where had to go to ER? {{Yes No*}} If yes details: ?? Type of heat in home: {{Baseboard Forced Air Radiator* othe r}} Pets: {{Yes* No}} If yes: ??cat Smoker: {{Yes Current Never* For keturah}} If former smoker-how much ?? / day for how long ?? When quit ?? years ago Smoking now-how much ?? /day for how long ?? 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 Frequency {{Seasonally Year Round*}} Spirometry Contraindications: Heart attack in the last 3 months: {{Yes No*}} Major surgery in last 3 months: {{Yes No*}} Detached retina(serious eye issues) in last 2 months: {{Yes No*}} Hospitilization in last month: {{Yes No*}} Proceed with PFT {{Yes* No}} . approval needed: {{Yes No*}} Nursing Notes: Pt tolerated test well {{Yes* No}} Benadryl cream to test sites {{Yes* No}} Patient became syncopal-placed in supine position {{Yes No*}} Large reactions to MQT, reschedule IDT for a different date {{Yes No*}} Other: ?? Written by: {{GABY Wilcox, A* Renetta Rivera}} [email or web address] Not available 05/16/2024 09:43:51 [...] Address Organization Details Recorded Time Nasal congestion 33234694 Active 2024 MARCIO DARLING PA-C [address] [address], [place], [address], [facility] - [facility] 13:54:51 Allergic rhinitis 33896560 Active 2024 MARCIO DARLING PA-C [address] [place] [address], [place], [address], [facility] - [facility] [place] 5 13:54:57 Non-allergi c rhinitis 470179625228 Active 2024 MARCIO DARLING PA-C 100 [facility],[address] [address], [place], [address], [facility] - [facility] [place] 5 13:54:57 Seasonal allergic rhinitis 509578270 Active 2024 MARCIO DARLING PA-C 100 [facility],[address] [address], [place], [address], [facility] - [facility] [place] 5 13:54:57 Deviated nasal septum 702728021 Active 2024 MARCIO DARLING PA-C 100 [facility],[address] [address], [place], [address], [facility] - [facility] [place] 13:55:30 Problem Notes None recorded. Procedures Surgical History Date Name Laterality Status Provider Name and Address Organization Details Recorded Time Allergy Testing-Full completed ABRAHAM SHANDRA, [facility] 100 [facility],[address] [address], [place], [address], [facility] - [facility] [place] 05/16/2024 10:02:26 Imaging Results Imaging Date Name Status LastModified by [facility] Details LastModified Time 05/16/2024 spirometry testing* completed [facility] Information not available 05/16/2024 15:27:03 Procedure Notes None recorded. Medical Equipment None [...] Available No t Available FreeStyle Osmany 2 [employer] SCAN SENSOR EVERY 8 HOURS active Not Available Not Available No t Available Vitals Date Recorded Body height Body mass index (BMI) Body weight Heart rate Oxygen saturation Oxygen saturation in Arterial blood by Pulse oximetry Systolic blood pressure Diastolic blood pressure Provider Name and Address Organization Details Last Updated DateTime 5 175.26 cm 39.9 kg/m2 263786. 94 g 82 /min 98 % 98 % 120 mm[Hg] 76 mm[Hg] ABRAHAM SADLER, MARYANNA 100 [facility] [place],[address], [place], [address], [facility] 09:08:22 Social History None recorded. Functional Status None recorded. Mental Status None recorded. Family History Nothing Reported. Medical History No medical history recorded. Past Encounters Encounter ID Performer Location Encounter Start Date Encounter Closed Date Diagnosis/Indication Diagnosis SNOMED-CT Code Diagnosis ICD10 Code Diagnosis Note [id number] MARCIO DARLING PA-C [facility] 100 [place] [address] 04/22/2024 13:21:51 04/22/2024 13:49:30 Nasal congestion 74970835 R09.81 Allergic rhinitis 530994 04 J30.9 Deviated nasal septum 12 7360840 J34.2 [id number] ABRAHAM DEVI, A Allergy 100 [facility],[place] [address] [place] [address] 05/16/2024 08:50:57 05/16/2024 10:03:01 Allergic rhinitis 30861384 J30.9 Health Concerns Section Related Observation LastModified by Organization Detai ls LastModified Time None Recorded Concern Status LastModified by Organization Details LastModified Time None Recorded Advance Directives Directive None Recorded Payers Encounter Date Sequence Insurance Name Policy Number Policy Walters Covered Member ID Walters Member ID Guarantor Name 04/22/2024 1 [place] [facility] Clovis Campoverdeenez-S uarez [id number] Clovis Kurtz 05/16/2024 1 [place] [facility] Clovis Chavez-S uarez [id number] Clovis Kurtz Notes Date Note Type Note [...] sprays or allergy medication. MARCIO DARLING PA-C [address] [place] [address], [place], [address], [facility] - [facility] 04/22/2024 13:55:49
--- OUTSIDE RECORDS SUMMARY | 2024-05-27 11:47 | XMS_ITS | Encounter Summary ---
Author Organization [employer] Address [address] [place] [address] [address] [place] [address] Care Team Providers Care Booth Operator Name Role Phone Tala Tena MD Primary Care Provide r Reason for Visit * Reason Onset Date Comments requesting a call back 03/20/2022 Encounter Details Date Type Department Care Team ([facility] st Contact Info) Description 03/20/2022 Telephone [facility] MEDICINE [address] [place], [place] [phone] Tala Tena MD [address] [place], [place] [phone] requesting a call back Social History Tobacco [...] patient requests, shanika hinds/HR Patricia @ [facility] [place] patient only needs to have a letter because we were very detailed in the [facility] paperwork and they are aware of [...] back to work Please contact pt at [phone] documented in this encounter Plan of Treatment Upcoming Encounters Date Type Department Care Team (Late st Contact Info) Description 06/10/2024 9:15 AM EDT Office Visit [facility] MEDICINE [address] [place] [phone] Tala Tena MD [address] [place] [phone] documented as of this encounter Visit Diagnoses Not on filedocumented in this encounter Care Teams Booth Operator Relationship Specialty Start Date End Date Tala Tena MD [address] [place] [phone] PCP - General Family Medicine 05/16/21 documented as of this encounter
--- OUTSIDE RECORDS SUMMARY | 2024-05-27 11:47 | XMS_ITS | Clinical Summary ---
Author Organization [employer] Address [address] [facility] 7t [place] [address] Care Team Providers Care Ssis Developer Name Role Phone Tala Tena MD Primary Care Provide r Allergies No known active allergies Medications * This document contains information received from the source organization and may not represent a complete record from that organization. Lancets miscIndications:T ype 2 diabetes mellitus without complication, without long-term current use of insulin (CMS/HCC) Use to test blood sugar 2 times daily 100 each 4 Active Alcohol Swabs (Alcohol Prep) 70 % padsIndications:T ype 2 diabetes mellitus without complication, without long-term current use of insulin (CMS/HCC) USE TO TEST BLOOD SUGAR 2 TIMES DAILY 100 each 5 4 Active chlorthalidone (Hygroton) 25 MG tablet TAKE 1 TABLET BY MOUTH EVERY DAY IN THE MORNING 90 tablet 3 4 Active Neomycin-Polymyxi n-HC 1 % solutionIndicatio ns:Acute otitis externa of both ears, unspecified type Administer 4 drops into affected ear(s) 4 times daily. 10 mL 4 Active glucagon (Gvoke HypoPen 1-Pack) 0.5 MG/0.1ML injectionIndicati ons:Hypoglycemia Inject 0.1 mL (0.5 mg) under the skin 1 (one) time if needed for low blood sugar. 1 each 1 4 07/24/19 25 Active Continuous Glucose Dry Wall Nailer (FreeStyle Osmany 2 Perry) deviceIndications :Type 2 diabetes mellitus with hypoglycemia without coma, without long-term current use of insulin (CMS/HCC) Scan sensor every 8 hours 1 each 4 Active glucose blood (FreeStyle Precision [place] Test) test stripIndications: Type 2 diabetes mellitus with hypoglycemia without coma, without long-term current use of insulin ([facility]) Use to test blood sugar 3 times daily 100 each 12 4 08/31/19 25 Active amLODIPine (Norvasc) 5 MG tabletIndications :Primary hypertension TAKE 1 TABLET BY MOUTH EVERY DAY 90 tablet 1 5 Active lisinopril 40 MG tablet TAKE 1 TABLET BY MOUTH EVERY DAY 90 tablet 1 5 Active Continuous Glucose Sensor (FreeStyle Osmany 2 Sensor) miscIndications:T ype 2 diabetes mellitus with hypoglycemia without coma, without long-term current use of insulin ([facility]) APPLY 1 SENSOR EVERY 14 DAYS 2 each 2 5 Active sertraline (Zoloft) 50 MG tabletIndications :Depression, unspecified depression type TAKE 1 TABLET BY MOUTH EVERY DAY IN THE MORNING 30 tablet 2 5 Active Active Problems Problem Noted Date Diagnosed Date [...] New/Additional Services needed provided Clovis with [facility] intake number for OP therapy and psychiatry, Behavioral Health Integration Plan Internal Follow up with [facility] PHQ9: 21 GAD7: 19 Behavioral Health Diagnoses At this time Clovis meets criteria for Visit Diagnoses: Problem List Items Addressed This Visit Other Severe major depression without psychotic features ([facility]/HCC) GILBERT (generalized anxiety disorder) GILBERT (generalized anxiety [...] will benefit form it, please refer to HPI Assessment & Plan (04/25/2023 3:02 PM EST): [...] Encounters Date Type Department Care Team Description 05/12/2024 Orders Only GENERIC EXTERNAL DATA DEPARTMENT Provider, Generic External Data 04/09/2024 Refill [facility] MEDICINE [address] [place] [address] Tala Tena MD Primary hypertension; Type 2 diabetes mellitus with hypoglycemia without coma, without long-term current use of insulin ([facility]); Depression, unspecified depression type from Last 3 [...] Description 06/10/2024 9:15 AM EDT Office Visit [facility] MEDICINE [address] [place], [place] [phone] Tala Tena MD [address] [place] [address] Health Maintenance Due Date Last Done Comments Eye Exam 2000 Alcohol/Substance Use Screening 2002 Family Planning (PISQ) 2005 Hepatitis A Vaccines (1 of 2 - [...] Screening 08/20/2024 2023 Tobacco Screening 08/30/2024 08/31/2023 Diabetes: Urine Protein Screening 05/12/2025 05/12/2024 Zoster Vaccines (1 of 2) 2040 RSV [...] RANDOM URINE Routine 05/12/2024 9:15 AM EST LIPID PANEL, STANDARD Routine 05/10/2023 11:54 AM EST Right upper quadrant abdominal pain POCT GLYCATED HEMOGLOBIN, TOTAL Routine 04/25/2023 2:20 PM EST Type 2 diabetes mellitus without complication, without long-term current use of insulin (CMS/HCC) ZZZ HISTORICAL HEPATITIS C AB W/REFL TO HCV RNA, QN, PCR Routine 05/12/2021 10:03 AM EST HIV 1/2 ANTIGEN/ANTIBODY, FOURTH GENERATION W/RFL Routine 05/12/2021 10:03 AM EST from Last 3 Months or Most Recently Relevant to Health Maintenance Results * Urine Protein, Total, Random without Creatinine (05/12/2024 9:15 AM EST) Protein, Total, Random Urine <7 <12 mg/dL [facility] 05/12/2024 9:15 AM EST 05/12/2024 9:34 AM EST Generic External Data Provider LAB URINE ORDERAB LES Final Result Performing Organization Address City/[facility]/ZIP Co de Phone Number [facility] [address] [place] [phone] * Creatinine, Random Urine (05/12/2024 9:15 AM EST) Creatinine, Urine 165.25 mg/dL [facility] 05/12/2024 9:15 AM EST 05/12/2024 9:34 AM EST [employer] External Data Provider LAB URINE ORDERAB LES Final Result Performing Organization Address [facility] Co de Phone Number [facility] [address] [place] [phone] * (ABNORMAL) Lipid Panel, Standard (05/10/2023 11:54 AM EST) Triglycerides 152(H) <150 mg/dL [facility] Comment:Desirable Triglyceri de: less than 150 [...] 190 mg/dL HDL Cholesterol 37(L) >40 mg/dL [facility] Comment:Desirable HDL: great er than 40 mg/dL Note: This HDL assay may give artificially low results in patients with liver disease. Blood Venous blood specimen / Unknown 05/10/2023 11:54 AM EST 05/10/2023 1:15 PM EST Tala Foote MD LAB BLOOD ORDERABLES Final Result [facility] [address] [place] [phone] * POCT HGB A1C (04/25/2023 2:20 PM EST) Hemoglobin A1C 6.0 4.0 - 6.0 % QC Media Lot # [id number] Lot# Expiration Date Blood 04/25/2023 2:20 PM EST Tala Foote MD POINT OF CARE TEST EN TER/EDIT ORDERABLES Final Result * HEPATITIS C AB W/REFL TO HCV RNA, QN, PCR (05/12/2021 10:03 AM EST) HEPATITIS C ANTIBODY NON-REACT [facility] NON-REACT [facility] INDEX 0.01 <1.00 [facility] Comment: ?? HCV antibody was non-reactive. There is no laboratory ?? evidence of HCV infection. ?? In most cases, no further action is required. However, if recent HCV exposure is suspected, a test for HCV RNA (test code 43223) is suggested. ?? For additional information please refer to http://education.[employer]/faq/KCN05g8 (This link is being provided for informational/ educational purposes only.) ?? 05/12/2021 10:0 3 AM EST us Tala Foote MD HISTORICAL/NON ORDERA BLE LABS Final Result Performing Organization Address [facility] de Phone Number [facility] [address] * HIV 1/2 ANTIGEN/ANTIBODY,FOURTH GENERATION W/RFL (05/12/2021 10:03 AM EST) HIV-1/2 ANTIGEN AND ANTIBODIES, 4TH GENERATION W/ REFLEX NON-REACT JUSTINE NON-REACT JUSTINE [facility] Comment: HIV-1 antigen and HIV-1/HIV-2 [...] ? For additional information please refer to http://education.[employer]/faq/LPX146 (This link is being provided for informational/ educational purposes only.) ? The performance of this assay has not been clinically validated in patients less than 2 years old. ?? 05/12/2021 10:0 3 AM EST us Tala Foote MD LAB BLOOD ORDERABLES Final Result Performing Organization Address [facility] de Phone Number [facility] [address] from Last 3 Months or Most Recently Relevant to Health Maintenance Insurance [facility] STANDARD Care Teams Ssis Developer Relationship Specialty Start Date End Date Tala Tena MD [address] [place] [phone] PCP - General Family Medicine 05/16/21
== END 2024-05-27 10:20 | disposition home or self-care (01) ==
PROVIDERS: PCP Internal Medicine; Visit Provider Internal Medicine Hypertension Specialist
DX: R80.9 Proteinuria, unspecified (principal); I10 Essential (primary) hypertension; E11.65 Type 2 diabetes mellitus with hyperglycemia; Z79.4 Long term (current) use of insulin
CPT/HCPCS: 99214

== ENCOUNTER → 2024-05-27 10:05 | Outpatient (BNVA) | payer MEDICAID, SELFPAY | PROVIDERS: PCP Internal Medicine; Visit Provider Internal Medicine Hypertension Specialist | DX: R80.9 Proteinuria, unspecified (principal); E11.65 Type 2 diabetes mellitus with hyperglycemia; E66.9 Obesity, unspecified; I10 Essential (primary) hypertension; Z79.4 Long term (current) use of insulin; Z68.41 Body mass index [BMI] 40.0-44.9, adult; Z79.899 Other long term (current) drug therapy | CPT/HCPCS: 99212 ==

== ENCOUNTER 2024-06-10 10:11 | Outpatient (REF) | payer MEDICAID, SELFPAY ==
--- OUTSIDE RECORDS SUMMARY | 2024-06-10 11:57 | XMS_ITS | Encounter Summary ---
Author Organization [employer] Address [address] [place] [address] 7t [place] [address] Care Team Providers Care Mock Up Assembler Name Role Phone Tala Tena MD Primary Care Provide r Reason for Referral * Consultation (Routine) - Pending Review Specialty Diagnoses / Procedures Referred By Contfrancisco t Referred To Contact Gastroenterology Diagnoses Diarrhea, unspecified type Tala Tena MD [address] [place] [phone] Phone: tel: fax: Referral ID Status Reason Start Date Expiration Date Visits Requested Visits Authorized [id number] Pending Review Specialty Services Required 06/10/2024 06/10/2025 1 1 Encounter Details Date Type Department Care Team (Late st Contact Info) Description 06/10/2024 9:15 AM EDT Office Visit [facility] MEDICINE [address] [place] [phone] Tala Tena MD [address] [place] [address] Diarrhea, unspecified type (Primary Dx); Type 2 diabetes mellitus with hypoglycemia without coma, without long-term current use of insulin ([facility]); Essential hypertension; Encounter for immunization Social History Tobacco Use Types Packs/Day Years Used Date Smoking Tobacco: Never Passive Smoke Exposure: Never Smokeless Tobacco: Never Alcohol Use Standard Drinks/Week Comments Never 0 (1 standard drink = 0.6 oz pur e alcohol) Depression Answer Date Recorded Patient Health Questionnaire-9 Score 21 04/24/2023 Patient Health Questionnaire-9 Score 21 04/24/2023 Last PHQ-9: Questionnaire Data Not on file 0 04/24/2023 Housing Stability Answer Date Recorded What is your housing situation today? I have garry birch 06/03/[address] you li ve. Do you have problems with any of the following? I am not sure 06/03/2024 Food Insecurity Answer Date Recorded Within the [...] Recorded Patient Health Questionnaire-2 Score 6 04/24/2023 Internet Access Answer Date Recorded Internet Access Q1 Yes 06/03/2024 Internet Access Q2 Not on file 06/03/2024 Sex and Gender Information Value Date Recorded Sex Assigned at Male 01/30/2022 10:14 AM EDT Legal Sex Male 10:14 AM EDT Gender Identity Male 01/30/2022 10:14 AM EDT Sexual Orientation Straight 01/30/2022 10 :14 AM EDT documented as of this encounter Last Filed Vital Signs Vital Sign Reading Time Taken Comments Blood Pressure 124/89 06/10/2024 9:20 AM EDT Pulse 81 06/10/2024 9:20 AM EDT Temperature 36.7 ??C (98.1 ??F) 06/10/2024 9:20 AM ED T Respiratory Rate 16 06/10/2024 9:20 AM EDT Oxygen Saturation 99% 06/10/2024 9:20 AM EDT Inhaled Oxygen Concentration - - Weight 128 kg (283 lb) 06/10/2024 9:20 AM EDT Height 175.3 cm (5' 9 ) 06/10/2024 9:20 AM EDT Body Mass Index 41.79 06/10/2024 9:20 AM EDT documented in this encounter Progress Notes * Tala Foote MD - 06/10/2024 9:15 AM EDT SUBJECTIVE: Clovis Chavez is a 33 y.o. year old male who presents for Chronic Disease Management . Patient reports he has been doing well regarding his mood, he has not had any other episodes of hypoglycemia, his blood pressure has been stable and reports his been followed closely by specialists Acute Concerns: Patient reports he has been having every day loose stools, he reports he needs to go to the bathroom every time he eats and when he uses the toilet he has some pain and has loose stools denies nauseavomiting or other symptoms Social History Social History Narrative Not on file Patient Active Problem List Diagnosis Type 2 diabetes mellitus with hypoglycemia (CMS/HCC) Seizure (CMS/HCC) Right upper quadrant abdominal pain Nausea and vomiting NAFLD (nonalcoholic fatty liver disease) Hypoglycemia Foot callus Hypertension Essential hypertension Biliary sludge Pheochromocytoma Severe major depression without psychotic features (CMS/HCC) GILBERT (generalized anxiety disorder) Depression Shakiness Acute otitis media Otitis externa Cyst of sphenoid sinus Scrotal nodule Nodular dermatitis Cyst of scrotum Ulcer, skin, non-healing, with unspecified severity (CMS/HCC) Frequent loose stools No family history on file. Review of Systems Constitutional: Negative. HENT: Negative. Respiratory: Negative. Cardiovascular: Negative. Gastrointestinal: Positive for abdominal distention, abdominal pain and diarrhea. Negative for analbleeding, blood in stool, constipation, nausea, rectal pain and vomiting. OBJECTIVE: Vitals: 06/10/24 0920 BP: 124/89 BP Location: Left arm Patient Position: Sitting BP Cuff Size: Large adult Pulse: 81 Resp: 16 Temp: 98.1 ??F (36.7 ??C) TempSrc: Oral SpO2: 99% Weight: 283 lb (128 kg) Height: 5' 9 (1.753 m) Physical Exam Constitutional: Appearance: Normal appearance. Cardiovascular: Rate and Rhythm: Normal rate and regular rhythm. Pulmonary: Effort: Pulmonary effort is normal. Breath sounds: Normal breath sounds. Abdominal: General: Abdomen is flat. Palpations: Abdomen is soft. Musculoskeletal: Right lower leg: No edema. Left lower leg: No edema. Neurological: Mental Status: He is alert. Follow Up: Follow up in about 3 months (around 09/10/2024) for chronic conditions . Current Outpatient Medications on File Prior to Visit Medication Sig Dispense Refill Alcohol Swabs (Alcohol Prep) 70 % pads USE TO TEST BLOOD SUGAR 2 TIMES DAILY 100 each 5 amLODIPine (Norvasc) 5 MG tablet TAKE 1 TABLET BY MOUTH EVERY DAY 90 tablet 1 chlorthalidone (Hygroton) 25 MG tablet TAKE 1 TABLET BY MOUTH EVERY DAY IN THE MORNING 90 tablet 3 Continuous Glucose Senior Teller (FreeStyle Osmany 2 [place]) device Scan sensor every 8 hours 1 each 0 Continuous Glucose Sensor (FreeStyle Osmany 2 Sensor) misc APPLY 1 SENSOR EVERY 14 DAYS 2 each 2 glucagon (Gvoke HypoPen 1-Pack) 0.5 MG/0.1ML injection Inject 0.1 mL (0.5 mg) under the skin 1 (one) time if needed for low blood sugar. 1 each 1 glucose blood (FreeStyle Precision [place] Test) test strip Use to test blood sugar 3 times daily 100 each 12 Lancets misc Use to test blood sugar 2 times daily 100 each 0 lisinopril 40 MG tablet TAKE 1 TABLET BY MOUTH EVERY DAY 90 tablet 1 Zbkdlzfm-Azyuspjgw-FL 1 % solution Administer 4 drops into affected ear(s) 4 times daily. 10 mL 0 sertraline (Zoloft) 50 MG tablet TAKE 1 TABLET BY MOUTH EVERY DAY IN THE MORNING 30 tablet 2 No current facility-administered medications on file prior to visit. Problem List Items Addressed This Visit Type 2 diabetes mellitus with hypoglycemia ([facility]) Diabetes is: controlled - Lab Results Component Value Date HGBA1C 6.1 (A) 06/10/2024 HGBA1C 6.0 04/25/2023 HGBA1C 5.8 08/14/2022 - Lab Results Component Value Date CREATININE 0.95 01/01/2024 -Changes: None - Diabetic eye exam: Up-to-date - Diabetic foot exam: Up-to-date - Continue lifestyle modifications - Continue current medications - Follow up: 3 months Relevant Orders POCT Glucose (Completed) POCT HGB A1C (Completed) Lipid Panel, Standard Albumin, Random Urine W/Creatinine Comprehensive Metabolic Panel Frequent loose stools - Primary I advised patient to start taking probiotics daily and I decided to refer patient to GI for furtherevaluation and management Relevant Orders Referral to Gastroenterology Essential hypertension Blood pressure seems to be now under control I advised to continue with same medications without missing any dose and low-sodium diet Other Visit Diagnoses Encounter for immunization Relevant Orders FLU VACCINE TRIVALENT (Fluarix) 6 mo + (Completed) documented in this encounter Miscellaneous Notes * Assessment & Plan Note - Tala Foote MD - 06/10/2024 11:42 AM EDT Associated Problem(s): Type 2 diabetes mellitus with hypoglycemia (CMS/HCC) Diabetes is: controlled - Lab Results Component Value Date HGBA1C 6.1 (A) 06/10/2024 HGBA1C 6.0 04/25/2023 HGBA1C 5.8 08/14/2022 - Lab Results Component Value Date CREATININE 0.95 01/01/2024 -Changes: None - Diabetic eye exam: Up-to-date - Diabetic foot exam: Up-to-date - Continue lifestyle modifications - Continue current medications - Follow up: 3 months * Assessment & Plan Note - Tala Foote MD - 06/10/2024 11:41 AM EDT Associated Problem(s): Frequent loose stools I advised patient to start taking probiotics daily and I decided to refer patient to GI for furtherevaluation and management * Assessment & Plan Note - Tala Foote MD - 06/10/2024 11:41 AM EDT Associated Problem(s): Essential hypertension Blood pressure seems to be now under control I advised to continue with same medications without missing any dose and low-sodium diet documented in this encounter Plan of Treatment Upcoming Encounters Date Type Department Care Team (Late st Contact Info) Description 09/11/2024 9:00 AM EDT Office Visit [facility] MEDICINE [address] [place] [address] Tala Tena MD [address] [place] [address] Scheduled Orders Name Type Priority Associated Diagnoses Orde r Schedule Lipid Panel, Standard Lab Routine Type 2 diabetes mellitus with hypoglycemia without coma, without long-term current use of insulin (CMS/HCC) Expected: 06/10/2024 (Approximate), Expires: 06/10/2025 Albumin, Random Urine W/Creatinine Lab Routine Type 2 diabetes mellitus with hypoglycemia without coma, without long-term current use of insulin (CMS/HCC) Expected: 06/10/2024 (Approximate), Expires: 06/10/2025 Comprehensive Metabolic Panel Lab Routine Type 2 diabetes mellitus with hypoglycemia without coma, without long-term current use of insulin (CMS/HCC) Expected: 06/10/2024 (Approximate), Expires: 06/10/2025 Scheduled Referrals Name Type Priority Associated Diagnoses Order Schedule Referral to Gastroenterology Outpatient Referral Routine Diarrhea, unspecified type Expected: 06/10/2024 (Approximate), Expires: 06/10/2025 documented as of this encounter Procedures Procedure Name Priority Date/Time Associated Diagnosis Comments POCT GLYCATED HEMOGLOBIN, TOTAL Routine 06/10/2024 9:22 AM EDT Type 2 diabetes mellitus with hypoglycemia without coma, without long-term current use of insulin ([facility]) POCT GLUCOSE Routine 06/10/2024 9:22 AM EDT Type 2 diabetes mellitus with hypoglycemia without coma, without long-term current use of insulin ([facility]) documented in this encounter Results * (ABNORMAL) POCT HGB A1C (06/10/2024 9:22 AM EDT) Hemoglobin A1C 6.1(A) 4.0 - 6.0 % QC Media Lot # [id number] Lot# Expiration Date Blood 06/10/2024 9:22 AM EDT us Tala Foote MD POINT OF CARE TEST EN TER/EDIT ORDERABLES Final Result * POCT Glucose (06/10/2024 9:22 AM EDT) Glucose Blood, POC 110 60 - 200 mg/dL QC Media Lot # [id number] Lot# Expiration Date Blood Capillary blood specimen / Unknown 06/10/2024 9:22 AM EDT us Tala Foote MD POINT OF CARE TEST EN TER/EDIT ORDERABLES Final Result documented in this encounter Visit Diagnoses Diagnosis Diarrhea, unspecified type- Primary Type 2 diabetes mellitus with hypoglycemia without coma, without long-term current use of insulin ([facility]) Essential hypertension Unspecified essential hypertension Encounter for immunization documented in this encounter Additional Health Concerns Assessment Noted Time PHQ-9 Depression Total Score: 21 024 1:20 PM EST documented as of this encounter Care Teams Mock Up Assembler Relationship Specialty Start Date End Date Tala Tena MD [address] [place] [address] PCP - General Family Medicine 05/16/21 documented as of this encounter
--- OUTSIDE RECORDS SUMMARY | 2024-06-10 11:57 | XMS_ITS | Encounter Summary ---
Author Organization [facility] Address [address] [place] [address] Phone Care Team Providers Care Supervisor Ovens Name Role Phone Sandra Pineda NP Primary Care Provider Christiane alan Encounter Details Date Type Department Care Team (Late st Contact Info) Description 11/16/2016 Conversion Encounter [facility] - [address] [address] Social History Tobacco Use Types Packs/Day Years [...] on filedocumented in this encounter Care Teams Supervisor Ovens Relationship Specialty Start Date End Date Sandra Pineda NP PCP - General 11/10/16 07/10/22 documented as of this encounter
--- OUTSIDE RECORDS SUMMARY | 2024-06-10 11:57 | XMS_ITS | Encounter Summary ---
Author Organization [employer] Address [address] [facility] 7t [place] [address] Care Team Providers Care Multimedia Programmer Name Role Phone Tala Tena MD Primary Care Provide r Reason for Visit * Reason Onset Date Comments Medical Leave 03/01/2023 Encounter Details Date Type Department Care Team ([facility] st Contact Info) Description 03/01/2023 Telephone [facility] MEDICINE [address] [place], [place] [phone] Tala Tena MD [address] [place], [place] [phone] Medical Leave Social History Tobacco Use Types [...] Miscellaneous Notes * Telephone Encounter - Sanamkamar Silvano Guzman - 03/01/2023 2:38 PM EST Tc from Jennifer with [employer] requesting a call in regards to Medical Leave documentation that wasfaxed over. Jennifer states documentation are difficult to read and is requesting clarification. Please contact Jennifer at [phone] documented in this encounter Plan of Treatment Upcoming Encounters Date Type Department Care Team (Late st Contact Info) Description 09/11/2024 9:00 AM EDT Office Visit [facility] MEDICINE [address] [place], [place] [phone] Tala Tena MD [address] [place] [phone] documented as of this encounter Visit Diagnoses Not on filedocumented in this encounter Additional Health Concerns Assessment Noted Time PHQ-9 Depression Total Score: 0 08/15/19 23 3:39 PM EDT documented as of this encounter Care Teams Multimedia Programmer Relationship Specialty Start Date End Date Tala Tena MD [address] [place] [address] PCP - General Family Medicine 05/16/21 documented as of this encounter
--- OUTSIDE RECORDS SUMMARY | 2024-06-10 11:57 | XMS_ITS | Encounter Summary ---
Author Organization [employer] Address 75 [facility] 7t [place] [address] Care Team Providers Care Machine Setter Sheet Metal Name Role Phone Tala Tena MD Primary Care Provide r Reason for Visit * Reason Onset Date Comments Nurse Triage 04/12/2023 Encounter Details Date Type Department Care Team ([facility] st Contact Info) Description 04/12/2023 Telephone [facility] [address] [place], [place] [phone] Tala eTna MD [address] [place], [place] [phone] Nurse Triage Social History Tobacco Use Types [...] t he electric, gas, oil or water [employer] threatened to shut off services in your [...] advised of WIC. Given contact for [facility] and to also contact Neuro re: increased STEPHENS and tremors to see if sooner appt also available. Per pt has appt this month. PT advised to call back should sx worsen. Reviewed NTTS as well. Future Appointments Date Time Provider Department Center 04/25/2023 2:00 PM Tala Foote MD MEDICINE [facility] Protocol Used: Depression (Adult) Protocol-Based Disposition: See [...] Description 09/11/2024 9:00 AM EDT Office Visit [facility] [address] [place] [address] Tala Tena MD [address] [place] [address] documented as of this encounter Visit Diagnoses Not on filedocumented in this encounter Additional Health Concerns Assessment Noted Time PHQ-9 Depression Total Score: 0 08/15/19 23 3:39 PM EDT documented as of this encounter Care Teams Machine Setter Sheet Metal Relationship Specialty Start Date End Date Tala Tena MD [address] [place] [address] PCP - General Family Medicine 05/16/21 documented as of this encounter
--- OUTSIDE RECORDS SUMMARY | 2024-06-10 11:57 | XMS_ITS | Encounter Summary ---
Author Organization [employer] Address 75 [facility] 7t [place] [address] Care Team Providers Care Bleach Liquor Maker Name Role Phone Tala Tena MD Primary Care Provide r Reason for Visit * Reason Onset Date Comments Chart Prep 06/06/2024 Encounter Details Date Type Department Care Team ([facility] st Contact Info) Description 06/06/2024 Telephone [facility] [address] [place], [place] [phone] Tala Tena MD [address] [place] [address] Chart Prep Social History Tobacco Use Types Packs/Day Years [...] encounter Miscellaneous Notes * Telephone Encounter - Shaylee Mathews [place] - 06/06/2024 9:50 AM EST Chart Prep Labs: done Images: done Vaccines due: yes Referrals: Booked appts Screenings: eye exam foot exam Overdue care gaps: A1C, Glucose, Sbirt, PHQ-9, GILBERT-7 documented in this encounter Plan of Treatment Upcoming Encounters Date Type Department Care Team (Late st Contact Info) Description 09/11/2024 9:00 AM EDT Office Visit [facility] [address] [place] [address] Tala Tena MD [address] [place] [address] documented as of this encounter Visit Diagnoses Not on filedocumented in this encounter Additional Health Concerns Assessment Noted Time PHQ-9 Depression Total Score: 21 024 1:20 PM EST documented as of this encounter Care Teams Bleach Liquor Maker Relationship Specialty Start Date End Date Tala Tena MD [address] [place] [address] PCP - General Family Medicine 05/16/21 documented as of this encounter
--- OUTSIDE RECORDS SUMMARY | 2024-06-10 11:58 | XMS_ITS | Encounter Summary ---
Author Organization [employer] Address 75 [facility] 7t [place] [address] Care Team Providers Care Correctional Lieutenant Name Role Phone Tala Tena MD Primary [...] Description 09/11/2024 9:00 AM EDT Office Visit [facility] [address] [place] [address] Tala Tena MD [address] [place] [address] documented as of this encounter Procedures Procedure Name Priority Date/Time Associated Diagnosis Comments URINE PROTEIN, TOTAL, RANDOM (W/O CREATININE) Routine 05/12/2024 9:15 AM EST CREATININE, RANDOM URINE Routine 05/12/2024 9:15 AM EST documented in this encounter Results * Urine Protein, Total, Random without Creatinine (05/12/2024 9:15 AM EST) Protein, Total, Random Urine <7 <12 mg/dL [facility] 05/12/2024 9:15 AM EST 05/12/2024 9:34 AM EST us Generic External Data Provider LAB URINE ORDERAB LES Final Result [facility] [address] [place] [address] [phone] * Creatinine, Random Urine (05/12/2024 9:15 AM EST) Creatinine, Urine 165.25 mg/dL [facility] 05/12/2024 9:15 AM EST 05/12/2024 9:34 AM EST us Generic External Data Provider LAB URINE ORDERAB LES Final Result [facility] [address] [place] [address] [phone] documented in this encounter Visit Diagnoses Not on filedocumented in this encounter Additional Health Concerns Assessment Noted Time PHQ-9 Depression Total Score: 21 024 1:20 PM EST documented as of this encounter Care Teams Correctional Lieutenant Relationship Specialty Start Date End Date Tala Tena MD [address] [place] [address] PCP - General Family Medicine 05/16/21 documented as of this encounter
--- OUTSIDE RECORDS SUMMARY | 2024-06-10 11:58 | XMS_ITS | Data Portability ---
Author Organization [place] [facility], Allergy Address [address] [place] [phone] Assessment Encounter Date Assessment Date Assessment LastModified [...] allergy consider immunotherapy. All questions were answered. maco Not available 04/22/2024 13:54:46 Plan of Treatment [...] mcg/actua tion nasal spray,lisy jensension 2024 025 [facility] #[id number], [address] [facility], [place], [address], 04/22/2024 13:55:26 Patient TargetsNo targets recorded. Patient Instructions Encounter Date Encounter Id Patient Instructions Last Modified By Organization Details Last Modified Time 05/16/2024 [id number] Nursing Documentation for Allergy Testing: Ordering Provider [...] how long ?? 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) Symptoms having: {{Congestion [...] Address Organization Details Recorded Time Nasal congestion 75160048 Active 2024 MARCIO DARLING PA-C [address] [address], [place], [phone], [facility] - [facility] 13:54:51 Allergic rhinitis 33394904 Active 2024 MARCIO DARLING PA-C [address] [place] [address], [place], [phone], [facility] - [facility] [place] 5 13:54:57 Non-allergi c rhinitis 676982912450 Active 2024 MARCIO DARLING PA-C [address] [facility],[address] [address], [place], [address], [facility] - [facility] [place] 5 13:54:57 Seasonal allergic rhinitis 055839120 Active 2024 MARCIO DARLING PA-C [address] [facility],[address] [address], [place], [address], [facility] - [facility] [place] 5 13:54:57 Deviated nasal septum 519282059 Active 2024 MARCIO DARLING PA-C [address] [facility],[address] [address], [place], [address], [facility] - [facility] [place] 13:55:30 Problem Notes None recorded. Procedures Surgical History Date Name Laterality Status Provider Name and Address Organization Details Recorded Time Allergy Testing-Full completed ABRAHAM SHANDRA, [facility] [address] [facility],[address] [address], [place], [phone], [facility] - [facility] [place] 05/16/2024 10:02:26 Imaging Results Imaging Date Name Status [facility]Modified [facility] Details LastModified Time 05/16/2024 spirometry testing* completed [facility] Information not available 05/16/2024 15:27:03 Procedure Notes [...] Available No t Available FreeStyle Osmany 2 Wayne SCAN SENSOR EVERY 8 HOURS active Not Available Not Available No t Available Vitals Date Recorded Body height Body mass index (BMI) Body weight Heart rate Oxygen saturation Oxygen saturation in Arterial blood by Pulse oximetry Systolic blood pressure Diastolic blood pressure Provider Name and Address Organization Details Last Updated DateTime 5 175.26 cm 39.9 kg/m2 548831. 94 g 82 /min 98 % 98 % 120 mm[Hg] 76 mm[Hg] ABRAHAM SADLER, MARYANNA [address] [facility],[address], [place], [phone], [facility] 09:08:22 Social History None recorded. Functional Status None recorded. Mental Status None recorded. Family History Nothing Reported. Medical History No medical history recorded. Past Encounters Encounter ID Performer Location Encounter Start Date Encounter Closed Date Diagnosis/Indication Diagnosis SNOMED-CT Code Diagnosis ICD10 Code Diagnosis Note [id number] MARCIO DARLING PA-C [facility] [address] [place] [address] 04/22/2024 13:21:51 04/22/2024 13:49:30 Nasal congestion 62523503 R09.81 Allergic rhinitis 908979 04 J30.9 Deviated nasal septum 12 1197336 J34.2 [id number] ABRAHAM DEVI, A Allergy [address] [facility],[address] [place] [address] 05/16/2024 08:50:57 05/16/2024 10:03:01 Allergic rhinitis 09283173 J30.9 Health Concerns Section Related Observation LastModified by Organization Detai ls LastModified Time None Recorded Concern Status LastModified by Organization Details LastModified Time None Recorded Advance Directives Directive None Recorded Payers Encounter Date Sequence Insurance Name Policy Number Policy Walters Covered Member ID Walters Member ID Guarantor Name 04/22/2024 1 [place] [facility] Clovis Campoverdeenez-S uarez [id number] Clovis Kurtz 05/16/2024 1 [place] [facility] Clovis Chavez-S uarez [id number] Clovis Kurtz Notes Date Note Type Note [...] sprays or allergy medication. MARCIO DARLING PA-C [address] [place] [address], [place], [address], [facility] - [facility] 04/22/2024 13:55:49
--- OUTSIDE RECORDS SUMMARY | 2024-06-10 11:58 | XMS_ITS | Encounter Summary ---
Author Organization [employer] Address [address] [facility] 7t [place] [address] Care Team Providers Care Drapery Counselor Name Role Phone Tala Tena MD Primary Care Provide r Reason for Visit * Reason Comments Pre-visit Planning (SDOH screening nega tive tobacco screening positive) Encounter Details Date Type Department Care Team ([facility] st Contact Info) Description 06/03/2024 Patient Outreach [facility] [address] [place] [address] Tala Tena MD [address] [place] [address] Pre-visit Planning ((SDOH screening negative tobacco screening positive)) Social History Tobacco Use Types Packs/Day Years Used Date Smoking Tobacco: Never Passive Smoke Exposure: Never Smokeless Tobacco: Never Depression Answer Date Recorded Patient Health Questionnaire-9 Score 04/24/2023 Patient Health Questionnaire-9 Score 04/24/2023 Last PHQ-9: Questionnaire Data Not on [...] AM EDT documented as of this encounter Progress Notes * Renetta Garza - 06/03/2024 8:40 AM EST CC Renetta placed successful outbound call to patient for pre-visit planning. Patient name and confirmed. Patient confirms appt date and time, and has transportation. Biggest concern for appointment at this time is none Patient advised to bring to appointment a photo id and insurance card. Appropriate screenings completed in anticipation of appointment. documented in this encounter Plan of Treatment Upcoming Encounters Date Type Department Care Team (Late st Contact Info) Description 09/11/2024 9:00 AM EDT Office Visit [facility] [address] [place] [address] Tala Tena MD [address] [place] [address] documented as of this encounter Visit Diagnoses Not on filedocumented in this encounter Additional Health Concerns Assessment Noted Time PHQ-9 Depression Total Score: 21 024 1:20 PM EST documented as of this encounter Care Teams Drapery Counselor Relationship Specialty Start Date End Date Tala Tena MD [address] [place] [address] PCP - General Family Medicine 05/16/21 documented as of this encounter
--- OUTSIDE RECORDS SUMMARY | 2024-06-10 11:58 | XMS_ITS | Clinical Summary ---
Author Organization [employer] Address [address] [facility] 7t [place] [address] Care Team Providers Care Public Finance Specialist Name Role Phone Tala Tena MD Primary [...] 1 4 07/24/19 25 Active Continuous Glucose Television Maintenance Worker (FreeStyle Osmany 2 [place]) deviceIndications :Type 2 diabetes mellitus with hypoglycemia without coma, without long-term current use of insulin (CMS/HCC) Scan sensor every 8 hours 1 each 4 Active glucose blood (FreeStyle Precision [place] Test) test stripIndications: Type 2 diabetes mellitus with hypoglycemia without coma, without long-term current use of insulin ([facility]) Use to test blood sugar 3 times [...] coma, without long-term current use of insulin ([facility]) APPLY 1 SENSOR EVERY 14 DAYS 2 each 2 5 Active sertraline (Zoloft) 50 MG tabletIndications :Depression, unspecified depression type TAKE 1 TABLET BY MOUTH EVERY DAY IN THE MORNING 30 tablet 2 5 Active Active Problems Problem Noted Date Diagnosed Date Frequent loose stools 06/10/2024 Assessment & Plan (06/10/2024 11:41 AM EDT): I advised patient to start taking probiotics daily and I decided to refer patient to GI for further evaluation and management Cyst of sphenoid sinus 08/31/2023 Scrotal nodule [...] New/Additional Services needed provided Cl[place]is with [facility] intake number for OP therapy and psychiatry, Behavioral Health Integration Plan Internal Follow up with [facility] PHQ9: 21 GAD7: 19 Behavioral Health Diagnoses [...] mellitus with hypoglycemia 08/14 Assessment & Plan (06/10/2024 11:42 AM EDT): Diabetes is: controlled - Lab Results Component Value Date HGBA1C 6.1 (A) 06/10/2024 HGBA1C 6.0 04/25/2023 HGBA1C 5.8 08/14/2022 - Lab Results Component Value Date CREATININE 0.95 01/01/2024 -Changes: None - Diabetic eye exam: Up-to-date - Diabetic foot exam: Up-to-date - Continue lifestyle modifications - Continue current medications - Follow up: 3 months Assessment & Plan (08/31/2023 11:18 AM EDT): [...] 08/14/2022 Essential hypertension 08/14/2022 Assessment & Plan (06/10/2024 11:41 AM EDT): Blood pressure seems to be now under control I advised to continue with same medications without missing any dose and low-sodium diet Assessment & Plan (08/31/2023 11:14 AM EDT): [...] Encounters Date Type Department Care Team Description 06/10/2024 9:15 AM EDT Office Visit [facility] MEDICINE [address] [place] [address] Tala Tena MD Diarrhea, unspecified type (Primary Dx); Type 2 diabetes mellitus with hypoglycemia without coma, without long-term current use of insulin ([facility]/HCC); Essential hypertension; Encounter for immunization 06/06/[address] [phone] Tala Tena MD Chart Prep 06/03/2024 Patient Outreach [address] [phone] Tala Tena MD Pre-visit Planning ((SDOH screening negative tobacco screening positive)) 05/12/2024 Orders Only GENERIC EXTERNAL DATA DEPARTMENT Provider, Generic External Data 04/09/[address] [phone] Tala Tena MD Primary hypertension; Type 2 diabetes mellitus with hypoglycemia without coma, without long-term current use of insulin (CMS/HCC); Depression, unspecified depression type from Last 3 Months Immunizations Name Administration Dates Next Due DTP 11/30/1994, 2,07/01/1991,05/30,01/30/1991 Hep B, Adolescent or Pediatric 02/27/2000,1999,10/21/1999 Hib (PRP-T) 12/31/1991, 2,05/02/1991,01/30 IPV 11/30/1994, 2,05/30/1991,01/30 Influenza, IIV3, injectable 02/02/2010, 8 Influenza, seasonal, injecta ble, preservative free 06/10/2024 MMR 11/30/1994,08/31/1991 Meningococcal MCV4P ACYW-135 01/16/2008 Pneumococcal Conjugate PCV 20 08/31/2023 TD (adult), 2 Lf tetanus tox oid, preservative free, adsorbed 06/04/2002 Tdap 02/02/2010,01/16/2008 Social History Tobacco Use Types Packs/Day Years Used Date Smoking Tobacco: Never Passive Smoke Exposure: Never Smokeless Tobacco: Never Tobacco Cessation:Counseling Given: Not Answered Alcohol Use Standard Drinks/Week Comments Never 0 [...] Mass Index 41.79 06/10/2024 9:20 AM EDT Plan of Treatment Upcoming Encounters Date Type Department Care Team (Late st Contact Info) Description 09/11/2024 9:00 AM EDT Office Visit [facility] [address] [place], [place] [phone] Tala Tena MD [address] [place], [place] [phone] Health Maintenance Due Date Last Done Comments Eye Exam 2000 Family Planning (PISQ) 2005 Hepatitis A Vaccines (1 of 2 - Risk 2-dose series) 2009 DTaP/Tdap/Td Vaccines (8 - Td or Tdap) 02/03/2020 02/02/2010, 01/16/2008, 06/04/2002, Additional history exists Diabetes: Foot Exam 08/15/2023 08/14/2022, Depression Monitoring (PHQ-9) 10/23/2023 04/24/2023, 04/24/2023 COVID-19 Vaccine ( season) 2023 10/16/2020, 09/25/2020 Depression Screening 04/24/2024 04/24/2023, 04/24/19 24 Lipid Panel 05/10/2024 05/10/2023, 06/01, 05/12/2021 Diabetes: Hemoglobin A1C 12/11/2024 025, 04/25/2023, 08/14/2022, Additional history exists Diabetes: Urine Protein Screening 05/12/2025 05/12/2024 SDOH Screening 06/03/2025 06/03/2024 Alcohol/Substance Use Screening 06/10/2025 06/10/2024 Tobacco Screening 06/10/2025 06/10/2024 Zoster Vaccines (1 of 2) 2040 RSV [...] Patients (6 to 49) Years) Completed 08/31/2023 Influenza Vaccine Completed 06/10/2024, , 01/16/2008 HPV Vaccines Aged Out No longer [...] coma, without long-term current use of insulin ([facility]) POCT GLUCOSE Routine 06/10/2024 9:22 AM EDT Type 2 diabetes mellitus with hypoglycemia without coma, without long-term current use of insulin ([facility]) URINE PROTEIN, TOTAL, RANDOM (W/O CREATININE) Routine 05/12/2024 9:15 AM EST CREATININE, RANDOM URINE Routine 05/12/2024 9:15 AM EST LIPID PANEL, STANDARD Routine 05/10/2023 11:54 AM EST Right upper quadrant abdominal pain ZZZ HISTORICAL HEPATITIS C AB W/REFL TO HCV RNA, QN, PCR Routine 05/12/2021 10:03 AM EST HIV 1/2 ANTIGEN/ANTIBODY, FOURTH GENERATION W/RFL Routine 05/12/2021 10:03 AM EST from Last 3 Months or Most Recently Relevant to Health Maintenance Results * (ABNORMAL) POCT HGB A1C (06/10/2024 [...] TEST EN TER/EDIT ORDERABLES Final Result * Urine Protein, Total, Random without Creatinine (05/12/2024 9:15 AM EST) Protein, Total, Random Urine <7 <12 mg/dL [facility] 05/12/2024 9:15 AM EST 05/12/2024 9:34 AM EST us Generic External Data Provider LAB URINE ORDERAB LES Final Result [facility] [address] [place] [address] [phone] * Creatinine, Random Urine (05/12/2024 9:15 AM EST) Creatinine, Urine 165.25 mg/dL [facility] 05/12/2024 9:15 AM EST 05/12/2024 9:34 AM EST us Generic External Data Provider LAB URINE ORDERAB LES Final Result [facility] [address] [place] [address] [phone] * (ABNORMAL) Lipid Panel, Standard (05/10/2023 11:54 AM EST) Triglycerides 152(H) <150 mg/dL [facility] Comment:Desirable Triglyceri de: less than 150 mg/dLBorderline High Triglyceride 150-199 mg/dLHigh Triglyceride: 200-499 mg/dLVery High Triglyceride: greater than or equal to 5OO mg/dL Cholesterol 209(H) <200 mg/dL [facility] Comment:Desirable Cholestero l: less than 200 mg/dLBorderline High Cholesterol: 200-239 mg/dLHigh Cholesterol: greater than 239 mg/dL LDL Cholesterol Calculated 142(H) <100 mg/dL [facility] Comment:Desirable LDL: less than 100 mg/dLNear Optimal/Above Optimal LDL: 110- 129 mg/dLBorderline High LDL: 130-159 mg/dLHigh LDL: 160-189 mg/dLVery High LDL: greater than or equal to 190 mg/dL HDL Cholesterol 37(L) >40 mg/dL [facility] Comment:Desirable HDL: great er than 40 mg/dL Note: This HDL assay may give artificially low results in patients with liver disease. Blood Venous blood specimen / Unknown 05/10/2023 11:54 AM EST 05/10/2023 1:15 PM EST us Tala Foote MD LAB BLOOD ORDERABLES Final Result [facility] [address] [place] [address] [phone] * HEPATITIS C AB W/REFL TO HCV RNA, QN, PCR (05/12/2021 10:03 AM EST) HEPATITIS C ANTIBODY NON-REACT JUSTINE NON-REACT JUSTINE [facility] INDEX 0.01 <1.00 [facility] Comment: ?? HCV antibody was non-reactive. There is no laboratory ?? evidence of HCV infection. ?? In most cases, no further action is required. However, if recent HCV exposure is suspected, a test for HCV RNA (test code 89468) is suggested. ?? For additional information please refer to http://[employer]/faq/ETG05s2 (This link is being provided for informational/ educational purposes only.) ?? 05/12/2021 10:0 3 AM EST Tala Foote MD HISTORICAL/NON ORDERA BLE LABS Final Result [facility] [address] * HIV 1/2 ANTIGEN/ANTIBODY,FOURTH GENERATION W/RFL (05/12/2021 10:03 AM EST) HIV-1/2 ANTIGEN AND ANTIBODIES, 4TH GENERATION W/ REFLEX NON-REACT JUSTINE NON-REACT JUSTINE [facility] Comment: HIV-1 antigen and HIV-1/HIV-2 [...] ? For additional information please refer to http://[employer]/faq/DSB910 (This link is being provided for informational/ educational purposes only.) ? The performance of this assay has not been clinically validated in patients less than 2 years old. ?? 05/12/2021 10:0 3 AM EST Tala Foote MD LAB BLOOD ORDERABLES Final Result [facility] [address] from Last 3 Months or Most Recently Relevant to Health Maintenance Insurance [facility] STANDARD Care Teams Public Finance Specialist Relationship Specialty Start Date End Date Tala Tena MD [address] [place] [address] PCP - General Family Medicine 05/16/21
--- OUTSIDE RECORDS SUMMARY | 2024-06-10 11:58 | XMS_ITS | Clinical Summary ---
Author Organization [facility] Address [address] [place] [phone] Phone Care Team Providers Care Senior Service Technician Name Role Phone Unavailable Primary Care Provider [...]
--- OUTSIDE RECORDS SUMMARY | 2024-06-10 11:58 | XMS_ITS | Encounter Summary ---
Author Organization [employer] Address 75 [facility] 7t [place] [address] Care Team Providers Care Contract Implementation Analyst Name Role Phone Tala Tena MD Primary Care Provide r Reason for Visit * Reason Comments Med Refill Encounter Details Date Type Department Care Team ([facility] st Contact Info) Description 12/04/2023 Refill [facility] [address] [place], [place] [phone] Tala Tena MD [address] [place], [place] [phone] Social History Tobacco Use Types Packs/Day Years [...] Description 09/11/2024 9:00 AM EDT Office Visit [facility] [address] [place] [phone] Tala Tena MD [address] [place], [place] [phone] documented as of this encounter Visit Diagnoses Not on filedocumented in this encounter Additional Health Concerns Assessment Noted Time PHQ-9 Depression Total Score: 21 024 1:20 PM EST documented as of this encounter Care Teams Contract Implementation Analyst Relationship Specialty Start Date End Date Tala Tena MD [address] [place] [phone] PCP - General Family Medicine 05/16/21 documented as of this encounter
--- OUTSIDE RECORDS SUMMARY | 2024-06-10 11:58 | XMS_ITS | Encounter Summary ---
Author Organization [employer] Address [address] [place] [address] [address] [place] [address] Care Team Providers Care Online Editor Name Role Phone Tala Tena MD Primary Care Provide r Reason for Visit * Reason Onset Date Comments requesting a call back 03/20/2022 Encounter Details Date Type Department Care Team ([facility] st Contact Info) Description 03/20/2022 Telephone [facility] MEDICINE [address] [place], [place] [phone] Tala Tena MD [address] [place], [place] [phone] requesting a call back Social History Tobacco [...] AM EST Follow up on patient requests, shaniak hinds/HR Patricia @ [facility] [place] patient only needs to have a letter because we were very detailed in the [facility] paperwork and they are aware of his [...] back to work Please contact pt at [phone] documented in this encounter Plan of Treatment Upcoming Encounters Date Type Department Care Team (Late st Contact Info) Description 09/11/2024 9:00 AM EDT Office Visit [facility] MEDICINE [address] [place] [phone] Tala Tena MD [address] [place] [address] documented as of this encounter Visit Diagnoses Not on filedocumented in this encounter Care Teams Online Editor Relationship Specialty Start Date End Date Tala Tena MD [address] [place] [phone] PCP - General Family Medicine 05/16/21 documented as of this encounter
[2024-06-10 12:22] LABS: Alanine Aminotransferase 36 U/L (0-40); Albumin Level 4.7 g/dL (3.5-5.0); Alkaline Phosphatase 75 U/L (39-117); Anion Gap 10 (12-20); Aspartate Amino Transferase 31 U/L (5-37); Bilirubin Total 0.7 mg/dL (0.0-1.0); Blood Urea Nitrogen 14 mg/dL (9-16); Calcium 9.4 mg/dL (8.4-10.2); Carbon Dioxide 28 mmol/L (22-29); Chloride 105 mmol/L (96-108); Cholesterol 195 mg/dL (<200); Estimated Glomerular Filt Rate > 60; Glucose Random 102 mg/dL (60-115); HDL Cholesterol 31 mg/dL (>40); LDL Cholesterol Calculated 127 mg/dL (<100); Potassium 3.8 mmol/L (3.3-5.1); Sodium 139 mmol/L (135-145); Total Protein 8.4 g/dL (6.5-8.0); Triglycerides 187 mg/dL (<150)
[2024-06-10 12:40] LABS: Microalbum/Creatinine Ratio Ur 5.1 ug/mg cr (<30)
[2024-06-10 12:42] LABS: Total Protein Urine Random < 7 mg/dL (<12)
== END 2024-06-10 10:12 | disposition home or self-care (01) ==
LOC: HO.HHCL 10:11
PROVIDERS: Internal Medicine Hypertension Specialist; Visit Provider Internal Medicine
DX: E11.649 Type 2 diabetes mellitus with hypoglycemia without coma (principal); I10 Essential (primary) hypertension; R80.9 Proteinuria, unspecified
CPT/HCPCS: 36415; 80053; 80061; 82043; 82570; 84156

== ENCOUNTER 2024-11-12 12:59 | Outpatient (REF) | payer MEDICAID, SELFPAY ==
--- OUTSIDE RECORDS SUMMARY | 2024-11-12 13:31 | XMS_ITS | Encounter Summary ---
Author Organization [employer] Address [address] [place] [address] 7t [place] [address] Care Team Providers Care Personnel Clerks Supervisor Name Role Phone Tala Tena MD Primary Care Provide r Reason for Visit * Reason Onset Date Comments Nurse Triage 04/12/2023 Encounter Details Date Type Department Care Team ([facility] st Contact Info) Description 04/12/[address] [facility] MEDICINE [address] [place], [place] [phone] Tala Tena MD [address] [place], [place] [phone] Nurse Triage Social History Tobacco Use Types [...] t he electric, gas, oil or water [employer] threatened to shut off services in your [...] first available. Also agreeable to BE by [facility] team. Pt wants PCP to review notes and see if sooner appt able to be accomodated. Pt advised of WIC. Given contact for [facility] and to also contact Neuro re: increased STEPHENS and tremors to see if sooner appt also available. Per pt has appt this month. PT advised to call back should sx worsen. Reviewed NTTS as well. Future Appointments Date Time Provider Department Center 04/25/2023 2:00 PM Tala Foote MD MEDICINE [facility] Protocol Used: Depression (Adult) Protocol-Based Disposition: [...] documented in this encounter Plan of Treatment Not on file documented as of this encounter Visit Diagnoses Not on filedocumented in this encounter Additional Health Concerns Assessment Noted Time PHQ-9 Depression Total Score: 0 08/15/19 23 3:39 PM EDT documented as of this encounter Care Teams Personnel Clerks Supervisor Relationship Specialty Start Date End Date Tala Tena MD [address] [place] [phone] PCP - General Family Medicine 05/16/21 documented as of this encounter
--- OUTSIDE RECORDS SUMMARY | 2024-11-12 13:32 | XMS_ITS | Clinical Summary ---
Author Organization [facility] Address [address] [place] [phone] Phone Care Team Providers Care Relay Tester Name Role Phone Tala Tena MD Primary Care Provider Allergies No known active allergies Medications sertraline (ZOLOFT) 50 MG tablet Take 1 tablet by mouth every morning. 09/20/2023 Active levETIRAcetam (KEPPRA) 1000 MG tablet TAKE 1 TABLET BY MOUTH EVERY MORNING AND TAKE 1 1/2 TABLETS AT BEDTIME 09/19/2023 Active GVOKE HYPOPEN 2-PACK 0.5 mg/0.1 mL AtIn Inject 0.1 mL under the skin as needed (hypoglycemi a). Active FREESTYLE CHAO 2 SENSOR kit 1 each every 14 (fourteen) days. 10/05/2023 Active chlorthalidone (HYGROTON) 25 MG tablet Take 25 mg by mouth daily. Active FREESTYLE LITE Strp strips 1 each 2 (two) times a day. 09/19/2023 Active amLODIPine (NORVASC) 10 MG tablet Take 10 mg by mouth daily. Active lisinopril (PRINIVIL,ZESTR IL) 40 MG tablet Take 1 tablet by mouth every morning. 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 Eventually he may develop diabetes mellitus and require diabetic medications. Presently he does not need any medications to inhibit glucose absorption because he has been managing well with diet. So the diet will consist of high complex carbohydrates and high-protein. Small frequent meals. He can see a dietitian if he wanted to. The at the present time he does not really need to follow with me. As long as he continues to do well if things change he can return for follow-up. Assessment & Plan (10/31/2023 5:05 PM EDT): This is a patient with history of pancreatitis induced diabetes mellitus. His hemoglobin A1c is now 5.7% so he still in the prediabetic stage. He is off all diabetic medications. I suspect that he is hyperinsulinemic and is prone to developing diabetes mellitus. I suspect that or low glucose levels may be due to high insulin response to high carbohydrate meals. Most of the lows happen in the evenings or around midnight. He does have some levels that are low between 2 and 4 PM which I cannot explain because he does not have a very high carbohydrate meal or fatty meal. He had 1 low glucose in the morning but then we will have to know what he ate that particular morning. For now I am just going to do the generic workup for hypoglycemia but I suspect that these results may be normal may be insulin level will be elevated potentially since I believe he is hyperinsulinemic. 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 The treatment for this will be small frequent meals that are high in complex carbohydrates and protein. So his carbohydrate intake needs to be limited that means less sugar. This will be difficult for him especially in the evening because he is very high carb meals. If this does not work we can prescribe Acarbose. Family History Medical History Relation Comments No Known Problems Father No Known Problems Mother Relation Status Comments Father Alive Mother Alive Social History Tobacco Use Types Packs/Day Years Used Date Smoking Tobacco: Never Smokeless Tobacco: Never Tobacco Cessation:Counseling Given: Not Answered Alcohol Use Standard Drinks/Week Comments Never 0 (1 standard drink = 0.6 oz pur e alcohol) Education Answer Date Recorded Are you interested in more education? Not on jacob e 08/13/2023 Are you concerned about learning? Not on file 08/13/2023 No 08/13/2023 No 08/13/2023 Digital Access Answer Date Recorded No 08/13/2023 No 08/13/2023 Reliable internet access at home? Not on file 08/13/2023 Device with a working camera? Not on file Sex and Gender Information Value Date Recorded Sex Assigned at Not on file Legal Sex Male 3:17 PM EDT Gender Identity Not on file Sexual Orientation Not on file Last Filed Vital Signs Vital Sign Reading Time Taken Comments Blood Pressure 114/78 01/31/2024 11:53 AM EDT Pulse 96 01/31/2024 11:53 AM EDT Temperature - - Respiratory Rate - - Oxygen Saturation 99% 01/31/2024 11: 53 AM EDT Inhaled Oxygen Concentration - - Weight 124.2 kg (273 lb 12.8 oz) 2023 11:53 AM EDT Height 172.7 cm (5' 8 ) 01/31/2024 11:5 3 AM EDT Body Mass Index 41.63 01/31/2024 11:53 AM EDT Plan of Treatment Health Maintenance Due Date Last Done Comments CREATININE LEVEL 1990 POTASSIUM LEVEL 1990 DEPRESSION SCREENING 2002 HEPATITIS C SCREENING 2008 HIV ONE-TIME SCREENING (18-6 5 YEARS) 2008 Adult Td,Tdap Booster 02/03/2020 02/02/2010 , 01/16/2008 COVID-19 VACCINE (2023-2 5 season) 2023 SMOKING STATUS SCREENING (On ce After 26 Yrs) Completed 01/31/2024 HEPATITIS A VACCINES Aged Out No long er eligible based on patient's age to complete this topic HIB VACCINES Aged Out No longer eligi ble based on patient's age to complete this topic MENINGOCOCCAL VACCINES (ACWY) Aged Out No longer eligible based on patient's age to complete this topic MENINGOCOCCAL VACCINES (B) Aged Out N o longer eligible based on patient's age to complete this topic PNEUMOCOCCAL VACCINES (0-49 years) Aged Out No longer eligible b ased on patient's age to complete this topic Medical Devices Not on file [place] [address] [place] [address] [place] [address] [place] [address] [place] [address] [place] [address] [place] [address] [place] [address] [facility] [address] [place] [address] [place] [address] [employer] Care Teams Relay Tester Relationship Specialty Start Date End Date Tala Tena MD [address] [place] [phone] PCP - General Internal Medicine 08/09/23 Additional Source Comments The information contained in this document represents components of the legal health record. It is not the complete legal health record.[facility]
--- OUTSIDE RECORDS SUMMARY | 2024-11-12 13:32 | XMS_ITS | Encounter Summary ---
Author Organization [facility] Address [address] [place] [address] Phone Care Team Providers Care Medical Staff Credentialing Coordinator Name Role Phone Sandra Pineda NP Primary Care Provider Christiane alan Encounter Details Date Type Department Care Team (Late st Contact Info) Description 11/16/2016 Conversion Encounter [facility] - [address] [phone] Social History Tobacco Use Types Packs/Day Years [...] on filedocumented in this encounter Care Teams Medical Staff Credentialing Coordinator Relationship Specialty Start Date End Date Sandra Pineda NP PCP - General 11/10/16 07/10/22 documented as of this encounter
[2024-11-12 13:48] LABS: Appearance Urine Clear; Glucose Urine UA Negative (Negative); PH 5.5 (5.0-9.0); Specific Gravity - Urine 1.025 (1.005-1.025)
[2024-11-12 14:21] LABS: Anion Gap 13 (12-20); Blood Urea Nitrogen 11 mg/dL (9-16); Calcium 9.5 mg/dL (8.4-10.2); Carbon Dioxide 29 mmol/L (22-29); Chloride 103 mmol/L (96-108); Estimated Glomerular Filt Rate > 60; Potassium 3.8 mmol/L (3.3-5.1); Sodium 141 mmol/L (135-145)
[2024-11-12 14:49] LABS: Total Protein Urine Random 15 mg/dL (<12)
== END 2024-11-12 13:00 | disposition home or self-care (01) ==
LOC: HO.LAB 12:59
PROVIDERS: Visit Provider Internal Medicine Hypertension Specialist
DX: I10 Essential (primary) hypertension (principal); R80.9 Proteinuria, unspecified
CPT/HCPCS: 36415; 80048; 81003; 82570; 84156

== ENCOUNTER 2024-11-13 13:19 | Outpatient (AMB) | payer MEDICAID, SELFPAY ==
[2024-11-13 13:23] VITALS: BP 118/76; PULSE 104; O2SAT 97; BMI 41.6
--- NOTE | 2024-11-13 13:23 | HO.NEPHOV ---
Vital Signs 11/13/24 13:23 Height 5 ft 9 in Weight 282 lb BMI 41.6 BP 118/76 Blood Pressure Location Rt brachial Position Sitting Pulse 104 H Pulse Source Pulse Oximeter Pulse Oximetry (%) 97 Oxygen Delivery Method Room Air Intake Visit Reasons: Proteinuria-Conf Coal Miner Required: No Accompanied by: Self / Same As Patient Allergies No Known Allergies (No Known Allergies*) Allergy (Verified 11/13/24 13:24) Medication List - Last Reconciled 11/13/24 by Baldo Martinez MD amlodipine 5 mg PO DAILY blood sugar diagnostic (FreeStyle Lite Strips) As directed three times daily blood-glucose meter (FreeStyle Lite Meter kit) As directed chlorthalidone 12.5 mg PO DAILY fluticasone propionate 50 mcg/actuation 2 sprays intranasal DAILY glucose 2 grams PO NEEDED PRN lancets As directed three times daily levetiracetam (Keppra) 1,000 mg PO QAM levetiracetam 1,500 mg PO BEDTIME lisinopril 40 mg PO DAILY pen needle, diabetic (BD Ultra-Fine Ellie Pen Needle) As directed once daily sertraline 50 mg PO QAM HPI Comments Details: . Clovis is a 33-year-old man with a history of hypertension for more than 10 years. He is currently on lisinopril 40 mg chlorthalidone 25 mg of amlodipine 10 mg. He has had diabetes mellitus for almost 4 years in the setting of obesity. Recent urinalysis revealed proteinuria and hence this referral. In the past he underwent workup for the hypertension. There was mild elevation in the normetanephrines and he was referred to endocrinology and apparently pheochromocytoma was ruled out. At the time of returned to urine collection he was on antihypertensive medications but it is unclear what he was taking at the time. Abdominal imaging did not reveal any abnormality of the adrenal glands. He carries a diagnosis of hypertensive heart disease however the echocardiogram in 2022 reveal normal ventricles without any diastolic dysfunction EKG appeared normal as well. Does not have any shortness of breath no chest pain nausea or vomiting. No urinary symptoms no fever No joint pain no rash He has had episodes of lightheadedness when he stands up. No syncopal episode. History of seizures present No history of smoking cigarettes he uses marijuana once a week No history of alcohol abuse. He works as a teacher in [employer]. 05/27/2024 Overall doing well. Tolerating medications. He has gained some weight PFSH Medical History Hx of pancreatitis GERD (gastroesophageal reflux disease) Fatty liver Depression Nasal sinus cyst HTN (hypertension) Seizures Obesity due to excess calories DM2 (diabetes mellitus, type 2) Hx of acute pancreatitis High triglycerides Surgical History Hx of removal of cyst (10/10/23) Family History Father Unknown family medical history Mother Unknown family medical history Maternal Grandmother Diabetes Hypertension Social History Household Members: Spouse and Children Are you a primary day care attendant to a significant other at home: No Do you presently have visiting nurse or other home services: No Alcohol intake: former Comment: COUNTS CORRECT Patient Tobacco Use Status: Never used Tobacco service: No Current occupational status: employed Physical Exam Vital Signs: Last Vital Signs Pulse 104 H 11/13/24 13:23 BP 118/76 11/13/24 13:23 Pulse Ox 97 11/13/24 13:23 Oxygen Delivery Method Room Air 11/13/24 13:23 BMI result Body Mass Index 41.6 Results Reviewed Nephrology Results: Sodium, (135-145) 141 mmol/L 11/12/24 Potassium, (3.3-5.1) 3.8 mmol/L 11/12/24 Chloride, (96-108) 103 mmol/L 11/12/24 Carbon Dioxide, (22-29) 29 mmol/L 11/12/24 BUN, (9-16) 11 mg/dL 11/12/24 Creatinine, (0.5-1.4) 1.00 mg/dL 11/12/24 Calcium, (8.4-10.2) 9.5 mg/dL 11/12/24 Urine Protein, (Neg-Trace) Trace mg/dL 11/12/24 Urine Creatinine 289.35 mg/dL 11/12/24 Assessment & Plan Assessment & Plan (1) Proteinuria: Code(s): R80.9 - Proteinuria, unspecified Category: Medical (2) Uncontrolled hypertension: Code(s): I10 - Essential (primary) hypertension Category: Medical (3) DM2 (diabetes mellitus, type 2): Comment: no meds currently Code(s): E11.9 - Type 2 diabetes mellitus without complications Category: Medical Qualifiers: Diabetes mellitus complication status: with hyperglycemia Diabetes mellitus fpc insulin use: with seating upholsterer use Qualified Code(s): E11.65 - Type 2 diabetes mellitus with hyperglycemia; Z79.4 - hardwood floor installation helper (current) use of insulin Plan Young man with obesity and hypertension for more than 10 years with diabetes mellitus for about 5 years has proteinuria. Renal function is normal. Proteinuria is most likely due to underlying obesity and diabetes mellitus. Repeat urine protein creatinine ratio was unremarkable. Although lab did not provide a quantitative value. I will recheck protein creatinine ratio. Overall blood pressures seem to be well controlled. He has no significant nocturnal dipping. I will keep lisinopril 40 mg q.p.m.. They should also minimize the episodes of lightheadedness. Renal function is within normal range at this time Orders: Orders Basic Metabolic Panel 1 Year E11.65 - Type 2 diabetes mellitus with hyperglycemia, Z79.4 - hardwood floor installation helper (current) use of insulin Creatinine Urine 1 Year E11.65 - Type 2 diabetes mellitus with hyperglycemia, Z79.4 - hardwood floor installation helper (current) use of insulin Total Protein Urine Random 1 Year E11.65 - Type 2 diabetes mellitus with hyperglycemia, Z79.4 - hardwood floor installation helper (current) use of insulin UA and rflx microscopic 1 Year E11.65 - Type 2 diabetes mellitus with hyperglycemia, Z79.4 - hardwood floor installation helper (current) use of insulin Coding Level of Care Code Est Pt Level 3 (10484) Diagnoses Proteinuria R80.9 Uncontrolled hypertension I10 Type 2 diabetes mellitus with hyperglycemia, with long-term current use of insulin E11.65; Z79.4 Diabetes mellitus complication status: with hyperglycemia Diabetes mellitus seating upholsterer insulin use: with seating upholsterer use
--- OUTSIDE RECORDS SUMMARY | 2024-11-13 14:12 | XMS_ITS | Clinical Summary ---
Author Organization [facility] Address [address] [place] [phone] Phone Care Team Providers Care Protective Signal Installer Helper Name Role Phone Tala Tena MD Primary [...] topic Medical Devices Not on file Insurance [place] [address] [place] [address] [address] [place] [address] [place] [address] [place] [address] [place] [address] [address] [place] [address] [facility] [facility] [place] [place] [address] [address] [place] [address] [employer] Care Teams Protective Signal Installer Helper Relationship Specialty Start Date End Date Tala Tena MD [address] [place] [phone] PCP - General Internal Medicine 08/09/23 Additional Source Comments The information contained in this document represents components of the legal health record. It is not the complete legal health record.[facility]
--- OUTSIDE RECORDS SUMMARY | 2024-11-13 14:12 | XMS_ITS | Encounter Summary ---
Author Organization [facility] Address [address] [place] [address] Phone Care Team Providers Care Loan Originator Name Role Phone Sandra Pineda NP Primary Care Provider Christiane alan Encounter Details Date Type Department Care Team (Late st Contact Info) Description 11/16/2016 Conversion Encounter [facility] - [address] [address] Social History Tobacco Use Types Packs/Day Years [...] on filedocumented in this encounter Care Teams Loan Originator Relationship Specialty Start Date End Date Sandra Pineda NP PCP - General 11/10/16 07/10/22 documented as of this encounter
--- OUTSIDE RECORDS SUMMARY | 2024-11-13 14:12 | XMS_ITS | Encounter Summary ---
Author Organization [employer] Address [address] [place] [address] [address] [place] [address] Care Team Providers Care Stone Setter Name Role Phone Tala Tena MD Primary Care Provide r Reason for Visit * Reason Onset Date Comments Nurse Triage 04/12/2023 Encounter Details Date Type Department Care Team ([facility] st Contact Info) Description 04/12/2023 Telephone [facility] MEDICINE [address] [place], [place] [phone] Tlaa Tena MD [address] [place], [place] [phone] Nurse Triage Social History Tobacco Use Types [...] t he electric, gas, oil or water [employer] threatened to shut off services in your [...] first available. Also agreeable to BE by [facility] team. Pt wants PCP to review notes and see if sooner appt able to be accomodated. Pt advised of WIC. Given contact for [facility] and to also contact Neuro re: increased STEPHENS and tremors to see if sooner appt also available. Per pt has appt this month. PT advised to call back should sx worsen. Reviewed NTTS as well. Future Appointments Date Time Provider Department Center 04/25/2023 2:00 PM Tala Foote MD MEDICINE [facility] Protocol Used: Depression (Adult) Protocol-Based Disposition: See [...] documented as of this encounter Care Teams Stone Setter Relationship Specialty Start Date End Date Tala Tena MD [address] [place] [phone] PCP - General Family Medicine 05/16/21 documented as of this encounter
== END 2024-11-13 13:32 | disposition home or self-care (01) ==
LOC: HO.HKA 13:19
PROVIDERS: PCP Internal Medicine; Visit Provider Internal Medicine Hypertension Specialist
DX: R80.9 Proteinuria, unspecified (principal); I10 Essential (primary) hypertension; E11.65 Type 2 diabetes mellitus with hyperglycemia; Z79.4 Long term (current) use of insulin
CPT/HCPCS: 99213

== ENCOUNTER → 2024-11-13 13:19 | Outpatient (BNVA) | payer MEDICAID, SELFPAY | PROVIDERS: PCP Internal Medicine; Visit Provider Internal Medicine Hypertension Specialist | DX: E11.65 Type 2 diabetes mellitus with hyperglycemia (principal); R80.9 Proteinuria, unspecified; I10 Essential (primary) hypertension | CPT/HCPCS: 99212 ==

== ENCOUNTER 2025-01-30 15:13 | Outpatient (REF) | payer MEDICAID, SELFPAY ==
[2025-01-30 17:29] LABS: Alanine Aminotransferase 52 U/L (0-40); Albumin Level 5.0 g/dL (3.5-5.0); Alkaline Phosphatase 70 U/L (39-117); Aspartate Amino Transferase 37 U/L (5-37); Lipase 26 U/L (8-78); Total Protein 7.8 g/dL (6.5-8.0)
[2025-01-30 17:53] LABS: Folate 11.0 ng/mL (> or = 4.0); Vitamin B12 404 pg/mL (200-900)
[2025-02-03 20:08] LABS: Vitamin D 25-OH, D2 <4 ng/mL; Vitamin D 25-OH, D3 15 ng/mL; Vitamin D 25-OH, Total 15 ng/mL (30-100)
== END 2025-01-30 15:14 | disposition home or self-care (01) ==
LOC: HO.LAB 15:13
PROVIDERS: PCP Internal Medicine; Visit Provider Nurse Practitioner Family
DX: K21.9 Gastro-esophageal reflux disease without esophagitis (principal); R10.13 Epigastric pain; R74.01 Elevation of levels of liver transaminase levels; K59.00 Constipation, unspecified; E55.9 Vitamin D deficiency, unspecified; K59.1 Functional diarrhea; R14.0 Abdominal distension (gaseous)
CPT/HCPCS: 36415; 80076; 82306; 82607; 82746; 83690; 84443; 86364; 99212

== ENCOUNTER 2025-01-30 15:13 | Outpatient (AMB) | payer MEDICAID, SELFPAY ==
[2025-01-30 15:20] VITALS: BP 144/84; PULSE 84; O2SAT 99; BMI 43.4
--- NOTE | 2025-01-30 15:20 | A.OFFVIS_ITS ---
Vital Signs 01/30/25 15:20 Height 5 ft 9 in Weight 294 lb BMI 43.4 BP 144/84 H Blood Pressure Location Rt brachial Position Sitting Pulse 84 Pulse Source Pulse Oximeter Pulse Oximetry (%) 99 Oxygen Delivery Method Room Air Intake Visit Reasons: Diarrhea, r/s 10/27/24 Intake Note: New pt for initial eval of diarrhea, hx of GERD + pancreatitis. CC: C.O. difficulty with evacuating bowels, ? motility complications / slow digestion. Pt reports passing large amounts of whole food items. Pt also is concerned about any possible food intolerances, (ie green leaf veggies). GERD is currently diet controlled per pt. Does take famotidine ~ 1 / month at most. Postal Service Window Clerk Required: No Accompanied by: Self / Same As Patient Allergies No Known Allergies (No Known Allergies*) Allergy (Verified 11/13/24 13:24) HPI HPI Diarrhea, r/s 10/27/24: Details: 34-year-old male with past medical history of hydrocele, protein urea, hypertension, diabetes is here today for initial consultation. Patient was sent to us by his PCP. Patient reports frequent postprandial loose stools. Unable to tolerate green vegetables or salads. Patient feels like whenever he eats something like this it goes right through him for. Sees on digested food when stooling. Patient reports despite having postprandial loose stools he has constipation and not always feels like he empty his bowels completely. Patient reports occasional epigastric pain takes Pepcid as needed. Patient denies any nausea or vomiting. Epigastric pain most likely related to food, however sometimes pain in left upper or right upper quadrant pain and not always related to meals. Patient denies any mucus in his stools. Denies melena, hematochezia, unintentional weight loss or ribbon like stools. Patient denies any dyspepsia, dysphagia or odynophagia. [facility] Medical History Hx of pancreatitis GERD (gastroesophageal reflux disease) Fatty liver Depression Nasal sinus cyst HTN (hypertension) Seizures Obesity due to excess calories DM2 (diabetes mellitus, type 2) Hx of acute pancreatitis High triglycerides Surgical History Hx of removal of cyst (10/10/23) Family History Father Unknown family medical history Mother Unknown family medical history Maternal Grandmother Diabetes Hypertension Social History Household Members: Spouse and Children Are you a primary critical care technician to a significant other at home: No Do you presently have visiting nurse or other home services: No Alcohol intake: former Comment: COUNTS CORRECT Patient Tobacco Use Status: Never used Tobacco service: No Current occupational status: employed Review of Systems Const Denies weight gain and Denies weight loss ENT Reports no additional complaints, Denies dysphagia and Denies odynophagia Card Reports no additional complaints Resp Reports no additional complaints GI Denies abdominal pain, Denies belching, Denies melena, Reports bloating, Denies change in bowel habits, Reports constipation, Denies dysphagia, Denies excessive flatus, Denies dyspepsia, Denies heartburn, Denies diarrhea, Reports loose stools, Denies nausea, Denies odynophagia and Denies vomiting Reports no additional complaints Musc Reports no additional complaints Neuro Reports no additional complaints Psych Reports no additional complaints Endo Reports no additional complaints Physical Exam Vital Signs: Last Vital Signs Pulse 84 01/30/25 15:20 BP 144/84 H 01/30/25 15:20 Pulse Ox 99 01/30/25 15:20 Oxygen Delivery Method Room Air 01/30/25 15:20 BMI result Body Mass Index 43.4 Const General: healthy appearing, no acute distress and well developed Nutritional Appearance: well nourished Orientation/consciousness: patient oriented x3 Resp Effort & Inspection: normal respiratory effort, able to speak in complete sentences, no tracheal deviation and symmetric chest movement Auscultation: clear to auscultation bilaterally Cardio Rate: regular rate GI Inspection: Yes normal to inspection and No distended Palpation (GI): Soft to palpation, not firm, nontender and No hepatosplenomegaly present Auscultation: normal bowel sounds General: Yes no CVA tenderness Back/Spine/Pelvis Back: no CVA tenderness Skin General skin exam: elasticity normal, turgor normal and dry skin Neuro General: patient oriented x3 Psych Appearance: grossly normal Mental Status: mental status grossly normal Assessment & Plan Assessment & Plan (1) GERD (gastroesophageal reflux disease): Code(s): K21.9 - Gastro-esophageal reflux disease without esophagitis Qualifiers: Esophagitis presence: esophagitis presence not specified Qualified C ode(s): K21.9 - Gastro-esophageal reflux disease without esophagitis (2) Postprandial epigastric pain: Code(s): R10.13 - Epigastric pain (3) Diarrhea: Code(s): R19.7 - Diarrhea, unspecified Qualifiers: Diarrhea type: functional diarrhea Qualified Code(s): K59.1 - Functional diarrhea (4) Constipation: Code(s): K59.00 - Constipation, unspecified Qualifiers: Constipation type: slow transit constipation Qualified Code(s): K59.01 - Slow transit constipation (5) Postprandial abdominal bloating: Code(s): R14.0 - Abdominal distension (gaseous) Plan Will check transglutaminase, thyroid study, vitamin-D, B12, folate as well as lipase and liver panel. Patient has a history of pancreatitis in the past. He is not drinking alcohol. He does have a history of diabetes. Discussed with patient increasing fiber in his diet. Patient can take ysfz-qyj-mhyvolk fiber supplements with pre and probiotics. Weight loss recommended. Patient will follow-up in the office in 3-4 months. He will call us if he will have any GI concerning symptoms. He is agreeable to this plan and verbalizes understanding of instructions. He was given the opportunity to ask questions and all questions answered. Thank you for allowing me to participate in his care Orders: Orders Transglutaminase IgA 01/30/25 R10.9 - Unspecified abdominal pain TSH reflex Free T4 01/30/25 K59.00 - Constipation, unspecified Vitamin D 25-OH (D2 and D3) 01/30/25 E55.9 - Vitamin D deficiency, unspecified Lipase 01/30/25 R10.9 - Unspecified abdominal pain Vitamin B12 and Folate 01/30/25 R19.7 - Diarrhea, unspecified Liver Panel 01/30/25 R74.01 - Elevation of levels of liver transaminase levels Coding Level of Care Code New Pt Level 4 (14123) Diagnoses Gastroesophageal reflux disease, unspecified whether esophagitis present K21.9 Esophagitis presence: esophagitis presence not specified Postprandial epigastric pain R10.13 Functional diarrhea K59.1 Diarrhea type: functional diarrhea Slow transit constipation K59.01 Constipation type: slow transit constipation Postprandial abdominal bloating R14.0 Time Spent (min) 45 Comment 35 minutes spent with patient and additional 10 minutes spent reviewing his records
--- OUTSIDE RECORDS SUMMARY | 2025-01-30 15:26 | XMS_ITS | Encounter Summary ---
Author Organization [employer] Address [address] [place] [address] [address] [place] [address] Care Team Providers Care Alliance Manager Name Role Phone Tala Tena MD Primary Care Provide r Reason for Visit * Reason Onset Date Comments Medical Leave 03/01/2023 Encounter Details Date Type Department Care Team ([facility] st Contact Info) Description 03/01/2023 Telephone [facility] MEDICINE [address] [place] [address] Tala Tena MD [address] [place], [place] [phone] Medical Leave Social History Tobacco Use Types Packs/Day Years Used Date Smoking Tobacco: Never Passive Smoke Exposure: Never Smokeless Tobacco: Never Depression Answer Date Recorded Patient Health Questionnaire-9 Score 0 08/14/2022 Housing Stability Answer Date Recorded What is your housing situation today? I have garry birch 01/17/[address] you [...] t he electric, gas, oil or water [employer] threatened to shut off services in [...] encounter Miscellaneous Notes * Telephone Encounter - Adam Guzman - 03/01/2023 2:38 PM EST Tc from Jennifer with [employer] requesting a call in regards to Medical Leave documentation that wasfaxed over. Jennifer states documentation are difficult to read and is requesting clarification. Please contact Jennifer at [phone] documented in this encounter Plan of Treatment Upcoming Encounters Date Type Department Care Team (Late st Contact Info) Description 03/05/2025 9:15 AM EST Office Visit [facility] MED[facility]INE [address] [place] [address] Tala Tena MD [address] [place] [address] documented as of this encounter Visit Diagnoses Not on filedocumented in this encounter Additional Health Concerns Assessment Noted Time PHQ-9 Depression Total Score: 0 08/15/19 23 3:39 PM EDT documented as of this encounter Care Teams Alliance Manager Relationship Specialty Start Date End Date Tala Tena MD [address] [place] [address] PCP - General Family Medicine 05/16/21 documented as of this encounter
--- OUTSIDE RECORDS SUMMARY | 2025-01-30 15:26 | XMS_ITS | Data Portability ---
Author Organization [place] - [facility], [facility] Address [address] [address] Assessment Encounter Date Assessment Date Assessment LastModified [...] allergy consider immunotherapy. All questions were answered. [email or web address] Not available 04/22/2024 13:54:46 Plan of Treatment Reminders Order Date Submit Date Provider Last Modified By Organization Details Last Modified Time Details Appointments None recorded. Lab None recorded. Referral None recorded. Procedures allergy testing, skin prick (PROC) 2024 025 [email or web address] Not available 5 13:07:39 intradermal allergy skin testing (PROC) 2024 025 [email or web address] Not available 5 13:07:39 pulmonary function test procedure (PROC) 2024 025 [email or web address] Not available 5 13:07:39 pulse oximetry (PROC) 2024 025 [email or web address] Not available 13:07:39 Surgeries None recorded. Imaging None recorded. Medication Orders Flonase Allergy Relief 50 mcg/actuati on nasal spray,suspe nsion 2024 025 [id number], [address] [facility], [place], [address], 13:55:26 Patient TargetsNo targets recorded. Patient Instructions Encounter Date Encounter Id Patient Instructions Last Modified By Organization Details Last Modified Time 05/16/2024 [id number] Nursing Documentation for Allergy Testing: Ordering Provider Dr. Mendes Weight:lbs: 270kg: PFT Yes With Bronchodilator approval needed to proceed with allergy testing? No ok'd testing History of Asthma:No Asthma Meds: Last used: Asthma exacerbated by: Chance that : N/A Fear of needles: No Regular medications reviewed in Computer: Yes Medication allergies: NKDA Antihistamine use: No Medications used: Food Allergies:no Any foods make your mouth feeling itchy: No If yes: History of severe reaction where had to go to ER? 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) Symptoms having: Post Nasal Drip If other: Frequency Year Round Spirometry Contraindications: Heart attack in the last 3 months: No Major surgery in last 3 months: No Detached retina(serious eye issues) in last 2 months: No Hospitilization in last month: No Proceed with PFT Yes approval needed: No Nursing Notes: Pt tolerated test well Yes Benadryl cream to test sites Yes Patient became syncopal-placed in supine position No Large reactions to MQT, reschedule IDT for a different date No Other: Written by: LG Judd Not available 05/16/2024 09:43:51 Reason for Referral [...] Address Organization Details Recorded Time Nasal congestion 95452029 Active 2024 MARCIO DARLING PA-C [address] [facility], [place], [address], [facility] 5 13:54:51 Allergic rhinitis 86675250 Active 2024 MARCIO DARLING PA-C [address] [place] [address],[facility], [place], [address], [facility] 5 13:54:57 Non-allergi c rhinitis 006133463262 Active 2024 MARCIO DARLING PA-C [address] [place] [address],[facility], [place], [address], [facility] 5 13:54:57 Seasonal allergic rhinitis 115466700 Active 2024 MARCIO DARLING PA-C [address] [facility], [place], [address], [facility] 5 13:54:57 Deviated nasal septum 519528432 Active 2024 MARCIO DARLING PA-C [address] [facility], [place], [address], [facility] 5 13:55:30 Problem Notes None recorded. Procedures Surgical History Date Name Laterality Status Provider Name and Address Organization Details Recorded Time Allergy Testing-Full completed LG JUDD [facility] [place],[address], [address], [facility] 05/16/2024 10:02:26 Imaging Results None recorded. Procedure [...] Available No t Available [employer] Osmany 2 Interior SCAN SENSOR EVERY 8 HOURS active Not Available Not Available No t Available Vitals Date Recorded Body height Body mass index (BMI) Body weight Heart rate Oxygen saturation Oxygen saturation in Arterial blood by Pulse oximetry Systolic And Diastolic Provider Name and Address Organization Details Last Updated DateTime 5 175.26 cm 39.9 kg/m2 033990. 94 g 82 /min 98 % 98 % 120/76 mm[Hg] [address], [phone] [place] [address] [facility] 09:08:22 Social History None recorded. Functional Status None recorded. Mental Status None recorded. Family History Nothing Reported. Medical History No medical history recorded. Past Encounters Encounter ID Performer Location Encounter Start Date Encounter Closed Date Diagnosis/Indication Diagnosis SNOMED-CT Code Diagnosis ICD10 Code Diagnosis IMO Codes Diagnosis Note [id number] MARCIO DARLING PA-C [facility] [address] [address] 04/22/2024 13:21:51 04/22/2024 13:49:30 Nasal congestion 48336512 R09.81 Allergic rhinitis 324790 04 J30.9 Deviated nasal septum 12 3012981 J34.2 [id number] [facility] Allergy [address] [place] [address] [address] 05/16/2024 08:50:57 05/16/2024 10:03:01 Allergic rhinitis 02381225 J30.9 Health Concerns Section Related Observation LastModified by Organization Detai ls LastModified Time None Recorded Concern Status LastModified by Organization Details LastModified Time None Recorded Advance Directives Directive None Recorded Payers Insurance Date Sequence Insurance Name Policy Number Policy Walters Covered Member ID Walters Member ID Guarantor Name 07/02/2024 1 [place] [facility] Clovis casiano [id number] Clovis Kurtz Notes Date Note Type Note Provider Name and Address Organization Details Recorded Time 04/22/2024 text/html ROS as noted in the HPI 33-year-old male presents for evaluation of abnormal [...] sprays or allergy medication. MARCIO DARLING PA-C [address] [place] [address], [place], [address], [facility] - [facility] 04/22/2024 13:55:49
--- OUTSIDE RECORDS SUMMARY | 2025-01-30 15:26 | XMS_ITS | Clinical Summary ---
Author Organization [facility] Address [address] [place] [phone] Phone Care Team Providers Care Line Installer Trolley Name Role Phone Unavailable Primary Care Provider [...] of 2 - 13+ 2-dose series) 08/22/2003 HPV Vaccines (1 - 3-dose SCDM series) 2017 DTaP,Tdap,and Td Vaccines (7 - Td or Tdap) 01/15/2018 01/16/2008, 06/04/2002, 11/30/1994, Additional history exists Influenza Vaccines (#1) 2024 01/16/2008 COVID-19 Vaccine ( season) 2024 HIB Vaccines Completed 12/31/1991, 06/02, 05/02/1991, Additional history exists IPV Vaccines Completed 11/30/1994, 03/04, 05/30/1991, Additional history exists MMR Vaccines Completed 11/30/1994, 08/31/1991 Hepatitis B Vaccines Completed 02/27/2000, 11/21/1999, 10/21/1999 Meningococcal Vaccine Completed 01/16/2008 Hepatitis A Vaccines Aged Out No long er eligible based on patient's age to complete this topic Men B Vaccine Aged Out No longer elig ible based on patient's age to complete this topic Pneumococcal Vaccine Aged Out No long er eligible based on patient's age to complete this topic
--- OUTSIDE RECORDS SUMMARY | 2025-01-30 15:26 | XMS_ITS | Encounter Summary ---
Author Organization [employer] Address [address] [place] [address] 7t [place] [address] Care Team Providers Care Equipment Associate Name Role Phone Tala Tena MD Primary Care Provide r Reason for Visit * Reason Onset Date Comments Nurse Triage 04/12/2023 Encounter Details Date Type Department Care Team ([facility] st Contact Info) Description 04/12/2023 Telephone [facility] MEDICINE [address] [place], [place] [phone] Tala Tena MD [address] [place], [place] [phone] Nurse Triage Social History Tobacco Use Types [...] t he electric, gas, oil or water [employer] threatened to shut off services in your [...] first available. Also agreeable to BE by [facility] team. Pt wants PCP to review notes and see if sooner appt able to be accomodated. Pt advised of WIC. Given contact for [facility] and to also contact Neuro re: increased STEPHENS and tremors to see if sooner appt also available. Per pt has appt this month. PT advised to call back should sx worsen. Reviewed NTTS as well. Future Appointments Date Time Provider Department Center 04/25/2023 2:00 PM Tala Foote MD MEDICINE [facility] Protocol Used: Depression (Adult) Protocol-Based Disposition: [...] Description 03/05/2025 9:15 AM EST Office Visit [facility] [address] [place] [address] Tala Tena MD [address] [place] [address] documented as of this encounter Visit Diagnoses Not on filedocumented in this encounter Additional Health Concerns Assessment Noted Time PHQ-9 Depression Total Score: 0 08/15/19 23 3:39 PM EDT documented as of this encounter Care Teams Equipment Associate Relationship Specialty Start Date End Date Tala Tena MD [address] [place] [phone] PCP - General Family Medicine 05/16/21 documented as of this encounter
--- OUTSIDE RECORDS SUMMARY | 2025-01-30 15:26 | XMS_ITS | Encounter Summary ---
Author Organization [employer] Address [address] [facility] 7t [place] [address] Care Team Providers Care Slunk Skin Curer Name Role Phone Tala Tena MD Primary Care Provide r Reason for Visit * Reason Comments Med Refill Encounter Details Date Type Department Care Team ([facility] st Contact Info) Description 12/04/2023 Refill [facility] MEDICINE [address] [place], [place] [phone] Tala Tena MD [address] [place] [address] Social History Tobacco Use Types Packs/Day Years [...] Description 03/05/2025 9:15 AM EST Office Visit [facility] MEDICINE [address] [place] [address] Tala Tena MD [address] [place] [address] documented as of this encounter Visit Diagnoses Not on filedocumented in this encounter Additional Health Concerns Assessment Noted Time PHQ-9 Depression Total Score: 21 024 1:20 PM EST documented as of this encounter Care Teams Slunk Skin Curer Relationship Specialty Start Date End Date Tala Tena MD [address] [place] [address] PCP - General Family Medicine 05/16/21 documented as of this encounter
--- OUTSIDE RECORDS SUMMARY | 2025-01-30 15:26 | XMS_ITS | Clinical Summary ---
Author Organization [facility] Address [address] [facility] [address] [place] [address] Phone Care Team Providers Care Bull Wheel Worker Name Role Phone Tala Morrison MD Primary Care Provider Allergies No known [...] Adult Td,Tdap Booster 02/03/2020 02/02/2010 , 01/16/2008 INFLUENZA VACCINE (#1) 2024 COVID-19 VACCINE ( - 2024-2 6 season) 2024 SMOKING STATUS SCREENING (On ce After 26 [...] topic Medical Devices Not on file Insurance [facility] C[employer] [facility]3 [facility] [address] [place] [address] [place] [address] C3 ACO Care Teams Bull Wheel Worker Relationship Specialty Start Date End Date Tala Morrison MD [address] [place] [address] PCP - General Internal Medicine 08/09/23 Additional Source Comments The information contained in this document represents components of the legal health record. It is not the complete legal health record.[facility]
--- OUTSIDE RECORDS SUMMARY | 2025-01-30 15:26 | XMS_ITS | Encounter Summary ---
Author Organization [employer] Address [address] [place] [address] [address]t [place] [address] Care Team Providers Care Consulting It Architect Name Role Phone Tala Tena MD Primary Care Provide r Reason for Visit * Reason Onset Date Comments requesting a call back 03/20/2022 Encounter Details Date Type Department Care Team ([facility] Contact Info) Description 03/20/2022 Telephone [facility] MEDICINE [address] [place], [place] [phone] Tala Tena MD [address] [place] [address] requesting a call back Social History Tobacco [...] Miscellaneous Notes * Telephone Encounter - Ginger SmartPAO - 03/21/2022 10:49 AM EST Follow up on patient requests, shanika hinds/HR Patricia @ [place] patient only needs to have a letter because we were very detailed in the [facility] paperwork and they are aware of his [...] follow up. * Telephone Encounter - Narinder Reid - 03/20/2022 2:10 PM EST Tc from pt requesting a call back regarding needing clearance note to go back to work Please contact pt at [phone] documented in this encounter Plan of Treatment Upcoming Encounters Date Type Department Care Team (Late st Contact Info) Description 03/05/2025 9:15 AM EST Office Visit [facility] MEDICINE [address] [place] [address] Tala Tena MD [address] [place] [address] documented as of this encounter Visit Diagnoses Not on filedocumented in this encounter Care Teams Consulting It Architect Relationship Specialty Start Date End Date Tala Tena MD [address] [place] [address] PCP - General Family Medicine 05/16/21 documented as of this encounter
--- OUTSIDE RECORDS SUMMARY | 2025-01-30 15:26 | XMS_ITS | Encounter Summary ---
Author Organization [facility] Address [address] [place] [address] Phone Care Team Providers Care Director Of Conservation Name Role Phone Sandra Pineda NP Primary Care Provider Christiane alan Encounter Details Date Type Department Care Team (Late st Contact Info) Description 11/16/2016 Conversion Encounter [facility] - [address] [address] Social History Tobacco Use Types Packs/Day Years [...] on filedocumented in this encounter Care Teams Director Of Conservation Relationship Specialty Start Date End Date Sandra Pineda NP PCP - General 11/10/16 07/10/22 documented as of this encounter
--- OUTSIDE RECORDS SUMMARY | 2025-01-30 15:27 | XMS_ITS | Clinical Summary ---
Author Organization [employer] Address [address] [place] [address] [address] [place] [address] Care Team Providers Care Travel Accommodation Inspector Name Role Phone Tala Tena MD Primary Care Provide r Allergies No known active allergies Medications * This document contains information received from the source organization and may not represent a complete record from that organization. Lancets miscIndications:T ype 2 diabetes mellitus without complication, without long-term current use of insulin ([facility]) Use to test blood sugar 2 times daily 100 each 4 Active Alcohol Swabs (Alcohol Prep) 70 % padsIndications:T ype 2 diabetes mellitus without complication, without long-term current use of insulin ([facility]) USE TO TEST BLOOD SUGAR 2 TIMES DAILY 100 each 5 4 Active Neomycin-Polymyxi n-HC 1 % solutionIndicatio ns:Acute otitis externa of both ears, unspecified type Administer 4 drops into affected ear(s) 4 times daily. 10 mL 4 Active glucagon (Gvoke HypoPen 1-Pack) 0.5 MG/0.1ML injectionIndicati ons:Hypoglycemia Inject 0.1 mL (0.5 mg) under the skin 1 (one) time if needed for low blood sugar. 1 each 1 4 Active Continuous Glucose Platform Worker (FreeStyle Osmany 2 [place]) deviceIndications :Type 2 diabetes mellitus with hypoglycemia without coma, without long-term current use of insulin ([facility]) Scan sensor every 8 hours 1 each 4 Active sertraline (Zoloft) 50 MG tabletIndications :Depression, unspecified depression type TAKE 1 TABLET BY MOUTH EVERY DAY IN THE MORNING 30 tablet 2 5 Active chlorthalidone (Hygroton) 25 MG tablet TAKE 1 TABLET BY MOUTH EVERY DAY IN THE MORNING 90 tablet 3 5 Active amLODIPine (Norvasc) 5 MG tabletIndications :Primary hypertension TAKE 1 TABLET BY MOUTH EVERY DAY 90 tablet 3 5 Active Continuous Glucose Sensor (FreeStyle Osmany 2 Sensor) miscIndications:T ype 2 diabetes mellitus with hypoglycemia without coma, without long-term current use of insulin ([facility]) APPLY 1 SENSOR EVERY 14 DAYS 2 each 2 5 Active lisinopril 40 MG tablet TAKE 1 TABLET BY MOUTH EVERY DAY 90 tablet 1 5 Active Active Problems Problem Noted Date [...] refer him to surgery Ulcer, skin, non-healing, wi th unspecified severity (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) 04/25/2023 Assessment & Plan (04/25/2023 9:26 AM EST): PLAN: (check all that apply) New/Additional Services needed provided [place] with [facility] intake number for OP therapy and psychiatry, Behavioral Health Integration Plan Internal Follow up with [facility] PHQ9: 21 GAD7: 19 Behavioral Health Diagnoses [...] lifestyle modifications - Continue current medications Seizure (CMS/HCC) 08/14/2022 Nausea and vomiting 08/14/2022 NAFLD (nonalcoholic [...] Encounters Date Type Department Care Team Description 12/30/2024 Telephone [facility] [address] [place] [address] Natacha Matias RN CGM PA 12/28/2024 Refill [facility] [address] [place] [address] Tala Tena MD 12/22/2024 Telephone [facility] [address] [place], [place] [phone] Tala Tena MD OUTREACH from Last 3 Months Immunizations Immunization Administration Dates Next Due DTP [...] 81 06/10/2024 9:20 AM EDT Temperature 36.7 C (98.1 F) 06/10/2024 9:20 AM EDT Respiratory Rate 16 06/10/2024 9:20 AM EDT [...] Description 03/05/2025 9:15 AM EST Office Visit [facility] [address] [place] [address] Tala Tena MD [address] [place] [address] Health Maintenance Due Date Last Done Comments Disability Screening 1990 Eye Exam 2000 Family Planning (PISQ) 2005 HPV Vaccines (1 - Male 3-dose series) 2005 Hepatitis A Vaccines (1 of 2 - Risk 2-dose series) 2009 DTaP/Tdap/Td Vaccines (8 - Td or Tdap) 02/03/2020 02/02/2010, 01/16/2008, 06/04/2002, Additional history exists Diabetes: Foot Exam 08/15/2023 08/14/2022, Depression Monitoring 10/23/2023 04/24/2023, 024 COVID-19 Vaccine ( season) 2024 10/16/2020, 09/25/2020 Influenza Vaccine (#1) 2024 , 02/02/2010, 01/16/2008 Diabetes: Hemoglobin A1C 12/11/2024 025, 04/25/2023, 08/14/2022, Additional history exists SDOH Screening 06/03/2025 06/03/2024 Alcohol/Substance Use Screening 06/10/2025 06/10/2024 Diabetes: Urine Protein Screening 06/10/2025 06/10/2024, 05/12/2024 Lipid Panel 06/10/2025 06/10/2024, 02/11/2023, 06/23/2021, Additional history exists Tobacco Screening 06/10/2025 06/10/2024 Zoster Vaccines (1 [...] Years) and At-Risk Patients (6 to 49) Years Completed 08/31/2023 Meningococcal B Vaccine Aged Out No l onger eligible based on patient's age to complete this topic RSV under 20 months Aged Out No longe r eligible based on patient's age to complete this topic Rotavirus Vaccines Aged Out No longer eligible based on patient's age to complete this topic Procedures Procedure Name Priority Date/Time Associated Diagnosis Comments LIPID PANEL, STANDARD Routine 06/10/2024 10:13 AM EDT Type 2 diabetes mellitus with hypoglycemia without coma, without long-term current use of insulin (CMS/HCC) POCT GLYCATED HEMOGLOBIN, TOTAL Routine 06/10/2024 9:22 AM EDT Type 2 diabetes mellitus with hypoglycemia without coma, without long-term current use of insulin (CMS/HCC) ALBUMIN, RANDOM URINE W/CREATININE Routine 06/10/2024 9:10 AM EDT Type 2 diabetes mellitus with hypoglycemia without coma, without long-term current use of insulin (CMS/HCC) ZZZ HISTORICAL HEPATITIS C AB W/REFL TO HCV RNA, QN, PCR Routine 05/12/2021 10:03 AM EST HIV 1/2 ANTIGEN/ANTIBODY, FOURTH GENERATION W/RFL Routine 05/12/2021 10:03 AM EST from Last 3 Months or Most Recently Relevant to Health Maintenance Results * (ABNORMAL) Lipid Panel, Standard (06/10/2024 10:13 AM EDT) Triglycerides 187(H) <150 mg/dL [facility] Comment:Desirable Triglyceri de: less than 150 mg/dLBorderline High Triglyceride 150-199 mg/dLHigh Triglyceride: 200-499 mg/dLVery High Triglyceride: greater than or equal to 5OO mg/dL Cholesterol 195 <200 mg/dL [facility] Comment:Desirable Cholestero l: less than 200 mg/dLBorderline High Cholesterol: 200-239 mg/dLHigh Cholesterol: greater than 239 mg/dL LDL Cholesterol Calculated 127(H) <100 mg/dL [facility] Comment:Desirable LDL: less than 100 mg/dLNear Optimal/Above Optimal LDL: 110- 129 mg/dLBorderline High LDL: 130-159 mg/dLHigh LDL: 160-189 mg/dLVery High LDL: greater than or equal to 190 mg/dL HDL Cholesterol 31(L) >40 mg/dL [facility] Comment:Desirable HDL: great er than 40 mg/dL Note: This HDL assay may give artificially low results in patients with liver disease. Blood Venous blood specimen / Unknown 06/10/2024 10:13 AM EDT 06/10/2024 11:29 AM EDT us Tala Foote MD LAB BLOOD ORDERABLES Final Result Performing Organization Address City/State/[facility] Co de Phone Number [facility] [address] [place] [phone] * (ABNORMAL) POCT HGB A1C (06/10/2024 9:22 AM EDT) Hemoglobin A1C 6.1(A) 4.0 - 6.0 % QC Media Lot # [id number] Lot# Expiration Date Blood 06/10/2024 9:22 AM EDT Tala Foote MD POINT OF CARE TEST EN TER/EDIT ORDERABLES Final Result * Albumin, Random Urine W/Creatinine (06/10/2024 9:10 AM EDT) Creatinine, Urine 231.80 mg/dL [facility] Microalbumin Urine 12.0 mg/L [facility] Microalbum Creatinine Ratio Ur 5.1 <30 ug/mg cr [facility] Comment:Albumin/Creatinine R atio Reference Ranges: Normal: < 30 ug/mg creatinine Microalbuminuria: 30 - 300 ug/mg creatinineClinical Albuminuria: > 300 ug/mg creatinine Urine (Urine, Random) 06/10/2024 9:10 AM EDT 06/10/2024 11:34 AM EDT Tala Foote MD LAB URINE ORDERABLES Final Result Performing Organization Address [facility] Co de Phone Number [facility] [address] [place] [address] [phone] * HEPATITIS C AB W/REFL TO HCV RNA, QN, PCR (05/12/2021 10:03 AM EST) HEPATITIS C ANTIBODY NON-REACT JUSTINE NON-REACT JUST[facility] INDEX 0.01 <1.00 [facility] Comment: HCV antibody was non-reactive. There is no laboratory evidence of HCV infection. In most cases, no further action is required. However, if recent HCV exposure is suspected, a test for HCV RNA (test code 85331) is suggested. For additional information please refer to http://education.[employer]/faq/GNE75o0 (This link is being provided for informational/ educational purposes only.) 05/12/2021 10:0 3 AM EST us Tala Foote MD HISTORICAL/NON ORDERA BLE LABS Final Result Performing Organization Address [facility] de Phone Number [facility] [address] * HIV 1/2 ANTIGEN/ANTIBODY,FOURTH GENERATION W/RFL (05/12/2021 10:03 AM EST) HIV-1/2 ANTIGEN AND ANTIBODIES, 4TH GENERATION W/ REFLEX NON-REACT JUSTINE NON-REACT JUSTINE [facility] Comment: HIV-1 antigen and HIV-1/HIV-2 antibodies were not detected. There is no laboratory evidence of HIV infection. PLEASE NOTE: This information has been disclosed to you from records whose confidentiality may be protected by state law. If your state requires such protection, then the state law prohibits you from making any further disclosure of the information without the specific written consent of the person to whom it pertains, or as otherwise permitted by law. A general authorization for the release of medical or other information is NOT sufficient for this purpose. For additional information please refer to http://education.[employer]/faq/EVT988 (This link is being provided for informational/ educational purposes only.) The performance of this assay has not been clinically validated in patients less than 2 years old. 05/12/2021 10:0 3 AM EST us Tala Foote MD LAB BLOOD ORDERABLES Final Result [facility] [address] from Last 3 Months or Most Recently Relevant to Health Maintenance Insurance [facility] STANDARD Care Teams Travel Accommodation Inspector Relationship Specialty Start Date End Date Tala Tena MD [address] [place] [address] PCP - General Family Medicine 05/16/21
== END 2025-01-30 15:57 | disposition home or self-care (01) ==
LOC: HO.HGI 15:13
PROVIDERS: PCP Internal Medicine; Visit Provider Nurse Practitioner Family
DX: K21.9 Gastro-esophageal reflux disease without esophagitis (principal); R10.13 Epigastric pain; K59.1 Functional diarrhea; K59.01 Slow transit constipation; R14.0 Abdominal distension (gaseous)
CPT/HCPCS: 99204